=== PATIENT | female | born 1975 | race Caucasian/White ===

== ENCOUNTER 2018-09-21 14:35 | Inpatient (IN) ==
[2018-09-21] MEDS ORDERED: Pantoprazole Inj 40 MG Vial IV.PUSH ONE (14:44)
[2018-09-21] MEDS ORDERED: Morphine Inj 4 MG/ML Vial IV.PUSH ONE (14:44)
[2018-09-21] MEDS ORDERED: Sod Chloride 0.9% Inj 1,000 ML IV.SIG ONE ×2 (14:44→14:58)
--- NOTE | 2018-09-21 14:52 | ED ---
HPI General Chief Complaint: GI Bleed Stated Complaint: Medical Time Seen by Provider: 09/21/18 14:37 Source: patient and RN notes reviewed Mode of arrival: EMS Limitations: no limitations History of Present Illness HPI narrative: 43-year-old female presents to the emergency department via EMS for evaluation of abdominal pain, coffee-ground emesis, dark and tarry stools that is been ongoing for 3 days. Patient reports history of gastric bypass surgery in 2002, peptic ulcer disease. She denies drinking any alcohol or taking any anti-inflammatories. She denies history of GI bleed. Patient denies any syncope. She reports epigastric abdominal pain, 09/04. She reports vomiting and innumerable episodes of diarrhea. Patient has not vomited today. No fevers or chills. Moderate severity. MD complaint: Reports abdominal pain Onset (ago): day(s) (3) Pain Consistency: constant Location: Reports epigastric Severity: moderate Severity scale (1-10): 10 Quality: Reports aching and sharp Radiation: Reports none Migration to: Reports no migration Relieving factors: nothing Exacerbating factors: nothing Associated symptoms: Reports nausea, vomiting, diarrhea, melena and anorexia; Denies fever, chills, constipation, dysuria, hematemesis, hematochezia, hematuria and syncope Related Data Home Medications Medication Instructions Recorded Confirmed pantoprazole 40 mg PO DAILY 09/21/18 09/21/18 sucralfate 1 g PO Q6H 09/21/18 09/21/18 Allergies Allergy/AdvReac Type Severity Reaction Status Date / Time ondansetron [From Zofran] Allergy Itching, Verified 09/21/18 14:45 Generalized Review of Systems ROS: all other systems reviewed are negative PMFSH Family History Family History Other CAD (coronary artery disease) Social History Social History Substance History: No History of Abuse Second Hand Smoke Exposure: Yes Smoking Status: Current every day smoker Tobacco Type: Cigarettes How Often Do You Have a Drink Containing Alcohol: 4 or more times a week Recent Travel in [facility] within the Last 8 Weeks: No Recent Out of Country Travel within the Last 8 Weeks: No Exam Narrative Exam Narrative: GENERAL: Well-nourished, well-developed female patient, afebrile SKIN: Focused skin assessment warm/dry. HEAD: Normocephalic. Atraumatic EYES: No scleral icterus. No injection or drainage. NECK: Supple, trachea midline. No JVD or lymphadenopathy. CARDIOVASCULAR: Regular rate and rhythm without murmurs, gallops, or rubs. RESPIRATORY: Breath sounds equal bilaterally. No accessory muscle use. Lung sounds are clear to auscultation GASTROINTESTINAL: Abdomen soft and nondistended. Patient has tenderness over epigastric area. MUSCULOSKELETAL: No cyanosis, or edema. BACK: Nontender without obvious deformity. No CVA tenderness. RECTAL EXAM: No masses or tenderness, stool is black. Hemoccult is grossly positive. This was done with RN at bedside Procedures Hemaprompt Stool Procedural Steps Taken: specimen placed in appropriate test area, developer placed on specimen and control areas and controls appropriately positive and negative Hemaprompt Stool Result: positive Course Initial Documented Vital Signs Temperature 98.7 F 09/21/18 14:46 Pulse Rate 125 H 09/21/18 14:46 Respiratory Rate 15 09/21/18 14:46 Blood Pressure 96/56 L 09/21/18 14:46 Pulse Oximetry 100 09/21/18 14:46 Last Documented Vital Signs Temperature 98.7 F 09/21/18 14:46 Pulse Rate 96 H 09/21/18 15:21 Respiratory Rate 15 09/21/18 14:46 Blood Pressure 120/68 09/21/18 15:21 Pulse Oximetry 100 09/21/18 14:56 Medical Decision Making VIRIDIANA Attestation VIRIDIANA supervised visit: Yes Attestation: I, Dr. Leal, have reviewed the advance practice practitioner's documentation and am in agreement, met with the patient face to face, made the diagnosis, and the medical decision making was done by me. *My assessment and Findings: Bleeding peptic ulcer vs. perforated ulcer vs. esophageal varices vs. johnny terrell tear vs. colitis 43yo F with PMH of alcohol abuse (quit 8 months ago), bleeding peptic ulcer 1 year ago seen at [facility] here with c/o hematemesis and black tarry stool for 3 days. Pt told me that last time she vomited dark red blood was 7am and it was a cupful. Pt has left upper abdominal tenderness to palpation. Does not remember if she had scope last year when she had bleeding. Initially pt was hypotensive and tachycardic. Pt improved with NS IVF. Given her vital signs, history of alcohol abuse, and hematemesis history, pt placed on octreotide drip and protonix drip. Pt Labs reviewed, no leukocytosis. H/H is low at 10.2/ 30.5. Vital signs improved after IVF. Magnesium is low at 1.2, replaced. Elevated LFTs but pt is a chronic alcohol abuser. Lipase normal. UA showed WBC 6. Alcohol is elevated at 168. Pt is now hemodynamically stable and has not had any episode of hematemesis here. CXR showed no free air. CT a/p showed diffuse thickening involving the wall ascending and proximal transverse colon suggesting acute colitis. Covered with antibiotics. Will admit for GI bleed and colitis. Accepted to Dr. Soriano's service. [facility] Narrative Medical decision making narrative: 43-year-old female presents to the emergency department for evaluation of coffee-ground emesis, black and tarry stools, again epigastric abdominal pain for 3 days with history of peptic ulcer disease. IV access obtained. CBC, CMP, lipase, magnesium, PTT, PT/INR, alcohol level, type and screen, UA, urine test are ordered and pending. Patient is given normal saline 1 L IV bolus, Reglan 10 mg IV, Protonix 40 mg IV, morphine [address] of abdomen/pelvis with IV contrast is ordered and pending. My attending physician, Dr. Leal, also ordered cxr, protonix drip, octreotide drip. CBC with anemia hemoglobin 10.2, hematocrit 30.5. CMP shows hyponatremia 129, elevated liver enzymes with AST 129, ALT 72. Lipase is 92. Magnesium is 1.2. PTT is 32.7. PT/INR is 13.1/1.3. Alcohol level is 168. UA is pending. UPT is negative. Chest x-ray shows Negative examination. No evidence of free intraperitoneal air. CT abdomen/pelvis shows Diffuse thickening involving the wall the ascending and proximal transverse colon suggesting acute colitis. Clinical correlation is recommended; Markedly enlarged liver with diffuse fatty infiltration; Small right paraumbilical abdominal wall hernia containing only fat. Patient is given magnesium 1 g IV. Patient does admit to drinking alcohol recently. Patient will be admitted for GI bleed, colitis. She verbalizes agreement. Medical Screen Exam Complete: Yes Emergency Medical Condition: Yes Differential Diagnosis Differential Diagnosis: upper GI bleed vs. lower GI bleed vs. pancreatitis vs. anemia Medical Records Medical records reviewed: Yes I reviewed the patient's medical records. Lab Data Result diagrams: 09/21/18 15:10 09/21/18 15:10 POC Results POC Urine Results Negative Lab Results 09/21/18 09/21/18 09/21/18 Range/Units 15:10 15:10 15:10 WBC 9.6 (4.0-11.0) th/mm3 RBC 3.22 L (4.00-5.30) mil/mm3 Hgb 10.2 L (11.6-15.3) gm/dL Hct 30.5 L (35.0-46.0) % MCV 94.8 (80.0-100.0) fL MCH 31.7 (27.0-34.0) pg MCHC 33.4 (32.0-36.0) % RDW 19.7 H (11.6-17.2) % Plt Count 214 (150-450) th/mm3 MPV 9.3 (7.0-11.0) fL Neut % (Auto) 48.2 (16.0-70.0) % Lymph % (Auto) 40.4 (9.0-44.0) % Levy % (Auto) 9.2 H (0.0-8.0) % Eos % (Auto) 1.2 (0.0-4.0) % Baso % (Auto) 1.0 (0.0-2.0) % Neut # (Auto) 4.6 (1.8-7.7) th/mm3 Lymph # (Auto) 3.9 (1.0-4.8) th/mm3 Levy # (Auto) 0.9 (0.0-0.9) th/mm3 Eos # (Auto) 0.1 (0.0-0.4) th/mm3 Baso # (Auto) 0.1 (0.0-0.2) th/mm3 WBC Differential . Differential Comment Auto diff final PT (9.8-11.6) sec INR Ratio APTT (24.3-30.1) sec Sodium 129 L (136-145) meq/L Potassium 3.7 (3.5-5.1) meq/L Chloride 85 L (98-107) meq/L Carbon Dioxide 29.8 (21.0-32.0) meq/L Anion Gap 14 (5-15) meq/L BUN 5 L (7-18) mg/dL Creatinine 0.42 L (0.50-1.00) mg/dL Estimated GFR Greater than 89 (>89) mL/min Random Glucose 92 (74-106) mg/dL Calcium 8.4 L (8.5-10.1) mg/dL Magnesium 1.2 L (1.5-2.5) mg/dL Total Bilirubin 1.3 H (0.2-1.0) mg/dL AST 129 H (15-37) U/L ALT 72 H (10-53) U/L Alkaline Phosphatase 147 H (45-117) U/L Total Protein 7.7 (6.4-8.2) g/dL Albumin 3.4 (3.4-5.0) g/dL Lipase 92 (73-393) U/L Serum Alcohol 168 H (0-5) mg/dL Blood Type B Positive Antibody Screen Negative 09/21/18 Range/Units 16:30 WBC (4.0-11.0) th/mm3 RBC (4.00-5.30) mil/mm3 Hgb (11.6-15.3) gm/dL Hct (35.0-46.0) % MCV (80.0-100.0) fL MCH (27.0-34.0) pg MCHC (32.0-36.0) % RDW (11.6-17.2) % Plt Count (150-450) th/mm3 MPV (7.0-11.0) fL Neut % (Auto) (16.0-70.0) % Lymph % (Auto) (9.0-44.0) % Levy % (Auto) (0.0-8.0) % Eos % (Auto) (0.0-4.0) % Baso % (Auto) (0.0-2.0) % Neut # (Auto) (1.8-7.7) th/mm3 Lymph # (Auto) (1.0-4.8) th/mm3 Levy # (Auto) (0.0-0.9) th/mm3 Eos # (Auto) (0.0-0.4) th/mm3 Baso # (Auto) (0.0-0.2) th/mm3 WBC Differential Differential Comment PT 13.1 H (9.8-11.6) sec INR 1.3 Ratio APTT 32.6 H (24.3-30.1) sec Sodium (136-145) meq/L Potassium (3.5-5.1) meq/L Chloride (98-107) meq/L Carbon Dioxide (21.0-32.0) meq/L Anion Gap (5-15) meq/L BUN (7-18) mg/dL Creatinine (0.50-1.00) mg/dL Estimated GFR (>89) mL/min Random Glucose (74-106) mg/dL Calcium (8.5-10.1) mg/dL Magnesium (1.5-2.5) mg/dL Total Bilirubin (0.2-1.0) mg/dL AST (15-37) U/L ALT (10-53) U/L Alkaline Phosphatase (45-117) U/L Total Protein (6.4-8.2) g/dL Albumin (3.4-5.0) g/dL Lipase (73-393) U/L Serum Alcohol (0-5) mg/dL Blood Type Antibody Screen Imaging Data Radiologist's impression: Abdomen/Pelvis CT 09/21/18 14:44 CONCLUSION: 1. Diffuse thickening involving the wall the ascending and proximal transverse colon suggesting acute colitis. Clinical correlation is recommended. 2. Markedly enlarged liver with diffuse fatty infiltration. 3. Small right paraumbilical abdominal wall hernia containing only fat. Chest X-Ray 09/21/18 15:17 CONCLUSION: Negative examination. No evidence of free intraperitoneal air. Discharge Plan Discharge Disposition Patient Disposition: 30 Still Patient Discharge Details Diagnosis: GI bleed, Colitis Physicians Team ED Provider: Chanelle Leal ED Midlevel Provider: Queenie Luna Primary Care Provider: Primary Care Mago Prajapati Attending Provider: Anant Soriano Other Providers: Yifan Maza Status ED Status: Admitted Patient
[2018-09-21] MEDS ORDERED: Morphine Sulfate Inj 2 MG/ML Vial IV.PUSH ONE (14:58)
[2018-09-21 15:32] LABS: Baso # (Auto) 0.1 th/mm3 (0.0-0.2); Eos # (Auto) 0.1 th/mm3 (0.0-0.4); Eos % (Auto) 1.2 % (0.0-4.0); Hematocrit 30.5 % (35.0-46.0); Hemoglobin 10.2 gm/dL (11.6-15.3); Lymph # (Auto) 3.9 th/mm3 (1.0-4.8); Lymph % (Auto) 40.4 % (9.0-44.0); Mean Corpuscular HGB Conc 33.4 % (32.0-36.0); Mean Corpuscular Hemoglobin 31.7 pg (27.0-34.0); Mean Corpuscular Volume 94.8 fL (80.0-100.0); Mean Platelet Volume 9.3 fL (7.0-11.0); Mono # (Auto) 0.9 th/mm3 (0.0-0.9); Mono % (Auto) 9.2 % (0.0-8.0); Neut # (Auto) 4.6 th/mm3 (1.8-7.7); Neut % (Auto) 48.2 % (16.0-70.0); Platelet Count 214 th/mm3 (150-450); Red Blood Count 3.22 mil/mm3 (4.00-5.30); Red Cell Distribution Width 19.7 % (11.6-17.2); White Blood Count 9.6 th/mm3 (4.0-11.0)
--- NOTE | 2018-09-21 15:42 | XR ---
EXAM DATE: 09/21/2018 3:39 PM EDT AGE/SEX: 43 years / Female INDICATIONS: Free air. Patient states that for the last 3 days she has been vomiting blood and exper iencing black stools. CLINICAL DATA: This is the patient's initial encounter. Patient reports that signs and symptoms have been present for 3 days and indicates a pain score of 5/10. MEDICAL/SURGICAL HISTORY: . Ulcers. Gastric bypass. Gallbladder removal. COMPARISON: [facility] [place], CHEST SINGLE AP, 08/25/2016. . FINDINGS: A single AP view of the chest demonstrates the lungs to be symmetrically aerated without evidence of mass, infiltrate or effusion. The cardiomediastinal contours are unremarkable. No free air is noted . Osseous structures are intact. CONCLUSION: Negative examination. No evidence of free intraperitoneal air. Electronically signed by: Diaz Campbell MD 09/21/2018 3:40 PM EDT
[2018-09-21] MEDS: Octreotide Inj 500 MCG in Sodium Chlor 0.9% Inj 500 ML IV.CONT SCH (15:46)
[2018-09-21 15:49] LABS: Alanine Aminotransferase 72 U/L (10-53); Albumin 3.4 g/dL (3.4-5.0); Alkaline Phosphatase 147 U/L (45-117); Anion Gap 14 meq/L (5-15); Aspartate Aminotransferase 129 U/L (15-37); Blood Urea Nitrogen 5 mg/dL (7-18); Calcium 8.4 mg/dL (8.5-10.1); Carbon Dioxide 29.8 meq/L (21.0-32.0); Chloride 85 meq/L (98-107); Glomerular Filtration Rate Greater Than 89 mL/min (>89); Glucose,Random 92 mg/dL (74-106); Lipase 92 U/L (73-393); Magnesium 1.2 mg/dL (1.5-2.5); Potassium 3.7 meq/L (3.5-5.1); Sodium 129 meq/L (136-145); Total Protein 7.7 g/dL (6.4-8.2)
[2018-09-21 15:54] LABS: Alcohol 168 mg/dL (0-5)
[2018-09-21] MEDS ORDERED: Pantoprazole Inj 80 MG in Sodium Chlor 0.9% Inj 100 ML IV.CONT SCH (16:00)
[2018-09-21 16:58] LABS: Activated Partial Thrombo Time 32.6 sec (24.3-30.1); INR 1.3 Ratio; Prothrombin Time 13.1 sec (9.8-11.6)
--- NOTE | 2018-09-21 17:23 | CT ---
EXAM DATE: 09/21/2018 5:15 PM EDT AGE/SEX: 43 years / Female INDICATIONS: Bloody emesis and left upper abdomen pain for three days. CLINICAL DATA: This is the patient's initial encounter. Patient reports that signs and symptoms have been present for 3 days and indicates a pain score of 7/10. MEDICAL/SURGICAL HISTORY: Gastrointestinal bleed. Gastric bypass. Cholecystectomy. ORAL CONTRAST: No oral contrast ingested. RADIATION DOSE: 6.84 CTDI (mGy) COMPARISON: [facility] [place] ABDOMEN & PELVIS W CONTRAST, 08/01/2018. [facility] [place], [place] ABDOMEN & PELVIS W CONTRAST, 08/25/2016. . TECHNIQUE: Multiple contiguous axial images were obtained through the abdomen and pelvis following b olus infusion of 85 ml Omnipaque 350 (iohexol) nonionic water-soluble contrast as a single exam dos e. No oral contrast ingested. Using automated exposure control and adjustment of the mA and/or kV ac cording to patient size, radiation dose was kept as low as reasonably achievable to obtain optimal di agnostic quality images. DICOM format image data is available electronically for review and comparis on. FINDINGS: Lower Lungs: The visualized lower lungs are clear. Liver: The liver is markedly enlarged and demonstrates severe diffuse decreased attenuation consisten t with probable severe fatty infiltration. There is no dilation of the biliary tree. Status post chol ecystectomy. Spleen: Homogeneous density without enlargement. Pancreas: Unremarkable without mass or calcification. Kidneys: Normal in size and shape. No evidence of mass or hydronephrosis. Adrenal Glands: Unremarkable. Aorta: The aorta and proximal iliac vessels are grossly unremarkable without aneurysmal dilation. Bowel/Mesentery: There is diffuse thickening involving the wall the ascending and proximal transverse colon suggesting acute colitis. Clinical correlation is recommended. Gastric bypass surgery has been performed. Abdominal Wall: Small right paraumbilical abdominal wall hernia containing only fat is noted. Retroperitoneum: No evidence of adenopathy in the retrocrural, para-aortic, or deep pelvic regions. Bladder: Contours are smooth. Reproductive Organs: No abnormal masses or calcifications seen. Inguinal: The inguinal region is unremarkable without evidence of adenopathy. Bony Structures: Unremarkable. CONCLUSION: 1. Diffuse thickening involving the wall the ascending and proximal transverse colon suggesting acut e colitis. Clinical correlation is recommended. 2. Markedly enlarged liver with diffuse fatty infiltration. 3. Small right paraumbilical abdominal wall hernia containing only fat. Electronically signed by: Diaz Campbell MD 09/21/2018 5:22 PM EDT
[2018-09-21] MEDS ORDERED: Mag Sulf 1 gm/100 ml Premix 100 ML IV.SIG ONE ×2 (17:29→18:00)
[2018-09-21] MEDS ORDERED: Ciprofloxacin 400 MG/200 ML 400 MG/200 ML PIGGYBACK IV.SIG ONE (17:33)
[2018-09-21] MEDS ORDERED: Acetaminophen 325 MG Tablet PO PRN (17:34)
[2018-09-21] MEDS ORDERED: Amoxicillin/Clavulanate 875/125 MG Tablet PO ONE (17:38)
[2018-09-21] MEDS ORDERED: LORazepam 1 MG Tablet PO PRN (17:58)
[2018-09-21] MEDS ORDERED: Haloperidol Inj 5 MG/ML Ampul IV.PUSH PRN (17:58)
--- NOTE | 2018-09-21 18:15 | P.HPIM ---
History of Present Illness Primary Care Physician: No Primary Care Physician Chief Complaint: Abdominal pain History of Present Illness: The patient is a 43-year-old female with past medical history significant for peptic ulcer disease and alcoholism who is presenting to the hospital with abdominal pain. The patient states that she had gastric bypass in 2002 and then developed peptic ulcer disease. She says that for the past few days she has had increasing abdominal pain. The pain is located on the left side of her abdomen. She rates the pain as an 8 out of 10 in severity. She endorses accompanying nausea and vomiting. She says over the past few days she has vomited so much that she has vomited some blood. She says she has been having severe diarrhea for the past few days. She says her stool has had brownish blood in it. She has tried to drink some broth at home but has had a poor appetite for the past few days. She says she received some morphine in the emergency department but that did not help. She said she also received some nausea medication. She says she still drinks half a bottle of vodka daily. She denies any seizures from alcohol abuse. She states she has no intention of quitting smoking. Review of Systems All other systems reviewed negative except as stated in HPI PMFSH - History History Provided By: Patient - Medical History Medical History: Medical History (Last Reviewed 09/21/18 @ 18:09 by Anant Soriano DO) Depression GI bleed Stomach ulcer - Surgical History Surgical History: Surgical History (Last Reviewed 09/21/18 @ 18:09 by Anant Soriano DO) History of gastric bypass Hx of cholecystectomy - Family History Family History: Family History (Last Updated 09/21/18 @ 18:10 by Anant Soriano DO) Other CAD (coronary artery disease) - Social History I have reviewed the patient's Social History: Yes - Tobacco History Second Hand Smoke Exposure: Yes Tobacco Use In Past 30 Days: Yes Smoking Status: Current every day smoker Tobacco Type: Cigarettes - Alcohol History How Often Do You Have a Drink Containing Alcohol: 4 or more times a week - Substance Use History Substance History: No History of Abuse - Travel History Recent Travel in the [place] Within the Last 8 Weeks: No Recent Travel Out of the Country Within the Last 8 Weeks: No - Immunization History Tetanus Immunization: Unsure Medications and Allergies Active Medications: Active Medications Acetaminophen (Tylenol) 650 mg PO Q4H PRN PRN Reason: Temp > 100.4, pain 1-2 Flumazenil (Romazecon Inj) 0.2 mg IV.PUSH Q1M PRN PRN Reason: OVERSEDATION Haloperidol Lactate (Haldol Inj) 1 mg IV.PUSH Q15M PRN PRN Reason: for severe agitation Octreotide Acetate 500 mcg/ (Sodium Chloride) 500.5 mls @ 50.05 mls/hr IV.CONT .Q10H ALEXIS Last Admin: 09/21/18 15:46 Dose: 50 mcg/hr, 50.05 mls/hr Pantoprazole Sodium 80 mg/ (Sodium Chloride) 100 mls @ 10 mls/hr IV.CONT CONT ALEXIS Magnesium Sulfate/Dextrose (Magnesium Sulfate 1 Gm/D5w 100 Ml Premix) 100 mls @ 100 mls/hr IV.SIG ONCE ONE Stop: 09/21/18 18:28 Last Admin: 09/21/18 17:52 Dose: 100 mls/hr Sodium Chloride (Ns Inj) 1,000 mls @ 100 mls/hr IV.CONT .Q10H ALEXIS Lorazepam (Ativan) 1 mg PO Q4H PRN PRN Reason: for CIWA 8-10 Lorazepam (Ativan Inj) 2 mg IV.PUSH Q1H PRN PRN Reason: for CIWA 15-20 Lorazepam (Ativan Inj) 2 mg IV.PUSH Q15M PRN PRN Reason: for CIWA > 20 Lorazepam (Ativan) 2 mg PO Q2H PRN PRN Reason: for CIWA 11-14 Metoclopramide HCl (Reglan Inj) 5 mg IV.PUSH Q6HR PRN; Protocol PRN Reason: NAUSEA OR VOMITING Sodium Chloride (Ns Flush) 2 ml IV.FLUSH PRN PRN PRN Reason: FLUSH AFTER USING IV ACCESS Sucralfate (Carafate) 1 gm PO Q6H [facility] Allergies Allergy/AdvReac Type Severity Reaction Status Date / Time ondansetron [From Zofran] Allergy Itching, Verified 09/21/18 14:45 Generalized Home Medications Medication Instructions Recorded Confirmed Type pantoprazole 40 mg PO DAILY 09/21/18 09/21/18 History sucralfate 1 g PO Q6H 09/21/18 09/21/18 History Exam Vital signs: Vital Signs 09/21/18 14:46 09/21/18 14:56 09/21/18 15:21 Temperature 98.7 F Pulse Rate 125 H 96 H Respiratory Rate 15 Blood Pressure 96/56 L 120/68 Pulse Oximetry 100 100 Intake & Output 09/20/18 09/21/18 09/21/18 18:59 06:59 18:59 Intake Total 1999 Balance 1999 Weight 68.039 kg Intake: IV 1999 NS Inj 1,000 ML @ Wide Open IV. 1999 SIG BOLUS ONE Rx#:[id number] Narrative: GENERAL: Appears much older than stated age. SKIN: Focused skin assessment warm/dry. HEAD: Normocephalic. Atraumatic EYES: No scleral icterus. No injection or drainage. NECK: Supple, trachea midline. No JVD or lymphadenopathy. CARDIOVASCULAR: Regular rate and rhythm without murmurs, gallops, or rubs. RESPIRATORY: Breath sounds equal bilaterally. No accessory muscle use. Clear to auscultation. GASTROINTESTINAL: Abdomen soft and nondistended. Patient has tenderness around the left upper quadrant and epigastric area. MUSCULOSKELETAL: No cyanosis, or edema. NEURO: No gross deficits. Results - Labs CBC & Chem 7: 09/21/18 15:10 09/21/18 15:10 Labs: Short CBC 09/21/18 Range/Units 15:10 WBC 9.6 (4.0-11.0) th/mm3 Hgb 10.2 L (11.6-15.3) gm/dL Hct 30.5 L (35.0-46.0) % Plt Count 214 (150-450) th/mm3 BMP 09/21/18 15:10 Sodium 129 L Potassium 3.7 Chloride 85 L Carbon Dioxide 29.8 BUN 5 L Creatinine 0.42 L Calcium 8.4 L Liver Function 09/21/18 Range/Units 15:10 Total Bilirubin 1.3 H (0.2-1.0) mg/dL AST 129 H (15-37) U/L ALT 72 H (10-53) U/L Alkaline Phosphatase 147 H (45-117) U/L Albumin 3.4 (3.4-5.0) g/dL - Imaging Impressions Abdomen/Pelvis CT 09/21/18 14:44 CONCLUSION: 1. Diffuse thickening involving the wall the ascending and proximal transverse colon suggesting acute colitis. Clinical correlation is recommended. 2. Markedly enlarged liver with diffuse fatty infiltration. 3. Small right paraumbilical abdominal wall hernia containing only fat. Chest X-Ray 09/21/18 15:17 CONCLUSION: Negative examination. No evidence of free intraperitoneal air. Caprini VTE Risk Assessment Caprini VTE Risk Assessment: Moderate/High Risk (score >= 2) Caprini Risk Assessment Model: Point Value = 1 Point Value = 2 Point Value = 3 Point Value = 5 Age 41-60 Minor surgery BMI > 25 kg/m2 Swollen legs Varicose veins or History of unexplained or recurrent spontaneous Oral contraceptives or hormone replacement Sepsis (< 1 month) Serious lung disease, including pneumonia (< 1 month) Abnormal pulmonary function Acute myocardial infarction Congestive heart failure (< 1 month) History of inflammatory bowel disease Medical patient at bed rest Age 61-74 Arthroscopic surgery Major open surgery (> 45 min) Laparoscopic surgery (> 45 min) Malignancy Confined to bed (> 72 hours) Immobilizing plaster cast Central venous access Age >= 75 History of VTE Family history of VTE Factor V Leiden Prothrombin [id number] Lupus anticoagulant Anticardiolipin antibodies Elevated serum homocysteine Heparin-induced thrombocytopenia Other congenital or acquired thrombophilia Stroke (< 1 month) Elective arthroplasty Hip, pelvis, or leg fracture Acute spinal cord injury (< 1 month) Prophylaxis Regimen: Total Risk Factor Score Risk Level Prophylaxis Regimen 0-1 Low Early ambulation 2 Moderate Order ONE of the following: *Sequential Compression Device (SCD) *Heparin 5000 units SQ BID 3-4 Higher Order ONE of the following medications: *Heparin 5000 units SQ TID *Enoxaparin/Lovenox 40 mg SQ daily (WT < 150 kg, CrCl > 30 mL/min) *Enoxaparin/Lovenox 30 mg SQ daily (WT < 150 kg, CrCl > 10-29 mL/min) *Enoxaparin/Lovenox 30 mg SQ BID (WT < 150 kg, CrCl > 30 mL/min) AND/OR *Sequential Compression Device (SCD) 5 or more Highest Order ONE of the following medications: *Heparin 5000 units SQ TID (Preferred with Epidurals) *Enoxaparin/Lovenox 40 mg SQ daily (WT < 150 kg, CrCl > 30 mL/min) *Enoxaparin/Lovenox 30 mg SQ daily (WT < 150 kg, CrCl > 10-29 mL/min) *Enoxaparin/Lovenox 30 mg SQ BID (WT < 150 kg, CrCl > 30 mL/min) AND *Sequential Compression Device (SCD) Assessment and Plan - Plan GIB/ Colitis The pt endorses vomiting blood and having diarrhea with blood in it. Rectal exam in ED positive for blood. CT: Diffuse thickening involving the wall of the ascending and proximal transverse colon suggesting acute colitis; Markedly enlarged liver with diffuse fatty infiltration; Small right paraumbilical abdominal wall hernia containing only fat. -pain control. -GI consult pending. -NPO with IVFs. -continue Protonix and octreotide gtts. -IV Unasyn. -follow CBC and transfuse as needed. Alcohol abuse/ Elevated LFTs The pt drinks a half a bottle of vodka daily. -cessation instruction. -CIWA protocol. -seizure precautions. -EtOH counselor consult. -trend LFTs. Nicotine dependance The pt smokes a pack every two days and has no intentions on quitting. -smoking cessation instruction. Hypomagnesemia/ Hyponatremia Severe, s/t decreased PO intake. -replete magnesium IV and monitor. -check phos levels. PPx: SCDs
[2018-09-21] MEDS: Morphine Inj 4 MG/ML Vial IV.PUSH PRN ×2 (18:43→22:53)
[2018-09-21] MEDS ORDERED: Ampicillin/Sulbactam Inj 3 GM in Sodium Chloride 0.9% Inj 100 ML IV.SIG SCH (19:00)
[2018-09-21 19:17] LABS: Bilirubin,Urine Negative (Negative); Clarity,Urine Clear (Clear); Color,Urine Yellow (Yellw/Straw); Glucose,Urine (UA) Negative (Negative); Leukocyte Esterase,Urine Negative (Negative); Nitrite,Urine Negative (Negative); Specific Gravity,Urine 1.036 (1.002-1.035); Squamous Epithelial Cell,Urine 3 /hpf (0-5)
[2018-09-21] MEDS: Sucralfate 1 GM Tablet PO SCH (20:18)
[2018-09-21] MEDS: Pantoprazole Inj 80 MG in Sodium Chlor 0.9% Inj 100 ML IV.CONT SCH (22:54)
[2018-09-21] MEDS: Sod Chloride 0.9% Inj 1,000 ML IV.CONT SCH (22:55)
[2018-09-22] MEDS: Sucralfate 1 GM Tablet PO SCH ×2 (00:57→06:05)
[2018-09-22] MEDS: Octreotide Inj 500 MCG in Sodium Chlor 0.9% Inj 500 ML IV.CONT SCH (02:20)
[2018-09-22] MEDS: Sod Chloride 0.9% Inj 1,000 ML IV.CONT SCH ×3 (04:36→20:13)
[2018-09-22] MEDS: Ampicillin/Sulbactam Inj 3 GM in Sodium Chloride 0.9% Inj 100 ML IV.SIG SCH ×5 (06:05→18:56)
[2018-09-22] MEDS: Morphine Inj 4 MG/ML Vial IV.PUSH PRN ×4 (06:35→20:53)
[2018-09-22] MEDS: Pantoprazole Inj 80 MG in Sodium Chlor 0.9% Inj 100 ML IV.CONT SCH ×4 (06:41→21:37)
[2018-09-22 06:56] LABS: Baso % (Auto) 0.6 % (0.0-2.0); Eos # (Auto) 0.1 th/mm3 (0.0-0.4); Eos % (Auto) 1.3 % (0.0-4.0); Hematocrit 23.6 % (35.0-46.0); Hemoglobin 7.7 gm/dL (11.6-15.3); Lymph # (Auto) 2.1 th/mm3 (1.0-4.8); Lymph % (Auto) 37.6 % (9.0-44.0); Mean Corpuscular HGB Conc 32.8 % (32.0-36.0); Mean Corpuscular Hemoglobin 31.7 pg (27.0-34.0); Mean Corpuscular Volume 96.6 fL (80.0-100.0); Mean Platelet Volume 9.2 fL (7.0-11.0); Mono # (Auto) 0.4 th/mm3 (0.0-0.9); Mono % (Auto) 6.8 % (0.0-8.0); Neut # (Auto) 2.9 th/mm3 (1.8-7.7); Neut % (Auto) 53.7 % (16.0-70.0); Platelet Count 161 th/mm3 (150-450); Red Blood Count 2.44 mil/mm3 (4.00-5.30); Red Cell Distribution Width 19.7 % (11.6-17.2); White Blood Count 5.5 th/mm3 (4.0-11.0)
[2018-09-22 07:45] LABS: Alanine Aminotransferase 61 U/L (10-53); Albumin 2.9 g/dL (3.4-5.0); Alkaline Phosphatase 144 U/L (45-117); Anion Gap 13 meq/L (5-15); Aspartate Aminotransferase 131 U/L (15-37); Blood Urea Nitrogen 4 mg/dL (7-18); Calcium 6.6 mg/dL (8.5-10.1); Carbon Dioxide 30.4 meq/L (21.0-32.0); Chloride 93 meq/L (98-107); Glomerular Filtration Rate Greater Than 89 mL/min (>89); Glucose,Random 114 mg/dL (74-106); Magnesium 1.7 mg/dL (1.5-2.5); Phosphorus 3.7 mg/dL (2.5-4.9); Sodium 136 meq/L (136-145); Total Protein 6.5 g/dL (6.4-8.2)
[2018-09-22 07:57] LABS: Potassium 2.5 meq/L (3.5-5.1)
--- NOTE | 2018-09-22 09:48 | P.CONGI ---
History of Present Illness Consult date: 09/22/18 Consult reason: GI bleed, colitis Chief complaint: GI Bleed, Colitis History of Present Illness: This is a 43-year-old female who had been in her usual state of health up until the past 3 days before her admission on 09/21/2018. Onset of symptoms include watery diarrhea dark sticky melena stools greater than 5 and a 24-hour. And hematemesis several times over the past 3 days which include streaks of blood as well as a volume of bright red blood on at least 2 occasions. Patient notes normal BM regimen is about 2 times a day soft consistency. Patient does admit to daily alcohol consumption with vodka and increased stressors of the divorce in her life and appears tearful. Patient also has a history of peptic ulcer disease as well as gastric bypass in 2002. EGD was performed greater than 5 years ago and colonoscopy approximately 3 years ago with unremarkable findings according to patient. Patient also notes some left upper quadrant abdominal pain which is fairly constant cramping and sharp sensations. CT scan done on shows wall thickening of the ascending and proximal transverse colon consistent with colitis. Also hepatomegaly and fatty liver disease noted. Patient's currently being managed with IV antibiotics, Ativan for her alcoholic symptoms and octreotide, and Protonix drip. Gastroenterology was consulted to assist with her symptoms and plan of care. Labs were reviewed which showed initial hemoglobin on admission 10.2 now 7.7, PT/INR 1.3, bilirubin 2.1, AST 131 , ALT 61, lipase 92, and albumin 2.9. Patient denies any history of constipation. [facility] - History History Provided By: Patient - Medical History Medical History: Medical History (Last Reviewed 09/21/18 @ 18:09 by Anant Soriano DO) Depression GI bleed Stomach ulcer - Surgical History Surgical History: Surgical History (Last Reviewed 09/21/18 @ 18:09 by Anant Soriano DO) History of gastric bypass Hx of cholecystectomy - Family History Family History: Family History (Last Updated 09/21/18 @ 18:10 by Anant Soriano DO) Other CAD (coronary artery disease) - Tobacco History Second Hand Smoke Exposure: Yes Tobacco Use In Past 30 Days: Yes Smoking Status: Current every day smoker Tobacco Type: Cigarettes - Alcohol History How Often Do You Have a Drink Containing Alcohol: 4 or more times a week - Substance Use History Substance History: No History of Abuse - Travel History Recent Travel in the [place] Within the Last 8 Weeks: No Recent Travel Out of the Country Within the Last 8 Weeks: No - Immunization History Tetanus Immunization: >5 Years Hx Influenza Vaccine This Season: No Medications and Allergies Active Medications: Active Medications Acetaminophen (Tylenol) 650 mg PO Q4H PRN PRN Reason: Temp > 100.4, pain 1-2 Flumazenil (Romazecon Inj) 0.2 mg IV.PUSH Q1M PRN PRN Reason: OVERSEDATION Haloperidol Lactate (Haldol Inj) 1 mg IV.PUSH Q15M PRN PRN Reason: for severe agitation Octreotide Acetate 500 mcg/ (Sodium Chloride) 500.5 mls @ 50.05 mls/hr IV.CONT .Q10H [facility] Last Infusion: 09/22/18 06:05 Dose: 50 mcg/hr, 50.05 mls/hr Sodium Chloride (Ns Inj) 1,000 mls @ 100 mls/hr IV.CONT .Q10H [facility] Last Infusion: 09/22/18 06:05 Dose: 100 mls/hr Ampicillin Sodium/Sulbactam (Sodium 3 gm/ Sodium Chloride) 100 mls @ 200 mls/ hr IV.SIG Q6H [facility] Last Infusion: 09/22/18 06:38 Dose: Infused Pantoprazole Sodium 80 mg/ (Sodium Chloride) 100 mls @ 10 mls/hr IV.CONT Q10H [facility] Last Admin: 09/22/18 08:27 Dose: 10 mls/hr Potassium Chloride 20 meq/Magnesium Sulfate 2 gm/ Sodium Chloride 1,014 mls @ 500 mls/hr IV.SIG ONCE ONE Stop: 09/22/18 13:01 Lorazepam (Ativan) 1 mg PO Q4H PRN PRN Reason: for CIWA 8-10 Lorazepam (Ativan Inj) 2 mg IV.PUSH Q1H PRN PRN Reason: for CIWA 15-20 Last Admin: 09/21/18 20:17 Dose: 2 mg Lorazepam (Ativan Inj) 2 mg IV.PUSH Q15M PRN PRN Reason: for CIWA > 20 Lorazepam (Ativan) 2 mg PO Q2H PRN PRN Reason: for CIWA 11-14 Last Admin: 09/22/18 08:27 Dose: 2 mg Metoclopramide HCl (Reglan Inj) 5 mg IV.PUSH Q6HR PRN; Protocol PRN Reason: NAUSEA OR VOMITING Last Admin: 09/22/18 06:36 Dose: 5 mg Morphine Sulfate (Morphine Inj) 4 mg IV.PUSH Q4H PRN PRN Reason: BREAKTHROUGH PAIN Last Admin: 09/22/18 06:35 Dose: 4 mg Oxycodone HCl (Roxicodone) 5 mg PO Q4H PRN PRN Reason: pain 3-10 Last Admin: 09/22/18 06:14 Dose: 5 mg Sodium Chloride (Ns Flush) 2 ml IV.FLUSH PRN PRN PRN Reason: FLUSH AFTER USING IV ACCESS Last Admin: 09/21/18 20:18 Dose: 2 ml Allergies Allergy/AdvReac Type Severity Reaction Status Date / Time ondansetron [From Zofran] Allergy Itching, Verified 09/21/18 14:45 Generalized Home Medications Medication Instructions Recorded Confirmed Type pantoprazole 40 mg PO DAILY 09/21/18 09/21/18 History sucralfate 1 g PO Q6H 09/21/18 09/21/18 History Exam Vital signs: Vital Signs 09/21/18 14:46 09/21/18 14:56 09/21/18 15:21 Temperature 98.7 F Pulse Rate 125 H 96 H Respiratory Rate 15 Blood Pressure 96/56 L 120/68 Pulse Oximetry 100 100 09/21/18 18:42 09/21/18 20:00 09/21/18 21:00 Temperature 97.8 F Pulse Rate 113 H 108 H 105 H Respiratory Rate 14 18 Blood Pressure 108/66 97/63 L Pulse Oximetry 97 09/21/18 21:30 09/22/18 00:00 09/22/18 03:00 Temperature 97.9 F Pulse Rate 109 H Respiratory Rate 20 18 20 Blood Pressure 101/63 Pulse Oximetry 94 L 09/22/18 04:00 09/22/18 08:00 Temperature 97.6 F 97.8 F Pulse Rate 102 H 95 H Respiratory Rate 20 18 Blood Pressure 98/64 L 93/54 L Pulse Oximetry 97 98 Intake & Output 09/21/18 09/22/18 09/22/18 18:59 06:59 18:59 Intake Total 1999 1668.5 / 1668.5 Balance 1999 1668.5 / 1668.5 Weight 68.039 kg 68.1 kg Intake: IV 1999 1668.5 / 1668.5 SandoSTATIN Inj 500 MCG In NS 645.5 / 645.5 Inj 500 ML @ 50 MCG/HR 50.05 mls/hr IV.CONT .Q10H [facility] Rx#: [id number] Protonix Inj 80 MG In NS Inj 73 / 73 100 ML @ 10 mls/hr IV.CONT Q10H [facility] Rx#:[id number] NS Inj 1,000 ML @ 100 mls/hr IV 550 / 550 .CONT .Q10H [facility] Rx#:[id number] Unasyn Inj 3 GM In NS Inj 100 200 / 200 ML @ 200 mls/hr IV.SIG Q6H [facility] Rx#:[id number] Magnesium Sulfate 1 gm/D5W 100 200 / 200 ml Premix 100 ML @ 100 mls/hr IV.SIG ONCE ONE Rx#:[id number] NS Inj 1,000 ML @ Wide Open IV. 1999 SIG BOLUS ONE Rx#:[id number] Oral 0 / 0 Other: # Voids 2 Date of Last Bowel Movement 09/21/18 Results - Labs CBC & Chem 7: 09/22/18 05:18 09/22/18 05:18 Labs: Laboratory Results - last 24 hr 09/21/18 09/21/18 09/21/18 15:10 15:10 15:10 WBC 9.6 RBC 3.22 L Hgb 10.2 L Hct 30.5 L MCV 94.8 MCH 31.7 MCHC 33.4 RDW 19.7 H Plt Count 214 MPV 9.3 Neut % (Auto) 48.2 Lymph % (Auto) 40.4 Greer % (Auto) 9.2 H Eos % (Auto) 1.2 Baso % (Auto) 1.0 Neut # (Auto) 4.6 Lymph # (Auto) 3.9 Greer # (Auto) 0.9 Eos # (Auto) 0.1 Baso # (Auto) 0.1 WBC Differential . Differential Comment Auto diff final PT INR APTT Sodium 129 L Potassium 3.7 Chloride 85 L Carbon Dioxide 29.8 Anion Gap 14 BUN 5 L Creatinine 0.42 L Estimated GFR Greater than 89 Random Glucose 92 Calcium 8.4 L Prot Corrected Calcium Phosphorus Magnesium 1.2 L Total Bilirubin 1.3 H Direct Bilirubin Indirect Bilirubin AST 129 H ALT 72 H Alkaline Phosphatase 147 H Total Protein 7.7 Albumin 3.4 Lipase 92 Urine Color Urine Clarity Urine pH Ur Specific Celor[place] Urine Protein Urine Glucose (UA) Urine Ketones Urine Occult Blood Urine Nitrate Urine Bilirubin Urine Urobilinogen Ur Leukocyte Esterase Urine RBC Urine WBC Ur Squamous Epith Cells Micro UA Comment Ur Microscopic Review Urine Culture Comments Serum Alcohol 168 H Blood Type B Positive Antibody Screen Negative 09/21/18 09/21/18 09/22/18 16:30 18:21 05:18 WBC 5.5 RBC 2.44 L Hgb 7.7 L D Hct 23.6 L MCV 96.6 MCH 31.7 MCHC 32.8 RDW 19.7 H Plt Count 161 MPV 9.2 Neut % (Auto) 53.7 Lymph % (Auto) 37.6 Greer % (Auto) 6.8 Eos % (Auto) 1.3 Baso % (Auto) 0.6 Neut # (Auto) 2.9 Lymph # (Auto) 2.1 Greer # (Auto) 0.4 Eos # (Auto) 0.1 Baso # (Auto) 0.0 WBC Differential . Differential Comment Auto diff final PT 13.1 H INR 1.3 APTT 32.6 H Sodium Potassium Chloride Carbon Dioxide Anion Gap BUN Creatinine Estimated GFR Random Glucose Calcium Prot Corrected Calcium Phosphorus Magnesium Total Bilirubin Direct Bilirubin Indirect Bilirubin AST ALT Alkaline Phosphatase Total Protein Albumin Lipase Urine Color Yellow Urine Clarity Clear Urine pH 6.0 Ur Specific Celoron 1.036 H Urine Protein Negative Urine Glucose (UA) Negative Urine Ketones Negative Urine Occult Blood Moderate H Urine Nitrate Negative Urine Bilirubin Negative Urine Urobilinogen 2.0 H Ur Leukocyte Esterase Negative Urine RBC 1 Urine WBC 2 Ur Squamous Epith Cells 3 Micro UA Comment Culture not ind Ur Microscopic Review Not Reportable Urine Culture Comments Culture not ind Serum Alcohol Blood Type Antibody Screen 09/22/18 05:18 WBC RBC Hgb Hct MCV MCH MCHC RDW Plt Count MPV Neut % (Auto) Lymph % (Auto) Greer % (Auto) Eos % (Auto) Baso % (Auto) Neut # (Auto) Lymph # (Auto) Greer # (Auto) Eos # (Auto) Baso # (Auto) WBC Differential Differential Comment PT INR APTT Sodium 136 Potassium 2.5 L* D Chloride 93 L D Carbon Dioxide 30.4 Anion Gap 13 BUN 4 L Creatinine 0.34 L Estimated GFR Greater than 89 Random Glucose 114 H Calcium 6.6 L* D Prot Corrected Calcium 6.9 L* Phosphorus 3.7 Magnesium 1.7 Total Bilirubin 2.1 H Direct Bilirubin 0.6 H Indirect Bilirubin 1.5 H AST 131 H ALT 61 H Alkaline Phosphatase 144 H Total Protein 6.5 D Albumin 2.9 L Lipase Urine Color Urine Clarity Urine pH Ur Specific [place] Urine Protein Urine Glucose (UA) Urine Ketones Urine Occult Blood Urine Nitrate Urine Bilirubin Urine Urobilinogen Ur Leukocyte Esterase Urine RBC Urine WBC Ur Squamous Epith Cells Micro UA Comment Ur Microscopic Review Urine Culture Comments Serum Alcohol Blood Type Antibody Screen - Imaging Impressions Abdomen/Pelvis CT 09/21/18 14:44 CONCLUSION: 1. Diffuse thickening involving the wall the ascending and proximal transverse colon suggesting acute colitis. Clinical correlation is recommended. 2. Markedly enlarged liver with diffuse fatty infiltration. 3. Small right paraumbilical abdominal wall hernia containing only fat. Chest X-Ray 09/21/18 15:17 CONCLUSION: Negative examination. No evidence of free intraperitoneal air. Assessment and Plan - Plan 43-year-old female who had been in her usual state of health up until the past 3 days before her admission on 09/21/2018. Onset of symptoms include watery diarrhea dark sticky melena stools greater than 5 and a 24-hour. And hematemesis several times over the past 3 days which include streaks of blood as well as a volume of bright red blood on at least 2 occasions. Patient notes normal BM regimen is about 2 times a day soft consistency. Patient does admit to daily alcohol consumption with vodka and increased stressors of the divorce in her life and appears tearful. Patient also has a history of peptic ulcer disease as well as gastric bypass in 2002. EGD was performed greater than 5 years ago and colonoscopy approximately 3 years ago with unremarkable findings according to patient. Patient also notes some left upper quadrant abdominal pain which is fairly constant cramping and sharp sensations. CT scan done on shows wall thickening of the ascending and proximal transverse colon consistent with colitis. Also hepatomegaly and fatty liver disease noted. Patient's currently being managed with IV antibiotics, Ativan for her alcoholic symptoms and octreotide, and Protonix drip. Gastroenterology was consulted to assist with her symptoms and plan of care. Labs were reviewed which showed initial hemoglobin on admission 10.2 now 7.7, PT/INR 1.3, bilirubin 2.1, AST 131 , ALT 61, lipase 92, and albumin 2.9. Patient denies any history of constipation. Hematemesis, off and on for the past 3 days which includes variable volumes of bright red blood. Possible varices History and current alcoholism, increased stressors. Hyperbilirubinemia and transaminitis consistent with alcoholic hepatitis Ascending and proximal transverse colitis, seen on CT scan Symptoms of uncontrolled diarrhea stools, and melena stools History of gastric bypass in 2002 Plan Diet n.p.o. for now Consent for EGD with possible banding Continue octreotide and Protonix drip for now Antibiotics for her colitis per attending initiated Stool studies for C. difficile, WBC count, pathogens, ova and parasites Monitor labs which do show trending down of hemoglobin transfuse as necessary Bowel regimen as needed Further recommendations to follow Supportive care Patient was seen per myself and Dr. Diaz, note was written on his behalf
[2018-09-22] MEDS ORDERED: Ketamine Inj 50 MG/5 ML Syringe IV.PUSH ONE (10:19)
[2018-09-22] MEDS ORDERED: Albumin Human 25% Inj 100 ML IV.SIG ONE (10:20)
[2018-09-22] MEDS ORDERED: Phenylephrine/NS 1000 MCG/10ML Syringe IV.PUSH ONE (10:43)
[2018-09-22] MEDS ORDERED: Succinylcholine Inj 100 MG/5 ML Syringe IV.PUSH ONE (10:43)
[2018-09-22] MEDS ORDERED: Lidocaine PF 1% Inj 5 ML Syringe OTHER ONE (10:43)
[2018-09-22] MEDS ORDERED: Potassium Chloride Inj 20 MEQ, Magnesium Sulfate Inj 2 GM in Sod Chloride 0.9% Inj 1,00... IV.SIG ONE (11:00)
[2018-09-22 11:14] LABS: Albumin 2.5 g/dL (3.4-5.0)
[2018-09-22 11:16] LABS: Total Protein 5.4 g/dL (6.4-8.2)
[2018-09-22 11:26] LABS: Mean Corpuscular HGB Conc 33.3 % (32.0-36.0); Mean Corpuscular Hemoglobin 31.7 pg (27.0-34.0); Mean Platelet Volume 8.6 fL (7.0-11.0); Platelet Count 153 th/mm3 (150-450); Red Blood Count 2.02 mil/mm3 (4.00-5.30); Red Cell Distribution Width 19.3 % (11.6-17.2); White Blood Count 4.8 th/mm3 (4.0-11.0)
--- NOTE | 2018-09-22 11:27 | GIPROC ---
[facility] [address] [facility]. [facility], [address] EGD PROCEDURE REPORT EXAM DATE: 09/22/2018 PATIENT NAME: Erica Solomon MR #: [id number] BIRTHDATE: 1975 ATTENDING: Raúl Diaz MD ORDER #: [id number] [place]HALT RAKER: Lucio Claire and Maricel Otero STATUS: inpatient INDICATIONS: The patient is a 43 yr old female here for an EGD due to hematemesis and H/O gastric bypass PROCEDURE PERFORMED: EGD w/ control of bleeding MEDICATIONS: None and Per Anesthesia. TOPICAL ANESTHETIC: none CONSENT: The patient understands the risks and benefits of the procedure and understands that these risks include, but are not limited to: sedation, allergic reaction, infection, perforation and/or bleeding. Alternative means of evaluation and treatment include, among others: physical exam, x-rays, and/or surgical intervention. The patient elects to proceed with this endoscopic procedure. medical equipment was checked for proper function. Hand hygiene and appropriate measures for infection prevention was taken. After the risks, benefits and alternatives of the procedure were thoroughly explained, Informed consent was verified, confirmed and timeout was successfully executed by the treatment team. The patient was anesthetized with topical anesthesia and the Pentax EG-[id number] endoscope was introduced through the mouth and advanced to the mid jejunum. Retroflexion was not performed The gastroscope was then slowly withdrawn and removed. ESOPHAGUS: The mucosa of the esophagus appeared normal. STOMACH: A gastric bypass was found at the gastro-jejunal anastamosis. Ulceration was seen at the site. SRH/Vissible vessel. Hemostasis was attempted by placing three hemoclips on the bleeding site(s). Submucosal injection of epinephrine 1:10,000 was performed around the bleeding site with complete hemostasis achieved. JEJUNUM: The exam showed no abnormalities in the jejunum. ADVERSE EVENTS: There were no complications. IMPRESSIONS: 1. The esophagus appeared normal 2. Gastric bypass was found at the gastro-jejunal anastamosis; Hemostasis was attempted by placing three hemoclips on the bleeding site(s); Submucosal injection of epinephrine 1:10,000 was performed around the bleeding site 3. The exam showed no abnormalities in the jejunum 4. Retroflexion was not performed RECOMMENDATIONS: Continue PPI PATIENT CONDITION: stable DISPOSITION: Inpatient REPEAT EXAM: Return as needed for EGD Raúl Diaz MD eSigned: Raúl Diaz MD 09/22/2018 11:27 AM cc: PATIENT NAME: Erica Solomon MR#: [id number]
[2018-09-22 11:34] LABS: Hematocrit 19.2 % (35.0-46.0); Hemoglobin 6.4 gm/dL (11.6-15.3)
[2018-09-22 11:35] LABS: INR 1.1 Ratio; Prothrombin Time 10.7 sec (9.8-11.6)
[2018-09-22 11:44] LABS: Anion Gap 11 meq/L (5-15); Blood Urea Nitrogen 3 mg/dL (7-18); Calcium 6.3 mg/dL (8.5-10.1); Carbon Dioxide 29.3 meq/L (21.0-32.0); Chloride 96 meq/L (98-107); Glomerular Filtration Rate Greater Than 89 mL/min (>89); Glucose,Random 118 mg/dL (74-106); Potassium 3.6 meq/L (3.5-5.1); Sodium 136 meq/L (136-145)
[2018-09-22] MEDS ORDERED: Octreotide Inj 500 MCG in Sodium Chlor 0.9% Inj 500 ML IV.CONT SCH (12:00)
[2018-09-22 12:05] LABS: Total Protein 5.1 g/dL (6.4-8.2)
[2018-09-22] MEDS ORDERED: *morphine SULFATE 4 MG/ML PERIprocedure ONLY ONE (12:14)
--- NOTE | 2018-09-22 12:15 | P.PN ---
Subjective Interval history: Nursing denies any deterioration since last night. However after pt's EGD I was notified that the patient is being transferred to the ICU. She did require hemostasis clamping. Blood count dropped from 7.7-6.4. No clinical bleeding was noted by the nurses from the rectum. Physical Exam Vital signs: Vital Signs 09/21/18 14:46 09/21/18 14:56 09/21/18 15:21 Temperature 98.7 F Pulse Rate 125 H 96 H Respiratory Rate 15 Blood Pressure 96/56 L 120/68 Pulse Oximetry 100 100 09/21/18 18:42 09/21/18 20:00 09/21/18 21:00 Temperature 97.8 F Pulse Rate 113 H 108 H 105 H Respiratory Rate 14 18 Blood Pressure 108/66 97/63 L Pulse Oximetry 97 09/21/18 21:30 09/22/18 00:00 09/22/18 03:00 Temperature 97.9 F Pulse Rate 109 H Respiratory Rate 20 18 20 Blood Pressure 101/63 Pulse Oximetry 94 L 09/22/18 04:00 09/22/18 08:00 09/22/18 09:00 Temperature 97.6 F 97.8 F Pulse Rate 102 H 95 H 95 H Respiratory Rate 20 18 Blood Pressure 98/64 L 93/54 L Pulse Oximetry 97 98 09/22/18 11:54 Temperature 97.6 F Pulse Rate 100 H Respiratory Rate 35 H Blood Pressure 98/55 L Pulse Oximetry 100 Intake & Output 09/21/18 09/22/18 09/22/18 18:59 06:59 18:59 Intake Total 1999 1668.5 / 1668.5 1127 / 1127 Balance 1999 1668.5 / 1668.5 1127 / 1127 Weight 68.039 kg 68.1 kg Intake: IV 1999 1668.5 / 1668.5 127 / 127 SandoSTATIN Inj 500 MCG In NS 645.5 / 645.5 Inj 500 ML @ 50 MCG/HR 50.05 mls/hr IV.CONT .Q10H [facility] Rx#: [id number] Protonix Inj 80 MG In NS Inj 73 / 73 127 / 127 100 ML @ 10 mls/hr IV.CONT Q10H [facility] Rx#:[id number] NS Inj 1,000 ML @ 100 mls/hr IV 550 / 550 .CONT .Q10H ON LICENSE OF [facility] Rx#:[id number] Unasyn Inj 3 GM In NS Inj 100 200 / 200 ML @ 200 mls/hr IV.SIG Q6H ON LICENSE OF [facility] Rx#:[id number] Magnesium Sulfate 1 gm/D5W 100 200 / 200 ml Premix 100 ML @ 100 mls/hr IV.SIG ONCE ONE Rx#:[id number] NS Inj 1,000 ML @ Wide Open IV. 1999 SIG BOLUS ONE Rx#:[id number] Oral 0 / 0 Anesthesia Amount 1000 / 1000 Intake (Blood Product) Amt 0 / 0 Rbc As-3 Leukoreduced Unit 0 / 0 [id number] Other: # Voids 2 Date of Last Bowel Movement 09/21/18 09/21/18 Narrative: Patient was seen in PACU Seems to be sedated In no acute distress, unlabored breathing, clear lungs bilaterally Abdomen is soft, nondistended, mild to moderate tenderness to palpation Results - Labs CBC & Chem 7: 09/22/18 20:31 09/22/18 11:00 Laboratory Results - last 24 hr 09/21/18 09/21/18 09/21/18 15:10 15:10 15:10 WBC 9.6 RBC 3.22 L Hgb 10.2 L Hct 30.5 L MCV 94.8 MCH 31.7 MCHC 33.4 RDW 19.7 H Plt Count 214 MPV 9.3 Neut % (Auto) 48.2 Lymph % (Auto) 40.4 [place] % (Auto) 9.2 H Eos % (Auto) 1.2 Baso % (Auto) 1.0 Neut # (Auto) 4.6 Lymph # (Auto) 3.9 [place] # (Auto) 0.9 Eos # (Auto) 0.1 Baso # (Auto) 0.1 WBC Differential . Differential Comment Auto diff final PT INR APTT Sodium 129 L Potassium 3.7 Chloride 85 L Carbon Dioxide 29.8 Anion Gap 14 BUN 5 L Creatinine 0.42 L Estimated GFR Greater than 89 Random Glucose 92 Calcium 8.4 L Prot Corrected Calcium Phosphorus Magnesium 1.2 L Total Bilirubin 1.3 H Direct Bilirubin Indirect Bilirubin AST 129 H ALT 72 H Alkaline Phosphatase 147 H Ammonia Total Protein 7.7 Albumin 3.4 Lipase 92 Urine Color Urine Clarity Urine pH Ur Specific [place] Urine Protein Urine Glucose (UA) Urine Ketones Urine Occult Blood Urine Nitrate Urine Bilirubin Urine Urobilinogen Ur Leukocyte Esterase Urine RBC Urine WBC Ur Squamous Epith Cells Micro UA Comment Ur Microscopic Review Urine Culture Comments Serum Alcohol 168 H Blood Type B Positive Antibody Screen Negative MTS Gel Crossmatch 09/21/18 09/21/18 09/22/18 16:30 18:21 05:18 WBC 5.5 RBC 2.44 L Hgb 7.7 L D Hct 23.6 L MCV 96.6 MCH 31.7 MCHC 32.8 RDW 19.7 H Plt Count 161 MPV 9.2 Neut % (Auto) 53.7 Lymph % (Auto) 37.6 [place] % (Auto) 6.8 Eos % (Auto) 1.3 Baso % (Auto) 0.6 Neut # (Auto) 2.9 Lymph # (Auto) 2.1 [place] # (Auto) 0.4 Eos # (Auto) 0.1 Baso # (Auto) 0.0 WBC Differential . Differential Comment Auto diff final PT 13.1 H INR 1.3 APTT 32.6 H Sodium Potassium Chloride Carbon Dioxide Anion Gap BUN Creatinine Estimated GFR Random Glucose Calcium Prot Corrected Calcium Phosphorus Magnesium Total Bilirubin Direct Bilirubin Indirect Bilirubin AST ALT Alkaline Phosphatase Ammonia Total Protein Albumin Lipase Urine Color Yellow Urine Clarity Clear Urine pH 6.0 Ur Specific [place] 1.036 H Urine Protein Negative Urine Glucose (UA) Negative Urine Ketones Negative Urine Occult Blood Moderate H Urine Nitrate Negative Urine Bilirubin Negative Urine Urobilinogen 2.0 H Ur Leukocyte Esterase Negative Urine RBC 1 Urine WBC 2 Ur Squamous Epith Cells 3 Micro UA Comment Culture not ind Ur Microscopic Review Not Reportable Urine Culture Comments Culture not ind Serum Alcohol Blood Type Antibody Screen MTS Gel Crossmatch 09/22/18 09/22/18 09/22/18 05:18 10:09 10:29 WBC RBC Hgb Hct MCV MCH MCHC RDW Plt Count MPV Neut % (Auto) Lymph % (Auto) [place] % (Auto) Eos % (Auto) Baso % (Auto) Neut # (Auto) Lymph # (Auto) [place] # (Auto) Eos # (Auto) Baso # (Auto) WBC Differential Differential Comment PT INR APTT Sodium 136 Potassium 2.5 L* D Chloride 93 L D Carbon Dioxide 30.4 Anion Gap 13 BUN 4 L Creatinine 0.34 L Estimated GFR Greater than 89 Random Glucose 114 H Calcium 6.6 L* D Prot Corrected Calcium 6.9 L* Phosphorus 3.7 Magnesium 1.7 Total Bilirubin 2.1 H Direct Bilirubin 0.6 H Indirect Bilirubin 1.5 H AST 131 H ALT 61 H Alkaline Phosphatase 144 H Ammonia 39 H Total Protein 6.5 D Albumin 2.9 L Lipase Urine Color Urine Clarity Urine pH Ur Specific [place] Urine Protein Urine Glucose (UA) Urine Ketones Urine Occult Blood Urine Nitrate Urine Bilirubin Urine Urobilinogen Ur Leukocyte Esterase Urine RBC Urine WBC Ur Squamous Epith Cells Micro UA Comment Ur Microscopic Review Urine Culture Comments Serum Alcohol Blood Type Antibody Screen MTS Gel Crossmatch See Detail 09/22/18 09/22/18 09/22/18 11:00 11:00 WBC 4.8 RBC 2.02 L Hgb 6.4 L* Hct 19.2 L* MCV 95.0 MCH 31.7 MCHC 33.3 RDW 19.3 H Plt Count 153 MPV 8.6 Neut % (Auto) Lymph % (Auto) [place] % (Auto) Eos % (Auto) Baso % (Auto) Neut # (Auto) Lymph # (Auto) [place] # (Auto) Eos # (Auto) Baso # (Auto) WBC Differential Differential Comment PT INR APTT Sodium 136 Potassium 3.6 D Chloride 96 L Carbon Dioxide 29.3 Anion Gap 11 BUN 3 L Creatinine 0.20 L Estimated GFR Greater than 89 Random Glucose 118 H Calcium 6.3 L* Prot Corrected Calcium 7.3 L* Phosphorus Magnesium Total Bilirubin 1.6 H Direct Bilirubin 0.6 H Indirect Bilirubin 1.0 H AST 125 H ALT 52 Alkaline Phosphatase 119 H Ammonia Total Protein 5.4 L D 5.1 L Albumin 2.5 L Lipase Urine Color Urine Clarity Urine pH Ur Specific [place] Urine Protein Urine Glucose (UA) Urine Ketones Urine Occult Blood Urine Nitrate Urine Bilirubin Urine Urobilinogen Ur Leukocyte Esterase Urine RBC Urine WBC Ur Squamous Epith Cells Micro UA Comment Ur Microscopic Review Urine Culture Comments Serum Alcohol Blood Type Antibody Screen MTS Gel Crossmatch 09/22/18 11:00 WBC RBC Hgb Hct MCV MCH MCHC RDW Plt Count MPV Neut % (Auto) Lymph % (Auto) [place] % (Auto) Eos % (Auto) Baso % (Auto) Neut # (Auto) Lymph # (Auto) [place] # (Auto) Eos # (Auto) Baso # (Auto) WBC Differential Differential Comment PT 10.7 INR 1.1 APTT Sodium Potassium Chloride Carbon Dioxide Anion Gap BUN Creatinine Estimated GFR Random Glucose Calcium Prot Corrected Calcium Phosphorus Magnesium Total Bilirubin Direct Bilirubin Indirect Bilirubin AST ALT Alkaline Phosphatase Ammonia Total Protein Albumin Lipase Urine Color Urine Clarity Urine pH Ur Specific [place] Urine Protein Urine Glucose (UA) Urine Ketones Urine Occult Blood Urine Nitrate Urine Bilirubin Urine Urobilinogen Ur Leukocyte Esterase Urine RBC Urine WBC Ur Squamous Epith Cells Micro UA Comment Ur Microscopic Review Urine Culture Comments Serum Alcohol Blood Type Antibody Screen MTS Gel Crossmatch - Imaging Impressions Abdomen/Pelvis CT 09/21/18 14:44 CONCLUSION: 1. Diffuse thickening involving the wall the ascending and proximal transverse colon suggesting acute colitis. Clinical correlation is recommended. 2. Markedly enlarged liver with diffuse fatty infiltration. 3. Small right paraumbilical abdominal wall hernia containing only fat. Chest X-Ray 09/21/18 15:17 CONCLUSION: Negative examination. No evidence of free intraperitoneal air. Assessment and Plan - Plan 43 y/o WF here for GI bleed. GIB/ Colitis -Patient is currently status post EGD with source of upper GI bleed identified, status post clamping and epinephrine injection. Continue Protonix drip and octreotide, patient being transferred to ICU per GI -Continue Unasyn for colitis noted on CT -Transfusing 2 units of blood, recheck H&H Hypokalemia - 2/2 GI losses, IV and PO replacement ordered, rechecking Alcohol abuse/ Elevated LFTs The pt drinks a half a bottle of vodka daily. -cessation instruction. -CIWA protocol. -seizure precautions. -EtOH counselor consult. -trend LFTs. Nicotine dependance The pt smokes a pack every two days and has no intentions on quitting. -smoking cessation instruction. PPx: SCDs Discharge Planning: Being transferred to ICU for closer monitoring.
[2018-09-22] MEDS ORDERED: fentaNYL Citrate Inj 100 MCG/2 ML Ampul ONE (13:18)
[2018-09-22] MEDS: metroNIDAZOLE 500 MG Tablet PO SCH ×2 (13:56→20:12)
[2018-09-22 21:54] LABS: Hematocrit 30.9 % (35.0-46.0); Hemoglobin 10.4 gm/dL (11.6-15.3); Mean Corpuscular HGB Conc 33.6 % (32.0-36.0); Mean Corpuscular Hemoglobin 31.2 pg (27.0-34.0); Mean Platelet Volume 8.8 fL (7.0-11.0); Platelet Count 136 th/mm3 (150-450); Red Blood Count 3.33 mil/mm3 (4.00-5.30); Red Cell Distribution Width 18.3 % (11.6-17.2); White Blood Count 7.1 th/mm3 (4.0-11.0)
[2018-09-23] MEDS: Ampicillin/Sulbactam Inj 3 GM in Sodium Chloride 0.9% Inj 100 ML IV.SIG SCH ×3 (00:01→11:01)
[2018-09-23] MEDS: Sod Chloride 0.9% Inj 1,000 ML IV.CONT SCH ×4 (00:42→17:12)
[2018-09-23] MEDS: Morphine Inj 4 MG/ML Vial IV.PUSH PRN ×6 (01:36→21:14)
[2018-09-23] MEDS: Pantoprazole Inj 80 MG in Sodium Chlor 0.9% Inj 100 ML IV.CONT SCH ×2 (05:18→11:01)
[2018-09-23] MEDS: metroNIDAZOLE 500 MG Tablet PO SCH (09:01)
--- NOTE | 2018-09-23 10:49 | P.PNGI ---
Subjective Interval history: Patient sitting in bed, she is complaining that she wants to suck on some ice chips, when questioned about the nausea vomiting she said it only pills and since then she did not have any symptom, she feels that her mouth is very dry and that is very uncomfortable for her, she denied nausea or vomiting at this time <Yifan Maza - Last Filed: 09/23/18 11:35> Physical Exam Vital signs: Vital Signs 09/22/18 11:33 09/22/18 11:45 09/22/18 11:54 Temperature 97.6 F 97.6 F Pulse Rate 100 H 100 H 100 H Respiratory Rate 35 H 25 H 35 H Blood Pressure 98/55 L 105/63 98/55 L Pulse Oximetry 100 100 100 09/22/18 12:00 09/22/18 12:11 09/22/18 12:13 Temperature 97.5 F L 97.5 F L Pulse Rate 99 H 100 H 100 H Respiratory Rate 24 25 H 25 H Blood Pressure 111/74 111/74 111/74 Pulse Oximetry 100 95 94 L 09/22/18 12:15 09/22/18 12:18 09/22/18 16:00 Temperature 97.5 F L 98.9 F Pulse Rate 98 H 98 H 96 H Respiratory Rate 22 22 20 Blood Pressure 106/70 105/71 122/88 Pulse Oximetry 98 100 97 09/22/18 20:00 09/22/18 20:55 09/22/18 22:22 Temperature 97.9 F Pulse Rate 90 Respiratory Rate 20 20 Blood Pressure 114/78 Pulse Oximetry 98 98 09/23/18 00:00 09/23/18 01:38 09/23/18 04:00 Temperature 98.3 F 97.7 F Pulse Rate 88 84 Respiratory Rate 20 20 22 Blood Pressure 119/74 126/79 Pulse Oximetry 96 94 L 09/23/18 05:59 09/23/18 07:00 09/23/18 07:45 Temperature Pulse Rate Respiratory Rate 22 Blood Pressure Pulse Oximetry 96 98 09/23/18 08:00 09/23/18 09:00 Temperature 98.0 F Pulse Rate 87 92 H Respiratory Rate 28 H Blood Pressure 118/78 Pulse Oximetry 100 Intake & Output 09/22/18 09/23/18 09/23/18 18:59 06:59 18:59 Intake Total 4091 / 4091 1264.0 / 1264.0 100 / 100 Balance 4091 / 4091 1264.0 / 1264.0 100 / 100 Weight 77.1 kg Intake: IV 1691 / 1691 1264.0 / 1264.0 100 / 100 SandoSTATIN Inj 500 MCG In NS 514.0 / 514.0 Inj 500 ML @ 25 MCG/HR 25.02 mls/hr IV.CONT .Q20H1M [facility] Rx#: [id number] Protonix Inj 80 MG In NS Inj 127 / 127 100 / 100 100 ML @ 10 mls/hr IV.CONT Q10H [facility] Rx#:[id number] NS Inj 1,000 ML @ 100 mls/hr IV 450 / 450 450 / 450 .CONT .Q10H [facility] Rx#:[id number] Unasyn Inj 3 GM In NS Inj 100 100 / 100 300 / 300 ML @ 200 mls/hr IV.SIG Q6H [facility] Rx#:[id number] KCl Inj 20 MEQ Magnesium 1014 / 1014 Sulfate Inj 2 GM In NS Inj 1, 000 ML @ 500 mls/hr IV.SIG ONCE ONE Rx#:[id number] Oral 0 / 0 Anesthesia Amount 1999 / 1999 Intake (Blood Product) Amt 400 / 400 Rbc As-3 Leukoreduced Unit 0 / 0 [id number] Rbc As-3 Leukoreduced Unit 400 / 400 [id number] Other: # Voids 2 5 Date of Last Bowel Movement 09/21/18 09/23/18 09/23/18 # Bowel Movements 3 <Andria Hopkins M - Last Filed: 09/23/18 10:44> Vital signs: Vital Signs 09/22/18 11:45 09/22/18 11:54 09/22/18 12:00 Temperature 97.6 F Pulse Rate 100 H 100 H 99 H Respiratory Rate 25 H 35 H 24 Blood Pressure 105/63 98/55 L 111/74 Pulse Oximetry 100 100 100 09/22/18 12:11 09/22/18 12:13 09/22/18 12:15 Temperature 97.5 F L 97.5 F L 97.5 F L Pulse Rate 100 H 100 H 98 H Respiratory Rate 25 H 25 H 22 Blood Pressure 111/74 111/74 106/70 Pulse Oximetry 95 94 L 98 09/22/18 12:18 09/22/18 16:00 09/22/18 20:00 Temperature 98.9 F 97.9 F Pulse Rate 98 H 96 H 90 Respiratory Rate 22 20 20 Blood Pressure 105/71 122/88 114/78 Pulse Oximetry 100 97 98 09/22/18 20:55 09/22/18 22:22 09/23/18 00:00 Temperature 98.3 F Pulse Rate 88 Respiratory Rate 20 20 Blood Pressure 119/74 Pulse Oximetry 98 96 09/23/18 01:38 09/23/18 04:00 09/23/18 05:59 Temperature 97.7 F Pulse Rate 84 Respiratory Rate 20 22 22 Blood Pressure 126/79 Pulse Oximetry 94 L 09/23/18 07:00 09/23/18 07:45 09/23/18 08:00 Temperature 98.0 F Pulse Rate 87 Respiratory Rate 28 H Blood Pressure 118/78 Pulse Oximetry 96 98 100 09/23/18 09:00 Temperature Pulse Rate 92 H Respiratory Rate Blood Pressure Pulse Oximetry Intake & Output 09/22/18 09/23/18 09/23/18 18:59 06:59 18:59 Intake Total 4091 / 4091 1264.0 / 1264.0 100 / 100 Balance 4091 / 4091 1264.0 / 1264.0 100 / 100 Weight 77.1 kg Intake: IV 1691 / 1691 1264.0 / 1264.0 100 / 100 SandoSTATIN Inj 500 MCG In NS 514.0 / 514.0 Inj 500 ML @ 25 MCG/HR 25.02 mls/hr IV.CONT .Q20H1M [facility] Rx#: [id number] Protonix Inj 80 MG In NS Inj 127 / 127 100 / 100 100 ML @ 10 mls/hr IV.CONT Q10H [facility] Rx#:[id number] NS Inj 1,000 ML @ 100 mls/hr IV 450 / 450 450 / 450 .CONT .Q10H [facility] Rx#:[id number] Unasyn Inj 3 GM In NS Inj 100 100 / 100 300 / 300 ML @ 200 mls/hr IV.SIG Q6H [facility] Rx#:[id number] KCl Inj 20 MEQ Magnesium 1014 / 1014 Sulfate Inj 2 GM In NS Inj 1, 000 ML @ 500 mls/hr IV.SIG ONCE ONE Rx#:[id number] Oral 0 / 0 Anesthesia Amount 1999 Intake (Blood Product) Amt 400 / 400 Rbc As-3 Leukoreduced Unit 0 / 0 [id number] Rbc As-3 Leukoreduced Unit 400 / 400 [id number] Other: # Voids 2 5 Date of Last Bowel Movement 09/21/18 09/23/18 09/23/18 # Bowel Movements 3 <Yifan Maza - Last Filed: 09/23/18 11:35> Results - Labs CBC & Chem 7: 09/22/18 20:31 09/22/18 11:00 Laboratory Results - last 24 hr 09/22/18 09/22/18 09/22/18 10:09 10:29 10:29 WBC RBC Hgb Hct MCV MCH MCHC RDW Plt Count MPV PT INR Sodium Potassium Chloride Carbon Dioxide Anion Gap BUN Creatinine Estimated GFR Random Glucose Calcium Prot Corrected Calcium Total Bilirubin 1.6 H Direct Bilirubin 0.6 H Indirect Bilirubin 1.0 H AST 125 H ALT 52 Alkaline Phosphatase 119 H Ammonia 39 H Total Protein 5.4 L D Albumin 2.5 L Nasal Screen MRSA (PCR) Stl C.difficile DNA Amp St C. diff Tox Epid 027 MTS Gel Crossmatch See Detail 09/22/18 09/22/18 09/22/18 11:00 11:00 11:00 WBC 4.8 RBC 2.02 L Hgb 6.4 L* Hct 19.2 L* MCV 95.0 MCH 31.7 MCHC 33.3 RDW 19.3 H Plt Count 153 MPV 8.6 PT 10.7 INR 1.1 Sodium 136 Potassium 3.6 D Chloride 96 L Carbon Dioxide 29.3 Anion Gap 11 BUN 3 L Creatinine 0.20 L Estimated GFR Greater than 89 Random Glucose 118 H Calcium 6.3 L* Prot Corrected Calcium 7.3 L* Total Bilirubin Direct Bilirubin Indirect Bilirubin AST ALT Alkaline Phosphatase Ammonia Total Protein 5.1 L Albumin Nasal Screen MRSA (PCR) Stl C.difficile DNA Amp St C. diff Tox Epid 027 MTS Gel Crossmatch 09/22/18 09/22/18 09/23/18 13:25 20:31 01:40 WBC 7.1 RBC 3.33 L Hgb 10.4 L D Hct 30.9 L MCV 93.0 MCH 31.2 MCHC 33.6 RDW 18.3 H Plt Count 136 L MPV 8.8 PT INR Sodium Potassium Chloride Carbon Dioxide Anion Gap BUN Creatinine Estimated GFR Random Glucose Calcium Prot Corrected Calcium Total Bilirubin Direct Bilirubin Indirect Bilirubin AST ALT Alkaline Phosphatase Ammonia Total Protein Albumin Nasal Screen MRSA (PCR) Not detected Stl C.difficile DNA Amp Positive H St C. diff Tox Epid 027 Negative MTS Gel Crossmatch <Andria Hopkins - Last Filed: 09/23/18 10:44> - Labs CBC & Chem 7: 09/22/18 20:31 09/22/18 11:00 Laboratory Results - last 24 hr 09/22/18 09/22/18 09/22/18 10:09 11:00 11:00 WBC 4.8 RBC 2.02 L Hgb 6.4 L* Hct 19.2 L* MCV 95.0 MCH 31.7 MCHC 33.3 RDW 19.3 H Plt Count 153 MPV 8.6 PT INR Sodium 136 Potassium 3.6 D Chloride 96 L Carbon Dioxide 29.3 Anion Gap 11 BUN 3 L Creatinine 0.20 L Estimated GFR Greater than 89 Random Glucose 118 H Calcium 6.3 L* Prot Corrected Calcium 7.3 L* Total Protein 5.1 L Nasal Screen MRSA (PCR) Stool C.difficile Ag Stool C.difficile Toxin Stl C.difficile DNA Amp St C. diff Tox Epid 027 MTS Gel Crossmatch See Detail 09/22/18 09/22/18 09/22/18 11:00 13:25 20:31 WBC 7.1 RBC 3.33 L Hgb 10.4 L D Hct 30.9 L MCV 93.0 MCH 31.2 MCHC 33.6 RDW 18.3 H Plt Count 136 L MPV 8.8 PT 10.7 INR 1.1 Sodium Potassium Chloride Carbon Dioxide Anion Gap BUN Creatinine Estimated GFR Random Glucose Calcium Prot Corrected Calcium Total Protein Nasal Screen MRSA (PCR) Not detected Stool C.difficile Ag Stool C.difficile Toxin Stl C.difficile DNA Amp St C. diff Tox Epid 027 MTS Gel Crossmatch 09/23/18 01:40 WBC RBC Hgb Hct MCV MCH MCHC RDW Plt Count MPV PT INR Sodium Potassium Chloride Carbon Dioxide Anion Gap BUN Creatinine Estimated GFR Random Glucose Calcium Prot Corrected Calcium Total Protein Nasal Screen MRSA (PCR) Stool C.difficile Ag Positive H Stool C.difficile Toxin Negative Stl C.difficile DNA Amp Positive H St C. diff Tox Epid 027 Negative MTS Gel Crossmatch Microbiology 09/23/18 01:40 Stool Stool for WBCs - Final Rare WBC's <Yifan Maza - Last Filed: 09/23/18 11:35> Assessment and Plan - Plan 43-year-old female who had been in her usual state of health up until the past 3 days before her admission on 09/21/2018. Onset of symptoms include watery diarrhea dark sticky melena stools greater than 5 and a 24-hour. And hematemesis several times over the past 3 days which include streaks of blood as well as a volume of bright red blood on at least 2 occasions. Patient notes normal BM regimen is about 2 times a day soft consistency. Patient does admit to daily alcohol consumption with vodka and increased stressors of the divorce in her life and appears tearful. Patient also has a history of peptic ulcer disease as well as gastric bypass in 2002. EGD was performed greater than 5 years ago and colonoscopy approximately 3 years ago with unremarkable findings according to patient. Patient also notes some left upper quadrant abdominal pain which is fairly constant cramping and sharp sensations. CT scan done on shows wall thickening of the ascending and proximal transverse colon consistent with colitis. Also hepatomegaly and fatty liver disease noted. Patient's currently being managed with IV antibiotics, Ativan for her alcoholic symptoms and octreotide, and Protonix drip. Gastroenterology was consulted to assist with her symptoms and plan of care. Labs were reviewed which showed initial hemoglobin on admission 10.2 now 7.7, PT/INR 1.3, bilirubin 2.1, AST 131 , ALT 61, lipase 92, and albumin 2.9. Patient denies any history of constipation. Hematemesis, off and on for the past 3 days which includes variable volumes of bright red blood. Possible varices History and current alcoholism, increased stressors. Hyperbilirubinemia and transaminitis consistent with alcoholic hepatitis Ascending and proximal transverse colitis, seen on CT scan Symptoms of uncontrolled diarrhea stools, and melena stools History of gastric bypass in 200209/23/2018 patient is status post EGD on 09/22/2018 with findings including Esophagus normal gastric bypass was found at the gastro-jejunal anastomosis. Ulceration was seen at the site. SRH/Visible vessel. Hemostasis was attempted by placing three hemoclips on the bleeding site(s). Submucosal injection of epinephrine 1:10,000 was performed around the bleeding site with complete hemostasis achieved. No complications Labs reviewed C. difficile DNA positive, other C. difficile test are pending Stool studies pending The patient continues with nausea and some vomiting clear fluids. No bright red bleeding seen. Increased anxiety this a.m. over not being able to eat or drink Need to continue to monitor for any bright red bleeding any acute changes in hemoglobin, melena stools continue last BM Plan Diet n.p.o. , no withdrawals no sucking on hard candy, no ice chips for now until patient is not having nausea or vomiting Biopsies are pending Continue octreotide and Protonix drip for now Stool studies pending Monitor labs, special attention to hemoglobin and transfuse as needed, call GI if any acute hematemesis noted Further recommendations to follow Supportive care Patient was seen per myself and Dr. Maza, note was written on his behalf <Andria Hopkins - Last Filed: 09/23/18 10:44> - Attending Attestation I had a long discussion with the patient we will let her use some ice chips but I told her that if she started having any nausea or vomiting this will be stopped until the symptom completely resolved, we will monitor hemoglobin and make sure that there is no active bleeding, she will need upper endoscopy in 2- month for evaluation and ensuring the healing of the ulcer <Yifan Maza - Last Filed: 09/23/18 11:35>
--- NOTE | 2018-09-23 11:59 | P.PN ---
Subjective Interval history: Nursing reports that the patient is dry heaving and almost vomiting even with sips of water with her medicine. Has been calm until we walk in the room where the patient is almost hysterically complaining of hunger. Physical Exam Vital signs: Vital Signs 09/22/18 12:00 09/22/18 12:11 09/22/18 12:13 Temperature 97.5 F L 97.5 F L Pulse Rate 99 H 100 H 100 H Respiratory Rate 24 25 H 25 H Blood Pressure 111/74 111/74 111/74 Pulse Oximetry 100 95 94 L 09/22/18 12:15 09/22/18 12:18 09/22/18 16:00 Temperature 97.5 F L 98.9 F Pulse Rate 98 H 98 H 96 H Respiratory Rate 22 22 20 Blood Pressure 106/70 105/71 122/88 Pulse Oximetry 98 100 97 09/22/18 20:00 09/22/18 20:55 09/22/18 22:22 Temperature 97.9 F Pulse Rate 90 Respiratory Rate 20 20 Blood Pressure 114/78 Pulse Oximetry 98 98 09/23/18 00:00 09/23/18 01:38 09/23/18 04:00 Temperature 98.3 F 97.7 F Pulse Rate 88 84 Respiratory Rate 20 20 22 Blood Pressure 119/74 126/79 Pulse Oximetry 96 94 L 09/23/18 05:59 09/23/18 07:00 09/23/18 07:45 Temperature Pulse Rate Respiratory Rate 22 Blood Pressure Pulse Oximetry 96 98 09/23/18 08:00 09/23/18 09:00 Temperature 98.0 F Pulse Rate 87 92 H Respiratory Rate 28 H Blood Pressure 118/78 Pulse Oximetry 100 Intake & Output 09/22/18 09/23/18 09/23/18 18:59 06:59 18:59 Intake Total 4091 / 4091 1264.0 / 1264.0 100 / 100 Balance 4091 / 4091 1264.0 / 1264.0 100 / 100 Weight 77.1 kg Intake: IV 1691 / 1691 1264.0 / 1264.0 100 / 100 SandoSTATIN Inj 500 MCG In NS 514.0 / 514.0 Inj 500 ML @ 25 MCG/HR 25.02 mls/hr IV.CONT .Q20H1M [facility] Rx#: [id number] Protonix Inj 80 MG In NS Inj 127 / 127 100 / 100 100 ML @ 10 mls/hr IV.CONT Q10H [facility] Rx#:[id number] NS Inj 1,000 ML @ 100 mls/hr IV 450 / 450 450 / 450 .CONT .Q10H [facility] Rx#:[id number] Unasyn Inj 3 GM In NS Inj 100 100 / 100 300 / 300 ML @ 200 mls/hr IV.SIG Q6H [facility] Rx#:[id number] KCl Inj 20 MEQ Magnesium 1014 / 1014 Sulfate Inj 2 GM In NS Inj 1, 000 ML @ 500 mls/hr IV.SIG ONCE ONE Rx#:[id number] Oral 0 / 0 Anesthesia Amount 1999 Intake (Blood Product) Amt 400 / 400 Rbc As-3 Leukoreduced Unit 0 / 0 [id number] Rbc As-3 Leukoreduced Unit 400 / 400 [id number] Other: # Voids 2 5 Date of Last Bowel Movement 09/21/18 09/23/18 09/23/18 # Bowel Movements 3 Narrative: Minimal tenderness to palpation of the abdomen, otherwise is soft and nondistended No jaundice, no lower extremity edema Appears quite anxious Otherwise is in no respiratory distress clear lungs bilaterally Results - Labs CBC & Chem 7: 09/22/18 20:31 09/22/18 11:00 Laboratory Results - last 24 hr 09/22/18 09/22/18 09/22/18 10:09 11:00 13:25 WBC RBC Hgb Hct MCV MCH MCHC RDW Plt Count MPV Prot Corrected Calcium 7.3 L* Total Protein 5.1 L Nasal Screen MRSA (PCR) Not detected Stool C.difficile Ag Stool C.difficile Toxin Stl C.difficile DNA Amp St C. diff Tox Epid 027 MTS Gel Crossmatch See Detail 09/22/18 09/23/18 20:31 01:40 WBC 7.1 RBC 3.33 L Hgb 10.4 L D Hct 30.9 L MCV 93.0 MCH 31.2 MCHC 33.6 RDW 18.3 H Plt Count 136 L MPV 8.8 Prot Corrected Calcium Total Protein Nasal Screen MRSA (PCR) Stool C.difficile Ag Positive H Stool C.difficile Toxin Negative Stl C.difficile DNA Amp Positive H St C. diff Tox Epid 027 Negative MTS Gel Crossmatch Microbiology 10/29/18 01:40 Stool Stool for WBCs - Final Rare WBC's Assessment and Plan - Plan 43 y/o WF here for GI bleed. GIB -Patient is currently status post EGD with source of upper GI bleed identified with a pulsating vessel, status post clamping and epinephrine injection. Continue Protonix drip and octreotide, maintain in ICU for today given still intermittent persistent nausea -H&H is stable status post transfusion yesterday C diff colitis - on flagyl; will stop unasyn and switch Flagyl from twice daily to IV 3 times daily Hypokalemia -Secondary to GI losses improving with supplementation Alcohol abuse/ Elevated LFTs The pt drinks a half a bottle of vodka daily. -cessation instruction. -CIWA protocol. -seizure precautions. -EtOH counselor consult. -trend LFTs. Nicotine dependance The pt smokes a pack every two days and has no intentions on quitting. -smoking cessation instruction. PPx: SCDs, avoid as a correlation given bleeding risk Discharge Planning: keep in ICU today; still not cleared due to delicate GI bleeding status
[2018-09-23 20:11] LABS: Anion Gap 11 meq/L (5-15); Calcium 6.1 mg/dL (8.5-10.1); Carbon Dioxide 27.7 meq/L (21.0-32.0); Chloride 100 meq/L (98-107); Glomerular Filtration Rate Greater Than 89 mL/min (>89); Glucose,Random 69 mg/dL (74-106); Sodium 139 meq/L (136-145)
[2018-09-23 20:13] LABS: Potassium 2.7 meq/L (3.5-5.1)
[2018-09-23 20:28] LABS: Total Protein 5.8 g/dL (6.4-8.2)
[2018-09-23] MEDS ORDERED: Mag Sulf 1 gm/100 ml Premix 100 ML IV.SIG ONE (20:35)
[2018-09-23] MEDS: Potassium Chlor 20 mEq Premix 20 MEQ/100 ML PIGGYBACK IV.SIG SCH (22:00)
[2018-09-24] MEDS: Potassium Chlor 20 mEq Premix 20 MEQ/100 ML PIGGYBACK IV.SIG SCH ×3 (00:21→05:23)
[2018-09-24] MEDS: Pantoprazole Inj 80 MG in Sodium Chlor 0.9% Inj 100 ML IV.CONT SCH ×3 (00:28→18:08)
[2018-09-24] MEDS: Morphine Inj 4 MG/ML Vial IV.PUSH PRN ×5 (01:56→21:15)
[2018-09-24 06:45] LABS: Anion Gap 13 meq/L (5-15); Calcium 6.1 mg/dL (8.5-10.1); Carbon Dioxide 22.2 meq/L (21.0-32.0); Chloride 100 meq/L (98-107); Glomerular Filtration Rate Greater Than 89 mL/min (>89); Glucose,Random 65 mg/dL (74-106); Magnesium 1.4 mg/dL (1.5-2.5); Potassium 3.5 meq/L (3.5-5.1); Sodium 135 meq/L (136-145)
[2018-09-24 07:19] LABS: Total Protein 5.4 g/dL (6.4-8.2)
[2018-09-24] MEDS: Sod Chloride 0.9% Inj 1,000 ML IV.CONT SCH ×3 (07:45→18:08)
[2018-09-24] MEDS ORDERED: Calcium Chloride Inj 1 GM in Sodium Chlor 0.9% Inj 100 ML IV.SIG ONE ×2 (09:29→11:00)
--- NOTE | 2018-09-24 09:40 | P.PN ---
Subjective Interval history: Patient doing well. Patient has been tolerating ice chips well with no further episodes of emesis times 2 days. Patient reports having a bowel movement yesterday that was formed with normal color, denies bleeding and dark stools. Physical Exam Vital signs: Vital Signs 09/23/18 12:00 09/23/18 16:00 09/23/18 20:00 Temperature 98.3 F 97.6 F 98.1 F Pulse Rate 88 87 84 Respiratory Rate 25 H 22 21 Blood Pressure 123/77 120/80 134/82 Pulse Oximetry 98 100 98 09/24/18 00:00 09/24/18 04:00 09/24/18 07:29 Temperature 97.9 F 98.3 F Pulse Rate 94 H 88 Respiratory Rate 19 22 Blood Pressure 130/78 126/87 Pulse Oximetry 100 99 93 L Intake & Output 09/23/18 09/24/18 09/24/18 18:59 06:59 18:59 Intake Total 1350 / 1350 1420 / 1420 1000 / 1000 Balance 1350 / 1350 1420 / 1420 1000 / 1000 Weight 77.2 kg Intake: IV 750 / 750 700 / 700 1000 / 1000 Protonix Inj 80 MG In NS Inj 100 / 100 100 / 100 100 ML @ 10 mls/hr IV.CONT Q10H [facility] Rx#:[id number] NS Inj 1,000 ML @ 100 mls/hr IV 450 / 450 1000 / 1000 .CONT .Q10H [facility] Rx#:[id number] Unasyn Inj 3 GM In NS Inj 100 100 / 100 ML @ 200 mls/hr IV.SIG Q6H [facility] Rx#:[id number] Magnesium Sulfate 1 gm/D5W 100 100 / 100 ml Premix 100 ML @ 100 mls/hr IV.SIG ONCE ONE Rx#:[id number] KCl 20 mEq Premix Inj 20 meq In 300 / 300 100 ml @ 50 mls/hr IV.SIG Q2H [facility] Rx#:[id number] Flagyl 500 MG Inj 100 ML @ 100 100 / 100 200 / 200 mls/hr IV.SIG Q8H [facility] Rx#: [id number] Oral 600 / 600 720 / 720 Other: # Voids 2 5 Date of Last Bowel Movement 09/23/18 09/24/18 # Bowel Movements 3 2 Narrative: GENERAL: Well-nourished female, in NAD, lying comfortably in bed SKIN: Warm and dry. HEENT: Normocephalic. No scleral icterus. No injection or drainage. PERRLA. MOM. NECK: Supple, trachea midline. No JVD or lymphadenopathy. CARDIOVASCULAR: Regular rate and rhythm without murmurs, gallops, or rubs. RESPIRATORY: Breath sounds equal bilaterally. No accessory muscle use. GASTROINTESTINAL: Abdomen soft, non-tender, nondistended. MUSCULOSKELETAL: No cyanosis, or edema. BACK: Nontender without obvious deformity. No CVA tenderness. NEURO: AAO x3, no focal deficits, motor system 5/5 x 4, speech clear. Results - Labs CBC & Chem 7: 09/22/18 20:31 09/24/18 05:56 Laboratory Results - last 24 hr 09/23/18 09/23/18 09/24/18 01:40 18:59 05:56 Sodium 139 135 L Potassium 2.7 L* D 3.5 D Chloride 100 100 Carbon Dioxide 27.7 22.2 Anion Gap 11 13 BUN Less than 1 L Less than 1 L Creatinine 0.24 L 0.20 L Estimated GFR Greater than 89 Greater than 89 Random Glucose 69 L 65 L Calcium 6.1 L* 6.1 L* Prot Corrected Calcium 6.7 L* 6.9 L* Magnesium 1.4 L Total Protein 5.8 L D 5.4 L Stool C.difficile Ag Positive H Stool C.difficile Toxin Negative Microbiology 09/23/18 01:40 Stool Enteric Pathogens (PCR) - Final No enteric pathogens detected by PCR (No Salmonella sp., Shigella sp., Campylobacter sp., Yersinia enterocolitica, Vibrio sp., Norovirus, or EHEC (Shiga Toxin 1 or Shiga Toxin 2) detected. 09/23/18 01:40 Stool Cryptosporidium Antigen - Final Negative - No Cryptosporicium antigen detected In selected cases of patients with a history of immunosuppression or foreign travel, a full ova and parasites examination may be desired. Contact the microbiology lab if full workup is indicated and subit another specimen for testing. 09/23/18 01:40 Stool Giardia Antigen (SUZANNE) - Final Negative - No Giardia Antigen detected In selected cases of patients with a history of immunosuppression or foreign travel, a full ova and parasites examination may be desired. Contact the microbiology lab if full workup is indicated and subit another specimen for testing. 09/23/18 01:40 Stool Stool for WBCs - Final Rare WBC's Assessment and Plan - Assessment (1) GI bleed Code(s): K92.2 - Gastrointestinal hemorrhage, unspecified Status: Acute - Plan 43 y/o CF with PMHx of Alcohol Abuse admitted for inpatient mgmt of GI bleed/ Colitis s/p EGD with bleeding source identified, s/p 2u pRBC's on 09/22 for Hgb 6.5, now stable for transfer to floor, HD#4 1. GI Bleed/C. Dif Colitis s/p EGD with source of upper GI bleed identified, s/p clamping and epinephrine injection Continue Protonix drip and Octreotide s/p Unasyn now on Clarithromycin/Flagyl PO started on 09/22 CT ABD +colitis +C. Dif on 09/23, GI assisting with mgmt Continue Morphine/Oxy PRN NPO on 's, tolerating ice chips Per GI Reccs on 09/23: Diet n.p.o. , no withdrawals no sucking on hard candy, no ice chips for now until patient is not having nausea or vomiting Biopsies are pending Continue octreotide and Protonix drip for now Stool studies pending Monitor labs, special attention to hemoglobin and transfuse as needed, call GI if any acute hematemesis noted Further recommendations to follow Supportive care 2. Acute Blood Loss Anemia Secondary to GI bleed Hgb 10.4 on 09/22 s/p 2U pRBC's for Hgb 6.5 on 09/22 Pending AM CBC 3. Hypocalcemia/Hyponatremia Na 125, on NS, F/U BMP in AM Ca 6.4, likely secondary to transfusion Will replace today x1 Follow-up in AM 4. Hx of Alcohol abuse/Elevated LFT's Due to alcohol abuse Continue CIWA protocol, EtOH counselor consult LFT's elevated on 09/22, follow-up in AM We will obtain Hepatitis panel 5. Tobacco Abuse Encourage cessation, risks discussed 6. DVT prophylaxis: SCD's 7. Disposition: Medically stable for transfer to floor pending bed. Follow-up GI recommendations and STAT CBC. Code Status: full Discussed Condition With: patient, Rn (1) GI bleed Qualifiers: GI bleed type/associated pathology: unspecified gastrointestinal hemorrhage type Qualified Code(s): K92.2 - Gastrointestinal hemorrhage, unspecified
[2018-09-24 11:18] LABS: Baso # (Auto) 0.1 th/mm3 (0.0-0.2); Baso % (Auto) 0.9 % (0.0-2.0); Eos # (Auto) 0.2 th/mm3 (0.0-0.4); Eos % (Auto) 2.1 % (0.0-4.0); Hematocrit 29.7 % (35.0-46.0); Hemoglobin 10.3 gm/dL (11.6-15.3); Lymph # (Auto) 2.3 th/mm3 (1.0-4.8); Lymph % (Auto) 30.9 % (9.0-44.0); Mean Corpuscular HGB Conc 34.6 % (32.0-36.0); Mean Corpuscular Hemoglobin 32.2 pg (27.0-34.0); Mean Corpuscular Volume 93.3 fL (80.0-100.0); Mean Platelet Volume 8.2 fL (7.0-11.0); Mono # (Auto) 0.5 th/mm3 (0.0-0.9); Mono % (Auto) 6.9 % (0.0-8.0); Neut # (Auto) 4.4 th/mm3 (1.8-7.7); Neut % (Auto) 59.2 % (16.0-70.0); Platelet Count 175 th/mm3 (150-450); Red Blood Count 3.18 mil/mm3 (4.00-5.30); Red Cell Distribution Width 18.7 % (11.6-17.2); White Blood Count 7.4 th/mm3 (4.0-11.0)
[2018-09-24 12:01] LABS: Hepatitits B Surface Antigen Nonreactive (Nonreactive)
[2018-09-24 12:28] LABS: Hepatitis A IgM Antibody Nonreactive (Nonreactive)
--- NOTE | 2018-09-24 14:50 | P.PNGI ---
Subjective Interval history: Patient sitting up in bed watching TV Anxious to begin clear liquid diet Denies any nausea or vomiting Denies any noted bleeding <Kriss Marrero - Last Filed: 09/24/18 14:44> Physical Exam Vital signs: Vital Signs 09/23/18 15:00 09/23/18 16:00 09/23/18 17:00 Temperature 97.6 F Pulse Rate 88 90 92 H Respiratory Rate 23 23 20 Blood Pressure 114/72 120/80 126/83 Pulse Oximetry 97 100 100 09/23/18 18:00 09/23/18 19:00 09/23/18 20:00 Temperature 98.1 F Pulse Rate 100 H 89 84 Respiratory Rate 20 29 H 21 Blood Pressure 129/80 137/76 134/82 Pulse Oximetry 97 100 98 09/23/18 21:00 09/23/18 22:00 09/23/18 23:00 Temperature Pulse Rate 90 83 90 Respiratory Rate 18 25 H 22 Blood Pressure 123/68 122/82 Pulse Oximetry 97 98 96 09/23/18 23:26 09/24/18 00:00 09/24/18 01:00 Temperature 97.9 F Pulse Rate 97 H 94 H 82 Respiratory Rate 28 H 19 23 Blood Pressure 130/78 130/78 Pulse Oximetry 100 100 96 09/24/18 01:51 09/24/18 02:00 09/24/18 03:00 Temperature Pulse Rate 98 H 77 Respiratory Rate 21 24 Blood Pressure 123/86 125/87 Pulse Oximetry 87 L 84 L 99 09/24/18 03:16 09/24/18 04:00 09/24/18 04:55 Temperature 98.3 F Pulse Rate 95 H 88 113 H Respiratory Rate 33 H 22 30 H Blood Pressure 147/90 H 126/87 Pulse Oximetry 98 99 82 L 09/24/18 05:00 09/24/18 05:02 09/24/18 06:00 Temperature Pulse Rate 97 H 87 Respiratory Rate 29 H 25 H Blood Pressure 137/92 H 122/76 Pulse Oximetry 82 L 09/24/18 07:00 09/24/18 07:29 09/24/18 07:55 Temperature Pulse Rate 85 Respiratory Rate 22 Blood Pressure 123/81 Pulse Oximetry 82 L 93 L 85 L 09/24/18 08:00 09/24/18 08:01 09/24/18 09:00 Temperature 97.9 F Pulse Rate 104 H 87 Respiratory Rate 30 H 23 Blood Pressure 147/91 H 131/87 Pulse Oximetry 82 L 92 L 09/24/18 10:00 09/24/18 10:39 09/24/18 11:00 Temperature Pulse Rate 110 H 78 Respiratory Rate 39 H 22 22 Blood Pressure 137/94 H 121/87 Pulse Oximetry 99 98 09/24/18 11:21 09/24/18 12:00 Temperature 97.9 F Pulse Rate 103 H Respiratory Rate 22 43 H Blood Pressure 127/82 Pulse Oximetry 99 Intake & Output 09/23/18 09/24/18 09/24/18 18:59 06:59 18:59 Intake Total 1350 / 1350 1420 / 1420 1100 / 1100 Balance 1350 / 1350 1420 / 1420 1100 / 1100 Weight 77.2 kg Intake: IV 750 / 750 700 / 700 1100 / 1100 Protonix Inj 80 MG In NS Inj 100 / 100 100 / 100 100 / 100 100 ML @ 10 mls/hr IV.CONT Q10H [facility] Rx#:[id number] NS Inj 1,000 ML @ 100 mls/hr IV 450 / 450 1000 / 1000 .CONT .Q10H [facility] Rx#:[id number] Unasyn Inj 3 GM In NS Inj 100 100 / 100 ML @ 200 mls/hr IV.SIG Q6H [facility] Rx#:[id number] Magnesium Sulfate 1 gm/D5W 100 100 / 100 ml Premix 100 ML @ 100 mls/hr IV.SIG ONCE ONE Rx#:[id number] KCl 20 mEq Premix Inj 20 meq In 300 / 300 100 ml @ 50 mls/hr IV.SIG Q2H [facility] Rx#:[id number] Flagyl 500 MG Inj 100 ML @ 100 100 / 100 200 / 200 mls/hr IV.SIG Q8H [facility] Rx#: [id number] Oral 600 / 600 720 / 720 Other: # Voids 2 5 Date of Last Bowel Movement 09/23/18 09/24/18 09/24/18 # Bowel Movements 3 2 - Constitutional no acute distress - Routine HEENT Exam Head: Present: normocephalic - Routine Respiratory Exam Present: CTA bilaterally. Absent: accessory muscle use - Routine Abdominal Exam Present: soft, normoactive bowel sounds, tenderness. Absent: distended, guarding, firm - Routine Extremities Exam Present: full ROM - Routine Skin Exam Present: dry, warm - Routine Neurological Exam Present: alert - Routine Psychiatric Exam Present: normal affect, cooperative <Kriss Marrero - Last Filed: 09/24/18 14:44> Vital signs: Vital Signs 09/23/18 18:00 09/23/18 19:00 09/23/18 20:00 Temperature 98.1 F Pulse Rate 100 H 89 84 Respiratory Rate 20 29 H 21 Blood Pressure 129/80 137/76 134/82 Pulse Oximetry 97 100 98 09/23/18 21:00 09/23/18 22:00 09/23/18 23:00 Temperature Pulse Rate 90 83 90 Respiratory Rate 18 25 H 22 Blood Pressure 123/68 122/82 Pulse Oximetry 97 98 96 09/23/18 23:26 09/24/18 00:00 09/24/18 01:00 Temperature 97.9 F Pulse Rate 97 H 94 H 82 Respiratory Rate 28 H 19 23 Blood Pressure 130/78 130/78 Pulse Oximetry 100 100 96 09/24/18 01:51 09/24/18 02:00 09/24/18 03:00 Temperature Pulse Rate 98 H 77 Respiratory Rate 21 24 Blood Pressure 123/86 125/87 Pulse Oximetry 87 L 84 L 99 09/24/18 03:16 09/24/18 04:00 09/24/18 04:55 Temperature 98.3 F Pulse Rate 95 H 88 113 H Respiratory Rate 33 H 22 30 H Blood Pressure 147/90 H 126/87 Pulse Oximetry 98 99 82 L 09/24/18 05:00 09/24/18 05:02 09/24/18 06:00 Temperature Pulse Rate 97 H 87 Respiratory Rate 29 H 25 H Blood Pressure 137/92 H 122/76 Pulse Oximetry 82 L 09/24/18 07:00 09/24/18 07:29 09/24/18 07:55 Temperature Pulse Rate 85 Respiratory Rate 22 Blood Pressure 123/81 Pulse Oximetry 82 L 93 L 85 L 09/24/18 08:00 09/24/18 08:01 09/24/18 09:00 Temperature 97.9 F Pulse Rate 104 H 87 Respiratory Rate 30 H 23 Blood Pressure 147/91 H 131/87 Pulse Oximetry 82 L 92 L 09/24/18 10:00 09/24/18 10:39 09/24/18 11:00 Temperature Pulse Rate 110 H 78 Respiratory Rate 39 H 22 22 Blood Pressure 137/94 H 121/87 Pulse Oximetry 99 98 09/24/18 11:21 09/24/18 12:00 09/24/18 15:09 Temperature 97.9 F Pulse Rate 103 H Respiratory Rate 22 43 H 18 Blood Pressure 127/82 Pulse Oximetry 99 Intake & Output 09/23/18 09/24/18 09/24/18 18:59 06:59 18:59 Intake Total 1350 / 1350 1420 / 1420 1100 / 1100 Balance 1350 / 1350 1420 / 1420 1100 / 1100 Weight 77.2 kg Intake: IV 750 / 750 700 / 700 1100 / 1100 Protonix Inj 80 MG In NS Inj 100 / 100 100 / 100 100 / 100 100 ML @ 10 mls/hr IV.CONT Q10H [facility] Rx#:[id number] NS Inj 1,000 ML @ 100 mls/hr IV 450 / 450 1000 / 1000 .CONT .Q10H [facility] Rx#:[id number] Unasyn Inj 3 GM In NS Inj 100 100 / 100 ML @ 200 mls/hr IV.SIG Q6H [facility] Rx#:[id number] Magnesium Sulfate 1 gm/D5W 100 100 / 100 ml Premix 100 ML @ 100 mls/hr IV.SIG ONCE ONE Rx#:[id number] KCl 20 mEq Premix Inj 20 meq In 300 / 300 100 ml @ 50 mls/hr IV.SIG Q2H [facility] Rx#:[id number] Flagyl 500 MG Inj 100 ML @ 100 100 / 100 200 / 200 mls/hr IV.SIG Q8H [facility] Rx#: [id number] Oral 600 / 600 720 / 720 Other: # Voids 2 5 Date of Last Bowel Movement 09/23/18 09/24/18 09/24/18 # Bowel Movements 3 2 <Hemaidan,Ammar - Last Filed: 09/24/18 17:08> Results - Labs CBC & Chem 7: 09/24/18 10:55 09/24/18 05:56 Laboratory Results - last 24 hr 09/23/18 09/24/18 09/24/18 18:59 05:56 10:55 WBC 7.4 RBC 3.18 L Hgb 10.3 L Hct 29.7 L MCV 93.3 MCH 32.2 MCHC 34.6 RDW 18.7 H Plt Count 175 MPV 8.2 Neut % (Auto) 59.2 Lymph % (Auto) 30.9 [place] % (Auto) 6.9 Eos % (Auto) 2.1 Baso % (Auto) 0.9 Neut # (Auto) 4.4 Lymph # (Auto) 2.3 [place] # (Auto) 0.5 Eos # (Auto) 0.2 Baso # (Auto) 0.1 WBC Differential . Differential Comment Auto diff final Sodium 139 135 L Potassium 2.7 L* D 3.5 D Chloride 100 100 Carbon Dioxide 27.7 22.2 Anion Gap 11 13 BUN Less than 1 L Less than 1 L Creatinine 0.24 L 0.20 L Estimated GFR Greater than 89 Greater than 89 Random Glucose 69 L 65 L Calcium 6.1 L* 6.1 L* Prot Corrected Calcium 6.7 L* 6.9 L* Magnesium 1.4 L Total Protein 5.8 L D 5.4 L Hepatitis A IgM Ab Hep Bs Antigen Hep B Core IgM Ab Hep C IgG Ab 09/24/18 10:55 WBC RBC Hgb Hct MCV MCH MCHC RDW Plt Count MPV Neut % (Auto) Lymph % (Auto) [place] % (Auto) Eos % (Auto) Baso % (Auto) Neut # (Auto) Lymph # (Auto) [place] # (Auto) Eos # (Auto) Baso # (Auto) WBC Differential Differential Comment Sodium Potassium Chloride Carbon Dioxide Anion Gap BUN Creatinine Estimated GFR Random Glucose Calcium Prot Corrected Calcium Magnesium Total Protein Hepatitis A IgM Ab Nonreactive Hep Bs Antigen Nonreactive Hep B Core IgM Ab Nonreactive Hep C IgG Ab Nonreactive Microbiology 09/23/18 01:40 Stool Enteric Pathogens (PCR) - Final No enteric pathogens detected by PCR (No Salmonella sp., Shigella sp., Campylobacter sp., Yersinia enterocolitica, Vibrio sp., Norovirus, or EHEC (Shiga Toxin 1 or Shiga Toxin 2) detected. 09/23/18 01:40 Stool Cryptosporidium Antigen - Final Negative - No Cryptosporicium antigen detected In selected cases of patients with a history of immunosuppression or foreign travel, a full ova and parasites examination may be desired. Contact the microbiology lab if full workup is indicated and subit another specimen for testing. 09/23/18 01:40 Stool Giardia Antigen (SUZANNE) - Final Negative - No Giardia Antigen detected In selected cases of patients with a history of immunosuppression or foreign travel, a full ova and parasites examination may be desired. Contact the microbiology lab if full workup is indicated and subit another specimen for testing. 09/23/18 01:40 Stool Stool for WBCs - Final Rare WBC's <Kriss Marrero - Last Filed: 09/24/18 14:44> - Labs CBC & Chem 7: 09/24/18 10:55 09/24/18 05:56 Laboratory Results - last 24 hr 09/23/18 09/24/18 09/24/18 18:59 05:56 10:55 WBC 7.4 RBC 3.18 L Hgb 10.3 L Hct 29.7 L MCV 93.3 MCH 32.2 MCHC 34.6 RDW 18.7 H Plt Count 175 MPV 8.2 Neut % (Auto) 59.2 Lymph % (Auto) 30.9 Nelson % (Auto) 6.9 Eos % (Auto) 2.1 Baso % (Auto) 0.9 Neut # (Auto) 4.4 Lymph # (Auto) 2.3 Nelson # (Auto) 0.5 Eos # (Auto) 0.2 Baso # (Auto) 0.1 WBC Differential . Differential Comment Auto diff final Sodium 139 135 L Potassium 2.7 L* D 3.5 D Chloride 100 100 Carbon Dioxide 27.7 22.2 Anion Gap 11 13 BUN Less than 1 L Less than 1 L Creatinine 0.24 L 0.20 L Estimated GFR Greater than 89 Greater than 89 Random Glucose 69 L 65 L Calcium 6.1 L* 6.1 L* Prot Corrected Calcium 6.7 L* 6.9 L* Magnesium 1.4 L Total Protein 5.8 L D 5.4 L Hepatitis A IgM Ab Hep Bs Antigen Hep B Core IgM Ab Hep C IgG Ab 09/24/18 10:55 WBC RBC Hgb Hct MCV MCH MCHC RDW Plt Count MPV Neut % (Auto) Lymph % (Auto) [place] % (Auto) Eos % (Auto) Baso % (Auto) Neut # (Auto) Lymph # (Auto) Nelson # (Auto) Eos # (Auto) Baso # (Auto) WBC Differential Differential Comment Sodium Potassium Chloride Carbon Dioxide Anion Gap BUN Creatinine Estimated GFR Random Glucose Calcium Prot Corrected Calcium Magnesium Total Protein Hepatitis A IgM Ab Nonreactive Hep Bs Antigen Nonreactive Hep B Core IgM Ab Nonreactive Hep C IgG Ab Nonreactive Microbiology 09/23/18 01:40 Stool Enteric Pathogens (PCR) - Final No enteric pathogens detected by PCR (No Salmonella sp., Shigella sp., Campylobacter sp., Yersinia enterocolitica, Vibrio sp., Norovirus, or EHEC (Shiga Toxin 1 or Shiga Toxin 2) detected. 09/23/18 01:40 Stool Cryptosporidium Antigen - Final Negative - No Cryptosporicium antigen detected In selected cases of patients with a history of immunosuppression or foreign travel, a full ova and parasites examination may be desired. Contact the microbiology lab if full workup is indicated and subit another specimen for testing. 09/23/18 01:40 Stool Giardia Antigen (SUZANNE) - Final Negative - No Giardia Antigen detected In selected cases of patients with a history of immunosuppression or foreign travel, a full ova and parasites examination may be desired. Contact the microbiology lab if full workup is indicated and subit another specimen for testing. <Yifan Maza - Last Filed: 09/24/18 17:08> Assessment and Plan - Plan 43-year-old female who had been in her usual state of health up until the past 3 days before her admission on 09/21/2018. Onset of symptoms include watery diarrhea dark sticky melena stools greater than 5 and a 24-hour. And hematemesis several times over the past 3 days which include streaks of blood as well as a volume of bright red blood on at least 2 occasions. Patient notes normal BM regimen is about 2 times a day soft consistency. Patient does admit to daily alcohol consumption with vodka and increased stressors of the divorce in her life and appears tearful. Patient also has a history of peptic ulcer disease as well as gastric bypass in 2002. EGD was performed greater than 5 years ago and colonoscopy approximately 3 years ago with unremarkable findings according to patient. Patient also notes some left upper quadrant abdominal pain which is fairly constant cramping and sharp sensations. CT scan done on shows wall thickening of the ascending and proximal transverse colon consistent with colitis. Also hepatomegaly and fatty liver disease noted. Patient's currently being managed with IV antibiotics, Ativan for her alcoholic symptoms and octreotide, and Protonix drip. Gastroenterology was consulted to assist with her symptoms and plan of care. Labs were reviewed which showed initial hemoglobin on admission 10.2 now 7.7, PT/INR 1.3, bilirubin 2.1, AST 131 , ALT 61, lipase 92, and albumin 2.9. Patient denies any history of constipation. Hematemesis, off and on for the past 3 days which includes variable volumes of bright red blood. Possible varices History and current alcoholism, increased stressors. Hyperbilirubinemia and transaminitis consistent with alcoholic hepatitis Ascending and proximal transverse colitis, seen on CT scan Symptoms of uncontrolled diarrhea stools, and melena stools History of gastric bypass in 200209/23/2018 patient is status post EGD on 09/22/2018 with findings including Esophagus normal gastric bypass was found at the gastro-jejunal anastomosis. Ulceration was seen at the site. SRH/Visible vessel. Hemostasis was attempted by placing three hemoclips on the bleeding site(s). Submucosal injection of epinephrine 1:10,000 was performed around the bleeding site with complete hemostasis achieved. No complications Labs reviewed C. difficile DNA positive, other C. difficile test are pending Stool studies pending The patient continues with nausea and some vomiting clear fluids. No bright red bleeding seen. Increased anxiety this a.m. over not being able to eat or drink Need to continue to monitor for any bright red bleeding any acute changes in hemoglobin, melena stools continue last BM 09/24/2018-patient sitting up in bed watching TV. Anxious to begin clear liquid diet, denies any noted bleeding, nausea or vomiting. Hemoglobin 10.3 hematocrit 29.7. Plan -Clear liquid diet -Continue PPI -Monitor for bleeding -Monitor labs-hemoglobin and hematocrit -Supportive care -Further recommendations to follow based on patient's status and findings This patient has been seen by myself and Dr. Maza and this note is written on his behalf - Attending Attestation Dr. Maza <Kriss Marrero - Last Filed: 09/24/18 14:44> - Plan Patient was seen and examined, she is doing better, no nausea or vomiting quit on her, if she is doing well and tolerate diet then we can advance it <Yifan Maza - Last Filed: 09/24/18 17:08>
[2018-09-24] MEDS: metroNIDAZOLE 500 MG Tablet PO SCH ×2 (15:07→21:15)
[2018-09-25] MEDS: Morphine Inj 4 MG/ML Vial IV.PUSH PRN ×3 (01:48→13:53)
[2018-09-25] MEDS: Pantoprazole Inj 80 MG in Sodium Chlor 0.9% Inj 100 ML IV.CONT SCH (03:23)
[2018-09-25] MEDS: metroNIDAZOLE 500 MG Tablet PO SCH (05:27)
[2018-09-25 06:35] LABS: Baso # (Auto) 0.1 th/mm3 (0.0-0.2); Baso % (Auto) 0.8 % (0.0-2.0); Eos # (Auto) 0.1 th/mm3 (0.0-0.4); Hematocrit 29.9 % (35.0-46.0); Hemoglobin 9.9 gm/dL (11.6-15.3); Lymph # (Auto) 2.1 th/mm3 (1.0-4.8); Lymph % (Auto) 28.1 % (9.0-44.0); Mean Corpuscular HGB Conc 33.1 % (32.0-36.0); Mean Corpuscular Hemoglobin 31.1 pg (27.0-34.0); Mean Corpuscular Volume 94.1 fL (80.0-100.0); Mean Platelet Volume 7.8 fL (7.0-11.0); Mono # (Auto) 0.8 th/mm3 (0.0-0.9); Mono % (Auto) 10.2 % (0.0-8.0); Neut # (Auto) 4.3 th/mm3 (1.8-7.7); Neut % (Auto) 58.9 % (16.0-70.0); Platelet Count 184 th/mm3 (150-450); Red Blood Count 3.18 mil/mm3 (4.00-5.30); Red Cell Distribution Width 18.7 % (11.6-17.2); White Blood Count 7.4 th/mm3 (4.0-11.0)
[2018-09-25 07:01] LABS: Alanine Aminotransferase 49 U/L (10-53); Albumin 2.8 g/dL (3.4-5.0); Alkaline Phosphatase 153 U/L (45-117); Anion Gap 13 meq/L (5-15); Aspartate Aminotransferase 89 U/L (15-37); Calcium 7.1 mg/dL (8.5-10.1); Carbon Dioxide 25.5 meq/L (21.0-32.0); Chloride 100 meq/L (98-107); Glomerular Filtration Rate Greater Than 89 mL/min (>89); Glucose,Random 89 mg/dL (74-106); Sodium 138 meq/L (136-145); Total Protein 5.8 g/dL (6.4-8.2)
[2018-09-25] MEDS: Sod Chloride 0.9% Inj 1,000 ML IV.CONT SCH ×2 (08:34)
[2018-09-25] MEDS ORDERED: Calcium Chloride Inj 1 GM in Sodium Chlor 0.9% Inj 100 ML IV.SIG ONE ×2 (09:00→11:00)
--- NOTE | 2018-09-25 10:37 | P.PN ---
Subjective Interval history: Patient doing well. Patient is tolerating clear liquids, and reports no further emesis. Patient reports BMs are now more formed with no blood or tarry dark appearance. Patient reports some mild abdominal pain still and some nausea. Physical Exam Vital signs: Vital Signs 09/24/18 10:39 09/24/18 11:00 09/24/18 11:21 Temperature Pulse Rate 78 Respiratory Rate 22 22 22 Blood Pressure 121/87 Pulse Oximetry 98 09/24/18 12:00 09/24/18 13:00 09/24/18 14:00 Temperature 97.9 F Pulse Rate 103 H 89 82 Respiratory Rate 43 H 15 16 Blood Pressure 127/82 141/91 H 131/91 H Pulse Oximetry 99 100 100 09/24/18 15:00 09/24/18 15:09 09/24/18 16:00 Temperature 98.4 F Pulse Rate 85 88 Respiratory Rate 21 18 24 Blood Pressure 125/83 123/82 Pulse Oximetry 100 09/24/18 17:00 09/24/18 20:00 09/24/18 20:08 Temperature 98.3 F Pulse Rate 93 H 92 H Respiratory Rate 22 23 Blood Pressure 123/78 131/86 Pulse Oximetry 100 94 L 09/25/18 00:00 09/25/18 04:00 09/25/18 07:50 Temperature 98.3 F 97.9 F Pulse Rate 82 98 H Respiratory Rate 20 22 Blood Pressure 130/73 122/88 Pulse Oximetry 96 96 96 09/25/18 08:00 09/25/18 09:00 09/25/18 09:15 Temperature 98 F Pulse Rate 97 H 97 H Respiratory Rate 18 23 Blood Pressure 133/83 Pulse Oximetry 97 Intake & Output 09/24/18 09/25/18 09/25/18 18:59 06:59 18:59 Intake Total 3270 / 3270 820 / 820 1000 / 1000 Balance 3270 / 3270 820 / 820 1000 / 1000 Weight 79.1 kg Intake: IV 2310 / 2310 100 / 100 1000 / 1000 Protonix Inj 80 MG In NS Inj 100 / 100 100 / 100 100 ML @ 10 mls/hr IV.CONT Q10H [facility] Rx#:[id number] NS Inj 1,000 ML @ 100 mls/hr IV 1999 / 1999 1000 / 1000 .CONT .Q10H [facility] Rx#:[id number] Calcium Chloride Inj 1 GM In NS 110 / 110 Inj 100 ML @ 110 mls/hr IV.SIG ONCE ONE Rx#:[id number] Oral 960 / 960 720 / 720 Other: # Voids 8 5 Date of Last Bowel Movement 09/23/18 09/25/18 09/25/18 # Bowel Movements 1 Narrative: GENERAL: Well-nourished female, in NAD, lying comfortably in bed SKIN: Warm and dry. HEENT: Normocephalic. No scleral icterus. No injection or drainage. PERRLA. MOM. NECK: Supple, trachea midline. No JVD or lymphadenopathy. CARDIOVASCULAR: Regular rate and rhythm without murmurs, gallops, or rubs. RESPIRATORY: Breath sounds equal bilaterally. No accessory muscle use. GASTROINTESTINAL: Abdomen soft, non-tender, nondistended. Negative rebound. MUSCULOSKELETAL: No cyanosis, or edema. BACK: Nontender without obvious deformity. No CVA tenderness. NEURO: AAO x3, no focal deficits, motor system 5/5 x 4, speech clear. Results - Labs CBC & Chem 7: 09/25/18 06:13 09/25/18 06:13 Laboratory Results - last 24 hr 09/24/18 09/24/18 09/25/18 10:55 10:55 06:13 WBC 7.4 7.4 RBC 3.18 L 3.18 L Hgb 10.3 L 9.9 L Hct 29.7 L 29.9 L MCV 93.3 94.1 MCH 32.2 31.1 MCHC 34.6 33.1 RDW 18.7 H 18.7 H Plt Count 175 184 MPV 8.2 7.8 Neut % (Auto) 59.2 58.9 Lymph % (Auto) 30.9 28.1 [place] % (Auto) 6.9 10.2 H Eos % (Auto) 2.1 2.0 Baso % (Auto) 0.9 0.8 Neut # (Auto) 4.4 4.3 Lymph # (Auto) 2.3 2.1 [place] # (Auto) 0.5 0.8 Eos # (Auto) 0.2 0.1 Baso # (Auto) 0.1 0.1 WBC Differential . . Differential Comment Auto diff final Auto diff final Sodium Potassium Chloride Carbon Dioxide Anion Gap BUN Creatinine Estimated GFR Random Glucose Calcium Prot Corrected Calcium Total Bilirubin AST ALT Alkaline Phosphatase Total Protein Albumin Hepatitis A IgM Ab Nonreactive Hep Bs Antigen Nonreactive Hep B Core IgM Ab Nonreactive Hep C IgG Ab Nonreactive 09/25/18 06:13 WBC RBC Hgb Hct MCV MCH MCHC RDW Plt Count MPV Neut % (Auto) Lymph % (Auto) [place] % (Auto) Eos % (Auto) Baso % (Auto) Neut # (Auto) Lymph # (Auto) [place] # (Auto) Eos # (Auto) Baso # (Auto) WBC Differential Differential Comment Sodium 138 Potassium 3.0 L Chloride 100 Carbon Dioxide 25.5 Anion Gap 13 BUN Less than 1 L Creatinine 0.23 L Estimated GFR Greater than 89 Random Glucose 89 Calcium 7.1 L* D Prot Corrected Calcium 7.8 L Total Bilirubin 0.9 AST 89 H ALT 49 Alkaline Phosphatase 153 H Total Protein 5.8 L Albumin 2.8 L Hepatitis A IgM Ab Hep Bs Antigen Hep B Core IgM Ab Hep C IgG Ab Assessment and Plan - Assessment (1) GI bleed Code(s): K92.2 - Gastrointestinal hemorrhage, unspecified Status: Acute (2) Colitis Code(s): K52.9 - Noninfective gastroenteritis and colitis, unspecified Status : Acute - Plan 43 y/o CF with PMHx of Alcohol Abuse admitted for inpatient mgmt of GI bleed/ Colitis s/p EGD with bleeding source identified, s/p 2u pRBC's on 09/22 for Hgb 6.5, now stable for transfer to floor, HD#6 1. GI Bleed/C. Dif Colitis, resolved s/p EGD with source of upper GI bleed identified, s/p clamping and epinephrine injection Continue Protonix drip and Octreotide s/p Unasyn now on Clarithromycin/Flagyl PO started on 09/22 CT ABD +colitis, +C. Dif on 09/23 ID consulted today for assistance with antibiotic regimen Appreciate GI assisting with mgmt Continue Morphine/Oxy PRN On a CLD, IVF's D/C'd today Per GI Reccs on 09/24: Clear liquid diet Continue PPI Monitor for bleeding Monitor labs-hemoglobin and hematocrit Supportive care Further recommendations to follow based on patient's status and findings 2. Acute Blood Loss Anemia Secondary to GI bleed, now resolved Hgb 9.9 from 10.4 s/p 2U pRBC's for Hgb 6.5 on 09/22 F/U CBC in AM 3. Hypocalcemia/Hypokalemia K3, will give KCL 40meq x2 doses Checking Mag in AM Ca improved to 7.8 today from 6.4 Will replace again today x1 Follow-up in AM 4. Hx of Alcohol abuse/Elevated LFT's, improving Due to alcohol abuse LFT's trending down today Continue CIWA protocol EtOH counselor consult placed Neg Hepatitis panel 5. Tobacco Abuse Encourage cessation, risks discussed 6. DVT prophylaxis: SCD's 7. Disposition: Medically stable for transfer to floor pending bed. Follow-up GI and ID recommendations. Code Status: full Discussed Condition With: patient, RN (1) GI bleed Qualifiers: GI bleed type/associated pathology: unspecified gastrointestinal hemorrhage type Qualified Code(s): K92.2 - Gastrointestinal hemorrhage, unspecified
--- NOTE | 2018-09-25 13:06 | P.CONID ---
History of Present Illness Service: Infectious disease Consult date: 09/25/18 Requesting Physician: Kelly Pablo Reason for Consult: Evaluate patient with C. difficile colitis Primary Care Provider: No Primary Care Physician Chief Complaint: Abdominal pain History of Present Illness: Patient seen and examined. Records reviewed. Patient is a 43-year-old female, presented to the hospital complaining of several day history of abdominal pain. Patient stated that she had gastric bypass in 2002 and had developed peptic ulcer disease. She has had abdominal pain, and she had some episodes of diarrhea. She also has had nausea and vomiting and has had very poor p.o. intake. She denies any mucus or any blood in the stool. She had seen some blood when she vomited. Her appetite also has been poor. Patient has known alcoholic abuse and she still drinks half a bottle of vodka despite all her GI symptoms currently. Patient underwent endoscopy and was found to have an ulcer in her anastomotic site. She had a CT of the abdomen and pelvis which showed evidence of bowel wall thickening in the ascending colon and in the transverse colon. She has had some diarrhea. She still complains of abdominal pain. She has not had any nausea and vomiting today, and has been tolerating her clear liquids. Patient stool studies came back negative for other enteric pathogens. C. difficile antigen, and C. difficile DNA PCR came back positive, but the C. difficile toxin is negative. Patient is currently on Biaxin as well as on Flagyl. Patient overall feels better, and wants to advance her diet. She has not been febrile. Her WBC is normal. Infectious disease consultation has been requested to evaluate the patient with positive C. difficile colitis. Review of Systems Constitutional: Reports weakness, Denies chills, Denies fever(s), Denies night sweats Eyes: Denies discharge, Denies dry eyes Ears, Nose, Mouth, and Throat: Denies difficulty swallowing, Denies ear pain, Denies mouth lesions, Denies mouth pain, Denies nasal congestion, Denies nasal discharge, Denies sore throat Cardiovascular: Denies chest pain, Denies shortness of breath Respiratory: Denies chest congestion, Denies cough, Denies shortness of breath Gastrointestinal: Reports abdominal pain, Reports loose stools, Reports nausea, Reports vomiting, Denies difficulty swallowing, Denies pain with swallowing Genitourinary: Denies difficulty urinating, Denies painful urination Musculoskeletal: Denies joint pain, Denies joint swelling Skin/Breast: Denies rash, Denies wounds Neurologic: Denies headache(s) [facility] - History History Provided By: Patient - Medical History Medical History: Medical History (Last Reviewed 09/25/18 @ 13:02 by Radha Iglesias MD) Depression GI bleed Stomach ulcer - Surgical History Surgical History: Surgical History (Last Reviewed 09/25/18 @ 13:02 by Radha Iglesias MD) History of gastric bypass Hx of cholecystectomy - Family History Family History: Family History (Last Reviewed 09/25/18 @ 13:03 by Radha Iglesias MD) Other CAD (coronary artery disease) - Tobacco History Second Hand Smoke Exposure: Yes Tobacco Use In Past 30 Days: Yes Smoking Status: Current every day smoker Tobacco Type: Cigarettes - Alcohol History How Often Do You Have a Drink Containing Alcohol: 4 or more times a week - Substance Use History Substance History: No History of Abuse - Travel History Recent Travel in the [place] Within the Last 8 Weeks: No Recent Travel Out of the Country Within the Last 8 Weeks: No - Immunization History Tetanus Immunization: >5 Years Hx Influenza Vaccine This Season: No Medications and Allergies Active Medications: Active Medications Acetaminophen (Tylenol) 650 mg PO Q4H PRN PRN Reason: Temp > 100.4, pain 1-2 Clarithromycin (Biaxin) 500 mg PO BID [facility] Last Admin: 09/25/18 08:34 Dose: 500 mg Flumazenil (Romazecon Inj) 0.2 mg IV.PUSH Q1M PRN PRN Reason: OVERSEDATION Haloperidol Lactate (Haldol Inj) 1 mg IV.PUSH Q15M PRN PRN Reason: for severe agitation Pantoprazole Sodium 80 mg/ (Sodium Chloride) 100 mls @ 10 mls/hr IV.CONT Q10H [facility] Last Admin: 09/25/18 03:23 Dose: 10 mls/hr Lorazepam (Ativan) 1 mg PO Q4H PRN PRN Reason: for CIWA 8-10 Lorazepam (Ativan Inj) 2 mg IV.PUSH Q1H PRN PRN Reason: for CIWA 15-20 Last Admin: 09/25/18 01:48 Dose: 2 mg Lorazepam (Ativan Inj) 2 mg IV.PUSH Q15M PRN PRN Reason: for CIWA > 20 Lorazepam (Ativan) 2 mg PO Q2H PRN PRN Reason: for CIWA 11-14 Last Admin: 09/24/18 11:46 Dose: 2 mg Metronidazole (Flagyl) 500 mg PO Q8HR [facility] Last Admin: 09/25/18 05:27 Dose: 500 mg Morphine Sulfate (Morphine Inj) 4 mg IV.PUSH Q4H PRN PRN Reason: BREAKTHROUGH PAIN Last Admin: 09/25/18 08:34 Dose: 4 mg Oxycodone HCl (Roxicodone) 5 mg PO Q4H PRN PRN Reason: pain 3-10 Last Admin: 09/24/18 16:44 Dose: 5 mg Potassium Chloride (Klor-Con 10) 40 meq PO BID [facility] Stop: 09/26/18 09:01 Promethazine HCl (Phenergan Inj) 12.5 mg IM Q6H PRN PRN Reason: NAUSEA Promethazine HCl (Phenergan) 12.5 mg PO Q6H PRN PRN Reason: NAUSEA Sodium Chloride (Ns Flush) 2 ml IV.FLUSH PRN PRN PRN Reason: FLUSH AFTER USING IV ACCESS Last Admin: 09/21/18 20:18 Dose: 2 ml Allergies Allergy/AdvReac Type Severity Reaction Status Date / Time ondansetron [From Zofran] Allergy Itching, Verified 09/21/18 14:45 Generalized Home Medications Medication Instructions Recorded Confirmed Type pantoprazole 40 mg PO DAILY 09/21/18 09/21/18 History sucralfate 1 g PO Q6H 09/21/18 09/21/18 History Exam Vital signs: Vital Signs 09/24/18 13:00 09/24/18 14:00 09/24/18 15:00 Temperature Pulse Rate 89 82 85 Respiratory Rate 15 16 21 Blood Pressure 141/91 H 131/91 H 125/83 Pulse Oximetry 100 100 100 09/24/18 15:09 09/24/18 16:00 09/24/18 17:00 Temperature 98.4 F Pulse Rate 88 93 H Respiratory Rate 18 24 22 Blood Pressure 123/82 123/78 Pulse Oximetry 09/24/18 20:00 09/24/18 20:08 09/25/18 00:00 Temperature 98.3 F 98.3 F Pulse Rate 92 H 82 Respiratory Rate 23 20 Blood Pressure 131/86 130/73 Pulse Oximetry 100 94 L 96 09/25/18 04:00 09/25/18 07:50 09/25/18 08:00 Temperature 97.9 F 98 F Pulse Rate 98 H 97 H Respiratory Rate 22 18 Blood Pressure 122/88 133/83 Pulse Oximetry 96 96 97 09/25/18 09:00 09/25/18 09:15 09/25/18 12:00 Temperature 98 F Pulse Rate 97 H 91 H Respiratory Rate 23 17 Blood Pressure 122/78 Pulse Oximetry 96 Intake & Output 09/24/18 09/25/18 09/25/18 18:59 06:59 18:59 Intake Total 3270 / 3270 820 / 820 2109 / 0 Balance 3270 / 3270 820 / 820 2109 Weight 79.1 kg Intake: IV 2310 / 2310 100 / 100 2109 Protonix Inj 80 MG In NS Inj 100 / 100 100 / 100 100 ML @ 10 mls/hr IV.CONT Q10H [facility] Rx#:[id number] NS Inj 1,000 ML @ 100 mls/hr IV 1999 .CONT .Q10H [facility] Rx#:[id number] Calcium Chloride Inj 1 GM In NS 110 / 110 110 / 110 Inj 100 ML @ 110 mls/hr IV.SIG ONCE ONE Rx#:[id number] Oral 960 / 960 720 / 720 Other: # Voids 8 5 Date of Last Bowel Movement 09/23/18 09/25/18 09/25/18 # Bowel Movements 1 Narrative: Physical Examination GENERAL: Patient is a well-nourished, well-developed female, awake and alert , not in respiratory distress. SKIN: Cool and dry. No generalized rash, no ecchymoses and no evidence of embolic lesions. HEAD: Atraumatic. Normocephalic. No temporal wasting, or tenderness. EYES: [place] conjunctiva. No petechia or hemorrhage. Pupils equal, round and reactive to light. Extraocular movements full and intact. No scleral icterus. No injection or drainage. EARS, NOSE AND THROAT: Nose without bleeding or purulent nasal discharge. No sinus tenderness. Mucous membranes pink and moist. No oral lesions noted. No exudate. No oral thrush. NECK: Trachea midline. Supple and not tender, no meningeal signs CARDIOVASCULAR: Regular rate and rhythm. No murmurs, rubs or gallops heard RESPIRATORY: Clear to auscultation. Breath sounds equal bilaterally. No rales , wheezing or rhonchi ABDOMEN: Soft, diffuse mild tenderness, nondistended. Bowel sounds present and normoactive. No guarding. No rebound. No organomegaly. EXTREMITIES: No clubbing, cyanosis, or edema.No joint effusion, has good ROM. No calf tenderness. Well perfused and warm. NEUROLOGICAL: Awake and alert. Cranial nerves grossly intact. Motor grossly within normal limits. PSYCHIATRIC: Normal affect, calm and cooperative. LINE: No evidence of infection Results - Labs CBC & Chem 7: 09/25/18 06:13 09/25/18 06:13 Labs: Laboratory Results - last 24 hr 09/25/18 09/25/18 06:13 06:13 WBC 7.4 RBC 3.18 L Hgb 9.9 L Hct 29.9 L MCV 94.1 MCH 31.1 MCHC 33.1 RDW 18.7 H Plt Count 184 MPV 7.8 Neut % (Auto) 58.9 Lymph % (Auto) 28.1 [place] % (Auto) 10.2 H Eos % (Auto) 2.0 Baso % (Auto) 0.8 Neut # (Auto) 4.3 Lymph # (Auto) 2.1 [place] # (Auto) 0.8 Eos # (Auto) 0.1 Baso # (Auto) 0.1 WBC Differential . Differential Comment Auto diff final Sodium 138 Potassium 3.0 L Chloride 100 Carbon Dioxide 25.5 Anion Gap 13 BUN Less than 1 L Creatinine 0.23 L Estimated GFR Greater than 89 Random Glucose 89 Calcium 7.1 L* D Prot Corrected Calcium 7.8 L Total Bilirubin 0.9 AST 89 H ALT 49 Alkaline Phosphatase 153 H Total Protein 5.8 L Albumin 2.8 L - Imaging Abdomen/Pelvis CT 09/21/18 14:44 CONCLUSION: 1. Diffuse thickening involving the wall the ascending and proximal transverse colon suggesting acute colitis. Clinical correlation is recommended. 2. Markedly enlarged liver with diffuse fatty infiltration. 3. Small right paraumbilical abdominal wall hernia containing only fat. Chest X-Ray 09/21/18 15:17 CONCLUSION: Negative examination. No evidence of free intraperitoneal air. Assessment and Plan - Plan Impression Diarrhea mild - C diff studies C/W carrier, toxin negative but her CT A/P showing evidence of R sided colitis Abdominal pain due likely to ulcer Known ETOH abuse Recommendation Stop Biaxin and Flagyl PO vanco x 14 days Monitor response to Rx Explained plan to the patient Thank you for this consultation
--- NOTE | 2018-09-25 13:53 | P.PNGI ---
Subjective Interval history: Patient is sitting up in the bed seems to be feeling much better mild abdominal pain but shows improvement current hemoglobin 9.9 no obvious bleeding <Andria Hopkins - Last Filed: 09/25/18 15:31> Physical Exam Vital signs: Vital Signs 09/24/18 14:00 09/24/18 15:00 09/24/18 15:09 Temperature Pulse Rate 82 85 Respiratory Rate 16 21 18 Blood Pressure 131/91 H 125/83 Pulse Oximetry 100 100 09/24/18 16:00 09/24/18 17:00 09/24/18 20:00 Temperature 98.4 F 98.3 F Pulse Rate 88 93 H 92 H Respiratory Rate 24 22 23 Blood Pressure 123/82 123/78 131/86 Pulse Oximetry 100 09/24/18 20:08 09/25/18 00:00 09/25/18 04:00 Temperature 98.3 F 97.9 F Pulse Rate 82 98 H Respiratory Rate 20 22 Blood Pressure 130/73 122/88 Pulse Oximetry 94 L 96 96 09/25/18 07:50 09/25/18 08:00 09/25/18 09:00 Temperature 98 F Pulse Rate 97 H 97 H Respiratory Rate 18 Blood Pressure 133/83 Pulse Oximetry 96 97 09/25/18 09:15 09/25/18 12:00 Temperature 98 F Pulse Rate 91 H Respiratory Rate 23 17 Blood Pressure 122/78 Pulse Oximetry 96 Intake & Output 09/24/18 09/25/18 09/25/18 18:59 06:59 18:59 Intake Total 3270 / 3270 820 / 820 2109 / 0 Balance 3270 / 3270 820 / 820 2109 / 2110 Weight 79.1 kg Intake: IV 2310 / 2310 100 / 100 211 / 2110 Protonix Inj 80 MG In NS Inj 100 / 100 100 / 100 100 ML @ 10 mls/hr IV.CONT Q10H [facility] Rx#:[id number] NS Inj 1,000 ML @ 100 mls/hr IV 1999 / 1999 .CONT .Q10H [facility] Rx#:[id number] Calcium Chloride Inj 1 GM In NS 110 / 110 110 / 110 Inj 100 ML @ 110 mls/hr IV.SIG ONCE ONE Rx#:[id number] Oral 960 / 960 720 / 720 Other: # Voids 8 5 Date of Last Bowel Movement 09/23/18 09/25/18 09/25/18 # Bowel Movements 1 - Constitutional no acute distress - Routine HEENT Exam Head: Present: normocephalic ENT: Present: mucous membranes moist - Routine Respiratory Exam Present: accessory muscle use (No obvious shortness of breath) - Routine Abdominal Exam Present: soft, normoactive bowel sounds (Round, soft bowel sounds) <Andria Hopkins - Last Filed: 09/25/18 15:31> Vital signs: Vital Signs 09/24/18 16:00 09/24/18 17:00 09/24/18 20:00 Temperature 98.4 F 98.3 F Pulse Rate 88 93 H 92 H Respiratory Rate 24 22 23 Blood Pressure 123/82 123/78 131/86 Pulse Oximetry 100 09/24/18 20:08 09/25/18 00:00 09/25/18 04:00 Temperature 98.3 F 97.9 F Pulse Rate 82 98 H Respiratory Rate 20 22 Blood Pressure 130/73 122/88 Pulse Oximetry 94 L 96 96 09/25/18 07:50 09/25/18 08:00 09/25/18 09:00 Temperature 98 F Pulse Rate 97 H 97 H Respiratory Rate 18 Blood Pressure 133/83 Pulse Oximetry 96 97 09/25/18 09:15 09/25/18 12:00 09/25/18 14:03 Temperature 98 F Pulse Rate 91 H Respiratory Rate 23 17 21 Blood Pressure 122/78 Pulse Oximetry 96 Intake & Output 09/24/18 09/25/18 09/25/18 18:59 06:59 18:59 Intake Total 3270 / 3270 820 / 820 2210 / 2210 Balance 3270 / 3270 820 / 820 2210 / 2210 Weight 79.1 kg Intake: IV 2310 / 2310 100 / 100 2210 / 2210 Protonix Inj 80 MG In NS Inj 100 / 100 100 / 100 100 / 100 100 ML @ 10 mls/hr IV.CONT Q10H [facility] Rx#:[id number] NS Inj 1,000 ML @ 100 mls/hr IV 1999 / 1999 .CONT .Q10H [facility] Rx#:[id number] Calcium Chloride Inj 1 GM In NS 110 / 110 110 / 110 Inj 100 ML @ 110 mls/hr IV.SIG ONCE ONE Rx#:[id number] Oral 960 / 960 720 / 720 Other: # Voids 8 5 Date of Last Bowel Movement 09/23/18 09/25/18 09/25/18 # Bowel Movements 1 <Yifan Maza - Last Filed: 09/25/18 15:45> Results - Labs CBC & Chem 7: 09/25/18 06:13 09/25/18 06:13 Laboratory Results - last 24 hr 09/25/18 09/25/18 06:13 06:13 WBC 7.4 RBC 3.18 L Hgb 9.9 L Hct 29.9 L MCV 94.1 MCH 31.1 MCHC 33.1 RDW 18.7 H Plt Count 184 MPV 7.8 Neut % (Auto) 58.9 Lymph % (Auto) 28.1 [place] % (Auto) 10.2 H Eos % (Auto) 2.0 Baso % (Auto) 0.8 Neut # (Auto) 4.3 Lymph # (Auto) 2.1 [place] # (Auto) 0.8 Eos # (Auto) 0.1 Baso # (Auto) 0.1 WBC Differential . Differential Comment Auto diff final Sodium 138 Potassium 3.0 L Chloride 100 Carbon Dioxide 25.5 Anion Gap 13 BUN Less than 1 L Creatinine 0.23 L Estimated GFR Greater than 89 Random Glucose 89 Calcium 7.1 L* D Prot Corrected Calcium 7.8 L Total Bilirubin 0.9 AST 89 H ALT 49 Alkaline Phosphatase 153 H Total Protein 5.8 L Albumin 2.8 L <Andria Hopkins - Last Filed: 09/25/18 15:31> - Labs CBC & Chem 7: 09/25/18 06:13 09/25/18 06:13 Laboratory Results - last 24 hr 09/25/18 09/25/18 06:13 06:13 WBC 7.4 RBC 3.18 L Hgb 9.9 L Hct 29.9 L MCV 94.1 MCH 31.1 MCHC 33.1 RDW 18.7 H Plt Count 184 MPV 7.8 Neut % (Auto) 58.9 Lymph % (Auto) 28.1 [place] % (Auto) 10.2 H Eos % (Auto) 2.0 Baso % (Auto) 0.8 Neut # (Auto) 4.3 Lymph # (Auto) 2.1 [place] # (Auto) 0.8 Eos # (Auto) 0.1 Baso # (Auto) 0.1 WBC Differential . Differential Comment Auto diff final Sodium 138 Potassium 3.0 L Chloride 100 Carbon Dioxide 25.5 Anion Gap 13 BUN Less than 1 L Creatinine 0.23 L Estimated GFR Greater than 89 Random Glucose 89 Calcium 7.1 L* D Prot Corrected Calcium 7.8 L Total Bilirubin 0.9 AST 89 H ALT 49 Alkaline Phosphatase 153 H Total Protein 5.8 L Albumin 2.8 L <JoesphnasrinRainaclementine - Last Filed: 09/25/18 15:45> Assessment and Plan - Plan Hematemesis, off and on for the past 3 days which includes variable volumes of bright red blood. Possible varices History and current alcoholism, increased stressors. Hyperbilirubinemia and transaminitis consistent with alcoholic hepatitis Ascending and proximal transverse colitis, seen on CT scan Symptoms of uncontrolled diarrhea stools, and melena stools History of gastric bypass in 200209/23/2018 patient is status post EGD on 09/22/2018 with findings including Esophagus normal gastric bypass was found at the gastro-jejunal anastomosis. Ulceration was seen at the site. SRH/Visible vessel. Hemostasis was attempted by placing three hemoclips on the bleeding site(s). Submucosal injection of epinephrine 1:10,000 was performed around the bleeding site with complete hemostasis achieved. No complications Labs reviewed C. difficile DNA positive, other C. difficile test are pending Stool studies pending The patient continues with nausea and some vomiting clear fluids. No bright red bleeding seen. Increased anxiety this a.m. over not being able to eat or drink Need to continue to monitor for any bright red bleeding any acute changes in hemoglobin, melena stools continue last 09/24/2018-patient sitting up in bed watching TV. Anxious to begin clear liquid diet, denies any noted bleeding, nausea or vomiting. Hemoglobin 10.3 hematocrit 29.7. 09/25/2018, patient is resting in the bed appears to be feeling much better abdominal pain mild to minimal. Current hemoglobin 9.9 bilirubin 6.4, AST 10 ALT 28. Advance diet to full liquids this a.m. and will monitor for her toleration. Patient continues in the intensive care unit but appears to be more stable. Current hemoglobin 9.9. Could transition to regular room from a GI standpoint . Plan Diet full liquids will increase as tolerated PPI, transition to p.o. 40 mg twice daily Monitor labs and any obvious bleeding notify GI Supportive care Encourage mobility sitting on side of the bed and up to bathroom Patient was seen per myself and Dr. Maza, note was written on his behalf <Andria Hopkins - Last Filed: 09/25/18 15:31> - Plan Patient was seen and examined, agree with above note, no active bleeding, patient hungry she would like to eat regular food so we will advance her diet, okay to transfer to regular floor from GI perspective <Yifan Maza - Last Filed: 09/25/18 15:45>
[2018-09-26] MEDS: Morphine Inj 4 MG/ML Vial IV.PUSH PRN ×5 (02:53→22:42)
[2018-09-26 09:12] LABS: Baso % (Auto) 0.6 % (0.0-2.0); Eos # (Auto) 0.1 th/mm3 (0.0-0.4); Eos % (Auto) 2.1 % (0.0-4.0); Hematocrit 29.1 % (35.0-46.0); Hemoglobin 9.7 gm/dL (11.6-15.3); Lymph % (Auto) 35.8 % (9.0-44.0); Mean Corpuscular HGB Conc 33.5 % (32.0-36.0); Mean Corpuscular Hemoglobin 31.1 pg (27.0-34.0); Mean Corpuscular Volume 92.9 fL (80.0-100.0); Mean Platelet Volume 8.1 fL (7.0-11.0); Mono # (Auto) 0.9 th/mm3 (0.0-0.9); Neut # (Auto) 2.5 th/mm3 (1.8-7.7); Neut % (Auto) 45.5 % (16.0-70.0); Platelet Count 187 th/mm3 (150-450); Red Blood Count 3.13 mil/mm3 (4.00-5.30); Red Cell Distribution Width 18.3 % (11.6-17.2); White Blood Count 5.5 th/mm3 (4.0-11.0)
[2018-09-26 09:51] LABS: Alanine Aminotransferase 35 U/L (10-53); Albumin 2.4 g/dL (3.4-5.0); Alkaline Phosphatase 155 U/L (45-117); Anion Gap 10 meq/L (5-15); Aspartate Aminotransferase 51 U/L (15-37); Calcium 7.3 mg/dL (8.5-10.1); Carbon Dioxide 28.6 meq/L (21.0-32.0); Chloride 101 meq/L (98-107); Glomerular Filtration Rate Greater Than 89 mL/min (>89); Glucose,Random 94 mg/dL (74-106); Magnesium 1.2 mg/dL (1.5-2.5); Sodium 140 meq/L (136-145); Total Protein 5.1 g/dL (6.4-8.2)
[2018-09-26 09:56] LABS: Potassium 2.7 meq/L (3.5-5.1)
--- NOTE | 2018-09-26 13:02 | P.PNIM ---
Subjective Interval history: Patient states that she is still having 3-4 loose stools overnight and slowly tolerating diet. Still feels weak and not ready to go home. She has a hard time sleeping at night and is requesting a sleeping pill. Physical Exam Vital signs: Vital Signs 09/25/18 13:00 09/25/18 14:00 09/25/18 14:03 Temperature Pulse Rate 96 H 104 H Respiratory Rate 20 22 21 Blood Pressure Pulse Oximetry 99 99 09/25/18 15:00 09/25/18 16:22 09/25/18 17:00 Temperature Pulse Rate 83 98 H 89 Respiratory Rate 22 16 22 Blood Pressure Pulse Oximetry 09/25/18 18:00 09/25/18 19:00 09/25/18 20:00 Temperature 97.7 F Pulse Rate 89 85 91 H Respiratory Rate 28 H 18 21 Blood Pressure Pulse Oximetry 09/25/18 21:00 09/25/18 21:14 09/25/18 22:00 Temperature Pulse Rate 122 H 109 H 104 H Respiratory Rate 22 36 H 16 Blood Pressure 107/57 L Pulse Oximetry 09/26/18 00:00 09/26/18 04:00 09/26/18 08:00 Temperature 97.5 F L 97.7 F 98.5 F Pulse Rate 92 H 91 H 86 Respiratory Rate 18 18 18 Blood Pressure 125/82 139/86 145/88 H Pulse Oximetry 95 98 99 09/26/18 11:11 Temperature Pulse Rate Respiratory Rate Blood Pressure Pulse Oximetry 98 Intake & Output 09/25/18 09/26/18 09/26/18 18:59 06:59 18:59 Intake Total 3190 / 3190 2160 / 2160 Balance 3190 / 3190 2160 / 2160 Weight 79.1 kg Intake: IV 2210 / 2210 Protonix Inj 80 MG In NS Inj 100 / 100 100 ML @ 10 mls/hr IV.CONT Q10H [facility] Rx#:[id number] NS Inj 1,000 ML @ 100 mls/hr IV 1999 / 1999 .CONT .Q10H [facility] Rx#:[id number] Calcium Chloride Inj 1 GM In NS 110 / 110 Inj 100 ML @ 110 mls/hr IV.SIG ONCE ONE Rx#:[id number] Oral 980 / 980 1160 / 1160 Anesthesia Amount 1000 / 1000 Other: # Voids 7 3 Date of Last Bowel Movement 09/25/18 09/25/18 # Bowel Movements 4 4 Narrative: GENERAL: This is a well-nourished, well-developed patient, in no apparent distress. CARDIOVASCULAR: Regular rate and rhythm RESPIRATORY: Clear to auscultation. Breath sounds equal bilaterally. No wheezes , rales, or rhonchi. GASTROINTESTINAL: Abdomen soft, non-tender, nondistended. Normal active bowel sounds MUSCULOSKELETAL: Extremities without clubbing, cyanosis, or edema. NEURO: Alert & Oriented x4 to person, place, time, situation. Moves all ext x4 Results - Labs CBC & Chem 7: 09/26/18 07:31 09/26/18 07:31 Laboratory Results - last 24 hr 09/26/18 09/26/18 07:31 07:31 WBC 5.5 RBC 3.13 L Hgb 9.7 L Hct 29.1 L MCV 92.9 MCH 31.1 MCHC 33.5 RDW 18.3 H Plt Count 187 MPV 8.1 Neut % (Auto) 45.5 Lymph % (Auto) 35.8 [place] % (Auto) 16.0 H Eos % (Auto) 2.1 Baso % (Auto) 0.6 Neut # (Auto) 2.5 Lymph # (Auto) 2.0 [place] # (Auto) 0.9 Eos # (Auto) 0.1 Baso # (Auto) 0.0 WBC Differential . Differential Comment Auto diff final Sodium 140 Potassium 2.7 L* Chloride 101 Carbon Dioxide 28.6 Anion Gap 10 BUN Less than 1 L Creatinine 0.29 L Estimated GFR Greater than 89 Random Glucose 94 Calcium 7.3 L* Prot Corrected Calcium 8.4 L Magnesium 1.2 L Total Bilirubin 0.7 AST 51 H ALT 35 Alkaline Phosphatase 155 H Total Protein 5.1 L D Albumin 2.4 L Assessment and Plan - Assessment (1) GI bleed Code(s): K92.2 - Gastrointestinal hemorrhage, unspecified Status: Acute (2) Colitis Code(s): K52.9 - Noninfective gastroenteritis and colitis, unspecified Status : Acute - Plan 43 y/o white female with PMHx of Alcohol Abuse admitted for inpatient mgmt of GI bleed/Colitis s/p EGD with bleeding source identified, s/p 2u pRBC's on for Hgb 6.5 1. GI Bleed/C. Dif Colitis, resolved s/p EGD with source of upper GI bleed identified, s/p clamping and epinephrine injection Was previously on Protonix octreotide drip and transitioned now to p.o. Protonix. s/p Unasyn and transition to Clarithromycin/Flagyl PO started on 09/22 and now discontinued by infectious disease. CT ABD +colitis, +C. Dif on 09/23 Due to C. difficile carrier however negative toxin with positive colitis on CT abdomen pelvis ID is recommending vancomycin for 14 more day. Appreciate GI assisting with mgmt Continue Morphine/Oxy PRN Advance to soft diet as tolerated. 2. Acute Blood Loss Anemia Secondary to GI bleed, now resolved Stable at 9.7 today s/p 2U pRBC's for Hgb 6.5 on 09/22 Monitor hemoglobin. 3. Hypocalcemia/Hypokalemia/hypomagnesium Replete Scheduled magnesium supplements. 4. Hx of Alcohol abuse/Elevated LFT's, improving Due to alcohol abuse LFT's trending down today Continue CIWA protocol EtOH counselor consult placed Neg Hepatitis panel 5. Tobacco Abuse Encourage cessation, risks discussed 6. DVT prophylaxis: SCD's Discharge Planning: Home when medically stable. (1) GI bleed Qualifiers: GI bleed type/associated pathology: unspecified gastrointestinal hemorrhage type Qualified Code(s): K92.2 - Gastrointestinal hemorrhage, unspecified
--- NOTE | 2018-09-26 13:08 | P.PNID ---
Subjective Remarks: Patient is a 43-year-old female, presented to the hospital complaining of several day history of abdominal pain. Patient stated that she had gastric bypass in 2002 and had developed peptic ulcer disease. She has had abdominal pain, and she had some episodes of diarrhea. She also has had nausea and vomiting and has had very poor p.o. intake. She denies any mucus or any blood in the stool. She had seen some blood when she vomited. Her appetite also has been poor. Patient has known alcoholic abuse and she still drinks half a bottle of vodka despite all her GI symptoms currently. Patient underwent endoscopy and was found to have an ulcer in her anastomotic site. She had a CT of the abdomen and pelvis which showed evidence of bowel wall thickening in the ascending colon and in the transverse colon. She has had some diarrhea. She still complains of abdominal pain. She has not had any nausea and vomiting today, and has been tolerating her clear liquids. Patient stool studies came back negative for other enteric pathogens. C. difficile antigen, and C. difficile DNA PCR came back positive, but the C. difficile toxin is negative. Patient is currently on Biaxin as well as on Flagyl. Patient overall feels better, and wants to advance her diet. She has not been febrile. Her WBC is normal. Infectious disease consultation has been requested to evaluate the patient with positive C. difficile colitis. Notes reviewed Abdominal pain is better Still having diarrhea Diet advanced Antibiotics: PO vanco Lines: PIV Past Medical History: Depression GI bleed Stomach ulcer History of gastric bypass Hx of cholecystectomy Allergies/Adverse Reactions: Allergies ondansetron [From Zofran] Allergy (Verified 09/21/18 14:45) Itching, Generalized Objective Vital Signs 09/25/18 14:00 09/25/18 14:03 09/25/18 15:00 Temperature Pulse Rate 104 H 83 Respiratory Rate 22 21 22 Blood Pressure Pulse Oximetry 99 09/25/18 16:22 09/25/18 17:00 09/25/18 18:00 Temperature Pulse Rate 98 H 89 89 Respiratory Rate 16 22 28 H Blood Pressure Pulse Oximetry 09/25/18 19:00 09/25/18 20:00 09/25/18 21:00 Temperature 97.7 F Pulse Rate 85 91 H 122 H Respiratory Rate 18 21 22 Blood Pressure Pulse Oximetry 09/25/18 21:14 09/25/18 22:00 09/26/18 00:00 Temperature 97.5 F L Pulse Rate 109 H 104 H 92 H Respiratory Rate 36 H 16 18 Blood Pressure 107/57 L 125/82 Pulse Oximetry 95 09/26/18 04:00 09/26/18 08:00 09/26/18 11:11 Temperature 97.7 F 98.5 F Pulse Rate 91 H 86 Respiratory Rate 18 18 Blood Pressure 139/86 145/88 H Pulse Oximetry 98 99 98 09/26/18 12:00 Temperature 98.1 F Pulse Rate 92 H Respiratory Rate 18 Blood Pressure 127/93 H Pulse Oximetry 98 Intake & Output 09/25/18 09/26/18 09/26/18 18:59 06:59 18:59 Intake Total 3190 / 3190 2160 / 2160 Balance 3190 / 3190 2160 / 2160 Weight 79.1 kg Intake: IV 2210 / 2210 Protonix Inj 80 MG In NS Inj 100 / 100 100 ML @ 10 mls/hr IV.CONT Q10H [facility] Rx#:[id number] NS Inj 1,000 ML @ 100 mls/hr IV 1999 / 1999 .CONT .Q10H [facility] Rx#:[id number] Calcium Chloride Inj 1 GM In NS 110 / 110 Inj 100 ML @ 110 mls/hr IV.SIG ONCE ONE Rx#:[id number] Oral 980 / 980 1160 / 1160 Anesthesia Amount 1000 / 1000 Other: # Voids 7 3 Date of Last Bowel Movement 09/25/18 09/25/18 # Bowel Movements 4 4 09/23/18 01:40 Stool Enteric Pathogens (PCR) - Final No enteric pathogens detected by PCR (No Salmonella sp., Shigella sp., Campylobacter sp., Yersinia enterocolitica, Vibrio sp., Norovirus, or EHEC (Shiga Toxin 1 or Shiga Toxin 2) detected. 09/23/18 01:40 Stool Cryptosporidium Antigen - Final Negative - No Cryptosporicium antigen detected In selected cases of patients with a history of immunosuppression or foreign travel, a full ova and parasites examination may be desired. Contact the microbiology lab if full workup is indicated and subit another specimen for testing. 09/23/18 01:40 Stool Giardia Antigen (SUZANNE) - Final Negative - No Giardia Antigen detected In selected cases of patients with a history of immunosuppression or foreign travel, a full ova and parasites examination may be desired. Contact the microbiology lab if full workup is indicated and subit another specimen for testing. 09/23/18 01:40 Stool Stool for WBCs - Final Rare WBC's Lab - Hematology Results 09/25/18 09/26/18 06:13 07:31 WBC 7.4 5.5 RBC 3.18 L 3.13 L Hgb 9.9 L 9.7 L Hct 29.9 L 29.1 L MCV 94.1 92.9 MCH 31.1 31.1 MCHC 33.1 33.5 RDW 18.7 H 18.3 H Plt Count 184 187 MPV 7.8 8.1 Neut % (Auto) 58.9 45.5 Lymph % (Auto) 28.1 35.8 [place] % (Auto) 10.2 H 16.0 H Eos % (Auto) 2.0 2.1 Baso % (Auto) 0.8 0.6 Neut # (Auto) 4.3 2.5 Lymph # (Auto) 2.1 2.0 [place] # (Auto) 0.8 0.9 Eos # (Auto) 0.1 0.1 Baso # (Auto) 0.1 0.0 WBC Differential . . Differential Comment Auto diff final Auto diff final Lab - Chemistry Results 09/25/18 09/26/18 06:13 07:31 Sodium 138 140 Potassium 3.0 L 2.7 L* Chloride 100 101 Carbon Dioxide 25.5 28.6 Anion Gap 13 10 BUN Less than 1 L Less than 1 L Creatinine 0.23 L 0.29 L Estimated GFR Greater than 89 Greater than 89 Random Glucose 89 94 Calcium 7.1 L* D 7.3 L* Prot Corrected Calcium 7.8 L 8.4 L Magnesium 1.2 L Total Bilirubin 0.9 0.7 AST 89 H 51 H ALT 49 35 Alkaline Phosphatase 153 H 155 H Total Protein 5.8 L 5.1 L D Albumin 2.8 L 2.4 L Imaging: ITS Impressions Abdomen/Pelvis CT 09/21/18 14:44 CONCLUSION: 1. Diffuse thickening involving the wall the ascending and proximal transverse colon suggesting acute colitis. Clinical correlation is recommended. 2. Markedly enlarged liver with diffuse fatty infiltration. 3. Small right paraumbilical abdominal wall hernia containing only fat. Chest X-Ray 09/21/18 15:17 CONCLUSION: Negative examination. No evidence of free intraperitoneal air. Physical Exam: GENERAL: awake and alert, not in respiratory distress. SKIN: Cool and dry. No generalized rash. HEAD: Atraumatic. Normocephalic. No temporal wasting, or tenderness. EYES: [place] conjunctiva. No petechia or hemorrhage. No scleral icterus. No injection or drainage. EARS, NOSE AND THROAT: Mucous membranes pink and moist. No oral lesions noted. No exudate. No oral thrush. NECK: Trachea midline. Supple and not tender, no meningeal signs CARDIOVASCULAR: Regular rate and rhythm. No murmurs, rubs or gallops heard RESPIRATORY: Clear to auscultation. Breath sounds equal bilaterally. No rales , wheezing or rhonchi ABDOMEN: Soft, diffuse mild tenderness, nondistended. Bowel sounds present and normoactive. No guarding. No rebound. No organomegaly. EXTREMITIES: No clubbing, cyanosis, or edema. No calf tenderness. NEUROLOGICAL: Non-focal. PSYCHIATRIC: Normal affect, calm and cooperative. LINE: No evidence of infection Assessment and Plan - Plan Impression Diarrhea mild - C diff studies C/W carrier, toxin negative but her CT A/P showing evidence of R sided colitis Abdominal pain due likely to ulcer Known ETOH abuse Recommendation PO vanco x 14 days Monitor response to Rx I will be available prn Please call and reconsult if with any new ID issue or question
[2018-09-26] MEDS ORDERED: Mag Sulf 1 gm/100 ml Premix 100 ML IV.SIG ONE (13:15)
[2018-09-26] MEDS: Petrolatum 49%/Zinc Oxide 15% Barrier Oint 120 GM Tube TOPICAL SCH (14:32)
--- NOTE | 2018-09-26 15:05 | P.PNGI ---
Subjective Interval history: Patient sitting up in bed conversing on telephone. Reports tolerating regular diet well. Denies any noted bleeding. Reports one episode of nausea and vomiting after taking potassium supplement this morning. Physical Exam Vital signs: Vital Signs 09/25/18 15:00 09/25/18 16:22 09/25/18 17:00 Temperature Pulse Rate 83 98 H 89 Respiratory Rate 22 16 22 Blood Pressure Pulse Oximetry 09/25/18 18:00 09/25/18 19:00 09/25/18 20:00 Temperature 97.7 F Pulse Rate 89 85 91 H Respiratory Rate 28 H 18 21 Blood Pressure Pulse Oximetry 09/25/18 21:00 09/25/18 21:14 09/25/18 22:00 Temperature Pulse Rate 122 H 109 H 104 H Respiratory Rate 22 36 H 16 Blood Pressure 107/57 L Pulse Oximetry 09/26/18 00:00 09/26/18 04:00 09/26/18 08:00 Temperature 97.5 F L 97.7 F 98.5 F Pulse Rate 92 H 91 H 86 Respiratory Rate 18 18 18 Blood Pressure 125/82 139/86 145/88 H Pulse Oximetry 95 98 99 09/26/18 11:11 09/26/18 12:00 Temperature 98.1 F Pulse Rate 92 H Respiratory Rate 18 Blood Pressure 127/93 H Pulse Oximetry 98 98 Intake & Output 09/25/18 09/26/18 09/26/18 18:59 06:59 18:59 Intake Total 3190 / 3190 2160 / 2160 100 / 100 Balance 3190 / 3190 2160 / 2160 100 / 100 Weight 79.1 kg Intake: IV 2210 / 2210 100 / 100 Protonix Inj 80 MG In NS Inj 100 / 100 100 ML @ 10 mls/hr IV.CONT Q10H [facility] Rx#:[id number] NS Inj 1,000 ML @ 100 mls/hr IV 1999 / 1999 .CONT .Q10H [facility] Rx#:[id number] Calcium Chloride Inj 1 GM In NS 110 / 110 Inj 100 ML @ 110 mls/hr IV.SIG ONCE ONE Rx#:[id number] Magnesium Sulfate 1 gm/D5W 100 100 / 100 ml Premix 100 ML @ 100 mls/hr IV.SIG ONCE ONE Rx#:[id number] Oral 980 / 980 1160 / 1160 Anesthesia Amount 1000 / 1000 Other: # Voids 7 3 Date of Last Bowel Movement 09/25/18 09/25/18 # Bowel Movements 4 4 - Constitutional no acute distress - Routine HEENT Exam Head: Present: normocephalic - Routine Respiratory Exam Present: CTA bilaterally. Absent: accessory muscle use - Routine Cardiovascular Exam Present: RRR - Routine Abdominal Exam Present: soft, normoactive bowel sounds - Routine Extremities Exam Present: full ROM. Absent: edema - Routine Skin Exam Present: dry, warm - Routine Neurological Exam Present: alert, oriented X3 - Routine Psychiatric Exam Present: normal affect, cooperative Results - Labs CBC & Chem 7: 09/26/18 07:31 09/26/18 07:31 Laboratory Results - last 24 hr 09/26/18 09/26/18 07:31 07:31 WBC 5.5 RBC 3.13 L Hgb 9.7 L Hct 29.1 L MCV 92.9 MCH 31.1 MCHC 33.5 RDW 18.3 H Plt Count 187 MPV 8.1 Neut % (Auto) 45.5 Lymph % (Auto) 35.8 [place] % (Auto) 16.0 H Eos % (Auto) 2.1 Baso % (Auto) 0.6 Neut # (Auto) 2.5 Lymph # (Auto) 2.0 [place] # (Auto) 0.9 Eos # (Auto) 0.1 Baso # (Auto) 0.0 WBC Differential . Differential Comment Auto diff final Sodium 140 Potassium 2.7 L* Chloride 101 Carbon Dioxide 28.6 Anion Gap 10 BUN Less than 1 L Creatinine 0.29 L Estimated GFR Greater than 89 Random Glucose 94 Calcium 7.3 L* Prot Corrected Calcium 8.4 L Magnesium 1.2 L Total Bilirubin 0.7 AST 51 H ALT 35 Alkaline Phosphatase 155 H Total Protein 5.1 L D Albumin 2.4 L Assessment and Plan (1) GI bleed Status: Acute Code(s): K92.2 - Gastrointestinal hemorrhage, unspecified (2) Colitis Status: Acute Code(s): K52.9 - Noninfective gastroenteritis and colitis, unspecified - Plan 09/26/2018 GI bleed/colitis Patient sitting up in bed conversing on telephone. States very little abdominal pain. Denies any nausea at this time. States one episode of nausea after taking potassium supplement this morning. States tolerating regular diet well. Denies any noted bleeding, hemoglobin 9.7 hematocrit 29.1 platelet count 187 total bilirubin 0.7 AST 51 ALT 35 alk phos 155 Patient reports 3-4 loose bowel movements in the last 24 hours. Plan -Regular diet as tolerated -Continue PPI -Continue vancomycin p.o. -Antiemetics and analgesics as per attending -Monitor for bleeding -Monitor hemoglobin and hematocrit -Supportive care -Further recommendations to follow This patient has been seen by myself and Dr. Maza and this note is written on his behalf - Attending Attestation Dr. Maza (1) GI bleed Qualifiers: GI bleed type/associated pathology: unspecified gastrointestinal hemorrhage type Qualified Code(s): K92.2 - Gastrointestinal hemorrhage, unspecified
[2018-09-26] MEDS: Magnesium Oxide 400 MG Tablet PO SCH (22:43)
[2018-09-27] MEDS: Magnesium Oxide 400 MG Tablet PO SCH ×2 (09:02→20:16)
[2018-09-27] MEDS: Morphine Inj 4 MG/ML Vial IV.PUSH PRN ×3 (09:02→20:17)
[2018-09-27] MEDS: Petrolatum 49%/Zinc Oxide 15% Barrier Oint 120 GM Tube TOPICAL SCH (09:02)
[2018-09-27 09:24] LABS: Anion Gap 9 meq/L (5-15); Blood Urea Nitrogen 1 mg/dL (7-18); Calcium 7.6 mg/dL (8.5-10.1); Carbon Dioxide 29.6 meq/L (21.0-32.0); Chloride 103 meq/L (98-107); Glomerular Filtration Rate Greater Than 89 mL/min (>89); Glucose,Random 93 mg/dL (74-106); Potassium 3.1 meq/L (3.5-5.1); Sodium 142 meq/L (136-145)
[2018-09-27] MEDS ORDERED: Mag Sulf 1 gm/100 ml Premix 100 ML IV.SIG ONE (14:00)
--- NOTE | 2018-09-27 14:01 | P.PNIM ---
Subjective Interval history: Still with multiple loose stools and would like to stay another day. Tolerating diet. Reports buttocks pain for multiple diarrhea is still persists however the barrier cream has helped. Would like to get help with taxicab home upon discharge. No abdominal pain. Physical Exam Vital signs: Last Vital Signs Temp 97.9 F 09/27/18 12:00 Pulse 87 09/27/18 12:00 Resp 18 09/27/18 12:00 BP 132/74 09/27/18 12:00 Pulse Ox 99 09/27/18 12:35 Intake & Output 09/25/18 09/26/18 09/27/18 09/28/18 06:59 06:59 06:59 06:59 Intake Total 4090 / 4090 5350 / 5350 4840 / 4840 Output Total 4150 / 4150 Balance 4090 / 4090 5350 / 5350 690 / 690 Weight 79.1 kg 79.1 kg 78.2 kg Narrative: GENERAL: This is a well-nourished, well-developed patient, in no apparent distress. CARDIOVASCULAR: Regular rate and rhythm RESPIRATORY: Clear to auscultation. Breath sounds equal bilaterally. No wheezes , rales, or rhonchi. GASTROINTESTINAL: Abdomen soft, non-tender, nondistended. Normal active bowel sounds MUSCULOSKELETAL: Extremities without clubbing, cyanosis, or edema. NEURO: Alert & Oriented x4 to person, place, time, situation. Moves all ext x4 Results Labs CBC & Chem 7: 09/26/18 07:31 09/27/18 08:16 Assessment and Plan (1) GI bleed: Code(s): K92.2 - Gastrointestinal hemorrhage, unspecified Status: Acute (2) Colitis: Code(s): K52.9 - Noninfective gastroenteritis and colitis, unspecified Status: Acute Plan 43 y/o white female with PMHx of Alcohol Abuse admitted for inpatient mgmt of GI bleed/Colitis s/p EGD with bleeding source identified, s/p 2u pRBC's on for Hgb 6.5 1. GI Bleed/C. Dif Colitis, resolved s/p EGD with source of upper GI bleed identified, s/p clamping and epinephrine injection Was previously on Protonix octreotide drip and transitioned now to p.o. Protonix. s/p Unasyn and transition to Clarithromycin/Flagyl PO started on 09/22 and now discontinued by infectious disease. CT ABD +colitis, +C. Dif on 09/23 Due to C. difficile carrier even with negative toxin with positive colitis on CT abdomen pelvis, ID is recommending vancomycin for 14 more days. Appreciate GI assisting with mgmt Continue Morphine/Oxy PRN, wean off pain medications for discharge planning Advance to soft diet as tolerated. 2. Acute Blood Loss Anemia Secondary to GI bleed, now resolved Stable at 9.7 on 09/26 s/p 2U pRBC's for Hgb 6.5 on 09/22 Monitor hemoglobin. 3. Hypocalcemia/Hypokalemia/hypomagnesium Replete Scheduled magnesium supplements. potassium supplements given 4. Hx of Alcohol abuse/Elevated LFT's, improving Due to alcohol abuse LFT's trending down today Continue CIWA protocol EtOH counselor consult placed Neg Hepatitis panel 5. Tobacco Abuse Encourage cessation, risks discussed 6. DVT prophylaxis: SCD's Discharge Planning: .Likely discharge to home in the morning when electrolytes improved. Progress Note: Quality VTE Deep Vein Thrombosis/Pulmonary Embolism Present on Admission: No _ (1) GI bleed Qualifiers: GI bleed type/associated pathology: unspecified gastrointestinal hemorrhage type Gastritis type: Qualified Code(s): K92.2 - Gastrointestinal hemorrhage, unspecified
--- NOTE | 2018-09-27 16:07 | P.PNGI ---
Subjective Interval history: Patient sitting up in bed, states tolerating meals well. Denies any nausea or vomiting, denies any noted bleeding <Kriss Marrero - Last Filed: 09/27/18 16:04> Physical Exam Vital signs: Vital Signs 09/26/18 20:00 09/26/18 20:49 09/27/18 00:00 Temperature 97.9 F 98 F Pulse Rate 85 91 H Respiratory Rate 15 14 Blood Pressure 138/67 136/70 Pulse Oximetry 96 97 99 09/27/18 04:00 09/27/18 08:00 09/27/18 12:00 Temperature 97.9 F 98.8 F 97.9 F Pulse Rate 107 H 88 87 Respiratory Rate 16 18 18 Blood Pressure 143/72 H 136/85 132/74 Pulse Oximetry 98 99 99 09/27/18 12:35 Temperature Pulse Rate Respiratory Rate Blood Pressure Pulse Oximetry 99 Intake & Output 09/26/18 09/27/18 09/27/18 18:59 06:59 18:59 Intake Total 4160 / 4160 680 / 680 Output Total 4150 / 4150 Balance 680 / 680 Weight 78.2 kg Intake: IV 100 / 100 Magnesium Sulfate 1 gm/D5W 100 100 / 100 ml Premix 100 ML @ 100 mls/hr IV.SIG ONCE ONE Rx#:[id number] Oral 4060 / 4060 680 / 680 Output: Urine 4150 / 4150 Other: # Voids 4 # Bowel Movements 3 2 - Constitutional no acute distress - Routine HEENT Exam Head: Present: normocephalic - Routine Respiratory Exam Present: CTA bilaterally. Absent: accessory muscle use - Routine Cardiovascular Exam Present: RRR - Routine Abdominal Exam Present: soft, normoactive bowel sounds. Absent: tenderness, distended, guarding, firm - Routine Skin Exam Present: dry, warm - Routine Neurological Exam Present: alert - Routine Psychiatric Exam Present: normal affect, cooperative <Kriss Marrero - Last Filed: 09/27/18 16:04> Vital signs: Vital Signs 09/26/18 20:00 09/26/18 20:49 09/27/18 00:00 Temperature 97.9 F 98 F Pulse Rate 85 91 H Respiratory Rate 15 14 Blood Pressure 138/67 136/70 Pulse Oximetry 96 97 99 09/27/18 04:00 09/27/18 08:00 09/27/18 12:00 Temperature 97.9 F 98.8 F 97.9 F Pulse Rate 107 H 88 87 Respiratory Rate 16 18 18 Blood Pressure 143/72 H 136/85 132/74 Pulse Oximetry 98 99 99 09/27/18 12:35 09/27/18 16:00 Temperature 98.1 F Pulse Rate 92 H Respiratory Rate 18 Blood Pressure 125/71 Pulse Oximetry 99 98 Intake & Output 09/26/18 09/27/18 09/27/18 18:59 06:59 18:59 Intake Total 4160 / 4160 680 / 680 2980 / 2980 Output Total 4150 / 4150 3000 / 3000 Balance 680 / 680 -20 / -20 Weight 78.2 kg Intake: IV 100 / 100 100 / 100 Magnesium Sulfate 1 gm/D5W 100 100 / 100 100 / 100 ml Premix 100 ML @ 100 mls/hr IV.SIG ONCE ONE Rx#:[id number] Oral 4060 / 4060 680 / 680 2880 / 2880 Output: Urine 4150 / 4150 3000 / 3000 Other: # Voids 4 # Bowel Movements 3 2 4 <Sami Ryan - Last Filed: 09/27/18 18:53> Results - Labs CBC & Chem 7: 09/26/18 07:31 09/27/18 08:16 Laboratory Results - last 24 hr 09/27/18 08:16 Sodium 142 Potassium 3.1 L Chloride 103 Carbon Dioxide 29.6 Anion Gap 9 BUN 1 L Creatinine 0.38 L Estimated GFR Greater than 89 Random Glucose 93 Calcium 7.6 L <Kriss Marrero - Last Filed: 09/27/18 16:04> - Labs CBC & Chem 7: 09/26/18 07:31 09/27/18 08:16 Laboratory Results - last 24 hr 09/27/18 08:16 Sodium 142 Potassium 3.1 L Chloride 103 Carbon Dioxide 29.6 Anion Gap 9 BUN 1 L Creatinine 0.38 L Estimated GFR Greater than 89 Random Glucose 93 Calcium 7.6 L <Sami Ryan - Last Filed: 09/27/18 18:53> Assessment and Plan (1) GI bleed Status: Acute Code(s): K92.2 - Gastrointestinal hemorrhage, unspecified (2) Colitis Status: Acute Code(s): K52.9 - Noninfective gastroenteritis and colitis, unspecified - Plan 09/26/2018 GI bleed/colitis Patient sitting up in bed conversing on telephone. States very little abdominal pain. Denies any nausea at this time. States one episode of nausea after taking potassium supplement this morning. States tolerating regular diet well. Denies any noted bleeding, hemoglobin 9.7 hematocrit 29.1 platelet count 187 total bilirubin 0.7 AST 51 ALT 35 alk phos 155 Patient reports 3-4 loose bowel movements in the last 24 hours. 09/27/2018 GI bleed/colitis Patient sitting up in bed, denies abdominal pain. Denies nausea and states tolerating meals well. Denies any noted bleeding. Hemoglobin 9.7 hematocrit 29.1 platelet count 187 Plan -Regular diet -PPI -Vancomycin p.o. -Antiemetics and analgesics as per attending -Monitor for bleeding -Monitor hemoglobin and hematocrit -Supportive care -Further recommendations to follow This patient has been seen by myself and Dr. Ryan and this note is written on his behalf - Attending Attestation Dr. Ryan <Kriss Marrero - Last Filed: 09/27/18 16:04> (1) GI bleed Status: Acute Code(s): K92.2 - Gastrointestinal hemorrhage, unspecified (2) Colitis Status: Acute Code(s): K52.9 - Noninfective gastroenteritis and colitis, unspecified - Plan Patient seen and examined Agree with above Continue with current supportive care Monitor labs Patient follow-up with GI post discharge Not much to add at this point from a GI perspective we will sign off <Sami Ryan - Last Filed: 09/27/18 18:53> <Kriss Marrero - Last Filed: 09/27/18 16:04> (1) GI bleed Qualifiers: GI bleed type/associated pathology: unspecified gastrointestinal hemorrhage type Qualified Code(s): K92.2 - Gastrointestinal hemorrhage, unspecified <Sami Ryan E - Last Filed: 09/27/18 18:53> (1) GI bleed Qualifiers: GI bleed type/associated pathology: unspecified gastrointestinal hemorrhage type Qualified Code(s): K92.2 - Gastrointestinal hemorrhage, unspecified
[2018-09-28] MEDS: Morphine Inj 4 MG/ML Vial IV.PUSH PRN ×3 (04:44→20:42)
[2018-09-28] MEDS: Magnesium Oxide 400 MG Tablet PO SCH ×2 (08:58→20:42)
[2018-09-28] MEDS: Petrolatum 49%/Zinc Oxide 15% Barrier Oint 120 GM Tube TOPICAL SCH (08:58)
[2018-09-28 13:11] LABS: Anion Gap 8 meq/L (5-15); Blood Urea Nitrogen 1 mg/dL (7-18); Calcium 8.2 mg/dL (8.5-10.1); Chloride 105 meq/L (98-107); Glomerular Filtration Rate Greater Than 89 mL/min (>89); Glucose,Random 81 mg/dL (74-106); Potassium 3.4 meq/L (3.5-5.1); Sodium 141 meq/L (136-145)
[2018-09-28] MEDS: Loperamide 2 MG Capsule PO PRN (15:28)
--- NOTE | 2018-09-28 17:32 | P.PNIM ---
Subjective Interval history: Patient's chief complaint today remains diarrhea. She still has watery consistency to her stools which causes a feeling of dehydration and causes irritation of her hemorrhoids. She predicts that if she goes home in her current state she will be back to the hospital within 1-2 days. Physical Exam Vital signs: Vital Signs 09/27/18 20:00 09/28/18 00:00 09/28/18 04:00 Temperature 98.4 F 98.9 F 97.8 F Pulse Rate 91 H 84 97 H Respiratory Rate 14 16 16 Blood Pressure 121/85 99/67 L 142/98 H Pulse Oximetry 100 97 100 09/28/18 12:22 Temperature Pulse Rate Respiratory Rate Blood Pressure Pulse Oximetry 100 Intake & Output 09/27/18 09/28/18 09/28/18 18:59 06:59 18:59 Intake Total 2980 / 2980 480 / 480 Output Total 3000 / 3000 4 / 4 Balance -20 / -20 476 / 476 Weight 76.5 kg Intake: IV 100 / 100 Magnesium Sulfate 1 gm/D5W 100 100 / 100 ml Premix 100 ML @ 100 mls/hr IV.SIG ONCE ONE Rx#:[id number] Oral 2880 / 2880 480 / 480 Output: Urine 3000 / 3000 4 Other: # Bowel Movements 4 2 Narrative: GENERAL: AAOx3, no acute distress SKIN: Warm and dry. No rashes HEAD: Atruamtic, normocephalic. EYES: No scleral icterus. No injection or drainage. ENT: Moist mucous membranes, patent nares, no erythema of oropharynx. NECK: Supple, trachea midline. No JVD or lymphadenopathy. Normal thyroid. CARDIOVASCULAR: Regular rate and rhythm. No murmurs, gallops, or rubs. RESPIRATORY: Breath sounds clear equal bilaterally. No crackles or wheezes. No accessory muscle use. GASTROINTESTINAL: Abdomen soft, non-tender, nondistended, normal active bowel sounds MUSCULOSKELETAL: No cyanosis, or edema. NEURO: CN II-XII grossly intact, no focal deficits, no slurring of speech Results - Labs CBC & Chem 7: 09/26/18 07:31 09/28/18 12:17 Laboratory Results - last 24 hr 09/28/18 09/28/18 12:17 12:17 Sodium 141 Potassium 3.4 L Chloride 105 Carbon Dioxide 28.0 Anion Gap 8 BUN 1 L Creatinine 0.38 L Estimated GFR Greater than 89 Random Glucose 81 Calcium 8.2 L Magnesium 2.0 Assessment and Plan - Assessment (1) GI bleed Code(s): K92.2 - Gastrointestinal hemorrhage, unspecified Status: Acute (2) Colitis Code(s): K52.9 - Noninfective gastroenteritis and colitis, unspecified Status : Acute - Plan 43 y/o white female with PMHx of Alcohol Abuse admitted for inpatient mgmt of GI bleed/Colitis s/p EGD with bleeding source identified, s/p 2u pRBC's on for Hgb 6.5 GI Bleed/C. Dif Colitis, resolved s/p EGD with source of upper GI bleed identified, s/p clamping and epinephrine injection CT ABD +colitis, +C. Dif on 09/23 Continue p.o. 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 even with negative toxin with positive colitis on CT abdomen pelvis, ID is recommending vancomycin for 14 more days Imodium right ear added to slow down diarrhea and help formed stools Lidocaine gel added to relieve burning hemorrhoids Acute Blood Loss Anemia Secondary to GI bleed, now resolved s/p 2U pRBC's for Hgb 6.5 on 09/22 Hemoglobin remains stable, will continue to monitor Hypocalcemia/Hypokalemia/hypomagnesium Repleted, stable Hx of Alcohol abuse/Elevated LFT's, improving Due to alcohol abuse, hepatitis panel was negative LFT's trending downward Continue CIWA protocol Tobacco Abuse Encouraged cessation, risks discussed Patient declining offer for nicotine patch DVT prophylaxis SCD's, ambulatory (1) GI bleed Qualifiers: GI bleed type/associated pathology: unspecified gastrointestinal hemorrhage type Qualified Code(s): K92.2 - Gastrointestinal hemorrhage, unspecified
[2018-09-28] MEDS: Zolpidem Tartrate 5 MG Tablet PO PRN (21:18)
[2018-09-29 08:36] LABS: Hematocrit 32.6 % (35.0-46.0); Hemoglobin 10.6 gm/dL (11.6-15.3); Mean Corpuscular HGB Conc 32.4 % (32.0-36.0); Mean Corpuscular Hemoglobin 31.7 pg (27.0-34.0); Mean Corpuscular Volume 97.8 fL (80.0-100.0); Mean Platelet Volume 8.5 fL (7.0-11.0); Platelet Count 269 th/mm3 (150-450); Red Blood Count 3.34 mil/mm3 (4.00-5.30); Red Cell Distribution Width 21.1 % (11.6-17.2); White Blood Count 5.5 th/mm3 (4.0-11.0)
[2018-09-29] MEDS: Morphine Inj 4 MG/ML Vial IV.PUSH PRN ×3 (08:56→22:19)
[2018-09-29] MEDS: Loperamide 2 MG Capsule PO PRN ×2 (08:56→12:41)
[2018-09-29] MEDS: Magnesium Oxide 400 MG Tablet PO SCH ×2 (08:56→20:00)
[2018-09-29] MEDS: Petrolatum 49%/Zinc Oxide 15% Barrier Oint 120 GM Tube TOPICAL SCH (08:57)
[2018-09-29 09:05] LABS: Anion Gap 8 meq/L (5-15); Blood Urea Nitrogen 3 mg/dL (7-18); Calcium 8.2 mg/dL (8.5-10.1); Carbon Dioxide 29.5 meq/L (21.0-32.0); Chloride 105 meq/L (98-107); Glomerular Filtration Rate Greater Than 89 mL/min (>89); Glucose,Random 90 mg/dL (74-106); Potassium 3.8 meq/L (3.5-5.1); Sodium 142 meq/L (136-145)
--- NOTE | 2018-09-29 15:33 | P.PNIM ---
Subjective Interval history: Patient still has diarrhea, she states that she did not receive her Imodium until this morning. She has not yet received her lidocaine gel to use for rectal irritation. Physical Exam Vital signs: Vital Signs 09/28/18 19:54 09/28/18 20:32 09/29/18 00:00 Temperature 97.9 F 98.0 F Pulse Rate 86 93 H Respiratory Rate 18 18 Blood Pressure 118/73 107/85 Pulse Oximetry 97 97 99 09/29/18 04:00 09/29/18 08:00 09/29/18 10:57 Temperature 98.3 F 98.2 F Pulse Rate 88 85 Respiratory Rate 18 20 Blood Pressure 110/78 121/91 H Pulse Oximetry 97 100 100 Intake & Output 09/28/18 09/29/18 09/29/18 19:59 06:59 18:59 Intake Total Output Total Balance Weight Intake: Oral Anesthesia Amount Output: Urine Other: # Voids Date of Last Bowel Movement # Bowel Movements Narrative: GENERAL: AAOx3, no acute distress SKIN: Warm and dry. No rashes HEAD: Atruamtic, normocephalic. EYES: No scleral icterus. No injection or drainage. ENT: Moist mucous membranes, patent nares, no erythema of oropharynx. NECK: Supple, trachea midline. No JVD or lymphadenopathy. Normal thyroid. CARDIOVASCULAR: Regular rate and rhythm. No murmurs, gallops, or rubs. RESPIRATORY: Breath sounds clear equal bilaterally. No crackles or wheezes. No accessory muscle use. GASTROINTESTINAL: Abdomen soft, non-tender, nondistended, normal active bowel sounds MUSCULOSKELETAL: No cyanosis, or edema. NEURO: CN II-XII grossly intact, no focal deficits, no slurring of speech Results - Labs CBC & Chem 7: 09/29/18 07:32 09/29/18 07:32 Laboratory Results - last 24 hr 09/29/18 09/29/18 07:32 07:32 WBC 5.5 RBC 3.34 L Hgb 10.6 L Hct 32.6 L MCV 97.8 MCH 31.7 MCHC 32.4 RDW 21.1 H Plt Count 269 D MPV 8.5 Sodium 142 Potassium 3.8 Chloride 105 Carbon Dioxide 29.5 Anion Gap 8 BUN 3 L Creatinine 0.57 Estimated GFR Greater than 89 Random Glucose 90 Calcium 8.2 L Assessment and Plan - Assessment (1) GI bleed Code(s): K92.2 - Gastrointestinal hemorrhage, unspecified Status: Acute (2) Colitis Code(s): K52.9 - Noninfective gastroenteritis and colitis, unspecified Status : Acute - Plan 43 y/o white female with PMHx of Alcohol Abuse admitted for inpatient mgmt of GI bleed/Colitis s/p EGD with bleeding source identified, s/p 2u pRBC's on for Hgb 6.5 09/29/18 = patient still has diarrhea, took first dose of Imodium today, no other changes GI Bleed/C. Dif Colitis, resolved s/p EGD with source of upper GI bleed identified, s/p clamping and epinephrine injection CT ABD +colitis, +C. Dif on 09/23 Continue p.o. 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 even with negative toxin with positive colitis on CT abdomen pelvis, ID is recommending vancomycin for 14 more days Imodium right ear added to slow down diarrhea and help formed stools Lidocaine gel added to relieve burning hemorrhoids Acute Blood Loss Anemia Secondary to GI bleed, now resolved s/p 2U pRBC's for Hgb 6.5 on 09/22 Hemoglobin remains stable, will continue to monitor Hypocalcemia/Hypokalemia/hypomagnesium Repleted, stable Hx of Alcohol abuse/Elevated LFT's, improving Due to alcohol abuse, hepatitis panel was negative LFT's trending downward Continue CIWA protocol Tobacco Abuse Encouraged cessation, risks discussed Patient declining offer for nicotine patch DVT prophylaxis SCD's, ambulatory (1) GI bleed Qualifiers: GI bleed type/associated pathology: unspecified gastrointestinal hemorrhage type Qualified Code(s): K92.2 - Gastrointestinal hemorrhage, unspecified
[2018-09-29] MEDS: Zolpidem Tartrate 5 MG Tablet PO PRN (20:00)
[2018-09-30] MEDS: Morphine Inj 4 MG/ML Vial IV.PUSH PRN ×4 (03:33→21:05)
[2018-09-30] MEDS: Magnesium Oxide 400 MG Tablet PO SCH ×2 (08:03→21:02)
[2018-09-30] MEDS: Petrolatum 49%/Zinc Oxide 15% Barrier Oint 120 GM Tube TOPICAL SCH (09:56)
--- NOTE | 2018-09-30 18:04 | P.PNIM ---
Subjective Interval history: Patient reports that her diarrhea is still not improved after starting Imodium. She states she is still having 3-4 watery stools each day and excessive flatulence. She denies any more GI bleeding. Physical Exam Vital signs: Vital Signs 09/29/18 20:00 09/30/18 00:00 09/30/18 04:00 Temperature 98.2 F 97.8 F 98.5 F Pulse Rate 82 85 82 Respiratory Rate 20 20 20 Blood Pressure 124/70 101/62 104/82 Pulse Oximetry 100 96 100 09/30/18 08:00 09/30/18 11:36 09/30/18 12:00 Temperature 97.5 F L 98.6 F Pulse Rate 79 88 Respiratory Rate 18 18 Blood Pressure 120/92 H 116/80 Pulse Oximetry 100 100 100 09/30/18 16:00 Temperature 98.1 F Pulse Rate 118 H Respiratory Rate 18 Blood Pressure 100/81 Pulse Oximetry 100 Intake & Output 09/29/18 09/30/18 09/30/18 18:59 06:59 18:59 Intake Total 2200 / 2200 380 / 380 Output Total 4 / 4 Balance 2196 / 2196 380 / 380 Weight 75.7 kg Intake: Oral 1200 / 1200 380 / 380 Anesthesia Amount 1000 / 1000 Output: Urine 4 / 4 Other: # Voids 4 2 Date of Last Bowel Movement 09/25/18 09/29/18 # Bowel Movements 3 Narrative: GENERAL: AAOx3, no acute distress SKIN: Warm and dry. No rashes HEAD: Atruamtic, normocephalic. EYES: No scleral icterus. No injection or drainage. ENT: Moist mucous membranes, patent nares, no erythema of oropharynx. NECK: Supple, trachea midline. No JVD or lymphadenopathy. Normal thyroid. CARDIOVASCULAR: Regular rate and rhythm. No murmurs, gallops, or rubs. RESPIRATORY: Breath sounds clear equal bilaterally. No crackles or wheezes. No accessory muscle use. GASTROINTESTINAL: Abdomen soft, non-tender, nondistended, normal active bowel sounds MUSCULOSKELETAL: No cyanosis, or edema. NEURO: CN II-XII grossly intact, no focal deficits, no slurring of speech Results - Labs CBC & Chem 7: 09/29/18 07:32 09/29/18 07:32 Assessment and Plan - Assessment (1) GI bleed Code(s): K92.2 - Gastrointestinal hemorrhage, unspecified Status: Acute (2) Colitis Code(s): K52.9 - Noninfective gastroenteritis and colitis, unspecified Status : Acute - Plan 43 y/o white female with PMHx of Alcohol Abuse admitted for inpatient mgmt of GI bleed/Colitis s/p EGD with bleeding source identified, s/p 2u pRBC's on for Hgb 6.5 09/29/18 = patient still has diarrhea, took first dose of Imodium today, no other changes 09/30/18 = still no improvement despite Imodium, will couple Imodium with bismuth sulfate (Pepto) GI Bleed/C. Dif Colitis, resolved s/p EGD with source of upper GI bleed identified, s/p clamping and epinephrine injection CT ABD +colitis, +C. Dif on 09/23 Continue p.o. 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 even with negative toxin with positive colitis on CT abdomen pelvis, ID is recommending vancomycin for 14 more days Imodium right ear added to slow down diarrhea and help formed stools Lidocaine gel added to relieve burning hemorrhoids Acute Blood Loss Anemia Secondary to GI bleed, now resolved s/p 2U pRBC's for Hgb 6.5 on 09/22 Hemoglobin remains stable, will continue to monitor Hypocalcemia/Hypokalemia/hypomagnesium Repleted, stable Hx of Alcohol abuse/Elevated LFT's, improving Due to alcohol abuse, hepatitis panel was negative LFT's trending downward Continue CIWA protocol Tobacco Abuse Encouraged cessation, risks discussed Patient declining offer for nicotine patch DVT prophylaxis SCD's, ambulatory (1) GI bleed Qualifiers: GI bleed type/associated pathology: unspecified gastrointestinal hemorrhage type Qualified Code(s): K92.2 - Gastrointestinal hemorrhage, unspecified
[2018-09-30] MEDS: Bismuth Subsalicylate Susp 240 ML Bottle PO SCH (18:50)
[2018-10-01] MEDS: Morphine Inj 4 MG/ML Vial IV.PUSH PRN ×4 (05:21→23:25)
[2018-10-01] MEDS: Bismuth Subsalicylate Susp 240 ML Bottle PO SCH ×3 (08:13→17:36)
[2018-10-01] MEDS: Magnesium Oxide 400 MG Tablet PO SCH ×2 (08:14→20:43)
[2018-10-01] MEDS: Petrolatum 49%/Zinc Oxide 15% Barrier Oint 120 GM Tube TOPICAL SCH (08:17)
[2018-10-01] MEDS: Loperamide 2 MG Capsule PO PRN (15:19)
--- NOTE | 2018-10-01 18:49 | P.PNIM ---
Subjective Interval history: Patient is upset this morning that her pain meds are not coming soon enough, she seems a bit hooked on it but I am giving this to her for cessation of diarrhea. Physical Exam Vital signs: Vital Signs 09/30/18 20:00 10/01/18 00:00 10/01/18 04:00 Temperature 98.6 F 98.4 F 98.5 F Pulse Rate 85 79 90 Respiratory Rate 14 14 16 Blood Pressure 120/75 107/80 99/70 L Pulse Oximetry 100 99 100 10/01/18 08:00 10/01/18 10:54 10/01/18 12:00 Temperature 98 F 98 F Pulse Rate 75 79 Respiratory Rate 20 Blood Pressure 118/86 135/94 H Pulse Oximetry 98 100 99 10/01/18 16:00 Temperature 98.2 F Pulse Rate 97 H Respiratory Rate 24 Blood Pressure 111/79 Pulse Oximetry 97 Intake & Output 09/30/18 10/01/18 10/01/18 18:59 06:59 18:59 Intake Total 472 / 472 660 / 660 Output Total 700 / 700 Balance -228 / -228 660 / 660 Weight 77 kg Intake: Oral 472 / 472 660 / 660 Output: Urine 700 / 700 Other: # Voids 3 Date of Last Bowel Movement 09/29/18 10/01/18 # Bowel Movements 1 3 Narrative: GENERAL: AAOx3, no acute distress SKIN: Warm and dry. No rashes HEAD: Atruamtic, normocephalic. EYES: No scleral icterus. No injection or drainage. ENT: Moist mucous membranes, patent nares, no erythema of oropharynx. NECK: Supple, trachea midline. No JVD or lymphadenopathy. Normal thyroid. CARDIOVASCULAR: Regular rate and rhythm. No murmurs, gallops, or rubs. RESPIRATORY: Breath sounds clear equal bilaterally. No crackles or wheezes. No accessory muscle use. GASTROINTESTINAL: Abdomen soft, non-tender, nondistended, normal active bowel sounds MUSCULOSKELETAL: No cyanosis, or edema. NEURO: CN II-XII grossly intact, no focal deficits, no slurring of speech Results - Labs CBC & Chem 7: 09/29/18 07:32 09/29/18 07:32 Assessment and Plan - Assessment (1) GI bleed Code(s): K92.2 - Gastrointestinal hemorrhage, unspecified Status: Acute (2) Colitis Code(s): K52.9 - Noninfective gastroenteritis and colitis, unspecified Status : Acute - Plan 43 y/o white female with PMHx of Alcohol Abuse admitted for inpatient mgmt of GI bleed/Colitis s/p EGD with bleeding source identified, s/p 2u pRBC's on for Hgb 6.5 09/29/18 = patient still has diarrhea, took first dose of Imodium today, no other changes 09/30/18 = still no improvement despite Imodium, will couple Imodium with bismuth sulfate (Pepto) 10/01/18 = scheduling Imodium and oxycodone to encourage formation of stools, patient is still loose GI Bleed/C. Dif Colitis, resolved s/p EGD with source of upper GI bleed identified, s/p clamping and epinephrine injection CT ABD +colitis, +C. Dif on 09/23 Continue p.o. 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 even with negative toxin with positive colitis on CT abdomen pelvis, ID is recommending vancomycin for 14 more days I she had a semi-formed stool this morning, back to loose stools by the afternoon According to MAR she has not received Imodium Scheduling Imodium and oxycodone for slowing of bowel function Continue lidocaine gel added to relieve burning hemorrhoids Acute Blood Loss Anemia Secondary to GI bleed, now resolved s/p 2U pRBC's for Hgb 6.5 on 09/22 Hemoglobin remains stable, will continue to monitor Hypocalcemia/Hypokalemia/hypomagnesium Repleted, stable Hx of Alcohol abuse/Elevated LFT's, improving Due to alcohol abuse, hepatitis panel was negative LFT's trending downward Continue CIWA protocol Tobacco Abuse Encouraged cessation, risks discussed Patient declining offer for nicotine patch DVT prophylaxis SCD's, ambulatory (1) GI bleed Qualifiers: GI bleed type/associated pathology: unspecified gastrointestinal hemorrhage type Qualified Code(s): K92.2 - Gastrointestinal hemorrhage, unspecified
[2018-10-01] MEDS: Loperamide 2 MG Capsule PO SCH ×2 (18:56→22:07)
[2018-10-02] MEDS: Loperamide 2 MG Capsule PO SCH ×5 (03:21→14:02)
[2018-10-02] MEDS: Morphine Inj 4 MG/ML Vial IV.PUSH PRN ×3 (08:14→16:29)
[2018-10-02] MEDS: Magnesium Oxide 400 MG Tablet PO SCH (09:22)
[2018-10-02] MEDS: Petrolatum 49%/Zinc Oxide 15% Barrier Oint 120 GM Tube TOPICAL SCH (10:08)
[2018-10-02] MEDS: Bismuth Subsalicylate Susp 240 ML Bottle PO SCH ×2 (10:08→12:03)
[2018-10-02 14:28] VITALS: O2SAT 99
--- NOTE | 2018-10-02 16:22 | P.DS ---
Date of admission: 09/21/18 17:52 Primary care physician: No Primary Care Physician Brief History from admission: The patient is a 43-year-old female with past medical history significant for peptic ulcer disease and alcoholism who is presenting to the hospital with abdominal pain. The patient states that she had gastric bypass in 2002 and then developed peptic ulcer disease. She says that for the past few days she has had increasing abdominal pain. The pain is located on the left side of her abdomen. She rates the pain as an 8 out of 10 in severity. She endorses accompanying nausea and vomiting. She says over the past few days she has vomited so much that she has vomited some blood. She says she has been having severe diarrhea for the past few days. She says her stool has had brownish blood in it. She has tried to drink some broth at home but has had a poor appetite for the past few days. She says she received some morphine in the emergency department but that did not help. She said she also received some nausea medication. She says she still drinks half a bottle of vodka daily. She denies any seizures from alcohol abuse. She states she has no intention of quitting smoking. DS: Diagnosis - Discharge Diagnosis (1) GI bleed Status: Acute (2) Colitis Status: Acute DS: Medications - Discharge Medications Prescriptions: lidocaine HCl 1 applicatio TOPICAL Q4H PRN #40 ml PRN Reason: Rectal Burning loperamide 2 mg PO Q4H #20 cap oxycodone 5 mg PO Q4H 3 Days #18 tab pantoprazole 40 mg PO DAILY #30 tab promethazine 12.5 mg PO Q6H PRN #15 tab PRN Reason: Nausea sucralfate 1 g PO Q6H #120 tab vancomycin 125 mg PO QID 5 Days #5 ea DS: Summary Hospital Course: 43-year-old female who was admitted for upper GI bleed that was treated with pantoprazole and sucralfate. She had persistent diarrhea during this stay which tested negative for C. difficile but due to her history of C. difficile was placed on p.o. vancomycin which caused her diarrhea to persist episodically 5-6 times per day. Over the past few days I have made an effort to slow her bowels using a combination of oxycodone morphine and Imodium. She has finally reached a point today where she has formed stools and feels confident that she can go home without dehydration or rehospitalization. She has family at her apartment and will be going home this evening. - Time Spent with Patient Total time spent providing and/or coordinating discharge services: Less than 30 minutes - Quality: VTE Deep Vein Thrombosis/Pulmonary Embolism Present on Admission: No Exam Vital signs: Vital Signs 10/01/18 20:00 10/02/18 00:00 10/02/18 04:00 Temperature 98.6 F 98.6 F 97.8 F Pulse Rate 92 H 88 89 Respiratory Rate 14 16 19 Blood Pressure 129/78 102/62 97/61 L Pulse Oximetry 99 100 93 L 10/02/18 12:00 Temperature 98.6 F Pulse Rate 115 H Respiratory Rate 20 Blood Pressure 111/20 L Pulse Oximetry 99 Intake & Output 10/01/18 10/02/18 10/02/18 18:59 06:59 18:59 Intake Total 880 / 880 Balance 880 / 880 Weight 75.8 kg Intake: Oral 880 / 880 Other: # Voids 4 Date of Last Bowel Movement 10/01/18 10/01/18 10/01/18 # Bowel Movements 3 2 Results Procedures completed during hospitalization: EGD 09/25/2018 - Impressions ITS Impressions Abdomen/Pelvis CT 09/21/18 14:44 CONCLUSION: 1. Diffuse thickening involving the wall the ascending and proximal transverse colon suggesting acute colitis. Clinical correlation is recommended. 2. Markedly enlarged liver with diffuse fatty infiltration. 3. Small right paraumbilical abdominal wall hernia containing only fat. Chest X-Ray 09/21/18 15:17 CONCLUSION: Negative examination. No evidence of free intraperitoneal air. Discharge Plan - Discharge Disposition Patient Disposition: 01 Discharge Home - Discharge Condition Condition: Good - Discharge Order Discharge Orders: Discharge Order (Routine); Ordered 10/02/18 Ordered By: Kurtis Solis - Physicians Team Primary Care Provider: Primary Care Alo,Mago Attending Provider: Kurtis Solis Other Providers: Yifan Maza MD ; Radha Iglesias MD
[2018-10-02 16:58] VITALS: BP 105/77; PULSE 93; RESP 19; TEMP 98
== END 2018-10-02 17:39 | disposition home or self-care (01) ==
LOC: NEPC 14:35 → NEDA 17:52 → N04 19:00 → NEDA 19:00 → N03 09-22 12:01 → N04 09-25 22:33
PROVIDERS: ADMIT Family Medicine; ATTEND Family Medicine
PROC: PANENDO (2018-09-22 10:43)
DX: K43.9 Ventral hernia without obstruction or gangrene; F10.20 Alcohol dependence, uncomplicated; Z98.84 Bariatric surgery status; K70.10 Alcoholic hepatitis without ascites; E87.1 Hypo-osmolality and hyponatremia; Z82.49 Family history of ischemic heart disease and other diseases of the circulatory system; E83.42 Hypomagnesemia; K64.9 Unspecified hemorrhoids; E87.6 Hypokalemia; F41.9 Anxiety disorder, unspecified; E83.51 Hypocalcemia; K76.0 Fatty (change of) liver, not elsewhere classified; K25.4 Chronic or unspecified gastric ulcer with hemorrhage; Z90.49 Acquired absence of other specified parts of digestive tract; A04.72 Enterocolitis due to Clostridium difficile, not specified as recurrent; Z87.11 Personal history of peptic ulcer disease; D62 Acute posthemorrhagic anemia; Z79.899 Other long term (current) drug therapy; F17.210 Nicotine dependence, cigarettes, uncomplicated

== ENCOUNTER 2018-11-08 02:48 | Inpatient (IN) ==
[2018-11-08] MEDS ORDERED: Pantoprazole Inj 40 MG Vial IV.PUSH ONE (03:43)
[2018-11-08] MEDS ORDERED: Morphine Inj 4 MG/ML Vial IV.PUSH ONE ×2 (03:44→05:26)
[2018-11-08] MEDS ORDERED: Sod Chloride 0.9% Inj 1,000 ML IV.SIG SCH ×2 (03:45→05:30)
--- NOTE | 2018-11-08 04:07 | XR ---
EXAM DATE: 11/08/2018 4:02 AM EST AGE/SEX: 43 years / Female INDICATIONS: Free air. Abdominal pain and vomiting. CLINICAL DATA: This is the patient's initial encounter. Patient reports that signs and symptoms have been present for 1 day and indicates a pain score of 10/10. MEDICAL/SURGICAL HISTORY: Ulcers. Colitis. Gastric bypass. Cholecystectomy. COMPARISON: [facility] [place] 1V SINGLE AP, 09/21/2018. . FINDINGS: A single AP view of the chest demonstrates the lungs to be symmetrically aerated without evidence of mass, infiltrate or effusion. The cardiomediastinal contours are unremarkable. Osseous structures a re intact. CONCLUSION: No acute cardiopulmonary process. Electronically signed by: Dagoberto Rene MD Board Certified Radiologist 11/08/2018 4:06 AM EST
[2018-11-08 04:46] LABS: Baso % (Auto) 0.3 % (0.0-2.0); Eos % (Auto) 0.1 % (0.0-4.0); Hematocrit 32.2 % (35.0-46.0); Hemoglobin 10.2 gm/dL (11.6-15.3); Lymph # (Auto) 1.1 th/mm3 (1.0-4.8); Lymph % (Auto) 10.6 % (9.0-44.0); Mean Corpuscular HGB Conc 31.8 % (32.0-36.0); Mean Corpuscular Hemoglobin 30.6 pg (27.0-34.0); Mean Corpuscular Volume 96.2 fL (80.0-100.0); Mean Platelet Volume 8.7 fL (7.0-11.0); Mono # (Auto) 0.7 th/mm3 (0.0-0.9); Neut # (Auto) 8.3 th/mm3 (1.8-7.7); Platelet Count 276 th/mm3 (150-450); Red Blood Count 3.34 mil/mm3 (4.00-5.30); Red Cell Distribution Width 18.3 % (11.6-17.2); White Blood Count 10.1 th/mm3 (4.0-11.0)
[2018-11-08 05:00] LABS: Alanine Aminotransferase 47 U/L (10-53); Anion Gap 28 meq/L (5-15); Aspartate Aminotransferase 101 U/L (15-37); Blood Urea Nitrogen 4 mg/dL (7-18); Carbon Dioxide 8.1 meq/L (21.0-32.0); Chloride 91 meq/L (98-107); Glucose,Random 81 mg/dL (74-106); Magnesium 1.9 mg/dL (1.5-2.5); Potassium 3.6 meq/L (3.5-5.1); Sodium 127 meq/L (136-145)
[2018-11-08 05:03] LABS: Alkaline Phosphatase 136 U/L (45-117); Lipase 3842 U/L (73-393); Total Protein 8.2 g/dL (6.4-8.2)
[2018-11-08] MEDS: Sod Chloride 0.9% Inj 1,000 ML IV.CONT SCH ×3 (05:55→15:23)
[2018-11-08 05:56] LABS: Bacteria,Urine Rare /hpf; Bilirubin,Urine Negative (Negative); Clarity,Urine Hazy (Clear); Color,Urine Yellow (Yellw/Straw); Glucose,Urine (UA) 50 mg/dL (Negative); Leukocyte Esterase,Urine Negative (Negative); Mucus,Urine Few /lpf (Occasional); Nitrite,Urine Negative (Negative); Specific Gravity,Urine 1.014 (1.002-1.035); Squamous Epithelial Cell,Urine 3 /hpf (0-5)
--- NOTE | 2018-11-08 06:08 | CT ---
EXAM DATE: 11/08/2018 5:52 AM EST AGE/SEX: 43 years / Female INDICATIONS: Diffuse abdominal pain with vomiting and diarrhea. CLINICAL DATA: This is the patient's initial encounter. Patient reports that signs and symptoms have been present for 2 days and indicates a pain score of 10/10. MEDICAL/SURGICAL HISTORY: Ulcers. Colitis. Cholecystectomy. Gastric bypass. ORAL CONTRAST: No oral contrast ingested. RADIATION DOSE: 6.64 CTDI (mGy) COMPARISON: [place], CT ABDOMEN & PELVIS W CONTRAST, 09/21/2018. . TECHNIQUE: Multiple contiguous axial images were obtained through the abdomen and pelvis following b olus infusion of 95 ml Omnipaque 350 (iohexol) nonionic water-soluble contrast as a single exam dos e. No oral contrast ingested. Using automated exposure control and adjustment of the mA and/or kV ac cording to patient size, radiation dose was kept as low as reasonably achievable to obtain optimal di agnostic quality images. DICOM format image data is available electronically for review and comparis on. FINDINGS: Lower Lungs: The visualized lower lungs are clear. Liver: There is diffuse decreased attenuation to the liver. No focal hepatic lesions are seen. The pa tient is status post cholecystectomy. Spleen: Homogeneous density without enlargement. Pancreas: The pancreas appears somewhat prominent suggesting it may be edematous. There does appear to be some induration surrounding the pancreas raising the possibility of pancreatitis. Kidneys: Normal in size and shape. No evidence of mass or hydronephrosis. Adrenal Glands: Unremarkable. Aorta: The aorta and proximal iliac vessels are grossly unremarkable without aneurysmal dilation. Bowel/Mesentery: Bowel adis are seen around the stomach presumably from prior gastric bypass proc edure. Bowel adis are seen in the small bowel in the left mid abdomen. There is some mild thickeni ng of the ascending colon and proximal transverse colon. Some degree of colitis could have this appea jasson. The proximal colon appeared similar on the prior exam. The distal aspect of the colon is unrem arkable. Abdominal Wall: There is a hernia seen just to the right of midline below the umbilicus containing m esenteric fat. The defect the anterior abdominal wall measures 1.4 cm. Retroperitoneum: No evidence of adenopathy in the retrocrural, para-aortic, or deep pelvic regions. Bladder: Contours are smooth. Reproductive Organs: There is a 2.7 cm cystic structure seen at the left adnexa. Inguinal: The inguinal region is unremarkable without evidence of adenopathy. Bony Structures: Unremarkable. CONCLUSION: 1. Possible pancreatitis. 2. Mild thickening of the ascending and proximal transverse colon raising the possibility of colitis . The colon appears similar on the prior exam. 3. Hepatic steatosis. 4. Small fat containing hernia seen just below the umbilicus into the right of midline. 5. 2.7 cm cyst at the left ovary. Electronically signed by: Dagoberto Rene MD Board Certified Radiologist 11/08/2018 6:06 AM EST
[2018-11-08 06:12] LABS: ABG Base Excess -23.1 mmol/L (-2-2); ABG PCO2 18 mmHg (38-42); ABG PO2 120 mmHg (61-120)
[2018-11-08] MEDS ORDERED: Haloperidol Inj 5 MG/ML Ampul IV.PUSH PRN ×2 (06:16→06:42)
[2018-11-08] MEDS ORDERED: LORazepam 1 MG Tablet PO PRN ×2 (06:16→06:42)
[2018-11-08 06:18] LABS: Beta Hydroxybutyric Acid 10.47 mmol/L (0.00-0.39)
--- NOTE | 2018-11-08 06:33 | ED ---
HPI General Chief Complaint: Abdominal Pain Stated Complaint: abd pain/vomiting Time Seen by Provider: 11/08/18 03:38 Source: patient Mode of arrival: ambulatory Limitations: no limitations History of Present Illness HPI narrative: 43-year-old female presents to the emergency department for complaint of severe abdominal pain. Patient states she was recently seen in the hospital and was hospitalized colitis. Patient states that since that time she has not improved. Patient states abdominal pain is severe. Patient had associated nausea vomiting and diarrhea. Patient denies hematemesis coffee- ground emesis melena hematochezia. Patient had no fever or chills. Patient is currently taking no antibiotic therapy. Patient states she has had previous gastric bypass. Patient has had reported GI bleed in the past. Patient states she has had no anorexia. Patient states she is attempting to drink fluids but continues to have vomiting. No prior history of inflammatory bowel disease or pancreatitis but has been diagnosed with peptic ulcer disease status post cholecystectomy and as aforementioned gastric bypass 2002. Patient admits to occasional alcohol use. Patient denies any escalation of alcohol use. Patient rates pain as 8/10 in intensity and severe. MD complaint: Reports abdominal pain Onset (ago): day(s) Pain Consistency: constant Location: Reports periumbilical and epigastric Severity: severe Severity scale (1-10): 8 Quality: Reports cramping, aching and dull Radiation: Reports none Migration to: Reports no migration Relieving factors: nothing Exacerbating factors: eating Context: Reports recent antibiotic use (po vancomycin for diagnosis of colitis) and history of similar episodes; Denies foreign travel, possible food poisoning and sick contacts Associated symptoms: Reports nausea, vomiting and diarrhea; Denies fever, chills , constipation, dysuria, hematemesis, hematochezia, melena, hematuria, anorexia and syncope Treatments prior to arrival: Denies NSAIDs Related Data Patient : No Previous Rx's Medication Instructions Recorded loperamide 2 mg PO Q4H #20 cap 10/02/18 pantoprazole 40 mg PO DAILY #30 tab 10/02/18 promethazine 12.5 mg PO Q6H PRN #15 tab 10/02/18 sucralfate 1 g PO Q6H #120 tab 10/02/18 Allergies Allergy/AdvReac Type Severity Reaction Status Date / Time ondansetron [From Zofran] Allergy Itching, Verified 11/08/18 03:01 Generalized Review of Systems ROS: all other systems reviewed are negative PMFSH Medical History Medical History Depression (Acute) GI bleed (Acute) Stomach ulcer (Acute) Surgical History Surgical History History of gastric bypass (Acute) Hx of cholecystectomy (Acute) Family History Family History Other CAD (coronary artery disease) Social History Social History Substance History: No History of Abuse Second Hand Smoke Exposure: No Smoking Status: Current every day smoker Tobacco Type: Cigarettes How Often Do You Have a Drink Containing Alcohol: Monthly or less Recent Travel in [facility] within the Last 8 Weeks: No Recent Out of Country Travel within the Last 8 Weeks: No Immunization History Tetanus Immunization: <5 Years Tetanus Immunization Year if Known: 2014 Exam Narrative Exam Narrative: GENERAL: Well-nourished, well-developed patient. SKIN: Focused skin assessment warm/dry. HEAD: Normocephalic. EYES: No scleral icterus. No injection or drainage. NECK: Supple, trachea midline. No JVD or lymphadenopathy. CARDIOVASCULAR: Regular rate and rhythm without murmurs, gallops, or rubs. RESPIRATORY: Breath sounds equal bilaterally. No accessory muscle use. GASTROINTESTINAL: Abdomen soft, diffusely tender abdomen to direct palpation primarily epigastric periumbilical bilateral upper quadrants but also complains of tenderness to the bilateral lower quadrants without guarding or rebound, nondistended. Rectal exam deferred. MUSCULOSKELETAL: No cyanosis, or edema. BACK: Nontender without obvious deformity. No CVA tenderness. Course Initial Documented Vital Signs Temperature 99.0 F 11/08/18 02:53 Pulse Rate 128 H 11/08/18 02:53 Respiratory Rate 20 11/08/18 02:53 Blood Pressure 136/84 11/08/18 02:53 Pulse Oximetry 100 11/08/18 02:53 Last Documented Vital Signs Temperature 99.0 F 11/08/18 02:53 Pulse Rate 120 H 11/08/18 05:59 Respiratory Rate 18 11/08/18 05:59 Blood Pressure 144/73 H 11/08/18 05:59 Pulse Oximetry 100 11/08/18 06:23 Critical Care Time Critical Care Time: Yes Total Critical Care Time: 35 Attestation: Aggregate critical care time was [-] minutes. Time to perform other separately billable procedures was not included in the critical care time. My time did not include minutes spent treating any other patients simultaneously or on activities that did not directly contribute to the patient' s treatment. The services I provided to this patient were to treat and/or prevent clinically significant deterioration that could result in: Arrhythmia, sepsis, I provided critical care services requiring my management, as noted below: Chart data review, documentation time, medication orders and management, vital sign assessments/reviewing monitor data, ordering and reviewing lab tests, ordering and interpreting/reviewing x-rays and diagnostic studies, care of the patient and discussion of the patient with the admitting physicians. Medical Decision Making MDM Narrative Medical decision making narrative: 43-year-old female with known history of peptic ulcer disease colitis gastric bypass cholecystectomy presents with abdominal pain and marked tenderness diffusely but primarily epigastric and periumbilical without guarding or rebound identified on triage vital signs to have normal blood pressure respiratory rate and temperature but is tachycardic with heart rate of 128. IV access obtained specimens collected and sent for resulting imaging studies ordered along with lab work. Patient given morphine sulfate x1 dose along with Reglan as has sensitivity to Zofran. White count is normal hemoglobin stable with mild chronic anemia and 82% neutrophils by automated differential however chemistry is markedly abnormal with hyponatremia 127 marked metabolic disturbance with bicarb of 8 anion gap of 28 and serum glucose of 81. Calcium is mildly decreased at 8.0 with normal protein and albumin levels. Additional labs ordered including a beta hydroxybutyric acid lactic acid level blood cultures and additional IV fluids administered ABG ordered ABG remarkable for pH of 7.087 with bicarb of 5 base excess of -23 PCO2 is 17.6 with a PO2 of 120; patient administered 50 mEq of sodium bicarb will probably need a bicarb infusion as well as replacement of potassium and calcium magnesium is exam is in normal range. Serum alcohol level is [address] [facility] protocol added [address] abdomen pelvis consistent with possible possible/probable pancreatitis also evidence of unchanged colitis changes patient's case discussed with us administrative law judge to accept patient for admission to his service. Lactic acid and beta hydroxybutyric levels are pending. Suspect patient has acute alcoholic ketoacidosis probable lactic acidosis with dehydration and acute pancreatitis related to alcohol abuse. Medical Screen Exam Complete: Yes Emergency Medical Condition: Yes Lab Data Result diagrams: 11/08/18 04:30 11/08/18 04:30 Lab Results 11/08/18 11/08/18 11/08/18 Range/Units 04:30 04:30 04:30 WBC 10.1 (4.0-11.0) th/mm3 RBC 3.34 L (4.00-5.30) mil/mm3 Hgb 10.2 L (11.6-15.3) gm/dL Hct 32.2 L (35.0-46.0) % MCV 96.2 (80.0-100.0) fL MCH 30.6 (27.0-34.0) pg MCHC 31.8 L (32.0-36.0) % RDW 18.3 H (11.6-17.2) % Plt Count 276 (150-450) th/mm3 MPV 8.7 (7.0-11.0) fL Neut % (Auto) 82.0 H (16.0-70.0) % Lymph % (Auto) 10.6 (9.0-44.0) % [place] % (Auto) 7.0 (0.0-8.0) % Eos % (Auto) 0.1 (0.0-4.0) % Baso % (Auto) 0.3 (0.0-2.0) % Neut # (Auto) 8.3 H (1.8-7.7) th/mm3 Lymph # (Auto) 1.1 (1.0-4.8) th/mm3 [place] # (Auto) 0.7 (0.0-0.9) th/mm3 Eos # (Auto) 0.0 (0.0-0.4) th/mm3 Baso # (Auto) 0.0 (0.0-0.2) th/mm3 WBC Differential . Differential Comment Auto diff final Puncture Site Patient Temperature O2 Saturation (90-100) % ABG pH (7.380-7.420) ABG pCO2 (38-42) mmHg ABG pO2 (61-120) mmHg ABG HCO3 (22-26) mmol/L ABG O2 Content (12.0-20.0) Vol % ABG Base Excess (-2-2) mmol/L ABG Methemoglobin (0-2) % Dilshad Test Hemoglobin (12.0-16.0) G/DL Carboxyhemoglobin (0-4) % O2 Delivery Device Inspired O2 % Critical Value Sodium 127 L (136-145) meq/L Potassium 3.6 (3.5-5.1) meq/L Chloride 91 L (98-107) meq/L Carbon Dioxide 8.1 L (21.0-32.0) meq/L Anion Gap 28 H (5-15) meq/L BUN 4 L (7-18) mg/dL Creatinine 0.57 (0.50-1.00) mg/dL Random Glucose 81 (74-106) mg/dL Lactic Acid (0.4-2.0) mmol/L Calcium 8.0 L (8.5-10.1) mg/dL Magnesium 1.9 (1.5-2.5) mg/dL Total Bilirubin 1.8 H (0.2-1.0) mg/dL AST 101 H (15-37) U/L ALT 47 (10-53) U/L Alkaline Phosphatase 136 H (45-117) U/L Troponin I (0.02-0.05) ng/mL Total Protein 8.2 (6.4-8.2) g/dL Albumin 4.0 (3.4-5.0) g/dL Lipase 3842 H (73-393) U/L Beta-Hydroxybutyric Acd (0.00-0.39) mmol/L Urine Color (Yellw/Straw) Urine Clarity (Clear) Urine pH (5.0-8.5) Ur Specific [place] (1.002-1.035) Urine Protein (Neg-Trace) mg/dL Urine Glucose (UA) (Negative) mg/dL Urine Ketones (Negative) mg/dL Urine Occult Blood (Negative) Urine Nitrate (Negative) Urine Bilirubin (Negative) Urine Urobilinogen (Less than 2) mg/dL Ur Leukocyte Esterase (Negative) Urine RBC (0-3) /hpf Urine WBC (0-5) /hpf Ur Squamous Epith Cells (0-5) /hpf Urine Bacteria (None) /hpf Granular Casts (None) /lpf Urine Mucus (Occasional) /lpf Micro UA Comment Ur Microscopic Review Urine Culture Comments Serum Alcohol 69 H (0-5) mg/dL 11/08/18 11/08/18 11/08/18 Range/Units 04:30 05:30 05:45 WBC (4.0-11.0) th/mm3 RBC (4.00-5.30) mil/mm3 Hgb (11.6-15.3) gm/dL Hct (35.0-46.0) % MCV (80.0-100.0) fL MCH (27.0-34.0) pg MCHC (32.0-36.0) % RDW (11.6-17.2) % Plt Count (150-450) th/mm3 MPV (7.0-11.0) fL Neut % (Auto) (16.0-70.0) % Lymph % (Auto) (9.0-44.0) % [place] % (Auto) (0.0-8.0) % Eos % (Auto) (0.0-4.0) % Baso % (Auto) (0.0-2.0) % Neut # (Auto) (1.8-7.7) th/mm3 Lymph # (Auto) (1.0-4.8) th/mm3 [place] # (Auto) (0.0-0.9) th/mm3 Eos # (Auto) (0.0-0.4) th/mm3 Baso # (Auto) (0.0-0.2) th/mm3 WBC Differential Differential Comment Puncture Site Patient Temperature O2 Saturation (90-100) % ABG pH (7.380-7.420) ABG pCO2 (38-42) mmHg ABG pO2 (61-120) mmHg ABG HCO3 (22-26) mmol/L ABG O2 Content (12.0-20.0) Vol % ABG Base Excess (-2-2) mmol/L ABG Methemoglobin (0-2) % Dilshad Test Hemoglobin (12.0-16.0) G/DL Carboxyhemoglobin (0-4) % O2 Delivery Device Inspired O2 % Critical Value Sodium (136-145) meq/L Potassium (3.5-5.1) meq/L Chloride (98-107) meq/L Carbon Dioxide (21.0-32.0) meq/L Anion Gap (5-15) meq/L BUN (7-18) mg/dL Creatinine (0.50-1.00) mg/dL Random Glucose (74-106) mg/dL Lactic Acid 6.2 H* (0.4-2.0) mmol/L Calcium (8.5-10.1) mg/dL Magnesium (1.5-2.5) mg/dL Total Bilirubin (0.2-1.0) mg/dL AST (15-37) U/L ALT (10-53) U/L Alkaline Phosphatase (45-117) U/L Troponin I Less than 0.02 L (0.02-0.05) ng/mL Total Protein (6.4-8.2) g/dL Albumin (3.4-5.0) g/dL Lipase (73-393) U/L Beta-Hydroxybutyric Acd 10.47 H (0.00-0.39) mmol/L Urine Color Yellow (Yellw/Straw) Urine Clarity Hazy H (Clear) Urine pH 5.0 (5.0-8.5) Ur Specific [place] 1.014 (1.002-1.035) Urine Protein 100 H (Neg-Trace) mg/dL Urine Glucose (UA) 50 (Negative) mg/dL Urine Ketones 80 or greater H (Negative) mg/dL Urine Occult Blood Moderate H (Negative) Urine Nitrate Negative (Negative) Urine Bilirubin Negative (Negative) Urine Urobilinogen Less than 2 (Less than 2) mg/dL Ur Leukocyte Esterase Negative (Negative) Urine RBC 10 H (0-3) /hpf Urine WBC 1 (0-5) /hpf Ur Squamous Epith Cells 3 (0-5) /hpf Urine Bacteria Rare H (None) /hpf Granular Casts 27 (None) /lpf Urine Mucus Few H (Occasional) /lpf Micro UA Comment Cath-culture ind Ur Microscopic Review Not Reportable Urine Culture Comments Cath-cult indicated Serum Alcohol (0-5) mg/dL 11/08/18 Range/Units 05:55 WBC (4.0-11.0) th/mm3 RBC (4.00-5.30) mil/mm3 Hgb (11.6-15.3) gm/dL Hct (35.0-46.0) % MCV (80.0-100.0) fL MCH (27.0-34.0) pg MCHC (32.0-36.0) % RDW (11.6-17.2) % Plt Count (150-450) th/mm3 MPV (7.0-11.0) fL Neut % (Auto) (16.0-70.0) % Lymph % (Auto) (9.0-44.0) % [place] % (Auto) (0.0-8.0) % Eos % (Auto) (0.0-4.0) % Baso % (Auto) (0.0-2.0) % Neut # (Auto) (1.8-7.7) th/mm3 Lymph # (Auto) (1.0-4.8) th/mm3 [place] # (Auto) (0.0-0.9) th/mm3 Eos # (Auto) (0.0-0.4) th/mm3 Baso # (Auto) (0.0-0.2) th/mm3 WBC Differential Differential Comment Puncture Site Right radial Patient Temperature 98.5 O2 Saturation 94 (90-100) % ABG pH 7.09 L* (7.380-7.420) ABG pCO2 18 L* (38-42) mmHg ABG pO2 120 (61-120) mmHg ABG HCO3 5 L* (22-26) mmol/L ABG O2 Content 10.3 L (12.0-20.0) Vol % ABG Base Excess -23.1 L (-2-2) mmol/L ABG Methemoglobin 1.1 (0-2) % Dilshad Test Present Hemoglobin 7.6 L* (12.0-16.0) G/DL Carboxyhemoglobin 1.5 (0-4) % O2 Delivery Device Room air Inspired O2 21 % Critical Value Yes Sodium (136-145) meq/L Potassium (3.5-5.1) meq/L Chloride (98-107) meq/L Carbon Dioxide (21.0-32.0) meq/L Anion Gap (5-15) meq/L BUN (7-18) mg/dL Creatinine (0.50-1.00) mg/dL Random Glucose (74-106) mg/dL Lactic Acid (0.4-2.0) mmol/L Calcium (8.5-10.1) mg/dL Magnesium (1.5-2.5) mg/dL Total Bilirubin (0.2-1.0) mg/dL AST (15-37) U/L ALT (10-53) U/L Alkaline Phosphatase (45-117) U/L Troponin I (0.02-0.05) ng/mL Total Protein (6.4-8.2) g/dL Albumin (3.4-5.0) g/dL Lipase (73-393) U/L Beta-Hydroxybutyric Acd (0.00-0.39) mmol/L Urine Color (Yellw/Straw) Urine Clarity (Clear) Urine pH (5.0-8.5) Ur Specific [place] (1.002-1.035) Urine Protein (Neg-Trace) mg/dL Urine Glucose (UA) (Negative) mg/dL Urine Ketones (Negative) mg/dL Urine Occult Blood (Negative) Urine Nitrate (Negative) Urine Bilirubin (Negative) Urine Urobilinogen (Less than 2) mg/dL Ur Leukocyte Esterase (Negative) Urine RBC (0-3) /hpf Urine WBC (0-5) /hpf Ur Squamous Epith Cells (0-5) /hpf Urine Bacteria (None) /hpf Granular Casts (None) /lpf Urine Mucus (Occasional) /lpf Micro UA Comment Ur Microscopic Review Urine Culture Comments Serum Alcohol (0-5) mg/dL Imaging Data Radiologist's impression: Abdomen/Pelvis CT 11/08/18 03:38 CONCLUSION: 1. Possible pancreatitis. 2. Mild thickening of the ascending and proximal transverse colon raising the possibility of colitis. The colon appears similar on the prior exam. 3. Hepatic steatosis. 4. Small fat containing hernia seen just below the umbilicus into the right of midline. 5. 2.7 cm cyst at the left ovary. Chest X-Ray 11/08/18 03:38 CONCLUSION: No acute cardiopulmonary process. Discharge Plan Discharge Disposition Patient Disposition: ED Admit(ED Internal Use Only) Discharge Condition Condition: Fair Discharge Order Discharge Orders: ED Use Only Admit Order (Routine); Ordered 11/08/18 Ordered By: Teetee Amaro Discharge Details Diagnosis: Pancreatitis, Alcoholic ketoacidosis, Metabolic acidosis, Electrolyte disturbance Physicians Team ED Provider: Teetee Amaro Primary Care Provider: Primary Care Mago Prajapati Attending Provider: Rafa Moulton Discharge Interventions Interventions: Vital Signs Last Done: 11/08/18 05:59 Status ED Status: Admitted Patient
[2018-11-08] MEDS ORDERED: Acetaminophen 325 MG Tablet PO PRN (06:36)
[2018-11-08] MEDS ORDERED: Magnesium Sulfate Inj 2 GM in Sodium Chlor 0.9% Inj 96 ML IV.SIG PRN (06:49)
[2018-11-08] MEDS ORDERED: Potassium Phosphate 500 MG Soluble Tablet PO PRN ×2 (06:49)
[2018-11-08] MEDS ORDERED: Potassium Chlor 20 mEq Premix 20 MEQ/100 ML PIGGYBACK IV.SIG PRN (06:49)
[2018-11-08] MEDS ORDERED: Potassium Chloride 25 MEQ Effervescent Tablet PO PRN (06:49)
[2018-11-08] MEDS ORDERED: Potassium Chlor 40 mEq Premix 40 MEQ/100 ML PIGGYBACK IV.SIG PRN ×2 (06:49)
[2018-11-08] MEDS ORDERED: Dextrose 50% in Water 50 ML Vial IV.PUSH PRN (06:49)
[2018-11-08] MEDS ORDERED: Potassium Phosphate Inj 30 MMOL in Sodium Chlor 0.9% Inj 250 ML IV.SIG PRN (06:49)
[2018-11-08] MEDS ORDERED: Sodium Phosphate Inj 30 MMOL in Sodium Chlor 0.9% Inj 250 ML IV.SIG PRN (06:49)
[2018-11-08] MEDS ORDERED: Magnesium Oxide 400 MG Tablet PO PRN (06:49)
[2018-11-08] MEDS ORDERED: Magnesium Sulfate Inj 4 GM in Sodium Chlor 0.9% Inj 92 ML IV.SIG PRN (06:49)
--- NOTE | 2018-11-08 07:08 | P.HPCC ---
History of Present Illness Service: Critical care medicine Primary Care Physician: No Primary Care Physician Chief Complaint: Abdominal pain History of Present Illness: This is a 43-year-old female. Date of admission 11/08/2018. Past medical history includes depression, history of gastric jejunal bypas in [place] s with a recent history of a ulcer at the gastrojejunal antrum during 10/13 admission. Status post clipping x3 and epinephrine injection. Patient was on sucralfate and pantoprazole. Also history of C. difficile colitis and cervical lesions. Patient has a history of tobaccoism. Patient has history of active alcohol use. Patient presents to [facility] with a 26 history of abdominal pain, nausea and vomiting. Vomitus consisted of intermittent blood, bile type contents. She is able to keep hydrated. Pain was 8 out of 10 very straight to the back sharp. Patient presented to [facility] for evaluation. Patient did have an elevated anion gap of 20. Lactate was 6.2. Beta hydroxyurea was 10. Sodium is 127. Bicarbonate was 8. ABG reveals a pH of 7.08. Bicarbonate of 5. Consistent with anion gap metabolic acidosis, metabolic alkalosis. Patient received 3 L normal saline in the ED, 1 ampicillin bicarbonate. Patient received 5 mg of morphine sulfate for pain management. CT abdomen/pelvis revealed pancreatic injury induration possibly pancreatitis. Right midline hernia with periumbilical fat. Left adnexa 2.7 cm cyst. Ascending/transverse colitis. C. difficile is been sent. We have consulted gastroenterology. She is currently n.p.o. status. We are asked to admit the patient. - Diagnosis (1) Acute hyponatremia (2) Normocytic anemia (3) Elevated bilirubin (4) Elevated AST (SGOT) (5) Elevated lipase (6) Alcohol abuse (7) Tobacco abuse (8) Gastric ulcer (9) C. difficile colitis (10) Abdominal hernia (11) Colitis (12) Pancreatitis (13) Alcoholic ketoacidosis (14) Metabolic acidosis Inpatient Certification: I certify that the inpatient services were ordered in accordance with Medicare regulations governing the order. This includes certification that hospital inpatient services are reasonable and necessary and in the case of services not specified as inpatient-only under 42 CFR 419.22(n), that they are appropriately provided as inpatient services in accordance to with the 2-midnight benchmark under 43 CFR 412.3(e) Estimated Total Length of Stay (Days): 5 Plans for Post Hospital Care: Not yet determined Review of Systems Constitutional: Reports anorexia, Reports body ache(s), Denies chills Eyes: Denies blind spots, Denies blurry vision, Denies bulging eyes Ears, Nose, Mouth, and Throat: Reports bad breath, Reports sore throat, Denies abnormal hearing, Denies bleeding gums Cardiovascular: Denies chest pain, Denies chest pain at rest, Denies chest pain with activity, Denies shortness of breath, Denies shortness of breath with activity Respiratory: Denies cough, Denies pain on inspiration, Denies shortness of breath, Denies shortness of breath with activity Gastrointestinal: Reports abdominal pain, Reports change in bowel habits, Reports change in stools, Reports heartburn, Reports nausea, Reports vomiting, Denies bloating, Denies coffee ground vomit, Denies difficulty swallowing Genitourinary: Denies urinary incontinence, Denies urinary urgency Musculoskeletal: Reports body aches, Denies back pain Skin/Breast: Denies bleeding lesions, Denies rash Neurologic: Denies abnormal hearing, Denies abnormal movements, Denies other visual disturbances, Denies convulsions, Denies seizure-like activity Psychiatric: Reports anxiety, Reports depression, Denies abnormal sleep pattern , Denies confusion Endocrine: Denies cold intolerance, Denies excessive sweating Hematologic/Lymphatic: Denies easy bleeding, Denies easy bruising Allergic/Immunologic: Denies GI upset with certain foods PMFSH - History History Provided By: Patient - Medical History Medical History: Medical History (Last Updated 11/08/18 @ 06:59 by Rafa Moulton MD) C. difficile colitis Cervical lesion ETOH abuse Nausea Tobacco abuse Depression GI bleed Stomach ulcer - Surgical History Surgical History: Surgical History (Last Reviewed 11/08/18 @ 06:28 by Teetee Amaro MD) History of gastric bypass Hx of cholecystectomy - Family History Family History: Family History (Last Updated 11/08/18 @ 07:00 by Rafa Moulton MD) Mother Family history of cervical cancer Father Family history of hypertension Other CAD (coronary artery disease) - Tobacco History Second Hand Smoke Exposure: No Tobacco Use In Past 30 Days: Yes Smoking Status: Current every day smoker Tobacco Type: Cigarettes - Alcohol History How Often Do You Have a Drink Containing Alcohol: Monthly or less - Substance Use History Substance History: No History of Abuse - Travel History Recent Travel in the [place] Within the Last 8 Weeks: No Recent Travel Out of the Country Within the Last 8 Weeks: No - Immunization History Tetanus Immunization: <5 Years Tetanus Immunization Year if Known: 2014 Medications and Allergies Active Medications: Active Medications Acetaminophen (Tylenol) 650 mg PO Q6H PRN PRN Reason: Fever >101f Albuterol (Albuterol Neb (Alexis)) 2.5 mg NEB Q2HR NEB PRN PRN Reason: SHORTNESS OF BREATH/WHEEZING Albuterol (Duoneb Neb (Prn)) 1 ampul NEB Q4HR NEB ALEXIS Chlorhexidine Gluconate (Chlorhexidine 2% Cloth) 3 pack TOPICAL DAILY@0400 ALEXIS Stop: 11/14/18 03:59 Chlorhexidine Gluconate (Chlorhexidine 2% Cloth) 3 pack TOPICAL DAILY@0400 PRN PRN Reason: Extra cloth needed Stop: 11/14/18 03:59 Flumazenil (Romazecon Inj) 0.2 mg IV.PUSH Q1M PRN PRN Reason: OVERSEDATION Flumazenil (Romazecon Inj) 0.2 mg IV.PUSH Q1M PRN PRN Reason: OVERSEDATION Haloperidol Lactate (Haldol Inj) 1 mg IV.PUSH Q15M PRN PRN Reason: for severe agitation Haloperidol Lactate (Haldol Inj) 1 mg IV.PUSH Q15M PRN PRN Reason: for severe agitation Heparin Sodium (Porcine) (Heparin Inj) 5,000 units SQ Q12H ALEXIS Hydromorphone HCl (Dilaudid Pf Inj) 0.5 mg IV.PUSH Q3H PRN PRN Reason: Pain 1 through 5 Hydromorphone HCl (Dilaudid Pf Inj) 1 mg IV.PUSH Q3H PRN PRN Reason: Pain 6 through 10 Sodium Chloride (Ns Inj) 1,000 mls @ 250 mls/hr IV.CONT .Q4H ALEXIS Last Admin: 11/08/18 05:55 Dose: 250 mls/hr Metronidazole/Sodium Chloride (Flagyl 500 Mg Inj) 100 mls @ 100 mls/hr IV.SIG ONCE ONE Stop: 11/08/18 07:15 Last Admin: 11/08/18 06:34 Dose: 100 mls/hr Multivitamins 10 ml/ Thiamine HCl 100 mg/ Folic Acid 1 mg/Sodium Chloride 511.2 mls @ 125 mls/hr IV.SIG Q24H ALEXIS Stop: 11/10/18 11:06 Lorazepam (Ativan) 1 mg PO Q4H PRN PRN Reason: for CIWA 8-10 Lorazepam (Ativan Inj) 2 mg IV.PUSH Q2H PRN PRN Reason: for CIWA 11-14 Lorazepam (Ativan Inj) 2 mg IV.PUSH Q1H PRN PRN Reason: for CIWA 15-20 Lorazepam (Ativan Inj) 2 mg IV.PUSH Q15M PRN PRN Reason: for CIWA > 20 Lorazepam (Ativan Inj) 1 mg IV.PUSH Q4H PRN PRN Reason: for CIWA 8-10 Lorazepam (Ativan) 2 mg PO Q2H PRN PRN Reason: for CIWA 11-14 Lorazepam (Ativan) 1 mg PO Q4H PRN PRN Reason: for CIWA 8-10 Lorazepam (Ativan) 2 mg PO Q2H PRN PRN Reason: for CIWA 11-14 Lorazepam (Ativan Inj) 2 mg IV.PUSH Q1H PRN PRN Reason: for CIWA 15-20 Lorazepam (Ativan Inj) 2 mg IV.PUSH Q15M PRN PRN Reason: for CIWA > 20 Lorazepam (Ativan Inj) 1 mg IV.PUSH Q4H PRN PRN Reason: for CIWA 8-10 Lorazepam (Ativan Inj) 2 mg IV.PUSH Q2H PRN PRN Reason: for CIWA 11-14 Pantoprazole Sodium (Protonix Inj) 40 mg IV.PUSH DAILY ALEXIS Prochlorperazine Edisylate (Compazine Inj) 5 mg IV.PUSH Q4H PRN PRN Reason: NAUSEA Sodium Chloride (Ns Flush) 2 ml IV.FLUSH PRN PRN PRN Reason: FLUSH AFTER USING IV ACCESS Sodium Chloride (Ns Flush) 2 ml IV.FLUSH BID ALEXIS Sodium Chloride (Ns Flush) 2 ml IV.FLUSH PRN PRN PRN Reason: FLUSH AFTER USING IV ACCESS Allergies Allergy/AdvReac Type Severity Reaction Status Date / Time ondansetron [From Zofran] Allergy Itching, Verified 11/08/18 03:01 Generalized Results - Labs CBC & Chem 7: 11/08/18 04:30 11/08/18 04:30 Labs: Short CBC 11/08/18 Range/Units 04:30 WBC 10.1 (4.0-11.0) th/mm3 Hgb 10.2 L (11.6-15.3) gm/dL Hct 32.2 L (35.0-46.0) % Plt Count 276 (150-450) th/mm3 BMP 11/08/18 04:30 Sodium 127 L Potassium 3.6 Chloride 91 L Carbon Dioxide 8.1 L BUN 4 L Creatinine 0.57 Calcium 8.0 L Cardiac Enzymes 11/08/18 Range/Units 04:30 Troponin I Less than 0.02 L (0.02-0.05) ng/mL Liver Function 11/08/18 Range/Units 04:30 Total Bilirubin 1.8 H (0.2-1.0) mg/dL AST 101 H (15-37) U/L ALT 47 (10-53) U/L Alkaline Phosphatase 136 H (45-117) U/L Albumin 4.0 (3.4-5.0) g/dL Urine 11/08/18 Range/Units 05:30 Urine Color Yellow (Yellw/Straw) Urine Clarity Hazy H (Clear) Urine pH 5.0 (5.0-8.5) Ur Specific Edison 1.014 (1.002-1.035) Urine Protein 100 H (Neg-Trace) mg/dL Urine Glucose (UA) 50 (Negative) mg/dL - Imaging Impressions Abdomen/Pelvis CT 11/08/18 03:38 CONCLUSION: 1. Possible pancreatitis. 2. Mild thickening of the ascending and proximal transverse colon raising the possibility of colitis. The colon appears similar on the prior exam. 3. Hepatic steatosis. 4. Small fat containing hernia seen just below the umbilicus into the right of midline. 5. 2.7 cm cyst at the left ovary. Chest X-Ray 11/08/18 03:38 CONCLUSION: No acute cardiopulmonary process. Exam Vital signs: Vital Signs 11/08/18 02:53 11/08/18 05:59 11/08/18 06:23 Temperature 99.0 F Pulse Rate 128 H 120 H Respiratory Rate 20 18 Blood Pressure 136/84 144/73 H Pulse Oximetry 100 100 100 11/08/18 06:39 Temperature Pulse Rate 127 H Respiratory Rate 20 Blood Pressure 120/69 Pulse Oximetry 100 Intake & Output 11/07/18 11/07/18 11/08/18 06:59 18:59 06:59 Intake Total 1999 Balance 1999 Weight 66.224 kg Intake: IV 1999 NS Inj 1,000 ML @ 1000 mls/hr 1999 IV.SIG BOLUS ALEXIS Rx#:[id number] Narrative: GENERAL: 43-year-old female currently resting in bed in mild distress secondary to pain SKIN: Warm and dry. HEAD: Atraumatic. Normocephalic. EYES: Pupils equal and round. No scleral icterus. No injection or drainage. ENT: No nasal bleeding or discharge. Mucous membranes pink and dry. NECK: Trachea midline. No JVD. CARDIOVASCULAR: Tachycardic, RR. S1, S2 no S4. No murmur RESPIRATORY: Clear to auscultation. Breath sounds equal bilaterally. No wheezing, rales or rhonchi GASTROINTESTINAL: Abdomen soft, tender to epigastric palpation. Voluntary guarding. No rigidity. Reducible right midline hernia MUSCULOSKELETAL: Extremities without clubbing, cyanosis, or edema. No obvious deformities. NEUROLOGICAL: Awake and alert. No obvious cranial nerve deficits. Motor grossly within normal limits. Five out of 5 muscle strength in the arms and legs. Normal speech. Septic Shock Reassessment Septic shock perfusion: reassessment completed Caprini VTE Risk Assessment Caprini VTE Risk Assessment: No/Low Risk (score <= 1) Caprini Risk Assessment Model: Point Value = 1 Point Value = 2 Point Value = 3 Point Value = 5 Age 41-60 Minor surgery BMI > 25 kg/m2 Swollen legs Varicose veins or History of unexplained or recurrent spontaneous Oral contraceptives or hormone replacement Sepsis (< 1 month) Serious lung disease, including pneumonia (< 1 month) Abnormal pulmonary function Acute myocardial infarction Congestive heart failure (< 1 month) History of inflammatory bowel disease Medical patient at bed rest Age 61-74 Arthroscopic surgery Major open surgery (> 45 min) Laparoscopic surgery (> 45 min) Malignancy Confined to bed (> 72 hours) Immobilizing plaster cast Central venous access Age >= 75 History of VTE Family history of VTE Factor V Leiden Prothrombin [id number] Lupus anticoagulant Anticardiolipin antibodies Elevated serum homocysteine Heparin-induced thrombocytopenia Other congenital or acquired thrombophilia Stroke (< 1 month) Elective arthroplasty Hip, pelvis, or leg fracture Acute spinal cord injury (< 1 month) Prophylaxis Regimen: Total Risk Factor Score Risk Level Prophylaxis Regimen 0-1 Low Early ambulation 2 Moderate Order ONE of the following: *Sequential Compression Device (SCD) *Heparin 5000 units SQ BID 3-4 Higher Order ONE of the following medications: *Heparin 5000 units SQ TID *Enoxaparin/Lovenox 40 mg SQ daily (WT < 150 kg, CrCl > 30 mL/min) *Enoxaparin/Lovenox 30 mg SQ daily (WT < 150 kg, CrCl > 10-29 mL/min) *Enoxaparin/Lovenox 30 mg SQ BID (WT < 150 kg, CrCl > 30 mL/min) AND/OR *Sequential Compression Device (SCD) 5 or more Highest Order ONE of the following medications: *Heparin 5000 units SQ TID (Preferred with Epidurals) *Enoxaparin/Lovenox 40 mg SQ daily (WT < 150 kg, CrCl > 30 mL/min) *Enoxaparin/Lovenox 30 mg SQ daily (WT < 150 kg, CrCl > 10-29 mL/min) *Enoxaparin/Lovenox 30 mg SQ BID (WT < 150 kg, CrCl > 30 mL/min) AND *Sequential Compression Device (SCD) Assessment and Plan - Problem List (1) Acute hyponatremia Code(s): E87.1 - Hypo-osmolality and hyponatremia Status: Acute (2) Normocytic anemia Code(s): D64.9 - Anemia, unspecified Status: Acute (3) Elevated bilirubin Code(s): R17 - Unspecified jaundice Status: Acute (4) Elevated AST (SGOT) Code(s): R74.0 - Nonspecific elevation of levels of transaminase and lactic acid dehydrogenase [LDH] Status: Acute (5) Elevated lipase Code(s): R74.8 - Abnormal levels of other serum enzymes Status: Acute (6) Alcohol abuse Code(s): F10.10 - Alcohol abuse, uncomplicated Status: Acute (7) Tobacco abuse Code(s): Z72.0 - Tobacco use Status: Acute (8) Gastric ulcer Code(s): K25.9 - Gastric ulcer, unspecified as acute or chronic, without hemorrhage or perforation Status: Chronic (9) C. difficile colitis Code(s): A04.72 - Enterocolitis due to Clostridium difficile, not specified as recurrent Status: Acute (10) Abdominal hernia Code(s): K46.9 - Unspecified abdominal hernia without obstruction or gangrene Status: Chronic (11) Colitis Code(s): K52.9 - Noninfective gastroenteritis and colitis, unspecified Status : Chronic (12) Pancreatitis Code(s): K85.90 - Acute pancreatitis without necrosis or infection, unspecified Status: Acute (13) Alcoholic ketoacidosis Code(s): E87.2 - Acidosis Status: Acute (14) Metabolic acidosis Code(s): E87.2 - Acidosis Status: Acute - Assessment and Plan Plan: Neuro/Psych: EtOH abuse Acetaminophen 650 mg by mouth every 6 hours as needed fever Hydromorphone 0.5-1 mg every 3 hours as needed pain 1 through 10 CIWA protocol initially. Admission alcohol was 69. Monitor for DTs Vitamin bag daily times 3 days CV: Sinus tachycardia Lactic acidosis Status post 2 L normal saline in the ED. Currently on one half normal saline with 1 ampoule sodium bicarbonate of 20 mEq of KCl at 150 cc an hour Serial lactates every 6 hours until cleared Check troponin/EKG Aggressive crystalloid resuscitation as above Resp: Ongoing tobaccoism Nasal cannula to maintain saturations greater than equal to 92% Incentive spirometry while awake Albuterol/ipratropium aerosols every 4 hours with albuterol aerosols every 2 hours as needed dyspnea Chest x-ray admission revealed no acute cardiopulmonary findings Nicotine patch 7 mg every 24 hours Self-evaluation cessation booklet provided GI: Acute pancreatitis elevated lipase History of gastric/jejunal antrum ulcer status post epinephrine clipping 10/13 C. difficile colitis with ascending/transverse colitis on CAT scan Abdominal wall hernia Elevated AST elevated total bilirubin Hepatic steatosis CT abdomen/pelvis revealed induration of the pancreas. Hernia right midline periumbilical fat. Left adnexa cyst 2.7 cm. Ascending/transverse colitis C. difficile is being checked. N.p.o. status Pantoprazole 40 mg IV twice daily Alcohol cessation encouraged Gastroenterology consultation Check triglycerides : Straight catheterization as needed Endo: Sliding scale insulin Accu-Cheks to maintain euglycemia/every 6 hours low regimen aspart insulin Check TSH Renal: Creatinine currently within normal limits Monitor urine output Accurate I's and O's Recheck BMP at 1800 hrs. Heme: Normocytic anemia Monitor CBC daily. Follow trends. No indication for transfusion of blood products at this time. Check coags ID: Monitor for signs and symptomatology infection FEN: Hyponatremia Replace electrolytes as clinically indicated per ICU electrolyte protocol Currently one half normal saline with sodium bicarbonate and potassium chloride MSK: PT evaluate and treat Access -Utilize peripheral IV. Central line if indicated Prophylaxis -GI -pantoprazole -DVT -SCD/heparin subcu 35 minutes critical care time (8) Gastric ulcer Qualifiers: Gastric ulcer chronicity: chronic Gastric ulcer complication status: unspecified whether hemorrhage or perforation present Qualified Code(s): K25.7 - Chronic gastric ulcer without hemorrhage or perforation (10) Abdominal hernia Qualifiers: Hernia type: unspecified Obstruction and gangrene presence: without obstruction or gangrene Recurrence: not specified as recurrent Qualified Code( s): K46.9 - Unspecified abdominal hernia without obstruction or gangrene (12) Pancreatitis Qualifiers: Chronicity: acute Pancreatitis type: unspecified pancreatitis type Acute pancreatitis complication: no infection or necrosis Qualified Code(s): K85.90 - Acute pancreatitis without necrosis or infection, unspecified
[2018-11-08] MEDS: HYDROmorphone PF Inj 1 MG/ML Ampul IV.PUSH PRN ×5 (07:30→23:45)
[2018-11-08 07:58] LABS: Triglycerides 174 mg/dL (42-150)
[2018-11-08 08:07] LABS: Beta Hydroxybutyric Acid 9.04 mmol/L (0.00-0.39)
[2018-11-08 08:18] LABS: Creatine Kinase 38 U/L (26-192)
[2018-11-08] MEDS: Heparin - SQ 10,000 UNITS/ML Vial SQ SCH ×2 (08:32→21:15)
[2018-11-08] MEDS: Pantoprazole Inj 40 MG Vial IV.PUSH SCH ×2 (08:32→21:16)
[2018-11-08] MEDS: POTASSIUM CHLORIDE IV.CONT SCH ×2 (08:33→15:35)
[2018-11-08] MEDS: [UNRECOGNIZED DRUG - OTHER] IV.CONT SCH ×2 (08:33→15:35)
[2018-11-08] MEDS: SODIUM BICARBONATE IV.CONT SCH ×2 (08:33→15:35)
[2018-11-08] MEDS ORDERED: Pantoprazole Inj 40 MG Vial IV.PUSH SCH (09:00)
[2018-11-08] MEDS: Multivitamin Inj 10 ML, Thiamine Inj 100 MG, Folic Acid Inj 1 MG in Sodium Chlor 0.9% I... IV.SIG SCH (09:49)
--- NOTE | 2018-11-08 10:45 | P.CONGI ---
History of Present Illness Consult date: 11/08/18 Consult reason: Thank Chief complaint: Acute Pancreatitis; Alcoholic Ketoacidosis History of Present Illness: This patient is a 43-year-old female who was admitted to [facility] on 11/08/2018. Past medical history significant for depression, history of gastrojejunal bypass, gastrojejunal antrum ulcers, C. difficile colitis, alcohol abuse and GI bleeding. Surgical history significant for gastric bypass and cholecystectomy. Patient presented to [facility] with complaints of 4-day onset of left lower quadrant burning abdominal pain that she describes as constant and nonradiating. Patient reports only known alleviating factor is use of heating pad on the area with limited movement. Patient reports accompanying nausea and vomiting with loose watery brown stools without any noted bleeding. Of note, patient endorses drinking 4-5 drinks of vodka daily. She also endorses smoking 1 pack of cigarettes every 4 days. Our service has been consulted to evaluate patient for pancreatitis. Review of Systems All other systems reviewed negative except as stated in HPI PMFSH - History History Provided By: Patient - Medical History Medical History: Medical History (Last Updated 11/08/18 @ 06:59 by Rafa Moulton MD) C. difficile colitis Cervical lesion ETOH abuse Nausea Tobacco abuse Depression GI bleed Stomach ulcer - Surgical History Surgical History: Surgical History (Last Reviewed 11/08/18 @ 06:28 by Teetee Amaro MD) History of gastric bypass Hx of cholecystectomy - Family History Family History: Family History (Last Updated 11/08/18 @ 07:00 by Rafa Moulton MD) Mother Family history of cervical cancer Father Family history of hypertension Other CAD (coronary artery disease) - Tobacco History Second Hand Smoke Exposure: No Tobacco Use In Past 30 Days: Yes Smoking Status: Current every day smoker Tobacco Type: Cigarettes - Alcohol History How Often Do You Have a Drink Containing Alcohol: Monthly or less - Substance Use History Substance History: No History of Abuse - Travel History Recent Travel in the [place] Within the Last 8 Weeks: No Recent Travel Out of the Country Within the Last 8 Weeks: No - Immunization History Tetanus Immunization: <5 Years Tetanus Immunization Year if Known: 2014 Medications and Allergies Active Medications: Active Medications Acetaminophen (Tylenol) 650 mg PO Q6H PRN PRN Reason: Fever >101f Albuterol (Albuterol Neb (Prn)) 2.5 mg NEB Q2HR NEB PRN PRN Reason: SHORTNESS OF BREATH/WHEEZING Albuterol (Duoneb Neb (Chaya)) 1 ampul NEB Q4HR NEB [facility] Last Admin: 11/08/18 08:02 Dose: 1 ampul Chlorhexidine Gluconate (Chlorhexidine 2% Cloth) 3 pack TOPICAL DAILY@0400 [facility] Stop: 11/14/18 03:59 Chlorhexidine Gluconate (Chlorhexidine 2% Cloth) 3 pack TOPICAL DAILY@0400 PRN PRN Reason: Extra cloth needed Stop: 11/14/18 03:59 Dextrose (D50w Vial) 50 ml IV.PUSH UNSCH PRN PRN Reason: PER HYPOGLYCEMIA PROTOCOL Flumazenil (Romazecon Inj) 0.2 mg IV.PUSH Q1M PRN PRN Reason: OVERSEDATION Glucagon (Glucagon Inj) 1 mg OTHER PRN PRN PRN Reason: for Hypoglycemia Protocol Haloperidol Lactate (Haldol Inj) 1 mg IV.PUSH Q15M PRN PRN Reason: for severe agitation Heparin Sodium (Porcine) (Heparin Inj) 5,000 units SQ Q12H [facility] Last Admin: 11/08/18 08:32 Dose: 5,000 units Hydromorphone HCl (Dilaudid Pf Inj) 0.5 mg IV.PUSH Q3H PRN PRN Reason: Pain 1 through 5 Hydromorphone HCl (Dilaudid Pf Inj) 1 mg IV.PUSH Q3H PRN PRN Reason: Pain 6 through 10 Last Admin: 11/08/18 07:30 Dose: 1 mg Sodium Chloride (Ns Inj) 1,000 mls @ 250 mls/hr IV.CONT .Q4H [facility] Last Admin: 11/08/18 09:49 Dose: Not Given Multivitamins 10 ml/ Thiamine HCl 100 mg/ Folic Acid 1 mg/Sodium Chloride 511.2 mls @ 125 mls/hr IV.SIG Q24H [facility] Stop: 11/10/18 14:06 Last Admin: 11/08/18 09:49 Dose: 125 mls/hr Magnesium Sulfate 4 gm/ Sodium (Chloride) 100 mls @ 50 mls/hr IV.SIG UNSCH PRN PRN Reason: For Magnesium 0.9 - 1.1 mg/dL Magnesium Sulfate 2 gm/ Sodium (Chloride) 100 mls @ 50 mls/hr IV.SIG UNSCH PRN PRN Reason: For Magnesium 1.2 - 1.6 mg/dL Potassium Chloride (Kcl 40 Meq Premix Inj) 40 meq in 100 mls @ 25 mls/hr IV.SIG Q2H PRN PRN Reason: For Potassium 2.8 - 3.2 mEq/L Potassium Chloride (Kcl 20 Meq Premix Inj) 20 meq in 100 mls @ 50 mls/hr IV.SIG Q2H PRN PRN Reason: For Potassium 3.3 - 3.5 mEq/L Potassium Chloride (Kcl 40 Meq Premix Inj) 40 meq in 100 mls @ 25 mls/hr IV.SIG UNSCH PRN PRN Reason: For Potassium 3.3 - 3.5 mEq/L Potassium Chloride (Kcl 20 Meq Premix Inj) 20 meq in 100 mls @ 50 mls/hr IV.SIG Q2H PRN PRN Reason: For Potassium 2.8 - 3.2 mEq/L Potassium Phosphate 30 mmol/ (Sodium Chloride) 260 mls @ 42 mls/hr IV.SIG UNSCH PRN PRN Reason: SEE LABEL COMMENTS Sodium Phosphate 30 mmol/ (Sodium Chloride) 260 mls @ 42 mls/hr IV.SIG UNSCH PRN PRN Reason: For Phosphorus < 2.5 mg/dL Metronidazole/Sodium Chloride (Flagyl 500 Mg Inj) 100 mls @ 100 mls/hr IV.SIG Q8H [facility] Sodium Bicarbonate 50 meq/Potassium Chloride 20 meq/Sodium Chloride 1,000 mls @ 150 mls/hr IV.CONT .Q6H40M [facility] Last Admin: 11/08/18 08:33 Dose: 150 mls/hr Insulin Aspart (Novolog Insulin Correctional Sugar Inj) 0 unit SQ Q6HR [facility]; Protocol Lorazepam (Ativan) 1 mg PO Q4H PRN PRN Reason: for CIWA 8-10 Lorazepam (Ativan) 2 mg PO Q2H PRN PRN Reason: for CIWA 11-14 Lorazepam (Ativan Inj) 2 mg IV.PUSH Q1H PRN PRN Reason: for CIWA 15-20 Lorazepam (Ativan Inj) 2 mg IV.PUSH Q15M PRN PRN Reason: for CIWA > 20 Lorazepam (Ativan Inj) 1 mg IV.PUSH Q4H PRN PRN Reason: for CIWA 8-10 Lorazepam (Ativan Inj) 2 mg IV.PUSH Q2H PRN PRN Reason: for CIWA 11-14 Magnesium Oxide (Mag-Ox) 800 mg PO UNSCH PRN PRN Reason: For Magnesium 1.2 - 1.6 mg/dL Pantoprazole Sodium (Protonix Inj) 40 mg IV.PUSH Q12H [facility] Last Admin: 11/08/18 08:32 Dose: 40 mg Potassium Bicarb/Potassium Chloride (K-Lyte Cl Eff) 50 meq PO UNSCH PRN PRN Reason: For Potassium 3.3 - 3.5 mEq/L Potassium Phosphate (K-Phos Original) 2,000 mg PO Q4H PRN PRN Reason: Phosphorus Less Than 2.5 mg/dL Potassium Phosphate (K-Phos Original) 2,000 mg PO UNSCH PRN PRN Reason: SEE LABEL COMMENTS Prochlorperazine Edisylate (Compazine Inj) 5 mg IV.PUSH Q4H PRN PRN Reason: NAUSEA Last Admin: 11/08/18 07:29 Dose: 5 mg Sodium Chloride (Ns Flush) 2 ml IV.FLUSH BID [facility] Last Admin: 11/08/18 08:33 Dose: 2 ml Sodium Chloride (Ns Flush) 2 ml IV.FLUSH PRN PRN PRN Reason: FLUSH AFTER USING IV ACCESS Allergies Allergy/AdvReac Type Severity Reaction Status Date / Time ondansetron [From Zofran] Allergy Itching, Verified 11/08/18 03:01 Generalized Exam Vital signs: Vital Signs 11/08/18 02:53 11/08/18 05:59 11/08/18 06:23 Temperature 99.0 F Pulse Rate 128 H 120 H Respiratory Rate 20 18 Blood Pressure 136/84 144/73 H Pulse Oximetry 100 100 100 11/08/18 06:39 11/08/18 07:04 11/08/18 08:00 Temperature 98.4 F 98.4 F Pulse Rate 127 H 125 H 119 H Respiratory Rate 20 27 H 24 Blood Pressure 120/69 117/64 Pulse Oximetry 100 100 98 11/08/18 08:02 11/08/18 09:00 Temperature Pulse Rate 110 H 120 H Respiratory Rate 16 24 Blood Pressure 111/61 Pulse Oximetry 98 97 Intake & Output 11/07/18 11/08/18 11/08/18 18:59 06:59 18:59 Intake Total 1999 718 / 718 Output Total 300 / 300 Balance 1999 418 / 418 Weight 66.224 kg 71.5 kg Intake: IV 1999 718 / 718 NS Inj 1,000 ML @ 250 mls/hr IV 618 / 618 .CONT .Q4H [facility] Rx#:[id number] NS Inj 1,000 ML @ 1000 mls/hr 1999 IV.SIG BOLUS [facility] Rx#:[id number] Flagyl 500 MG Inj 100 ML @ 100 100 / 100 mls/hr IV.SIG ONCE ONE Rx#: [id number] Output: Urine 300 / 300 Other: Weight On Admission 71.5 kg - Constitutional no acute distress, chronically ill appearing - Routine HEENT Exam Head: Present: normocephalic - Routine Respiratory Exam Present: CTA bilaterally - Routine Cardiovascular Exam Present: RRR - Routine Abdominal Exam Present: soft, normoactive bowel sounds, tenderness. Absent: distended, guarding, firm Comments: Patient reports generalized tenderness on palpation during exam - Routine Extremities Exam Absent: cyanosis, edema - Routine Skin Exam Present: dry, warm - Routine Neurological Exam Present: alert Results - Labs CBC & Chem 7: 11/08/18 04:30 11/08/18 04:30 Labs: Laboratory Results - last 24 hr 11/08/18 11/08/18 11/08/18 04:30 04:30 04:30 WBC 10.1 RBC 3.34 L Hgb 10.2 L Hct 32.2 L MCV 96.2 MCH 30.6 MCHC 31.8 L RDW 18.3 H Plt Count 276 MPV 8.7 Neut % (Auto) 82.0 H Lymph % (Auto) 10.6 Hendricks % (Auto) 7.0 Eos % (Auto) 0.1 Baso % (Auto) 0.3 Neut # (Auto) 8.3 H Lymph # (Auto) 1.1 Hendricks # (Auto) 0.7 Eos # (Auto) 0.0 Baso # (Auto) 0.0 WBC Differential . Differential Comment Auto diff final Puncture Site Patient Temperature O2 Saturation ABG pH ABG pCO2 ABG pO2 ABG HCO3 ABG O2 Content ABG Base Excess ABG Methemoglobin Dilshad Test Hemoglobin Carboxyhemoglobin O2 Delivery Device Inspired O2 Critical Value Sodium 127 L Potassium 3.6 Chloride 91 L Carbon Dioxide 8.1 L Anion Gap 28 H BUN 4 L Creatinine 0.57 Random Glucose 81 Lactic Acid Calcium 8.0 L Magnesium 1.9 Total Bilirubin 1.8 H AST 101 H ALT 47 Alkaline Phosphatase 136 H Ammonia Total Creatine Kinase Troponin I Total Protein 8.2 Albumin 4.0 Triglycerides Lipase 3842 H Beta-Hydroxybutyric Acd Urine Color Urine Clarity Urine pH Ur Specific [place] Urine Protein Urine Glucose (UA) Urine Ketones Urine Occult Blood Urine Nitrate Urine Bilirubin Urine Urobilinogen Ur Leukocyte Esterase Urine RBC Urine WBC Ur Squamous Epith Cells Urine Bacteria Granular Casts Urine Mucus Micro UA Comment Ur Microscopic Review Urine Culture Comments Serum Alcohol 69 H 11/08/18 11/08/18 11/08/18 04:30 05:30 05:45 WBC RBC Hgb Hct MCV MCH MCHC RDW Plt Count MPV Neut % (Auto) Lymph % (Auto) Hendricks % (Auto) Eos % (Auto) Baso % (Auto) Neut # (Auto) Lymph # (Auto) Hendricks # (Auto) Eos # (Auto) Baso # (Auto) WBC Differential Differential Comment Puncture Site Patient Temperature O2 Saturation ABG pH ABG pCO2 ABG pO2 ABG HCO3 ABG O2 Content ABG Base Excess ABG Methemoglobin Dilshad Test Hemoglobin Carboxyhemoglobin O2 Delivery Device Inspired O2 Critical Value Sodium Potassium Chloride Carbon Dioxide Anion Gap BUN Creatinine Random Glucose Lactic Acid 6.2 H* Calcium Magnesium Total Bilirubin AST ALT Alkaline Phosphatase Ammonia Total Creatine Kinase Troponin I Less than 0.02 L Total Protein Albumin Triglycerides Lipase Beta-Hydroxybutyric Acd 10.47 H Urine Color Yellow Urine Clarity Hazy H Urine pH 5.0 Ur Specific [place] 1.014 Urine Protein 100 H Urine Glucose (UA) 50 Urine Ketones 80 or greater H Urine Occult Blood Moderate H Urine Nitrate Negative Urine Bilirubin Negative Urine Urobilinogen Less than 2 Ur Leukocyte Esterase Negative Urine RBC 10 H Urine WBC 1 Ur Squamous Epith Cells 3 Urine Bacteria Rare H Granular Casts 27 Urine Mucus Few H Micro UA Comment Cath-culture ind Ur Microscopic Review Not Reportable Urine Culture Comments Cath-cult indicated Serum Alcohol 11/08/18 11/08/18 11/08/18 05:55 06:51 06:51 WBC RBC Hgb Hct MCV MCH MCHC RDW Plt Count MPV Neut % (Auto) Lymph % (Auto) Hendricks % (Auto) Eos % (Auto) Baso % (Auto) Neut # (Auto) Lymph # (Auto) Hendricks # (Auto) Eos # (Auto) Baso # (Auto) WBC Differential Differential Comment Puncture Site Right radial Patient Temperature 98.5 O2 Saturation 94 ABG pH 7.09 L* ABG pCO2 18 L* ABG pO2 120 ABG HCO3 5 L* ABG O2 Content 10.3 L ABG Base Excess -23.1 L ABG Methemoglobin 1.1 Dilshad Test Present Hemoglobin 7.6 L* Carboxyhemoglobin 1.5 O2 Delivery Device Room air Inspired O2 21 Critical Value Yes Sodium Potassium Chloride Carbon Dioxide Anion Gap BUN Creatinine Random Glucose Lactic Acid Calcium Magnesium Total Bilirubin AST ALT Alkaline Phosphatase Ammonia 11 Total Creatine Kinase 38 Troponin I Less than 0.02 L Total Protein Albumin Triglycerides 174 H Lipase Beta-Hydroxybutyric Acd 9.04 H D Urine Color Urine Clarity Urine pH Ur Specific [place] Urine Protein Urine Glucose (UA) Urine Ketones Urine Occult Blood Urine Nitrate Urine Bilirubin Urine Urobilinogen Ur Leukocyte Esterase Urine RBC Urine WBC Ur Squamous Epith Cells Urine Bacteria Granular Casts Urine Mucus Micro UA Comment Ur Microscopic Review Urine Culture Comments Serum Alcohol - Imaging Impressions Abdomen/Pelvis CT 11/08/18 03:38 CONCLUSION: 1. Possible pancreatitis. 2. Mild thickening of the ascending and proximal transverse colon raising the possibility of colitis. The colon appears similar on the prior exam. 3. Hepatic steatosis. 4. Small fat containing hernia seen just below the umbilicus into the right of midline. 5. 2.7 cm cyst at the left ovary. Chest X-Ray 11/08/18 03:38 CONCLUSION: No acute cardiopulmonary process. Assessment and Plan (1) Colitis Status: Chronic Code(s): K52.9 - Noninfective gastroenteritis and colitis, unspecified (2) Pancreatitis Status: Acute Code(s): K85.90 - Acute pancreatitis without necrosis or infection, unspecified - Plan This patient is a 43-year-old female who was admitted to [facility] on 11/08/2018. Past medical history significant for depression, history of gastrojejunal bypass, gastrojejunal antrum ulcers, C. difficile colitis, alcohol abuse and GI bleeding. Surgical history significant for gastric bypass and cholecystectomy. Patient presented to [facility] with complaints of 4-day onset of left lower quadrant burning abdominal pain that she describes as constant and nonradiating. Patient reports only known alleviating factor is use of heating pad on the area with limited movement. Patient reports accompanying nausea and vomiting with loose watery brown stools without any noted bleeding. Of note, patient endorses drinking 4-5 drinks of vodka daily. She also endorses smoking 1 pack of cigarettes every 4 days. Our service has been consulted to evaluate patient for pancreatitis. Pancreatitis Colitis -History of C. difficile colitis, alcohol abuse and GI bleeding. -09/22/2018 EGD revealed the following-- 1.The esophagus appeared normal 2.Gastric bypass was found at the gastro-jejunal anastomosis; Hemostasis was attempted by placing three hemoclips on the bleeding site(s); Submucosal injection of epinephrine 1:10,000 was performed around the bleeding site 3.The exam showed no abnormalities in the jejunum 4.Retroflexion was not performed -WBC 10.1 hemoglobin 10.2 hematocrit 32.2 platelet count 276 -Lactic acid 6.2 lipase 3842 total bilirubin 1.8 AST 101 ALT 47 alk phos 136 ammonia level 11 Plan -Clear liquid diet -Analgesics and antiemetics as per attending -PPI -IV hydration -recommend Flagyl p.o. -Questran every 8 hours -C. difficile PCR pending -Supportive care -Further recommendations to follow This patient has been seen by myself and Dr. Diaz and this note is written on his behalf - Attending Attestation Dr. Diaz (2) Pancreatitis Qualifiers: Chronicity: acute Pancreatitis type: unspecified pancreatitis type Acute pancreatitis complication: no infection or necrosis Qualified Code(s): K85.90 - Acute pancreatitis without necrosis or infection, unspecified
[2018-11-08] MEDS: Insulin NovoLOG Aspart Correctional Sugar Inj SQ SCH ×2 (12:34→21:14)
[2018-11-08 19:20] LABS: Anion Gap 17 meq/L (5-15); Blood Urea Nitrogen 3 mg/dL (7-18); Calcium 7.2 mg/dL (8.5-10.1); Carbon Dioxide 16.1 meq/L (21.0-32.0); Chloride 97 meq/L (98-107); Glomerular Filtration Rate Greater Than 89 mL/min (>89); Glucose,Random 112 mg/dL (74-106); Magnesium 1.4 mg/dL (1.5-2.5); Phosphorus 0.6 mg/dL (2.5-4.9); Potassium 3.1 meq/L (3.5-5.1); Sodium 130 meq/L (136-145)
[2018-11-08 19:31] LABS: Albumin 3.4 g/dL (3.4-5.0); Calcium-Albumin Corrected 7.7 mg/dL (8.5-10.1)
[2018-11-09] MEDS: POTASSIUM CHLORIDE IV.CONT SCH ×2 (00:02→06:31)
[2018-11-09] MEDS: SODIUM BICARBONATE IV.CONT SCH ×2 (00:02→06:31)
[2018-11-09] MEDS: [UNRECOGNIZED DRUG - OTHER] IV.CONT SCH ×2 (00:02→06:31)
[2018-11-09] MEDS ORDERED: Chlorhexidine Gluconate 2% 1 Pack (2 Cloths) TOPICAL PRN (04:00)
[2018-11-09] MEDS: HYDROmorphone PF Inj 1 MG/ML Ampul IV.PUSH PRN ×5 (04:10→18:17)
[2018-11-09 04:12] LABS: Baso % (Auto) 0.2 % (0.0-2.0); Eos % (Auto) 0.9 % (0.0-4.0); Lymph # (Auto) 0.9 th/mm3 (1.0-4.8); Lymph % (Auto) 18.2 % (9.0-44.0); Mean Corpuscular HGB Conc 33.8 % (32.0-36.0); Mean Corpuscular Hemoglobin 30.8 pg (27.0-34.0); Mean Corpuscular Volume 91.1 fL (80.0-100.0); Mean Platelet Volume 8.2 fL (7.0-11.0); Mono # (Auto) 0.4 th/mm3 (0.0-0.9); Mono % (Auto) 8.3 % (0.0-8.0); Neut # (Auto) 3.8 th/mm3 (1.8-7.7); Neut % (Auto) 72.4 % (16.0-70.0); Platelet Count 181 th/mm3 (150-450); Red Blood Count 2.09 mil/mm3 (4.00-5.30); Red Cell Distribution Width 17.8 % (11.6-17.2); White Blood Count 5.2 th/mm3 (4.0-11.0)
[2018-11-09 04:22] LABS: Hematocrit 19.1 % (35.0-46.0); Hemoglobin 6.4 gm/dL (11.6-15.3)
[2018-11-09 04:27] LABS: Activated Partial Thrombo Time 31.7 sec (23.4-31.7); INR 1.1 Ratio; Prothrombin Time 10.8 sec (9.8-11.6)
[2018-11-09 04:46] LABS: Ovalocytes 1+; Platelet Estimate Normal (Normal); Platelet Morphology Normal (Normal); Stomatocytes 1+
[2018-11-09] MEDS ORDERED: Sodium Chlor 0.9% Inj 250 ML IV.SIG SCH (05:00)
[2018-11-09 05:07] LABS: Alanine Aminotransferase 28 U/L (10-53); Albumin 3.1 g/dL (3.4-5.0); Alkaline Phosphatase 82 U/L (45-117); Anion Gap 12 meq/L (5-15); Aspartate Aminotransferase 39 U/L (15-37); Blood Urea Nitrogen 3 mg/dL (7-18); Calcium 7.2 mg/dL (8.5-10.1); Carbon Dioxide 22.2 meq/L (21.0-32.0); Chloride 100 meq/L (98-107); Glomerular Filtration Rate Greater Than 89 mL/min (>89); Glucose,Random 93 mg/dL (74-106); Lipase 2538 U/L (73-393); Magnesium 1.4 mg/dL (1.5-2.5); Phosphorus 0.6 mg/dL (2.5-4.9); Potassium 3.3 meq/L (3.5-5.1); Sodium 134 meq/L (136-145); Total Protein 5.8 g/dL (6.4-8.2)
[2018-11-09] MEDS: Insulin NovoLOG Aspart Correctional Sugar Inj SQ SCH ×4 (05:47→17:48)
[2018-11-09] MEDS: Chlorhexidine Gluconate 2% 1 Pack (2 Cloths) TOPICAL SCH (05:47)
[2018-11-09] MEDS: Heparin - SQ 10,000 UNITS/ML Vial SQ SCH ×2 (08:16→20:33)
[2018-11-09] MEDS: Pantoprazole Inj 40 MG Vial IV.PUSH SCH ×2 (08:17→20:32)
[2018-11-09] MEDS ORDERED: Potassium Phosphate Inj 30 MMOL in Sodium Chlor 0.9% Inj 250 ML IV.SIG ONE (09:00)
[2018-11-09] MEDS ORDERED: Potassium Phos/Sodium Phos 250 MG Tablet PO ONE (09:00)
[2018-11-09] MEDS ORDERED: Magnesium Sulfate Inj 4 GM in Sodium Chlor 0.9% Inj 92 ML IV.SIG ONE (09:00)
--- NOTE | 2018-11-09 09:45 | P.PNCC ---
Subjective Subjective Remarks/Hospital Course: This is a 43-year-old female. Date of admission 11/08/2018. Past medical history includes depression, history of gastric jejunal bypas in [place] s with a recent history of a ulcer at the gastrojejunal antrum during 10/13 admission. Status post clipping x3 and epinephrine injection. Patient was on sucralfate and pantoprazole. Also history of C. difficile colitis and cervical lesions. Patient has a history of tobaccoism. Patient has history of active alcohol use. Patient presents to [facility] with a 24 history of abdominal pain, nausea and vomiting. Vomitus consisted of intermittent blood, bile type contents. She is able to keep hydrated. Pain was 8 out of 10 very straight to the back sharp. Patient presented to [facility] for evaluation. Patient did have an elevated anion gap of 20. Lactate was 6.2. Beta hydroxyurea was 10. Sodium is 127. Bicarbonate was 8. ABG reveals a pH of 7.08. Bicarbonate of 5. Consistent with anion gap metabolic acidosis, metabolic alkalosis. Patient received 3 L normal saline in the ED, 1 sodium bicarbonate. Patient received 5 mg of morphine sulfate for pain management. CT abdomen/pelvis revealed pancreatic injury induration possibly pancreatitis. Right midline hernia with periumbilical fat. Left adnexa 2.7 cm cyst. Ascending/transverse colitis. C. difficile is been sent. We have consulted gastroenterology. She is currently n.p.o. status. We are asked to admit the patient. Subjective 11/10: Lactate is cleared. Patient hemoglobin 6.4 the same. Currently transfusing 2 units PVCs. Magnesium phosphorus being replaced as well. Appears stable. Requesting advance diet. Pain remains 8 out of 10. Lipase slowly trending downward. Objective Vital Signs / I&O: Vital Signs 11/08/18 10:00 11/08/18 11:00 11/08/18 11:01 Temperature Pulse Rate 117 H 110 H 108 H Respiratory Rate 33 H 19 22 Blood Pressure 124/74 Pulse Oximetry 99 100 11/08/18 12:00 11/08/18 12:07 11/08/18 13:00 Temperature 98.6 F Pulse Rate 140 H 130 H 102 H Respiratory Rate 25 H 25 H 25 H Blood Pressure 132/78 Pulse Oximetry 100 99 100 11/08/18 13:51 11/08/18 14:00 12/14/18 14:01 Temperature Pulse Rate 128 H 148 H 140 H Respiratory Rate 29 H 40 H 49 H Blood Pressure 143/81 H 99/78 L Pulse Oximetry 100 95 88 L 11/08/18 15:00 11/08/18 15:28 11/08/18 16:00 Temperature 99.1 F Pulse Rate 102 H 107 H 107 H Respiratory Rate 25 H 16 23 Blood Pressure 119/70 117/64 Pulse Oximetry 100 100 11/08/18 17:00 11/08/18 18:00 11/08/18 19:00 Temperature Pulse Rate 114 H 123 H 102 H Respiratory Rate 37 H 37 H 24 Blood Pressure 124/65 105/72 115/59 L Pulse Oximetry 100 98 94 L 11/08/18 20:00 11/08/18 20:03 11/08/18 21:00 Temperature 98.9 F Pulse Rate 106 H 104 H 104 H Respiratory Rate 26 H 18 28 H Blood Pressure 101/57 L 110/59 L Pulse Oximetry 95 98 94 L 11/08/18 22:00 11/08/18 23:00 11/09/18 00:00 Temperature 98.2 F Pulse Rate 110 H 111 H 88 Respiratory Rate 21 22 20 Blood Pressure 98/55 L 105/56 L 99/55 L Pulse Oximetry 91 L 93 L 95 11/09/18 01:00 11/09/18 02:00 11/09/18 03:00 Temperature Pulse Rate 99 H 88 93 H Respiratory Rate 16 17 18 Blood Pressure 94/54 L 100/60 101/61 Pulse Oximetry 92 L 91 L 96 11/09/18 04:00 11/09/18 05:00 11/09/18 06:00 Temperature Pulse Rate 88 94 H 93 H Respiratory Rate 28 H 16 14 Blood Pressure Pulse Oximetry 94 L 93 L 94 L 11/09/18 06:46 11/09/18 07:00 11/09/18 07:37 Temperature 97.6 F 97.7 F Pulse Rate 102 H 91 H 93 H Respiratory Rate 23 17 23 Blood Pressure 101/61 98/57 L 98/57 L Pulse Oximetry 93 L 94 L 96 11/09/18 07:59 11/09/18 08:00 Temperature Pulse Rate 88 87 Respiratory Rate 20 16 Blood Pressure 97/65 L Pulse Oximetry 94 L 98 Intake & Output 11/08/18 11/09/18 11/09/18 18:59 06:59 18:59 Intake Total 2833 / 2833 2820 / 2820 500 / 500 Output Total 1800 / 1800 650 / 650 Balance 1033 / 1033 2170 / 2170 500 / 500 Weight 71.5 kg 71.5 kg Intake: IV 2333 / 2333 2100 / 2100 100 / 100 NS Inj 1,000 ML @ 250 mls/hr IV 618 / 618 .CONT .Q4H [facility] Rx#:[id number] Sodium Bicarbonate 8.4% Inj 50 1000 / 1000 2000 / 2000 MEQ KCl Inj 20 MEQ In 1/2 Normal Saline Inj 940 ML @ 150 mls/hr IV.CONT .Q6H40M [facility] Rx#: [id number] MVI-12 Inj 10 ML Thiamine Inj 515 / 515 100 MG Folvite Inj 1 MG In NS Inj 500 ML @ 125 mls/hr IV.SIG Q24H [facility] Rx#:[id number] Flagyl 500 MG Inj 100 ML @ 100 200 / 200 100 / 100 100 / 100 mls/hr IV.SIG Q8H [facility] Rx#: [id number] Oral 500 / 500 720 / 720 Intake (Blood Product) Amt 0 / 0 400 / 400 Rbc As-3 Leukoreduced Unit 0 / 0 400 / 400 [id number] Output: Urine 1800 / 1800 650 / 650 Other: Date of Last Bowel Movement 11/08/18 11/09/18 # Bowel Movements 5 3 Weight On Admission 71.5 kg Result Diagrams: 11/09/18 03:57 11/09/18 03:57 Imaging: Abdomen/Pelvis CT 11/08/18 03:38 CONCLUSION: 1. Possible pancreatitis. 2. Mild thickening of the ascending and proximal transverse colon raising the possibility of colitis. The colon appears similar on the prior exam. 3. Hepatic steatosis. 4. Small fat containing hernia seen just below the umbilicus into the right of midline. 5. 2.7 cm cyst at the left ovary. Chest X-Ray 11/08/18 03:38 CONCLUSION: No acute cardiopulmonary process. Objective Remarks: GENERAL: 43-year-old female currently resting in bed no acute distress SKIN: Warm and dry. Tattoos around left eyes HEAD: Atraumatic. Normocephalic. EYES: Pupils equal and round. No scleral icterus. No injection or drainage. ENT: No nasal bleeding or discharge. Mucous membranes pink and moist. NECK: Trachea midline. No JVD. CARDIOVASCULAR: Regular rate and rhythm. S1, S2. No S4 RESPIRATORY:Clear to auscultation. Breath sounds equal bilaterally. GASTROINTESTINAL: Abdomen soft, tender to palpation epigastric. Positive rebound. No rigidity. This is not a surgical abdomen. Hypoactive bowel sounds are appreciated. MUSCULOSKELETAL: Extremities without clubbing, cyanosis, or edema. No obvious deformities. NEUROLOGICAL: Awake and alert. No obvious cranial nerve deficits. Motor grossly within normal limits. Five out of 5 muscle strength in the arms and legs. Normal speech. PSYCHIATRIC: Appropriate mood and affect; insight and judgment normal. Assessment and Plan - Problem List (1) Acute hyponatremia Code(s): E87.1 - Hypo-osmolality and hyponatremia Status: Acute (2) Normocytic anemia Code(s): D64.9 - Anemia, unspecified Status: Acute (3) Elevated bilirubin Code(s): R17 - Unspecified jaundice Status: Acute (4) Elevated AST (SGOT) Code(s): R74.0 - Nonspecific elevation of levels of transaminase and lactic acid dehydrogenase [LDH] Status: Acute (5) Elevated lipase Code(s): R74.8 - Abnormal levels of other serum enzymes Status: Acute (6) Alcohol abuse Code(s): F10.10 - Alcohol abuse, uncomplicated Status: Acute (7) Tobacco abuse Code(s): Z72.0 - Tobacco use Status: Acute (8) Gastric ulcer Code(s): K25.9 - Gastric ulcer, unspecified as acute or chronic, without hemorrhage or perforation Status: Chronic (9) C. difficile colitis Code(s): A04.72 - Enterocolitis due to Clostridium difficile, not specified as recurrent Status: Acute (10) Abdominal hernia Code(s): K46.9 - Unspecified abdominal hernia without obstruction or gangrene Status: Chronic (11) Colitis Code(s): K52.9 - Noninfective gastroenteritis and colitis, unspecified Status : Chronic (12) Pancreatitis Code(s): K85.90 - Acute pancreatitis without necrosis or infection, unspecified Status: Acute (13) Alcoholic ketoacidosis Code(s): E87.2 - Acidosis Status: Acute (14) Metabolic acidosis Code(s): E87.2 - Acidosis Status: Acute - Assessment and Plan Plan: Neuro/Psych: EtOH abuse Acetaminophen 650 mg by mouth every 6 hours as needed fever Hydromorphone 0.5-1 mg every 3 hours as needed pain 1 through 10 CIWA protocol initially. Admission alcohol was 69. Monitor for DTs Vitamin bag daily times 3 days CV: Sinus tachycardia Lactic acidosis resolved Status post 2 L normal saline in the ED. Currently on normal saline with 20 mEq potassium chloride at 125 cc an hour times 3 L Aggressive crystalloid resuscitation as above Resp: Ongoing tobaccoism Nasal cannula to maintain saturations greater than equal to 92% Incentive spirometry while awake Albuterol/ipratropium aerosols every 4 hours with albuterol aerosols every 2 hours as needed dyspnea Chest x-ray admission revealed no acute cardiopulmonary findings Nicotine patch 7 mg every 24 hours Self-evaluation cessation booklet provided GI: Acute pancreatitis elevated lipase History of gastric/jejunal antrum ulcer status post epinephrine clipping 10/13 C. difficile colitis with ascending/transverse colitis on CAT scan Abdominal wall hernia Elevated AST elevated total bilirubin Hepatic steatosis CT abdomen/pelvis revealed induration of the pancreas. Hernia right midline periumbilical fat. Left adnexa cyst 2.7 cm. Ascending/transverse colitis C. difficile positive Clear liquid diet Pantoprazole 40 mg IV twice daily Alcohol cessation encouraged Gastroenterology consultation appreciated. Added cholestyramine 4 g 3 times daily : Straight catheterization as needed Endo: Sliding scale insulin Accu-Cheks to maintain euglycemia/every 6 hours low regimen aspart insulin TSH - 2.29 Renal: Creatinine currently within normal limits Monitor urine output Accurate I's and O's Recheck BMP with magnesium and phosphorus at 1800 hrs. Heme: Normocytic anemia Monitor CBC daily. Follow trends. 2 units PRBCs now. Recheck at 1800 hrs. Check coags ID: C. difficile Monitor for signs and symptomatology infection Vancomycin 125 mg 4 times daily and metronidazole 5 mg IV 3 times daily FEN: Acute hypomagnesia Acute hypophosphatemia Hyponatremia Replace electrolytes as clinically indicated per ICU electrolyte protocol Currently on normal saline with 20 mg potassium chloride at 125 cc an hour Replacing a magnesium and phosphorus currently. Recheck at 1800 hrs. MSK: PT evaluate and treat Access -Utilize peripheral IV. Central line if indicated Prophylaxis -GI -pantoprazole -DVT -SCD/heparin subcu 35 minutes critical care time (8) Gastric ulcer Qualifiers: Gastric ulcer chronicity: chronic Gastric ulcer complication status: unspecified whether hemorrhage or perforation present Qualified Code(s): K25.7 - Chronic gastric ulcer without hemorrhage or perforation (10) Abdominal hernia Qualifiers: Hernia type: unspecified Obstruction and gangrene presence: without obstruction or gangrene Recurrence: not specified as recurrent Qualified Code( s): K46.9 - Unspecified abdominal hernia without obstruction or gangrene (12) Pancreatitis Qualifiers: Chronicity: acute Pancreatitis type: unspecified pancreatitis type Acute pancreatitis complication: no infection or necrosis Qualified Code(s): K85.90 - Acute pancreatitis without necrosis or infection, unspecified
[2018-11-09] MEDS: Multivitamin Inj 10 ML, Thiamine Inj 100 MG, Folic Acid Inj 1 MG in Sodium Chlor 0.9% I... IV.SIG SCH (13:29)
[2018-11-09 18:36] LABS: Hematocrit 28.2 % (35.0-46.0); Hemoglobin 9.5 gm/dL (11.6-15.3); Mean Corpuscular HGB Conc 33.8 % (32.0-36.0); Mean Corpuscular Hemoglobin 30.2 pg (27.0-34.0); Mean Corpuscular Volume 89.2 fL (80.0-100.0); Mean Platelet Volume 8.2 fL (7.0-11.0); Platelet Count 168 th/mm3 (150-450); Red Blood Count 3.16 mil/mm3 (4.00-5.30); Red Cell Distribution Width 17.7 % (11.6-17.2)
[2018-11-09 19:18] LABS: Anion Gap 10 meq/L (5-15); Blood Urea Nitrogen 2 mg/dL (7-18); Carbon Dioxide 21.6 meq/L (21.0-32.0); Chloride 104 meq/L (98-107); Glomerular Filtration Rate Greater Than 89 mL/min (>89); Glucose,Random 89 mg/dL (74-106); Magnesium 2.3 mg/dL (1.5-2.5); Phosphorus 1.7 mg/dL (2.5-4.9); Potassium 3.2 meq/L (3.5-5.1); Sodium 136 meq/L (136-145)
[2018-11-09 19:43] LABS: Calcium-Albumin Corrected 7.8 mg/dL (8.5-10.1)
--- NOTE | 2018-11-09 20:08 | P.PNGI ---
Subjective Interval history: Patient sitting up in bed Denies any noted bleeding Reports continued loose stool States tolerating clear liquid diet without any nausea or vomiting <Kriss Marrero - Last Filed: 11/09/18 20:02> Physical Exam Vital signs: Vital Signs 11/08/18 20:03 11/08/18 21:00 11/08/18 22:00 Temperature Pulse Rate 104 H 104 H 110 H Respiratory Rate 18 28 H 21 Blood Pressure 110/59 L 98/55 L Pulse Oximetry 98 94 L 91 L 11/08/18 23:00 11/09/18 00:00 11/09/18 01:00 Temperature 98.2 F Pulse Rate 111 H 88 99 H Respiratory Rate 22 20 16 Blood Pressure 105/56 L 99/55 L 94/54 L Pulse Oximetry 93 L 95 92 L 11/09/18 02:00 11/09/18 03:00 11/09/18 04:00 Temperature Pulse Rate 88 93 H 88 Respiratory Rate 17 18 28 H Blood Pressure 100/60 101/61 Pulse Oximetry 91 L 96 94 L 11/09/18 05:00 11/09/18 06:00 11/09/18 06:46 Temperature 97.6 F Pulse Rate 94 H 93 H 102 H Respiratory Rate 16 14 23 Blood Pressure 101/61 Pulse Oximetry 93 L 94 L 93 L 11/09/18 07:00 11/09/18 07:37 11/09/18 07:59 Temperature 97.7 F Pulse Rate 91 H 93 H 88 Respiratory Rate 17 23 20 Blood Pressure 98/57 L 98/57 L Pulse Oximetry 94 L 96 94 L 11/09/18 08:00 11/09/18 09:00 11/09/18 09:51 Temperature 97.7 F Pulse Rate 87 98 H 95 H Respiratory Rate 16 16 17 Blood Pressure 97/65 L 97/56 L 100/59 L Pulse Oximetry 98 92 L 93 L 11/09/18 10:00 11/09/18 10:15 11/09/18 10:30 Temperature 97.7 F Pulse Rate 88 105 H 94 H Respiratory Rate 19 25 H 20 Blood Pressure 93/51 L 106/57 L 97/55 L Pulse Oximetry 94 L 95 94 L 11/09/18 11:00 11/09/18 11:30 11/09/18 11:48 Temperature Pulse Rate 98 H 91 H 79 Respiratory Rate 19 21 22 Blood Pressure 95/56 L 105/66 Pulse Oximetry 93 L 95 11/09/18 12:00 11/09/18 12:30 11/09/18 13:00 Temperature 98 F Pulse Rate 93 H 90 89 Respiratory Rate 22 16 21 Blood Pressure 96/59 L 104/62 98/65 L Pulse Oximetry 95 94 L 96 11/09/18 13:26 11/09/18 13:30 11/09/18 14:00 Temperature 97.8 F Pulse Rate 86 108 H 86 Respiratory Rate 17 25 H 30 H Blood Pressure 98/65 L 102/69 101/65 Pulse Oximetry 96 94 L 11/09/18 14:30 11/09/18 15:00 11/09/18 15:05 Temperature Pulse Rate 83 116 H 105 H Respiratory Rate 17 32 H 32 H Blood Pressure 98/68 L 112/85 Pulse Oximetry 95 96 96 11/09/18 15:30 11/09/18 15:52 11/09/18 16:00 Temperature 98 F Pulse Rate 84 97 H 86 Respiratory Rate 19 20 19 Blood Pressure 96/68 L 99/60 L Pulse Oximetry 94 L 99 11/09/18 16:30 11/09/18 17:00 11/09/18 17:30 Temperature Pulse Rate 90 91 H 100 H Respiratory Rate 19 18 23 Blood Pressure 94/53 L 100/62 105/64 Pulse Oximetry 94 L 93 L 96 11/09/18 18:00 11/09/18 18:30 11/09/18 19:00 Temperature Pulse Rate 103 H 114 H 91 H Respiratory Rate 27 H 33 H 17 Blood Pressure 107/69 110/77 103/64 Pulse Oximetry 96 95 92 L Intake & Output 11/09/18 11/09/18 11/10/18 06:59 18:59 06:59 Intake Total 2820 / 2820 2511.2 / 2511.2 260 / 260 Output Total 650 / 650 800 / 800 Balance 2170 / 2170 1711.2 / 1711.2 260 / 260 Weight 71.5 kg Intake: IV 2099 / 2099 1711.2 / 1711.2 260 / 260 NS + KCl 20 mEq Inj 1,000 ML @ 1000 / 1000 125 mls/hr IV.CONT .Q8H [facility] Rx# :[id number] Sodium Bicarbonate 8.4% Inj 50 2000 / 2000 MEQ KCl Inj 20 MEQ In 1/2 Normal Saline Inj 940 ML @ 150 mls/hr IV.CONT .Q6H40M [facility] Rx#: [id number] MVI-12 Inj 10 ML Thiamine Inj 511.2 / 511.2 100 MG Folvite Inj 1 MG In NS Inj 500 ML @ 125 mls/hr IV.SIG Q24H [facility] Rx#:[id number] Potassium Phosphate Inj 30 MMOL 260 / 260 In NS Inj 250 ML @ 43.333 mls/ hr IV.SIG ONCE ONE Rx#:[id number] Flagyl 500 MG Inj 100 ML @ 100 100 / 100 200 / 200 mls/hr IV.SIG Q8H [facility] Rx#: [id number] Oral 720 / 720 Intake (Blood Product) Amt 0 / 0 800 / 800 Rbc As-3 Leukoreduced Unit 400 / 400 [id number] Rbc As-3 Leukoreduced Unit 0 / 0 400 / 400 [id number] Output: Urine 650 / 650 800 / 800 Other: # Incontinent Voids 2 Date of Last Bowel Movement 11/09/18 11/09/18 # Bowel Movements 3 3 - Constitutional no acute distress, chronically ill appearing - Routine HEENT Exam Head: Present: normocephalic - Routine Respiratory Exam Present: CTA bilaterally. Absent: accessory muscle use - Routine Cardiovascular Exam Present: RRR - Routine Abdominal Exam Present: soft, normoactive bowel sounds, tenderness. Absent: distended, guarding, firm Comments: Patient endorses lower abdominal tenderness on palpation - Routine Extremities Exam Absent: edema - Routine Skin Exam Present: dry, warm. Absent: pallor - Routine Neurological Exam Present: alert, oriented X3 - Routine Psychiatric Exam Present: normal affect, cooperative <Marrero,Kriss - Last Filed: 11/09/18 20:02> Vital signs: Vital Signs 11/09/18 09:00 11/09/18 09:51 11/09/18 10:00 Temperature 97.7 F Pulse Rate 98 H 95 H 88 Respiratory Rate 16 17 19 Blood Pressure 97/56 L 100/59 L 93/51 L Pulse Oximetry 92 L 93 L 94 L 11/09/18 10:15 11/09/18 10:30 11/09/18 11:00 Temperature 97.7 F Pulse Rate 105 H 94 H 98 H Respiratory Rate 25 H 20 19 Blood Pressure 106/57 L 97/55 L 95/56 L Pulse Oximetry 95 94 L 93 L 11/09/18 11:30 11/09/18 11:48 11/09/18 12:00 Temperature 98 F Pulse Rate 91 H 79 93 H Respiratory Rate 21 22 22 Blood Pressure 105/66 96/59 L Pulse Oximetry 95 95 11/09/18 12:30 11/09/18 13:00 11/09/18 13:26 Temperature 97.8 F Pulse Rate 90 89 86 Respiratory Rate 16 21 17 Blood Pressure 104/62 98/65 L 98/65 L Pulse Oximetry 94 L 96 11/09/18 13:30 11/09/18 14:00 11/09/18 14:30 Temperature Pulse Rate 108 H 86 83 Respiratory Rate 25 H 30 H 17 Blood Pressure 102/69 101/65 98/68 L Pulse Oximetry 96 94 L 95 11/09/18 15:00 11/09/18 15:05 11/09/18 15:30 Temperature Pulse Rate 116 H 105 H 84 Respiratory Rate 32 H 32 H 19 Blood Pressure 112/85 96/68 L Pulse Oximetry 96 96 94 L 11/09/18 15:52 11/09/18 16:00 11/09/18 16:30 Temperature 98 F Pulse Rate 97 H 86 90 Respiratory Rate 20 19 19 Blood Pressure 99/60 L 94/53 L Pulse Oximetry 99 94 L 11/09/18 17:00 11/09/18 17:30 11/09/18 18:00 Temperature Pulse Rate 91 H 100 H 103 H Respiratory Rate 18 23 27 H Blood Pressure 100/62 105/64 107/69 Pulse Oximetry 93 L 96 96 11/09/18 18:30 11/09/18 19:00 11/09/18 19:30 Temperature Pulse Rate 114 H 91 H 96 H Respiratory Rate 33 H 17 23 Blood Pressure 110/77 103/64 110/71 Pulse Oximetry 95 92 L 92 L 11/09/18 20:00 11/09/18 20:07 11/09/18 20:13 Temperature 98.8 F Pulse Rate 103 H 108 H 100 H Respiratory Rate 18 8 L Blood Pressure 115/73 115/73 Pulse Oximetry 95 95 95 11/09/18 20:24 11/09/18 20:30 11/09/18 21:00 Temperature Pulse Rate 95 H 106 H 101 H Respiratory Rate 20 28 H 26 H Blood Pressure 122/88 107/63 Pulse Oximetry 96 96 96 11/09/18 21:30 11/09/18 22:00 11/09/18 22:28 Temperature Pulse Rate 97 H 106 H 112 H Respiratory Rate 23 28 H Blood Pressure 104/66 139/75 Pulse Oximetry 96 87 L 93 L 11/09/18 22:30 11/09/18 23:00 11/09/18 23:30 Temperature Pulse Rate 110 H 106 H 97 H Respiratory Rate 27 H 28 H 25 H Blood Pressure 122/74 124/79 101/63 Pulse Oximetry 94 L 96 94 L 11/10/18 00:00 11/10/18 00:02 11/10/18 00:30 Temperature 98.6 F Pulse Rate 103 H 91 H 97 H Respiratory Rate 27 H 20 22 Blood Pressure 111/71 93/60 L Pulse Oximetry 95 94 L 11/10/18 01:00 11/10/18 01:09 11/10/18 01:30 Temperature Pulse Rate 123 H 102 H 97 H Respiratory Rate 26 H 30 H 25 H Blood Pressure 102/62 107/63 Pulse Oximetry 97 96 11/10/18 02:00 11/10/18 02:39 11/10/18 03:00 Temperature Pulse Rate 96 H 107 H 101 H Respiratory Rate 20 28 H 11 L Blood Pressure 104/60 119/63 99/60 L Pulse Oximetry 94 L 97 96 11/10/18 04:00 11/10/18 05:00 11/10/18 06:00 Temperature 98.2 F Pulse Rate 100 H 100 H 90 Respiratory Rate 28 H 21 17 Blood Pressure 95/59 L 102/63 91/61 L Pulse Oximetry 95 92 L 97 11/10/18 07:53 Temperature Pulse Rate 97 H Respiratory Rate 16 Blood Pressure Pulse Oximetry 98 Intake & Output 11/09/18 11/10/18 11/10/18 18:59 06:59 18:59 Intake Total 2511.2 / 2511.2 3620 / 3620 Output Total 800 / 800 Balance 1711.2 / 1711.2 3620 / 3620 Weight 84 kg Intake: IV 1711.2 / 1711.2 1460 / 1460 NS + KCl 20 mEq Inj 1,000 ML @ 1000 / 1000 1000 / 1000 125 mls/hr IV.CONT .Q8H [facility] Rx# :[id number] MVI-12 Inj 10 ML Thiamine Inj 511.2 / 511.2 100 MG Folvite Inj 1 MG In NS Inj 500 ML @ 125 mls/hr IV.SIG Q24H [facility] Rx#:[id number] KCl 20 mEq Premix Inj 20 meq In 100 / 100 100 ml @ 50 mls/hr IV.SIG Q2H [facility] Rx#:[id number] Potassium Phosphate Inj 30 MMOL 260 / 260 In NS Inj 250 ML @ 43.333 mls/ hr IV.SIG ONCE ONE Rx#:[id number] Flagyl 500 MG Inj 100 ML @ 100 200 / 200 100 / 100 mls/hr IV.SIG Q8H [facility] Rx#: [id number] Oral 2160 / 2160 Intake (Blood Product) Amt 800 / 800 Rbc As-3 Leukoreduced Unit 400 / 400 [id number] Rbc As-3 Leukoreduced Unit 400 / 400 [id number] Output: Urine 800 / 800 Other: # Voids 6 # Incontinent Voids 2 Date of Last Bowel Movement 11/09/18 11/10/18 # Bowel Movements 3 10 <Ramírez Olmedo - Last Filed: 11/10/18 08:31> Results - Labs CBC & Chem 7: 11/09/18 18:25 11/09/18 18:25 Laboratory Results - last 24 hr 11/08/18 11/08/18 11/09/18 13:45 23:57 00:09 WBC RBC Hgb Hct MCV MCH MCHC RDW Plt Count MPV Prelim Diff (Auto) Neut % (Auto) Lymph % (Auto) Hartley % (Auto) Eos % (Auto) Baso % (Auto) Neut # (Auto) Lymph # (Auto) Hartley # (Auto) Eos # (Auto) Baso # (Auto) WBC Differential Diff Scan Differential Comment Platelet Estimate Platelet Morphology Ovalocytes Stomatocytes PT INR APTT Fibrinogen Sodium Potassium Chloride Carbon Dioxide Anion Gap BUN Creatinine Estimated GFR POC Glucose 144 H Random Glucose Lactic Acid Calcium Calcium Adj for Albumin Phosphorus Magnesium Total Bilirubin AST ALT Alkaline Phosphatase Total Protein Albumin Amylase 96 Lipase TSH Stool C.difficile Ag Positive H Stool C.difficile Toxin Negative Blood Type Blood Type Recheck Antibody Screen MTS Gel Crossmatch 11/09/18 11/09/18 11/09/18 00:09 03:51 03:57 WBC 5.2 RBC 2.09 L Hgb 6.4 L* D Hct 19.1 L* MCV 91.1 D MCH 30.8 MCHC 33.8 RDW 17.8 H Plt Count 181 D MPV 8.2 Prelim Diff (Auto) Slide review pending Neut % (Auto) 72.4 H Lymph % (Auto) 18.2 Hartley % (Auto) 8.3 H Eos % (Auto) 0.9 Baso % (Auto) 0.2 Neut # (Auto) 3.8 Lymph # (Auto) 0.9 L Hartley # (Auto) 0.4 Eos # (Auto) 0.0 Baso # (Auto) 0.0 WBC Differential . Diff Scan Auto diff confirmed Differential Comment . Platelet Estimate Normal Platelet Morphology Normal Ovalocytes 1+ H Stomatocytes 1+ H PT INR APTT Fibrinogen Sodium Potassium Chloride Carbon Dioxide Anion Gap BUN Creatinine Estimated GFR POC Glucose Random Glucose Lactic Acid 1.1 0.9 Calcium Calcium Adj for Albumin Phosphorus Magnesium Total Bilirubin AST ALT Alkaline Phosphatase Total Protein Albumin Amylase Lipase TSH Stool C.difficile Ag Stool C.difficile Toxin Blood Type Blood Type Recheck Antibody Screen MTS Gel Crossmatch 11/09/18 11/09/18 11/09/18 03:57 03:57 04:30 WBC RBC Hgb Hct MCV MCH MCHC RDW Plt Count MPV Prelim Diff (Auto) Neut % (Auto) Lymph % (Auto) Hartley % (Auto) Eos % (Auto) Baso % (Auto) Neut # (Auto) Lymph # (Auto) Hartley # (Auto) Eos # (Auto) Baso # (Auto) WBC Differential Diff Scan Differential Comment Platelet Estimate Platelet Morphology Ovalocytes Stomatocytes PT 10.8 INR 1.1 APTT 31.7 Fibrinogen 158 L Sodium 134 L Potassium 3.3 L Chloride 100 Carbon Dioxide 22.2 Anion Gap 12 BUN 3 L Creatinine 0.28 L Estimated GFR Greater than 89 POC Glucose Random Glucose 93 Lactic Acid Calcium 7.2 L* Calcium Adj for Albumin 7.9 L Phosphorus 0.6 L Magnesium 1.4 L Total Bilirubin 1.1 H AST 39 H ALT 28 Alkaline Phosphatase 82 Total Protein 5.8 L D Albumin 3.1 L Amylase Lipase 2538 H TSH 2.290 Stool C.difficile Ag Stool C.difficile Toxin Blood Type Blood Type Recheck Antibody Screen MTS Gel Crossmatch See Detail 11/09/18 11/09/18 11/09/18 04:51 06:34 12:21 WBC RBC Hgb Hct MCV MCH MCHC RDW Plt Count MPV Prelim Diff (Auto) Neut % (Auto) Lymph % (Auto) Hartley % (Auto) Eos % (Auto) Baso % (Auto) Neut # (Auto) Lymph # (Auto) Hartley # (Auto) Eos # (Auto) Baso # (Auto) WBC Differential Diff Scan Differential Comment Platelet Estimate Platelet Morphology Ovalocytes Stomatocytes PT INR APTT Fibrinogen Sodium Potassium Chloride Carbon Dioxide Anion Gap BUN Creatinine Estimated GFR POC Glucose 109 113 H Random Glucose Lactic Acid Calcium Calcium Adj for Albumin Phosphorus Magnesium Total Bilirubin AST ALT Alkaline Phosphatase Total Protein Albumin Amylase Lipase TSH Stool C.difficile Ag Stool C.difficile Toxin Blood Type B Positive Blood Type Recheck Not needed Antibody Screen Negative MTS Gel Crossmatch 11/09/18 11/09/18 11/09/18 17:40 18:25 18:25 WBC 7.0 RBC 3.16 L Hgb 9.5 L D Hct 28.2 L MCV 89.2 MCH 30.2 MCHC 33.8 RDW 17.7 H Plt Count 168 MPV 8.2 Prelim Diff (Auto) Neut % (Auto) Lymph % (Auto) Hartley % (Auto) Eos % (Auto) Baso % (Auto) Neut # (Auto) Lymph # (Auto) Hartley # (Auto) Eos # (Auto) Baso # (Auto) WBC Differential Diff Scan Differential Comment Platelet Estimate Platelet Morphology Ovalocytes Stomatocytes PT INR APTT Fibrinogen Sodium 136 Potassium 3.2 L Chloride 104 Carbon Dioxide 21.6 Anion Gap 10 BUN 2 L Creatinine 0.28 L Estimated GFR Greater than 89 POC Glucose 122 H Random Glucose 89 Lactic Acid Calcium 7.0 L* Calcium Adj for Albumin 7.8 L Phosphorus 1.7 L D Magnesium 2.3 D Total Bilirubin AST ALT Alkaline Phosphatase Total Protein Albumin 3.0 L Amylase Lipase TSH Stool C.difficile Ag Stool C.difficile Toxin Blood Type Blood Type Recheck Antibody Screen MTS Gel Crossmatch Microbiology 11/08/18 05:30 Catheterized Urine Urine Culture - Final 50-100,000 cfu/mL mixed alejandro (probable contaminants ) 11/08/18 05:45 Blood - Peripheral Aerobic Blood Culture - Preliminary No growth in 1 day 11/08/18 05:45 Blood - Peripheral Anaerobic Blood Culture - Preliminary No growth in 1 day 11/08/18 05:50 Blood - Peripheral Aerobic Blood Culture - Preliminary No growth in 1 day 11/08/18 05:50 Blood - Peripheral Anaerobic Blood Culture - Preliminary No growth in 1 day <Kriss Marrero - Last Filed: 11/09/18 20:02> - Labs CBC & Chem 7: 11/10/18 03:21 11/09/18 18:25 Laboratory Results - last 24 hr 11/08/18 11/09/18 11/09/18 13:45 04:30 12:21 WBC RBC Hgb Hct MCV MCH MCHC RDW Plt Count MPV Neut % (Auto) Lymph % (Auto) Hartley % (Auto) Eos % (Auto) Baso % (Auto) Neut # (Auto) Lymph # (Auto) Hartley # (Auto) Eos # (Auto) Baso # (Auto) WBC Differential Differential Comment Sodium Potassium Chloride Carbon Dioxide Anion Gap BUN Creatinine Estimated GFR POC Glucose 113 H Random Glucose Calcium Calcium Adj for Albumin Phosphorus Magnesium Albumin Stool C.difficile Ag Positive H Stool C.difficile Toxin Negative MTS Gel Crossmatch See Detail 11/09/18 11/09/18 11/09/18 17:40 18:25 18:25 WBC 7.0 RBC 3.16 L Hgb 9.5 L D Hct 28.2 L MCV 89.2 MCH 30.2 MCHC 33.8 RDW 17.7 H Plt Count 168 MPV 8.2 Neut % (Auto) Lymph % (Auto) Hartley % (Auto) Eos % (Auto) Baso % (Auto) Neut # (Auto) Lymph # (Auto) Hartley # (Auto) Eos # (Auto) Baso # (Auto) WBC Differential Differential Comment Sodium 136 Potassium 3.2 L Chloride 104 Carbon Dioxide 21.6 Anion Gap 10 BUN 2 L Creatinine 0.28 L Estimated GFR Greater than 89 POC Glucose 122 H Random Glucose 89 Calcium 7.0 L* Calcium Adj for Albumin 7.8 L Phosphorus 1.7 L D Magnesium 2.3 D Albumin 3.0 L Stool C.difficile Ag Stool C.difficile Toxin MTS Gel Crossmatch 11/10/18 11/10/18 11/10/18 00:50 03:21 06:32 WBC 7.2 RBC 3.05 L Hgb 9.2 L Hct 27.3 L MCV 89.3 MCH 30.2 MCHC 33.8 RDW 17.5 H Plt Count 163 MPV 8.8 Neut % (Auto) 63.9 Lymph % (Auto) 26.5 Hartley % (Auto) 7.5 Eos % (Auto) 1.2 Baso % (Auto) 0.9 Neut # (Auto) 4.6 Lymph # (Auto) 1.9 Hartley # (Auto) 0.5 Eos # (Auto) 0.1 Baso # (Auto) 0.1 WBC Differential . Differential Comment Auto diff final Sodium Potassium Chloride Carbon Dioxide Anion Gap BUN Creatinine Estimated GFR POC Glucose 102 88 Random Glucose Calcium Calcium Adj for Albumin Phosphorus Magnesium Albumin Stool C.difficile Ag Stool C.difficile Toxin MTS Gel Crossmatch Microbiology 11/10/18 01:08 Stool Stool Occult Blood (SUZANNE) - Final Hemoccult positive 11/08/18 05:30 Catheterized Urine Urine Culture - Final 50-100,000 cfu/mL mixed alejandro (probable contaminants ) 11/08/18 05:45 Blood - Peripheral Aerobic Blood Culture - Preliminary No growth in 1 day 11/08/18 05:45 Blood - Peripheral Anaerobic Blood Culture - Preliminary No growth in 1 day 11/08/18 05:50 Blood - Peripheral Aerobic Blood Culture - Preliminary No growth in 1 day 11/08/18 05:50 Blood - Peripheral Anaerobic Blood Culture - Preliminary No growth in 1 day <Ramírez Olmedo - Last Filed: 11/10/18 08:31> Assessment and Plan (1) Colitis Status: Chronic Code(s): K52.9 - Noninfective gastroenteritis and colitis, unspecified (2) Pancreatitis Status: Acute Code(s): K85.90 - Acute pancreatitis without necrosis or infection, unspecified - Plan This patient is a 43-year-old female who was admitted to [facility] on 11/08/2018. Past medical history significant for depression, history of gastrojejunal bypass, gastrojejunal antrum ulcers, C. difficile colitis, alcohol abuse and GI bleeding. Surgical history significant for gastric bypass and cholecystectomy. Patient presented to [facility] with complaints of 4-day onset of left lower quadrant burning abdominal pain that she describes as constant and nonradiating. Patient reports only known alleviating factor is use of heating pad on the area with limited movement. Patient reports accompanying nausea and vomiting with loose watery brown stools without any noted bleeding. Of note, patient endorses drinking 4-5 drinks of vodka daily. She also endorses smoking 1 pack of cigarettes every 4 days. Our service has been consulted to evaluate patient for pancreatitis. Pancreatitis Colitis -History of C. difficile colitis, alcohol abuse and GI bleeding. -09/22/2018 EGD revealed the following-- 1.The esophagus appeared normal 2.Gastric bypass was found at the gastro-jejunal anastomosis; Hemostasis was attempted by placing three hemoclips on the bleeding site(s); Submucosal injection of epinephrine 1:10,000 was performed around the bleeding site 3.The exam showed no abnormalities in the jejunum 4.Retroflexion was not performed -WBC 10.1 hemoglobin 10.2 hematocrit 32.2 platelet count 276 -Lactic acid 6.2 lipase 3842 total bilirubin 1.8 AST 101 ALT 47 alk phos 136 ammonia level 11 11/09/2018 Patient endorses continued loose stools. Denies any noted bleeding, no reported bleeding. Discussed EtOH cessation, patient in agreement. 11/09/2018 hemoglobin 6.4 hematocrit 19.1-likely dilution, INR 1.1 lipase 2538 C. difficile positive. Plan -Clear liquid diet -Analgesics and antiemetics as per attending -Continue PPI -Continue IV hydration -Flagyl -Questran -Vancomycin p.o. -CMP in a.m. -Lipase and amylase in a.m. -Continue to correct electrolyte imbalances -Supportive care -Further recommendations to follow This patient has been seen by myself and Dr. Olmedo and this note is written on his behalf - Attending Attestation Dr. Olmedo <Kriss Marrero - Last Filed: 11/09/18 20:02> (1) Colitis Status: Chronic Code(s): K52.9 - Noninfective gastroenteritis and colitis, unspecified (2) Pancreatitis Status: Acute Code(s): K85.90 - Acute pancreatitis without necrosis or infection, unspecified - Attending Attestation The patient was seen and examined. Agree with above note. <Ramírez Olmedo - Last Filed: 11/10/18 08:31> <Marrero,Kriss - Last Filed: 11/09/18 20:02> (2) Pancreatitis Qualifiers: Chronicity: acute Pancreatitis type: unspecified pancreatitis type Acute pancreatitis complication: no infection or necrosis Qualified Code(s): K85.90 - Acute pancreatitis without necrosis or infection, unspecified <Ramírez Olmedo - Last Filed: 11/10/18 08:31> (2) Pancreatitis Qualifiers: Chronicity: acute Pancreatitis type: unspecified pancreatitis type Acute pancreatitis complication: no infection or necrosis Qualified Code(s): K85.90 - Acute pancreatitis without necrosis or infection, unspecified
[2018-11-09] MEDS: Potassium Chlor 20 mEq Premix 20 MEQ/100 ML PIGGYBACK IV.SIG PRN ×2 (20:34→22:50)
[2018-11-09] MEDS: HYDROmorphone PF Inj 0.5 MG/0.5 ML Syringe IV.PUSH PRN (22:51)
[2018-11-10] MEDS: Insulin NovoLOG Aspart Correctional Sugar Inj SQ SCH ×4 (00:54→18:09)
[2018-11-10] MEDS: Chlorhexidine Gluconate 2% 1 Pack (2 Cloths) TOPICAL SCH (03:00)
[2018-11-10] MEDS: HYDROmorphone PF Inj 1 MG/ML Ampul IV.PUSH PRN ×3 (04:30→21:56)
[2018-11-10 04:41] LABS: Baso # (Auto) 0.1 th/mm3 (0.0-0.2); Baso % (Auto) 0.9 % (0.0-2.0); Eos # (Auto) 0.1 th/mm3 (0.0-0.4); Eos % (Auto) 1.2 % (0.0-4.0); Hematocrit 27.3 % (35.0-46.0); Hemoglobin 9.2 gm/dL (11.6-15.3); Lymph # (Auto) 1.9 th/mm3 (1.0-4.8); Lymph % (Auto) 26.5 % (9.0-44.0); Mean Corpuscular HGB Conc 33.8 % (32.0-36.0); Mean Corpuscular Hemoglobin 30.2 pg (27.0-34.0); Mean Corpuscular Volume 89.3 fL (80.0-100.0); Mean Platelet Volume 8.8 fL (7.0-11.0); Mono # (Auto) 0.5 th/mm3 (0.0-0.9); Mono % (Auto) 7.5 % (0.0-8.0); Neut # (Auto) 4.6 th/mm3 (1.8-7.7); Neut % (Auto) 63.9 % (16.0-70.0); Platelet Count 163 th/mm3 (150-450); Red Blood Count 3.05 mil/mm3 (4.00-5.30); Red Cell Distribution Width 17.5 % (11.6-17.2); White Blood Count 7.2 th/mm3 (4.0-11.0)
--- NOTE | 2018-11-10 07:28 | P.PNCC ---
Subjective Subjective Remarks/Hospital Course: This is a 43-year-old female. Date of admission 11/08/2018. Past medical history includes depression, history of gastric jejunal bypas in [place] with a recent history of a ulcer at the gastrojejunal antrum during 10/13 admission. Status post clipping x3 and epinephrine injection. Patient was on sucralfate and pantoprazole. Also history of C. difficile colitis and cervical lesions. Patient has a history of tobaccoism. Patient has history of active alcohol use. Patient presents to [facility] with a 24 history of abdominal pain, nausea and vomiting. Vomitus consisted of intermittent blood, bile type contents. She is able to keep hydrated. Pain was 8 out of 10 very straight to the back sharp. Patient presented to [facility] for evaluation. Patient did have an elevated anion gap of 20. Lactate was 6.2. Beta hydroxyurea was 10. Sodium is 127. Bicarbonate was 8. ABG reveals a pH of 7.08. Bicarbonate of 5. Consistent with anion gap metabolic acidosis, metabolic alkalosis. Patient received 3 L normal saline in the ED, 1 sodium bicarbonate. Patient received 5 mg of morphine sulfate for pain management. CT abdomen/pelvis revealed pancreatic injury induration possibly pancreatitis. Right midline hernia with periumbilical fat. Left adnexa 2.7 cm cyst. Ascending/transverse colitis. C. difficile is been sent. We have consulted gastroenterology. She is currently n.p.o. status. We are asked to admit the patient. 11/09: Lactate is cleared. Patient hemoglobin 6.4 the same. Currently transfusing 2 units PVCs. Magnesium phosphorus being replaced as well. Appears stable. Requesting advance diet. Pain remains 8 out of 10. Lipase slowly trending downward. Subjective 11/10: Hemoglobin stable at 9.2. Consuming multiple cups of chicken broth. Complaining of insomnia. Complaining of pain requesting more hydromorphone. Actively replacing electrolytes. Objective Vital Signs / I&O: Vital Signs 11/09/18 07:37 11/09/18 07:59 11/09/18 08:00 Temperature Pulse Rate 93 H 88 87 Respiratory Rate 23 20 16 Blood Pressure 98/57 L 97/65 L Pulse Oximetry 96 94 L 98 11/09/18 09:00 11/09/18 09:51 11/09/18 10:00 Temperature 97.7 F Pulse Rate 98 H 95 H 88 Respiratory Rate 16 17 19 Blood Pressure 97/56 L 100/59 L 93/51 L Pulse Oximetry 92 L 93 L 94 L 11/09/18 10:15 11/09/18 10:30 11/09/18 11:00 Temperature 97.7 F Pulse Rate 105 H 94 H 98 H Respiratory Rate 25 H 20 19 Blood Pressure 106/57 L 97/55 L 95/56 L Pulse Oximetry 95 94 L 93 L 11/09/18 11:30 11/09/18 11:48 11/09/18 12:00 Temperature 98 F Pulse Rate 91 H 79 93 H Respiratory Rate 21 22 22 Blood Pressure 105/66 96/59 L Pulse Oximetry 95 95 11/09/18 12:30 11/09/18 13:00 11/09/18 13:26 Temperature 97.8 F Pulse Rate 90 89 86 Respiratory Rate 16 21 17 Blood Pressure 104/62 98/65 L 98/65 L Pulse Oximetry 94 L 96 11/09/18 13:30 11/09/18 14:00 11/09/18 14:30 Temperature Pulse Rate 108 H 86 83 Respiratory Rate 25 H 30 H 17 Blood Pressure 102/69 101/65 98/68 L Pulse Oximetry 96 94 L 95 11/09/18 15:00 11/09/18 15:05 11/09/18 15:30 Temperature Pulse Rate 116 H 105 H 84 Respiratory Rate 32 H 32 H 19 Blood Pressure 112/85 96/68 L Pulse Oximetry 96 96 94 L 11/09/18 15:52 11/09/18 16:00 11/09/18 16:30 Temperature 98 F Pulse Rate 97 H 86 90 Respiratory Rate 20 19 19 Blood Pressure 99/60 L 94/53 L Pulse Oximetry 99 94 L 11/09/18 17:00 11/09/18 17:30 11/09/18 18:00 Temperature Pulse Rate 91 H 100 H 103 H Respiratory Rate 18 23 27 H Blood Pressure 100/62 105/64 107/69 Pulse Oximetry 93 L 96 96 11/09/18 18:30 11/09/18 19:00 11/09/18 19:30 Temperature Pulse Rate 114 H 91 H 96 H Respiratory Rate 33 H 17 23 Blood Pressure 110/77 103/64 110/71 Pulse Oximetry 95 92 L 92 L 11/09/18 20:00 11/09/18 20:07 11/09/18 20:13 Temperature 98.8 F Pulse Rate 103 H 108 H 100 H Respiratory Rate 18 8 L Blood Pressure 115/73 115/73 Pulse Oximetry 95 95 95 11/09/18 20:24 11/09/18 20:30 11/09/18 21:00 Temperature Pulse Rate 95 H 106 H 101 H Respiratory Rate 20 28 H 26 H Blood Pressure 122/88 107/63 Pulse Oximetry 96 96 96 11/09/18 21:30 11/09/18 22:00 11/09/18 22:28 Temperature Pulse Rate 97 H 106 H 112 H Respiratory Rate 23 28 H Blood Pressure 104/66 139/75 Pulse Oximetry 96 87 L 93 L 11/09/18 22:30 11/09/18 23:00 11/09/18 23:30 Temperature Pulse Rate 110 H 106 H 97 H Respiratory Rate 27 H 28 H 25 H Blood Pressure 122/74 124/79 101/63 Pulse Oximetry 94 L 96 94 L 11/10/18 00:00 11/10/18 00:02 11/10/18 00:30 Temperature 98.6 F Pulse Rate 103 H 91 H 97 H Respiratory Rate 27 H 20 22 Blood Pressure 111/71 93/60 L Pulse Oximetry 95 94 L 11/10/18 01:00 11/10/18 01:09 11/10/18 01:30 Temperature Pulse Rate 123 H 102 H 97 H Respiratory Rate 26 H 30 H 25 H Blood Pressure 102/62 107/63 Pulse Oximetry 97 96 11/10/18 02:00 11/10/18 02:39 11/10/18 03:00 Temperature Pulse Rate 96 H 107 H 101 H Respiratory Rate 20 28 H 11 L Blood Pressure 104/60 119/63 99/60 L Pulse Oximetry 94 L 97 96 11/10/18 04:00 11/10/18 05:00 11/10/18 06:00 Temperature 98.2 F Pulse Rate 100 H 100 H 90 Respiratory Rate 28 H 21 17 Blood Pressure 95/59 L 102/63 91/61 L Pulse Oximetry 95 92 L 97 Intake & Output 11/09/18 11/10/18 11/10/18 18:59 06:59 18:59 Intake Total 2511.2 / 2511.2 3620 / 3620 Output Total 800 / 800 Balance 1711.2 / 1711.2 3620 / 3620 Weight 84 kg Intake: IV 1711.2 / 1711.2 1460 / 1460 NS + KCl 20 mEq Inj 1,000 ML @ 1000 / 1000 1000 / 1000 125 mls/hr IV.CONT .Q8H [facility] Rx# :[id number] MVI-12 Inj 10 ML Thiamine Inj 511.2 / 511.2 100 MG Folvite Inj 1 MG In NS Inj 500 ML @ 125 mls/hr IV.SIG Q24H [facility] Rx#:[id number] KCl 20 mEq Premix Inj 20 meq In 100 / 100 100 ml @ 50 mls/hr IV.SIG Q2H PRN Rx#:[id number] Potassium Phosphate Inj 30 MMOL 260 / 260 In NS Inj 250 ML @ 43.333 mls/ hr IV.SIG ONCE ONE Rx#:[id number] Flagyl 500 MG Inj 100 ML @ 100 200 / 200 100 / 100 mls/hr IV.SIG Q8H [facility] Rx#: [id number] Oral 2160 / 2160 Intake (Blood Product) Amt 800 / 800 Rbc As-3 Leukoreduced Unit 400 / 400 [id number] Rbc As-3 Leukoreduced Unit 400 / 400 [id number] Output: Urine 800 / 800 Other: # Voids 6 # Incontinent Voids 2 Date of Last Bowel Movement 11/09/18 11/10/18 # Bowel Movements 3 10 Result Diagrams: 11/10/18 03:21 11/09/18 18:25 Other Results: Microbiology 11/10/18 01:08 Stool Stool Occult Blood (SUZANNE) - Final Hemoccult positive 11/08/18 05:30 Catheterized Urine Urine Culture - Final 50-100,000 cfu/mL mixed alejandro (probable contaminants ) 11/08/18 05:45 Blood - Peripheral Aerobic Blood Culture - Preliminary No growth in 1 day 11/08/18 05:45 Blood - Peripheral Anaerobic Blood Culture - Preliminary No growth in 1 day 11/08/18 05:50 Blood - Peripheral Aerobic Blood Culture - Preliminary No growth in 1 day 11/08/18 05:50 Blood - Peripheral Anaerobic Blood Culture - Preliminary No growth in 1 day Imaging: Abdomen/Pelvis CT 11/08/18 03:38 CONCLUSION: 1. Possible pancreatitis. 2. Mild thickening of the ascending and proximal transverse colon raising the possibility of colitis. The colon appears similar on the prior exam. 3. Hepatic steatosis. 4. Small fat containing hernia seen just below the umbilicus into the right of midline. 5. 2.7 cm cyst at the left ovary. Chest X-Ray 11/08/18 03:38 CONCLUSION: No acute cardiopulmonary process. Objective Remarks: GENERAL: 43-year-old female currently resting in bed no acute distress SKIN: Warm and dry. Tattoos around left eyes HEAD: Atraumatic. Normocephalic. EYES: Pupils equal and round. No scleral icterus. No injection or drainage. ENT: No nasal bleeding or discharge. Mucous membranes pink and moist. NECK: Trachea midline. No JVD. CARDIOVASCULAR: Regular rate and rhythm. S1, S2. No S4 no murmur RESPIRATORY:Clear to auscultation. Breath sounds equal bilaterally. GASTROINTESTINAL: Abdomen soft, tender to palpation epigastric. Positive rebound. No rigidity. This is not a surgical abdomen. Hypoactive bowel sounds are appreciated. MUSCULOSKELETAL: Extremities without clubbing, cyanosis, or edema. No obvious deformities. NEUROLOGICAL: Awake and alert. No obvious cranial nerve deficits. Motor grossly within normal limits. Five out of 5 muscle strength in the arms and legs. Normal speech. PSYCHIATRIC: Appropriate mood and affect; insight and judgment normal. Assessment and Plan - Problem List (1) Acute hyponatremia Code(s): E87.1 - Hypo-osmolality and hyponatremia Status: Acute (2) Normocytic anemia Code(s): D64.9 - Anemia, unspecified Status: Acute (3) Elevated bilirubin Code(s): R17 - Unspecified jaundice Status: Acute (4) Elevated AST (SGOT) Code(s): R74.0 - Nonspecific elevation of levels of transaminase and lactic acid dehydrogenase [LDH] Status: Acute (5) Elevated lipase Code(s): R74.8 - Abnormal levels of other serum enzymes Status: Acute (6) Alcohol abuse Code(s): F10.10 - Alcohol abuse, uncomplicated Status: Acute (7) Tobacco abuse Code(s): Z72.0 - Tobacco use Status: Acute (8) Gastric ulcer Code(s): K25.9 - Gastric ulcer, unspecified as acute or chronic, without hemorrhage or perforation Status: Chronic (9) C. difficile colitis Code(s): A04.72 - Enterocolitis due to Clostridium difficile, not specified as recurrent Status: Acute (10) Abdominal hernia Code(s): K46.9 - Unspecified abdominal hernia without obstruction or gangrene Status: Chronic (11) Colitis Code(s): K52.9 - Noninfective gastroenteritis and colitis, unspecified Status : Chronic (12) Pancreatitis Code(s): K85.90 - Acute pancreatitis without necrosis or infection, unspecified Status: Acute (13) Alcoholic ketoacidosis Code(s): E87.2 - Acidosis Status: Acute (14) Metabolic acidosis Code(s): E87.2 - Acidosis Status: Acute - Assessment and Plan Plan: Neuro/Psych: EtOH abuse Acetaminophen 650 mg by mouth every 6 hours as needed fever Hydromorphone 0.5-1 mg every 3 hours as needed pain 1 through 10 CIWA protocol initiated Admission alcohol was 69. Monitor for DTs Vitamin bag daily times 3 days CV: Sinus tachycardia currently normal sinus rhythm Lactic acidosis resolved Status post 2 L normal saline in the ED. Currently on normal saline with 20 mEq potassium chloride at 125 cc an hour times 6 L Aggressive crystalloid resuscitation as above Resp: Ongoing tobaccoism Nasal cannula to maintain saturations greater than equal to 92% Incentive spirometry while awake Albuterol/ipratropium aerosols every 4 hours with albuterol aerosols every 2 hours as needed dyspnea Chest x-ray admission revealed no acute cardiopulmonary findings Nicotine patch 7 mg every 24 hours Self-evaluation cessation booklet provided GI: Acute pancreatitis elevated lipase History of gastric/jejunal antrum ulcer status post epinephrine clipping 10/13 C. difficile colitis with ascending/transverse colitis on CAT scan Abdominal wall hernia Elevated AST elevated total bilirubin Hepatic steatosis CT abdomen/pelvis revealed induration of the pancreas. Hernia right midline periumbilical fat. Left adnexa cyst 2.7 cm. Ascending/transverse colitis C. difficile positive Clear liquid diet Pantoprazole 40 mg IV twice daily Alcohol cessation encouraged Gastroenterology consultation appreciated. Added cholestyramine 4 g 3 times daily With active diarrhea : Straight catheterization as needed Endo: Sliding scale insulin Accu-Cheks to maintain euglycemia/every 6 hours low regimen aspart insulin TSH - 2.29 Renal: Creatinine currently within normal limits Monitor urine output Accurate I's and O's Recheck BMP with magnesium and phosphorus at 0900hrs. Heme: Normocytic anemia Monitor CBC daily. Follow trends. No indication for transfusion of blood products today ID: C. difficile Monitor for signs and symptomatology infection Vancomycin 125 mg 4 times daily and metronidazole 5 mg IV 3 times daily FEN: Acute hypokalemia Acute hypophosphatemia Hypocalcemia Replace electrolytes as clinically indicated per ICU electrolyte protocol Currently on normal saline with 20 mg potassium chloride at 125 cc an hour Replacing a magnesium and phosphorus currently. Recheck at 1800 hrs. MSK: PT evaluate and treat Access -Utilize peripheral IV. Central line if indicated Prophylaxis -GI -pantoprazole -DVT -SCD/heparin subcu Level 2 follow-up (8) Gastric ulcer Qualifiers: Gastric ulcer chronicity: chronic Gastric ulcer complication status: unspecified whether hemorrhage or perforation present Qualified Code(s): K25.7 - Chronic gastric ulcer without hemorrhage or perforation (10) Abdominal hernia Qualifiers: Hernia type: unspecified Obstruction and gangrene presence: without obstruction or gangrene Recurrence: not specified as recurrent Qualified Code( s): K46.9 - Unspecified abdominal hernia without obstruction or gangrene (12) Pancreatitis Qualifiers: Chronicity: acute Pancreatitis type: unspecified pancreatitis type Acute pancreatitis complication: no infection or necrosis Qualified Code(s): K85.90 - Acute pancreatitis without necrosis or infection, unspecified
[2018-11-10] MEDS: Heparin - SQ 10,000 UNITS/ML Vial SQ SCH ×2 (09:04→21:08)
[2018-11-10] MEDS: Pantoprazole Inj 40 MG Vial IV.PUSH SCH ×2 (09:04→21:08)
[2018-11-10] MEDS: Multivitamin Inj 10 ML, Thiamine Inj 100 MG, Folic Acid Inj 1 MG in Sodium Chlor 0.9% I... IV.SIG SCH (13:31)
[2018-11-10] MEDS: HYDROmorphone PF Inj 0.5 MG/0.5 ML Syringe IV.PUSH PRN ×2 (15:38→18:44)
--- NOTE | 2018-11-10 16:59 | P.PNGI ---
Subjective Interval history: Patient reports loose stools Reports less frequency, brown stools without any noted bleeding Positive C. difficile <Kriss Marrero - Last Filed: 11/10/18 16:59> Physical Exam Vital signs: Vital Signs 11/09/18 17:00 11/09/18 17:30 11/09/18 18:00 Temperature Pulse Rate 91 H 100 H 103 H Respiratory Rate 18 23 27 H Blood Pressure 100/62 105/64 107/69 Pulse Oximetry 93 L 96 96 11/09/18 18:30 11/09/18 19:00 11/09/18 19:30 Temperature Pulse Rate 114 H 91 H 96 H Respiratory Rate 33 H 17 23 Blood Pressure 110/77 103/64 110/71 Pulse Oximetry 95 92 L 92 L 11/09/18 20:00 11/09/18 20:07 11/09/18 20:13 Temperature 98.8 F Pulse Rate 103 H 108 H 100 H Respiratory Rate 18 8 L Blood Pressure 115/73 115/73 Pulse Oximetry 95 95 95 11/09/18 20:24 11/09/18 20:30 11/09/18 21:00 Temperature Pulse Rate 95 H 106 H 101 H Respiratory Rate 20 28 H 26 H Blood Pressure 122/88 107/63 Pulse Oximetry 96 96 96 11/09/18 21:30 11/09/18 22:00 11/09/18 22:28 Temperature Pulse Rate 97 H 106 H 112 H Respiratory Rate 23 28 H Blood Pressure 104/66 139/75 Pulse Oximetry 96 87 L 93 L 11/09/18 22:30 11/09/18 23:00 11/09/18 23:30 Temperature Pulse Rate 110 H 106 H 97 H Respiratory Rate 27 H 28 H 25 H Blood Pressure 122/74 124/79 101/63 Pulse Oximetry 94 L 96 94 L 11/10/18 00:00 11/10/18 00:02 11/10/18 00:30 Temperature 98.6 F Pulse Rate 103 H 91 H 97 H Respiratory Rate 27 H 20 22 Blood Pressure 111/71 93/60 L Pulse Oximetry 95 94 L 11/10/18 01:00 11/10/18 01:09 11/10/18 01:30 Temperature Pulse Rate 123 H 102 H 97 H Respiratory Rate 26 H 30 H 25 H Blood Pressure 102/62 107/63 Pulse Oximetry 97 96 11/10/18 02:00 11/10/18 02:39 11/10/18 03:00 Temperature Pulse Rate 96 H 107 H 101 H Respiratory Rate 20 28 H 11 L Blood Pressure 104/60 119/63 99/60 L Pulse Oximetry 94 L 97 96 11/10/18 04:00 11/10/18 05:00 11/10/18 06:00 Temperature 98.2 F Pulse Rate 100 H 100 H 90 Respiratory Rate 28 H 21 17 Blood Pressure 95/59 L 102/63 91/61 L Pulse Oximetry 95 92 L 97 11/10/18 07:00 11/10/18 07:53 11/10/18 08:00 Temperature 98.7 F Pulse Rate 100 H 97 H 98 H Respiratory Rate 24 16 26 H Blood Pressure 104/60 106/68 Pulse Oximetry 93 L 98 98 11/10/18 09:00 11/10/18 10:00 11/10/18 11:00 Temperature Pulse Rate 107 H 108 H 99 H Respiratory Rate 25 H 27 H 25 H Blood Pressure 110/72 106/73 89/59 L Pulse Oximetry 11/10/18 12:00 11/10/18 12:03 11/10/18 13:00 Temperature Pulse Rate 97 H 115 H 101 H Respiratory Rate 26 H 22 23 Blood Pressure 131/81 Pulse Oximetry 11/10/18 13:31 11/10/18 14:00 11/10/18 15:51 Temperature Pulse Rate 111 H 89 Respiratory Rate 14 23 16 Blood Pressure Pulse Oximetry Intake & Output 11/09/18 11/10/18 11/10/18 18:59 06:59 18:59 Intake Total 2511.2 / 2511.2 3970 / 3970 1460 / 1460 Output Total 800 / 800 Balance 1711.2 / 1711.2 3970 / 3970 1460 / 1460 Weight 84 kg Intake: IV 1711.2 / 1711.2 1810 / 1810 1460 / 1460 NS + KCl 20 mEq Inj 1,000 ML @ 1000 / 1000 1000 / 1000 1000 / 1000 125 mls/hr IV.CONT .Q8H [facility] Rx# :[id number] Magnesium Sulfate Inj 2 GM In 100 / 100 NS Inj 96 ML @ 50 mls/hr IV.SIG UNSCH PRN Rx#:[id number] MVI-12 Inj 10 ML Thiamine Inj 511.2 / 511.2 100 MG Folvite Inj 1 MG In NS Inj 500 ML @ 125 mls/hr IV.SIG Q24H [facility] Rx#:[id number] KCl 20 mEq Premix Inj 20 meq In 200 / 200 100 ml @ 50 mls/hr IV.SIG Q2H PRN Rx#:[id number] Potassium Phosphate Inj 30 MMOL 260 / 260 260 / 260 In NS Inj 250 ML @ 42 mls/hr IV.SIG UNSCH PRN Rx#:[id number] Flagyl 500 MG Inj 100 ML @ 100 200 / 200 100 / 100 100 / 100 mls/hr IV.SIG Q8H [facility] Rx#: [id number] Oral 2160 / 2160 Intake (Blood Product) Amt 800 / 800 Rbc As-3 Leukoreduced Unit 400 / 400 [id number] Rbc As-3 Leukoreduced Unit 400 / 400 [id number] Output: Urine 800 / 800 Other: # Voids 6 # Incontinent Voids 2 Date of Last Bowel Movement 11/09/18 11/10/18 11/09/18 # Bowel Movements 3 10 - Routine HEENT Exam Head: Present: normocephalic ENT: Present: mucous membranes moist - Routine Respiratory Exam Present: CTA bilaterally - Routine Cardiovascular Exam Present: RRR, S1, S2 - Routine Abdominal Exam Present: soft, normoactive bowel sounds, tenderness. Absent: distended, guarding, firm Comments: Patient reports mild abdominal tenderness lower quadrant with palpation on exam - Routine Extremities Exam Absent: edema - Routine Skin Exam Present: dry, warm. Absent: pallor - Routine Neurological Exam Present: alert <Marrero,Kriss - Last Filed: 11/10/18 16:59> Vital signs: Vital Signs 11/10/18 10:00 11/10/18 11:00 11/10/18 12:00 Temperature Pulse Rate 108 H 99 H 97 H Respiratory Rate 27 H 25 H 26 H Blood Pressure 106/73 89/59 L Pulse Oximetry 11/10/18 12:03 11/10/18 13:00 11/10/18 13:31 Temperature Pulse Rate 115 H 101 H Respiratory Rate 22 23 14 Blood Pressure 131/81 Pulse Oximetry 11/10/18 14:00 11/10/18 15:20 11/10/18 15:51 Temperature 97.2 F L Pulse Rate 111 H 119 H 89 Respiratory Rate 23 20 16 Blood Pressure 132/85 Pulse Oximetry 97 11/10/18 19:49 11/10/18 20:00 11/10/18 23:32 Temperature 97.6 F Pulse Rate 99 H 104 H 109 H Respiratory Rate 20 18 18 Blood Pressure 111/76 Pulse Oximetry 98 99 11/11/18 00:00 11/11/18 04:00 11/11/18 07:42 Temperature 97.7 F 98 F Pulse Rate 115 H 101 H 89 Respiratory Rate 18 20 20 Blood Pressure 121/83 125/88 Pulse Oximetry 95 100 11/11/18 07:46 Temperature Pulse Rate Respiratory Rate Blood Pressure Pulse Oximetry 100 Intake & Output 11/10/18 11/11/18 11/11/18 18:59 06:59 18:59 Intake Total 1560 / 1560 2099 / 2099 100 / 100 Balance 1560 / 1560 2100 / 2100 100 / 100 Weight 82.6 kg Intake: IV 1560 / 1560 2100 / 2100 100 / 100 NS + KCl 20 mEq Inj 1,000 ML @ 1000 / 1000 2000 / 2000 125 mls/hr IV.CONT .Q8H [facility] Rx# :[id number] Magnesium Sulfate Inj 2 GM In 100 / 100 NS Inj 96 ML @ 50 mls/hr IV.SIG UNSCH PRN Rx#:[id number] Potassium Phosphate Inj 30 MMOL 260 / 260 In NS Inj 250 ML @ 42 mls/hr IV.SIG UNSCH PRN Rx#:[id number] Flagyl 500 MG Inj 100 ML @ 100 200 / 200 100 / 100 100 / 100 mls/hr IV.SIG Q8H [facility] Rx#: [id number] Other: # Voids 5 Date of Last Bowel Movement 11/10/18 # Bowel Movements 1 4 <Ramírez Olmedo - Last Filed: 11/11/18 09:27> Results - Labs CBC & Chem 7: 11/10/18 03:21 11/09/18 18:25 Laboratory Results - last 24 hr 11/09/18 11/09/18 11/09/18 17:40 18:25 18:25 WBC 7.0 RBC 3.16 L Hgb 9.5 L D Hct 28.2 L MCV 89.2 MCH 30.2 MCHC 33.8 RDW 17.7 H Plt Count 168 MPV 8.2 Neut % (Auto) Lymph % (Auto) [place] % (Auto) Eos % (Auto) Baso % (Auto) Neut # (Auto) Lymph # (Auto) [place] # (Auto) Eos # (Auto) Baso # (Auto) WBC Differential Differential Comment Sodium 136 Potassium 3.2 L Chloride 104 Carbon Dioxide 21.6 Anion Gap 10 BUN 2 L Creatinine 0.28 L Estimated GFR Greater than 89 POC Glucose 122 H Random Glucose 89 Calcium 7.0 L* Calcium Adj for Albumin 7.8 L Phosphorus 1.7 L D Magnesium 2.3 D Albumin 3.0 L 11/10/18 11/10/18 11/10/18 00:50 03:21 06:32 WBC 7.2 RBC 3.05 L Hgb 9.2 L Hct 27.3 L MCV 89.3 MCH 30.2 MCHC 33.8 RDW 17.5 H Plt Count 163 MPV 8.8 Neut % (Auto) 63.9 Lymph % (Auto) 26.5 [place] % (Auto) 7.5 Eos % (Auto) 1.2 Baso % (Auto) 0.9 Neut # (Auto) 4.6 Lymph # (Auto) 1.9 [place] # (Auto) 0.5 Eos # (Auto) 0.1 Baso # (Auto) 0.1 WBC Differential . Differential Comment Auto diff final Sodium Potassium Chloride Carbon Dioxide Anion Gap BUN Creatinine Estimated GFR POC Glucose 102 88 Random Glucose Calcium Calcium Adj for Albumin Phosphorus Magnesium Albumin Microbiology 11/08/18 05:45 Blood - Peripheral Aerobic Blood Culture - Preliminary No growth in 2 days 11/08/18 05:45 Blood - Peripheral Anaerobic Blood Culture - Preliminary No growth in 2 days 11/08/18 05:50 Blood - Peripheral Aerobic Blood Culture - Preliminary No growth in 2 days 11/08/18 05:50 Blood - Peripheral Anaerobic Blood Culture - Preliminary No growth in 2 days 11/10/18 01:08 Stool Stool Occult Blood (SUZANNE) - Final Hemoccult positive 11/08/18 05:30 Catheterized Urine Urine Culture - Final 50-100,000 cfu/mL mixed alejandro (probable contaminants ) <Kriss Marrero - Last Filed: 11/10/18 16:59> - Labs CBC & Chem 7: 11/11/18 08:44 11/10/18 20:16 Laboratory Results - last 24 hr 11/10/18 11/10/18 11/10/18 18:04 20:16 20:16 WBC RBC Hgb 10.1 L Hct MCV MCH MCHC RDW Plt Count MPV Neut % (Auto) Lymph % (Auto) [place] % (Auto) Eos % (Auto) Baso % (Auto) Neut # (Auto) Lymph # (Auto) [place] # (Auto) Eos # (Auto) Baso # (Auto) WBC Differential Differential Comment PT INR APTT Sodium Cancelled Potassium Cancelled Chloride Cancelled Carbon Dioxide Cancelled Anion Gap Cancelled BUN Cancelled Creatinine Cancelled Estimated GFR Cancelled POC Glucose 86 Random Glucose Cancelled Calcium Cancelled Calcium Adj for Albumin Cancelled Phosphorus Cancelled Magnesium Cancelled Total Bilirubin Cancelled AST Cancelled ALT Cancelled Alkaline Phosphatase Cancelled Ammonia Total Protein Cancelled Albumin Cancelled Amylase Cancelled Lipase Cancelled 11/10/18 11/10/18 11/10/18 20:16 20:32 23:40 WBC RBC Hgb Hct MCV MCH MCHC RDW Plt Count MPV Neut % (Auto) Lymph % (Auto) [place] % (Auto) Eos % (Auto) Baso % (Auto) Neut # (Auto) Lymph # (Auto) [place] # (Auto) Eos # (Auto) Baso # (Auto) WBC Differential Differential Comment PT INR APTT Sodium 138 Potassium 3.6 Chloride 108 H Carbon Dioxide 20.1 L Anion Gap 10 BUN Less than 1 L Creatinine 0.27 L Estimated GFR Greater than 89 POC Glucose 97 108 Random Glucose 82 Calcium 7.1 L* Calcium Adj for Albumin 7.9 L Phosphorus 1.2 L Magnesium 1.6 D Total Bilirubin 0.6 AST 48 H ALT 32 Alkaline Phosphatase 111 Ammonia Total Protein 6.0 L Albumin 3.0 L Amylase 50 Lipase 1479 H 11/11/18 11/11/18 11/11/18 06:40 08:44 08:44 WBC 6.1 RBC 3.45 L Hgb 10.4 L Hct 31.2 L MCV 90.5 MCH 30.1 MCHC 33.3 RDW 18.0 H Plt Count 225 D MPV 8.0 Neut % (Auto) 53.0 Lymph % (Auto) 32.5 [place] % (Auto) 10.6 H Eos % (Auto) 2.8 Baso % (Auto) 1.1 Neut # (Auto) 3.2 Lymph # (Auto) 2.0 [place] # (Auto) 0.6 Eos # (Auto) 0.2 Baso # (Auto) 0.1 WBC Differential . Differential Comment Auto diff final PT 10.0 INR 1.0 APTT 24.7 Sodium Potassium Chloride Carbon Dioxide Anion Gap BUN Creatinine Estimated GFR POC Glucose 89 Random Glucose Calcium Calcium Adj for Albumin Phosphorus Magnesium Total Bilirubin AST ALT Alkaline Phosphatase Ammonia Total Protein Albumin Amylase Lipase 11/11/18 08:44 WBC RBC Hgb Hct MCV MCH MCHC RDW Plt Count MPV Neut % (Auto) Lymph % (Auto) [place] % (Auto) Eos % (Auto) Baso % (Auto) Neut # (Auto) Lymph # (Auto) [place] # (Auto) Eos # (Auto) Baso # (Auto) WBC Differential Differential Comment PT INR APTT Sodium Potassium Chloride Carbon Dioxide Anion Gap BUN Creatinine Estimated GFR POC Glucose Random Glucose Calcium Calcium Adj for Albumin Phosphorus Magnesium Total Bilirubin AST ALT Alkaline Phosphatase Ammonia Less than 10 L Total Protein Albumin Amylase Lipase Microbiology 11/08/18 05:45 Blood - Peripheral Aerobic Blood Culture - Preliminary No growth in 2 days 11/08/18 05:45 Blood - Peripheral Anaerobic Blood Culture - Preliminary No growth in 2 days 11/08/18 05:50 Blood - Peripheral Aerobic Blood Culture - Preliminary No growth in 2 days 11/08/18 05:50 Blood - Peripheral Anaerobic Blood Culture - Preliminary No growth in 2 days <Ramírez Olmedo - Last Filed: 11/11/18 09:27> Assessment and Plan (1) Colitis Status: Chronic Code(s): K52.9 - Noninfective gastroenteritis and colitis, unspecified (2) Pancreatitis Status: Acute Code(s): K85.90 - Acute pancreatitis without necrosis or infection, unspecified - Plan This patient is a 43-year-old female who was admitted to [facility] on 11/08/2018. Past medical history significant for depression, history of gastrojejunal bypass, gastrojejunal antrum ulcers, C. difficile colitis, alcohol abuse and GI bleeding. Surgical history significant for gastric bypass and cholecystectomy. Patient presented to [facility] with complaints of 4-day onset of left lower quadrant burning abdominal pain that she describes as constant and nonradiating. Patient reports only known alleviating factor is use of heating pad on the area with limited movement. Patient reports accompanying nausea and vomiting with loose watery brown stools without any noted bleeding. Of note, patient endorses drinking 4-5 drinks of vodka daily. She also endorses smoking 1 pack of cigarettes every 4 days. Our service has been consulted to evaluate patient for pancreatitis. Pancreatitis Colitis -History of C. difficile colitis, alcohol abuse and GI bleeding. -09/22/2018 EGD revealed the following-- 1.The esophagus appeared normal 2.Gastric bypass was found at the gastro-jejunal anastomosis; Hemostasis was attempted by placing three hemoclips on the bleeding site(s); Submucosal injection of epinephrine 1:10,000 was performed around the bleeding site 3.The exam showed no abnormalities in the jejunum 4.Retroflexion was not performed -WBC 10.1 hemoglobin 10.2 hematocrit 32.2 platelet count 276 -Lactic acid 6.2 lipase 3842 total bilirubin 1.8 AST 101 ALT 47 alk phos 136 ammonia level 11 11/09/2018 Patient endorses continued loose stools. Denies any noted bleeding, no reported bleeding. Discussed EtOH cessation, patient in agreement. 11/09/2018 hemoglobin 6.4 hematocrit 19.1-likely dilution, INR 1.1 lipase 2538 C. difficile positive. 11/10/2018 Patient reports continued loose stools. Denies any noted bleeding, states less frequency of stools. WBC 7.2 hemoglobin 9.2 hematocrit 27.3 platelet count 163 stable lipase 2538- trending down C. difficile positive Plan -Clear liquid diet -May advance diet when lipase normalizes -Analgesics and antiemetics as per attending -PPI -Flagyl -Vancomycin p.o. -Questran -Continue to correct imbalances of electrolytes -Monitor labs -Supportive care -Alcohol cessation -GI will sign off at this time, please notify for any further assistance This patient has been seen by myself and Dr. Olmedo and this note is written on his behalf - Attending Attestation Dr. Olmedo <Kriss Marrero - Last Filed: 11/10/18 16:59> (1) Colitis Status: Chronic Code(s): K52.9 - Noninfective gastroenteritis and colitis, unspecified (2) Pancreatitis Status: Acute Code(s): K85.90 - Acute pancreatitis without necrosis or infection, unspecified - Attending Attestation Patient seen and examined. Agree with above. <Ramírez Olmedo - Last Filed: 11/11/18 09:27> <Kriss Marrero - Last Filed: 11/10/18 16:59> (2) Pancreatitis Qualifiers: Chronicity: acute Pancreatitis type: unspecified pancreatitis type Acute pancreatitis complication: no infection or necrosis Qualified Code(s): K85.90 - Acute pancreatitis without necrosis or infection, unspecified <Ramírez Olmedo - Last Filed: 11/11/18 09:27> (2) Pancreatitis Qualifiers: Chronicity: acute Pancreatitis type: unspecified pancreatitis type Acute pancreatitis complication: no infection or necrosis Qualified Code(s): K85.90 - Acute pancreatitis without necrosis or infection, unspecified
[2018-11-10 21:24] LABS: Anion Gap 10 meq/L (5-15); Carbon Dioxide 20.1 meq/L (21.0-32.0); Chloride 108 meq/L (98-107); Potassium 3.6 meq/L (3.5-5.1); Sodium 138 meq/L (136-145)
[2018-11-10 21:25] LABS: Calcium 7.1 mg/dL (8.5-10.1); Glomerular Filtration Rate Greater Than 89 mL/min (>89); Glucose,Random 82 mg/dL (74-106); Phosphorus 1.2 mg/dL (2.5-4.9)
[2018-11-10 21:26] LABS: Alanine Aminotransferase 32 U/L (10-53); Alkaline Phosphatase 111 U/L (45-117); Amylase 50 U/L (25-115); Aspartate Aminotransferase 48 U/L (15-37); Magnesium 1.6 mg/dL (1.5-2.5)
[2018-11-10 21:27] LABS: Lipase 1479 U/L (73-393)
[2018-11-10] MEDS: Melatonin 5 MG Tablet PO PRN (22:16)
[2018-11-11] MEDS: HYDROmorphone PF Inj 0.5 MG/0.5 ML Syringe IV.PUSH PRN ×5 (00:45→23:29)
[2018-11-11] MEDS: Insulin NovoLOG Aspart Correctional Sugar Inj SQ SCH ×3 (01:24→11:30)
[2018-11-11] MEDS: Chlorhexidine Gluconate 2% 1 Pack (2 Cloths) TOPICAL SCH (05:15)
[2018-11-11 09:15] LABS: Baso # (Auto) 0.1 th/mm3 (0.0-0.2); Baso % (Auto) 1.1 % (0.0-2.0); Eos # (Auto) 0.2 th/mm3 (0.0-0.4); Eos % (Auto) 2.8 % (0.0-4.0); Hematocrit 31.2 % (35.0-46.0); Hemoglobin 10.4 gm/dL (11.6-15.3); Lymph % (Auto) 32.5 % (9.0-44.0); Mean Corpuscular HGB Conc 33.3 % (32.0-36.0); Mean Corpuscular Hemoglobin 30.1 pg (27.0-34.0); Mean Corpuscular Volume 90.5 fL (80.0-100.0); Mono # (Auto) 0.6 th/mm3 (0.0-0.9); Mono % (Auto) 10.6 % (0.0-8.0); Neut # (Auto) 3.2 th/mm3 (1.8-7.7); Platelet Count 225 th/mm3 (150-450); Red Blood Count 3.45 mil/mm3 (4.00-5.30); White Blood Count 6.1 th/mm3 (4.0-11.0)
[2018-11-11] MEDS: Pantoprazole Inj 40 MG Vial IV.PUSH SCH (09:15)
[2018-11-11] MEDS: Heparin - SQ 10,000 UNITS/ML Vial SQ SCH ×2 (09:16→20:34)
[2018-11-11 09:23] LABS: Activated Partial Thrombo Time 24.7 sec (23.4-31.7)
[2018-11-11 09:40] LABS: Alanine Aminotransferase 34 U/L (10-53); Albumin 3.1 g/dL (3.4-5.0); Alkaline Phosphatase 124 U/L (45-117); Anion Gap 8 meq/L (5-15); Aspartate Aminotransferase 42 U/L (15-37); Calcium 7.3 mg/dL (8.5-10.1); Chloride 108 meq/L (98-107); Glomerular Filtration Rate Greater Than 89 mL/min (>89); Glucose,Random 88 mg/dL (74-106); Lipase 1474 U/L (73-393); Magnesium 1.6 mg/dL (1.5-2.5); Phosphorus 1.5 mg/dL (2.5-4.9); Potassium 3.4 meq/L (3.5-5.1); Sodium 138 meq/L (136-145); Total Protein 6.3 g/dL (6.4-8.2)
[2018-11-11] MEDS: HYDROmorphone PF Inj 1 MG/ML Ampul IV.PUSH PRN ×3 (09:50→17:19)
--- NOTE | 2018-11-11 11:59 | P.PNIM ---
Subjective Interval history: Patient reports she wants to try regular food. Tolerating clear liquids. Still having loose stools. Still having some abdominal pain. No nausea or vomiting. Physical Exam Vital signs: Last Vital Signs Temp 97.8 F 11/11/18 08:00 Pulse 96 H 11/11/18 08:00 Resp 16 11/11/18 08:00 BP 134/80 11/11/18 08:00 Pulse Ox 98 11/11/18 08:00 Intake & Output 11/09/18 11/10/18 11/11/18 11/12/18 06:59 06:59 06:59 06:59 Intake Total 5653 / 5653 6481.2 / 6481.2 3660 / 3660 100 / 100 Output Total 2450 / 2450 800 / 800 Balance 3203 / 3203 5681.2 / 5681.2 3660 / 3660 100 / 100 Weight 71.5 kg 84 kg 82.6 kg Narrative: GENERAL: This is a well-nourished, well-developed patient, in no apparent distress. CARDIOVASCULAR: Regular rate and rhythm RESPIRATORY: Clear to auscultation. Breath sounds equal bilaterally. No wheezes , rales, or rhonchi. GASTROINTESTINAL: Abdomen soft, mild epigastric tenderness,, nondistended. Normal active bowel sounds MUSCULOSKELETAL: Extremities without clubbing, cyanosis, or edema. NEURO: Alert & Oriented x4 to person, place, time, situation. Moves all ext x4 Results Labs CBC & Chem 7: 11/11/18 08:44 11/11/18 08:44 Labs: Microbiology 11/08/18 05:45 Blood - Peripheral Aerobic Blood Culture - Preliminary No growth in 3 days 11/08/18 05:45 Blood - Peripheral Anaerobic Blood Culture - Preliminary No growth in 3 days 11/08/18 05:50 Blood - Peripheral Aerobic Blood Culture - Preliminary No growth in 3 days 11/08/18 05:50 Blood - Peripheral Anaerobic Blood Culture - Preliminary No growth in 3 days Assessment and Plan (1) Colitis: Code(s): K52.9 - Noninfective gastroenteritis and colitis, unspecified Status: Chronic (2) Pancreatitis: Code(s): K85.90 - Acute pancreatitis without necrosis or infection, unspecified Status: Acute Plan 43-year-old white female presents with abdominal pain with associated nausea and vomiting Acute pancreatitis elevated lipase with a history of alcohol abuse History of gastric/jejunal antrum ulcer status post epinephrine clipping 10/13 C. difficile colitis with ascending/transverse colitis on CAT scan Abdominal wall hernia Elevated AST elevated total bilirubin Hepatic steatosis Patient currently tolerating clear liquid diet and will advance to regular diet today Pantoprazole 40 mg IV twice daily we will switch over to p.o. Alcohol cessation encouraged Gastroenterology consultation appreciated. Added cholestyramine 4 g 3 times daily Currently on vancomycin and will switch Flagyl to p.o. Continue pain control. EtOH abuse CIWA protocol initiated Admission alcohol was 69. Monitor for DTs Vitamin bag daily times 3 days Tobacco abuseassessment counseling Nicotine patch 7 mg every 24 hours C. difficile Patient with positive C. difficile antigen but negative toxin but with findings on CT we will treat. Monitor for signs and symptomatology infection Vancomycin 125 mg 4 times daily and metronidazole 5 mg IV 3 times daily will be switched to p.o. Acute hypokalemia Acute hypophosphatemia Hypocalcemia Replace electrolytes Prophylaxis -GI -pantoprazole -DVT -SCD/heparin subcu Progress Note: Quality VTE Deep Vein Thrombosis/Pulmonary Embolism Present on Admission: No _ (1) Pancreatitis Qualifiers: Acute pancreatitis complication: no infection or necrosis Chronicity: acute Pancreatitis type: unspecified pancreatitis type Qualified Code(s): K85.90 - Acute pancreatitis without necrosis or infection, unspecified
[2018-11-11] MEDS ORDERED: Potassium Phosphate 500 MG Soluble Tablet PO ONE (12:02)
[2018-11-11] MEDS: metroNIDAZOLE 500 MG Tablet PO SCH ×2 (14:04→21:53)
[2018-11-11] MEDS: Melatonin 5 MG Tablet PO PRN (20:34)
[2018-11-12] MEDS: HYDROmorphone PF Inj 0.5 MG/0.5 ML Syringe IV.PUSH PRN ×2 (02:25→05:29)
[2018-11-12] MEDS: Chlorhexidine Gluconate 2% 1 Pack (2 Cloths) TOPICAL SCH (04:20)
[2018-11-12] MEDS: metroNIDAZOLE 500 MG Tablet PO SCH ×3 (05:29→21:49)
[2018-11-12 08:03] LABS: Anion Gap 6 meq/L (5-15); Calcium 7.4 mg/dL (8.5-10.1); Carbon Dioxide 24.6 meq/L (21.0-32.0); Chloride 108 meq/L (98-107); Glomerular Filtration Rate Greater Than 89 mL/min (>89); Glucose,Random 99 mg/dL (74-106); Potassium 3.5 meq/L (3.5-5.1); Sodium 139 meq/L (136-145)
[2018-11-12 08:14] LABS: Lipase 1544 U/L (73-393)
[2018-11-12 08:38] LABS: Albumin 2.6 g/dL (3.4-5.0); Calcium-Albumin Corrected 8.5 mg/dL (8.5-10.1)
[2018-11-12] MEDS: HYDROmorphone PF Inj 1 MG/ML Ampul IV.PUSH PRN ×2 (08:43→12:19)
[2018-11-12] MEDS: Heparin - SQ 10,000 UNITS/ML Vial SQ SCH ×2 (08:43→20:40)
--- NOTE | 2018-11-12 12:44 | P.PNIM ---
Subjective Interval history: Tolerating her diet however still states that she is having loose stools although improving. She does not feel good enough to go home today. Wants to stay another night. Physical Exam Vital signs: Last Vital Signs Temp 97.8 F 11/12/18 04:00 Pulse 107 H 11/12/18 04:00 Resp 14 11/12/18 04:00 BP 124/76 11/12/18 04:00 Pulse Ox 99 11/12/18 04:00 Intake & Output 11/10/18 11/11/18 11/12/18 11/13/18 06:59 06:59 06:59 06:59 Intake Total 6481.2 / 6481.2 3659 / 3659 Output Total 800 / 800 Balance 5681.2 / 5681.2 3659 Weight 84 kg 82.6 kg 85 kg Narrative: GENERAL: This is a well-nourished, well-developed patient, in no apparent distress. CARDIOVASCULAR: Regular rate and rhythm RESPIRATORY: Clear to auscultation. Breath sounds equal bilaterally. No wheezes , rales, or rhonchi. GASTROINTESTINAL: Abdomen soft, nontender, nondistended. Normal active bowel sounds MUSCULOSKELETAL: Extremities without clubbing, cyanosis, or edema. NEURO: Alert & Oriented x4 to person, place, time, situation. Moves all ext x4 Results Labs CBC & Chem 7: 11/11/18 08:44 11/12/18 07:16 Labs: Microbiology 11/08/18 05:45 Blood - Peripheral Aerobic Blood Culture - Preliminary No growth in 4 days 11/08/18 05:45 Blood - Peripheral Anaerobic Blood Culture - Preliminary No growth in 4 days 11/08/18 05:50 Blood - Peripheral Aerobic Blood Culture - Preliminary No growth in 4 days 11/08/18 05:50 Blood - Peripheral Anaerobic Blood Culture - Preliminary No growth in 4 days Assessment and Plan (1) Colitis: Code(s): K52.9 - Noninfective gastroenteritis and colitis, unspecified Status: Chronic (2) Pancreatitis: Code(s): K85.90 - Acute pancreatitis without necrosis or infection, unspecified Status: Acute Plan 43-year-old white female presents with abdominal pain with associated nausea and vomiting Acute pancreatitis elevated lipase with a history of alcohol abuse History of gastric/jejunal antrum ulcer status post epinephrine clipping 10/13 C. difficile colitis with ascending/transverse colitis on CAT scan Abdominal wall hernia Elevated AST elevated total bilirubin Hepatic steatosis Patient is ready tolerating regular diet despite elevated lipase. Alcohol cessation encouraged Gastroenterology consultation appreciated. Added cholestyramine 4 g 3 times daily Currently on vancomycin and will switch Flagyl to p.o. Continue pain control. Discussed with patient that her IV pain medication will be discontinued and will continue with oral pain meds for transition planning for home EtOH abuse CIWA protocol initiated Admission alcohol was 69. Monitor for DTs Vitamin bag daily times 3 days Tobacco abuseassessment counseling Nicotine patch 7 mg every 24 hours C. difficile Patient with positive C. difficile antigen but negative toxin but with findings on CT we will treat. Monitor for signs and symptomatology infection Vancomycin 125 mg 4 times daily and metronidazole 500 mg p.o. 3 times daily Diarrhea has improved per patient. Acute hypokalemia Acute hypophosphatemia Hypocalcemia Replace electrolytes -DVT prophylaxis-SCD/heparin subcu Possible discharge to home in the morning if pain better controlled. Progress Note: Quality VTE Deep Vein Thrombosis/Pulmonary Embolism Present on Admission: No _ (1) Pancreatitis Qualifiers: Acute pancreatitis complication: no infection or necrosis Chronicity: acute Pancreatitis type: unspecified pancreatitis type Qualified Code(s): K85.90 - Acute pancreatitis without necrosis or infection, unspecified
[2018-11-12] MEDS ORDERED: Naloxone Inj 0.4 MG/ML Vial IV.PUSH PRN (12:45)
[2018-11-12] MEDS ORDERED: Acetaminophen 325 MG Tablet PO PRN (14:00)
[2018-11-12] MEDS: Melatonin 5 MG Tablet PO PRN (21:53)
[2018-11-13] MEDS: Chlorhexidine Gluconate 2% 1 Pack (2 Cloths) TOPICAL SCH (04:18)
[2018-11-13] MEDS: metroNIDAZOLE 500 MG Tablet PO SCH ×3 (06:12→21:44)
[2018-11-13] MEDS: Heparin - SQ 10,000 UNITS/ML Vial SQ SCH ×2 (09:35→21:44)
--- NOTE | 2018-11-13 11:45 | P.PNIM ---
Subjective Interval history: in no acute distress. but she says that she threw up a couple of times this morning and she's still in pain. Physical Exam Vital signs: Last Vital Signs Temp 98 F 11/13/18 08:00 Pulse 89 11/13/18 08:00 Resp 18 11/13/18 08:00 BP 133/91 H 11/13/18 08:00 Pulse Ox 98 11/13/18 10:25 Intake & Output 11/11/18 11/12/18 11/13/18 11/14/18 06:59 06:59 06:59 06:59 Intake Total 3660 / 3660 1989 Balance 3660 / 3660 1989 Weight 82.6 kg 85 kg 85.6 kg Constitutional no acute distress Routine Respiratory Exam Present CTA bilaterally Routine Cardiovascular Exam Present RRR Routine Abdominal Exam Present soft and tenderness Routine Extremities Exam Comments: no pedal edema. Routine Neurological Exam Present alert and oriented X3 Results Labs CBC & Chem 7: 11/11/18 08:44 11/12/18 07:16 Labs: Microbiology 11/08/18 05:45 Blood - Peripheral Aerobic Blood Culture - Final No growth in 5 days 11/08/18 05:45 Blood - Peripheral Anaerobic Blood Culture - Final No growth in 5 days 11/08/18 05:50 Blood - Peripheral Aerobic Blood Culture - Final No growth in 5 days 11/08/18 05:50 Blood - Peripheral Anaerobic Blood Culture - Final No growth in 5 days Assessment and Plan (1) Colitis: Code(s): K52.9 - Noninfective gastroenteritis and colitis, unspecified Status: Chronic (2) Pancreatitis: Code(s): K85.90 - Acute pancreatitis without necrosis or infection, unspecified Status: Acute Plan A/P Acute pancreatitis elevated lipase with a history of alcohol abuse 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 difficile colitis with ascending/transverse colitis on CAT scan Abdominal wall hernia Elevated AST elevated total bilirubin Hepatic steatosis Alcohol cessation encouraged Gastroenterology consultation appreciated. Added cholestyramine 4 g 3 times daily Currently on vancomycin and will switch Flagyl to p.o. Continue pain control. Discussed with patient again today that her IV pain medication will be discontinued and will continue with oral pain meds for transition planning for home EtOH abuse [facility] protocol initiated Admission alcohol was 69. Monitor for DTs Vitamin bag daily times 3 days Tobacco abuseassessment counseling Nicotine patch 7 mg every 24 hours C. difficile Patient with positive C. difficile antigen but negative toxin but with findings on CT we will treat. Monitor for signs and symptomatology infection Vancomycin 125 mg 4 times daily and metronidazole 500 mg p.o. 3 times daily Diarrhea has improved per patient. Acute hypokalemia Acute hypophosphatemia Hypocalcemia Replace electrolytes -DVT prophylaxis-SCD/heparin subcu Discharge Planning: when pain is better controlled. Progress Note: Quality VTE Deep Vein Thrombosis/Pulmonary Embolism Present on Admission: No _ (1) Pancreatitis Qualifiers: Acute pancreatitis complication: no infection or necrosis Chronicity: acute Pancreatitis type: unspecified pancreatitis type Qualified Code(s): K85.90 - Acute pancreatitis without necrosis or infection, unspecified
--- NOTE | 2018-11-13 16:26 | P.PNGI ---
Subjective Interval history: Patient sitting up in bed Asking to be discharged home Agrees to attempt alcohol cessation Denies abdominal pain nausea or vomiting <Kriss Marrero - Last Filed: 11/13/18 16:21> Physical Exam Vital signs: Vital Signs 11/12/18 17:52 11/12/18 20:00 11/13/18 00:00 Temperature 97.7 F 98 F Pulse Rate 104 H 98 H Respiratory Rate 16 14 Blood Pressure 146/90 H 127/88 Pulse Oximetry 99 100 100 11/13/18 04:00 11/13/18 08:00 11/13/18 10:25 Temperature 98.2 F 98 F Pulse Rate 99 H 89 Respiratory Rate 15 18 Blood Pressure 157/86 H 133/91 H Pulse Oximetry 99 98 98 11/13/18 12:00 Temperature 98.1 F Pulse Rate 99 H Respiratory Rate 18 Blood Pressure 131/95 H Pulse Oximetry 98 Intake & Output 11/12/18 11/13/18 11/13/18 18:59 06:59 18:59 Intake Total 1320 / 1320 680 / 680 Balance 1320 / 1320 680 / 680 Weight 85.6 kg Intake: Oral 1320 / 1320 680 / 680 Other: # Voids 5 3 Date of Last Bowel Movement 11/10/18 11/13/18 # Bowel Movements 5 # Incontinent Bowel Movements 4 - Constitutional no acute distress - Routine HEENT Exam Head: Present: normocephalic - Routine Respiratory Exam Present: CTA bilaterally. Absent: accessory muscle use - Routine Cardiovascular Exam Present: RRR, S1, S2 - Routine Abdominal Exam Present: soft, normoactive bowel sounds. Absent: tenderness, distended, guarding, firm - Routine Skin Exam Present: dry, warm - Routine Neurological Exam Present: alert, oriented X3 - Routine Psychiatric Exam Present: normal affect, cooperative <Kriss Marrero - Last Filed: 11/13/18 16:21> Vital signs: Vital Signs 11/13/18 16:00 11/13/18 17:37 11/13/18 20:00 Temperature 97.9 F 97.9 F Pulse Rate 90 92 H Respiratory Rate 18 16 Blood Pressure 111/82 118/80 Pulse Oximetry 99 99 98 11/14/18 00:00 11/14/18 04:00 11/14/18 08:00 Temperature 98.0 F 98.0 F 98.5 F Pulse Rate 82 80 90 Respiratory Rate 15 18 17 Blood Pressure 115/70 125/78 103/65 Pulse Oximetry 97 97 97 11/14/18 10:45 11/14/18 12:00 Temperature 98.3 F Pulse Rate 89 Respiratory Rate 18 Blood Pressure 123/80 Pulse Oximetry 97 100 Intake & Output 11/13/18 11/14/18 11/14/18 18:59 06:59 18:59 Intake Total 2880 / 2880 720 / 720 Balance 2880 / 2880 720 / 720 Weight 81.7 kg Intake: Oral 2880 / 2880 720 / 720 Other: # Voids 5 6 Date of Last Bowel Movement 11/13/18 11/13/18 # Bowel Movements 5 1 <Ramírez Olmedo - Last Filed: 11/14/18 13:27> Results - Labs CBC & Chem 7: 11/11/18 08:44 11/12/18 07:16 Microbiology 11/08/18 05:45 Blood - Peripheral Aerobic Blood Culture - Final No growth in 5 days 11/08/18 05:45 Blood - Peripheral Anaerobic Blood Culture - Final No growth in 5 days 11/08/18 05:50 Blood - Peripheral Aerobic Blood Culture - Final No growth in 5 days 11/08/18 05:50 Blood - Peripheral Anaerobic Blood Culture - Final No growth in 5 days <Kriss Marrero - Last Filed: 11/13/18 16:21> - Labs CBC & Chem 7: 11/11/18 08:44 11/13/18 15:32 Laboratory Results - last 24 hr 11/13/18 11/14/18 15:32 05:31 Sodium 142 Potassium 3.3 L Chloride 109 H Carbon Dioxide 27.0 Anion Gap 6 BUN 1 L Creatinine 0.36 L Estimated GFR Greater than 89 Random Glucose 100 Calcium 7.4 L* Calcium Adj for Albumin 8.6 Total Bilirubin 0.4 AST 19 ALT 22 Alkaline Phosphatase 125 H Total Protein 5.7 L D Albumin 2.5 L Lipase 2837 H 2248 H Microbiology 11/08/18 05:45 Blood - Peripheral Aerobic Blood Culture - Final No growth in 5 days 11/08/18 05:45 Blood - Peripheral Anaerobic Blood Culture - Final No growth in 5 days 11/08/18 05:50 Blood - Peripheral Aerobic Blood Culture - Final No growth in 5 days 11/08/18 05:50 Blood - Peripheral Anaerobic Blood Culture - Final No growth in 5 days <Mayuri Olmedoian - Last Filed: 11/14/18 13:27> Assessment and Plan (1) Colitis Status: Chronic Code(s): K52.9 - Noninfective gastroenteritis and colitis, unspecified (2) Pancreatitis Status: Acute Code(s): K85.90 - Acute pancreatitis without necrosis or infection, unspecified - Plan This patient is a 43-year-old female who was admitted to [facility] on 11/08/2018. Past medical history significant for depression, history of gastrojejunal bypass, gastrojejunal antrum ulcers, C. difficile colitis, alcohol abuse and GI bleeding. Surgical history significant for gastric bypass and cholecystectomy. Patient presented to [facility] with complaints of 4-day onset of left lower quadrant burning abdominal pain that she describes as constant and nonradiating. Patient reports only known alleviating factor is use of heating pad on the area with limited movement. Patient reports accompanying nausea and vomiting with loose watery brown stools without any noted bleeding. Of note, patient endorses drinking 4-5 drinks of vodka daily. She also endorses smoking 1 pack of cigarettes every 4 days. Our service has been consulted to evaluate patient for pancreatitis. Pancreatitis Colitis -History of C. difficile colitis, alcohol abuse and GI bleeding. -09/22/2018 EGD revealed the following-- 1.The esophagus appeared normal 2.Gastric bypass was found at the gastro-jejunal anastomosis; Hemostasis was attempted by placing three hemoclips on the bleeding site(s); Submucosal injection of epinephrine 1:10,000 was performed around the bleeding site 3.The exam showed no abnormalities in the jejunum 4.Retroflexion was not performed -WBC 10.1 hemoglobin 10.2 hematocrit 32.2 platelet count 276 -Lactic acid 6.2 lipase 3842 total bilirubin 1.8 AST 101 ALT 47 alk phos 136 ammonia level 11 11/09/2018 Patient endorses continued loose stools. Denies any noted bleeding, no reported bleeding. Discussed EtOH cessation, patient in agreement. 11/09/2018 hemoglobin 6.4 hematocrit 19.1-likely dilution, INR 1.1 lipase 2538 C. difficile positive. 11/10/2018 Patient reports continued loose stools. Denies any noted bleeding, states less frequency of stools. WBC 7.2 hemoglobin 9.2 hematocrit 27.3 platelet count 163 stable lipase 2538- trending down C. difficile positive 11/13/2018 Patient states stools are formed Denies any noted bleeding, denies abdominal pain nausea or vomiting States tolerating diet well and wishes to be discharged home. Alcohol cessation discussed and patient in agreement 11/12/2018 ammonia less than 10 lipase 1544 WBC 6.1 hemoglobin 10.4 hematocrit 31.2 Plan -Low-fat diet as tolerated -Alcohol cessation -Analgesics and antiemetics as per attending -PPI -Flagyl 500 mg p.o. every 8hrs -Vancomycin -Patient stable for discharge home from GI standpoint as she denies any abdominal pain nausea or vomiting. -Patient agrees to follow-up with PCP/GI post discharge in 1 week This patient has been seen by myself and Dr. Olmedo and this note is written on his behalf - Attending Attestation Dr. Olmedo <Kriss Marrero - Last Filed: 11/13/18 16:21> (1) Colitis Status: Chronic Code(s): K52.9 - Noninfective gastroenteritis and colitis, unspecified (2) Pancreatitis Status: Acute Code(s): K85.90 - Acute pancreatitis without necrosis or infection, unspecified - Attending Attestation The patient was seen and examined. I agree with the assessment and recommendations above. <Ramírez Olmedo - Last Filed: 11/14/18 13:27> <Kriss Marrero - Last Filed: 11/13/18 16:21> (2) Pancreatitis Qualifiers: Chronicity: acute Pancreatitis type: unspecified pancreatitis type Acute pancreatitis complication: no infection or necrosis Qualified Code(s): K85.90 - Acute pancreatitis without necrosis or infection, unspecified <Ramírez Olmedo - Last Filed: 11/14/18 13:27> (2) Pancreatitis Qualifiers: Chronicity: acute Pancreatitis type: unspecified pancreatitis type Acute pancreatitis complication: no infection or necrosis Qualified Code(s): K85.90 - Acute pancreatitis without necrosis or infection, unspecified
[2018-11-13 16:42] LABS: Alanine Aminotransferase 22 U/L (10-53); Albumin 2.5 g/dL (3.4-5.0); Alkaline Phosphatase 125 U/L (45-117); Anion Gap 6 meq/L (5-15); Aspartate Aminotransferase 19 U/L (15-37); Blood Urea Nitrogen 1 mg/dL (7-18); Calcium 7.4 mg/dL (8.5-10.1); Chloride 109 meq/L (98-107); Glomerular Filtration Rate Greater Than 89 mL/min (>89); Glucose,Random 100 mg/dL (74-106); Lipase 2837 U/L (73-393); Potassium 3.3 meq/L (3.5-5.1); Sodium 142 meq/L (136-145); Total Protein 5.7 g/dL (6.4-8.2)
[2018-11-13] MEDS: Melatonin 5 MG Tablet PO PRN (21:44)
[2018-11-14] MEDS: metroNIDAZOLE 500 MG Tablet PO SCH ×2 (05:25→13:17)
[2018-11-14] MEDS: Heparin - SQ 10,000 UNITS/ML Vial SQ SCH (08:23)
--- NOTE | 2018-11-14 10:36 | P.PNIM ---
Subjective Interval history: in no acute distress. doing much better today. no pain, nausea or vomiting. Physical Exam Vital signs: Last Vital Signs Temp 98.5 F 11/14/18 08:00 Pulse 90 11/14/18 08:00 Resp 17 11/14/18 08:00 BP 103/65 11/14/18 08:00 Pulse Ox 97 11/14/18 08:00 Intake & Output 11/12/18 11/13/18 11/14/18 11/15/18 06:59 06:59 06:59 06:59 Intake Total 1989 3600 / 3600 Balance 1989 3600 / 3600 Weight 85 kg 85.6 kg 81.7 kg Constitutional no acute distress Routine Respiratory Exam Present CTA bilaterally Routine Cardiovascular Exam Present RRR Routine Abdominal Exam Present soft Routine Extremities Exam Comments: no pedal edema. Routine Neurological Exam Present alert and oriented X3 Results Labs CBC & Chem 7: 11/11/18 08:44 11/13/18 15:32 Labs: Microbiology 11/08/18 05:45 Blood - Peripheral Aerobic Blood Culture - Final No growth in 5 days 11/08/18 05:45 Blood - Peripheral Anaerobic Blood Culture - Final No growth in 5 days 11/08/18 05:50 Blood - Peripheral Aerobic Blood Culture - Final No growth in 5 days 11/08/18 05:50 Blood - Peripheral Anaerobic Blood Culture - Final No growth in 5 days Assessment and Plan (1) Colitis: Code(s): K52.9 - Noninfective gastroenteritis and colitis, unspecified Status: Chronic (2) Pancreatitis: Code(s): K85.90 - Acute pancreatitis without necrosis or infection, unspecified Status: Acute Plan A/P Acute pancreatitis elevated lipase with a history of alcohol abuseimproved clinically. 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 difficile colitis with ascending/transverse colitis on CAT scan Abdominal wall hernia Elevated AST elevated total bilirubin Hepatic steatosis Alcohol cessation encouraged Gastroenterology consultation appreciated. Added cholestyramine 4 g 3 times daily Currently on vancomycin and will switch Flagyl to p.o. Continue pain control. Discussed with patient again today that her IV pain medication will be discontinued and will continue with oral pain meds for transition planning for home EtOH abuse [facility] protocol initiated Admission alcohol was 69. Monitor for DTs Vitamin bag daily times 3 days Tobacco abuseassessment counseling Nicotine patch 7 mg every 24 hours C. difficile Patient with positive C. difficile antigen but negative toxin but with findings on CT we will treat. Monitor for signs and symptomatology infection Vancomycin 125 mg 4 times daily and metronidazole 500 mg p.o. 3 times daily Diarrhea has improved per patient. Acute hypokalemia Acute hypophosphatemia Hypocalcemia Replaced -DVT prophylaxis-SCD/heparin subcu Discharge Planning: dc home today if tolerates the diet. f/u; pcp and GI. see med list. d/w the patient and GI. Progress Note: Quality VTE Deep Vein Thrombosis/Pulmonary Embolism Present on Admission: No _ (1) Pancreatitis Qualifiers: Acute pancreatitis complication: no infection or necrosis Chronicity: acute Pancreatitis type: unspecified pancreatitis type Qualified Code(s): K85.90 - Acute pancreatitis without necrosis or infection, unspecified
--- NOTE | 2018-11-14 10:38 | P.DS ---
DS: Providers Date of admission: 11/08/18 06:18 Primary care physician: No Primary Care Physician Consults: 11/08/18 06:36 Consult to Gastroenterology Routine Consulting Provider: Raúl Diaz V Reason for Consultation: Pancreatitis Notified:: Service Spoke with:: Gila Date Notified:: 11/08/18 Time Notified:: 06:55 Ordering Provider: DAYRON 11/10/18 10:46 Consult to Hospitalist Routine Consulting Provider: Ny Gupta Reason for Consultation: [place] of care in a.m. 11/11. Admission with pancreatitis.. Notified:: Service Spoke with:: dona Date Notified:: 11/10/18 Time Notified:: 10:55 Ordering Provider: DAYRON Brief History from admission: This is a 43-year-old female. Date of admission 11/08/2018. Past medical history includes depression, history of gastric jejunal bypas in [facility] with a recent history of a ulcer at the gastrojejunal antrum during 10/13 admission. Status post clipping x3 and epinephrine injection. Patient was on sucralfate and pantoprazole. Also history of C. difficile colitis and cervical lesions. Patient has a history of tobaccoism. Patient has history of active alcohol use. Patient presents to [facility] with a 24 history of abdominal pain, nausea and vomiting. Vomitus consisted of intermittent blood, bile type contents. She is able to keep hydrated. Pain was 8 out of 10 very straight to the back sharp. Patient presented to [facility] for evaluation. Patient did have an elevated anion gap of 20. Lactate was 6.2. Beta hydroxyurea was 10. Sodium is 127. Bicarbonate was 8. ABG reveals a pH of 7.08. Bicarbonate of 5. Consistent with anion gap metabolic acidosis, metabolic alkalosis. Patient received 3 L normal saline in the ED, 1 ampicillin bicarbonate. Patient received 5 mg of morphine sulfate for pain management. CT abdomen/pelvis revealed pancreatic injury induration possibly pancreatitis. Right midline hernia with periumbilical fat. Left adnexa 2.7 cm cyst. Ascending/transverse colitis. C. difficile is been sent. We have consulted gastroenterology. She is currently n.p.o. status. We are asked to admit the patient. DS: Diagnosis Discharge Diagnosis (1) Colitis: Status: Chronic (2) Pancreatitis: Status: Acute DS: Summary Acute pancreatitis elevated lipase with a history of alcohol abuseimproved clinically. 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 difficile colitis with ascending/transverse colitis on CAT scan Abdominal wall hernia Elevated AST elevated total bilirubin Hepatic steatosis Alcohol cessation encouraged Gastroenterology consultation appreciated. Added cholestyramine 4 g 3 times daily Currently on vancomycin and will switch Flagyl to p.o. Continue pain control. Discussed with patient again today that her IV pain medication will be discontinued and will continue with oral pain meds for transition planning for home EtOH abuse [facility] protocol initiated Admission alcohol was 69. Monitor for DTs Vitamin bag daily times 3 days Tobacco abuseassessment counseling Nicotine patch 7 mg every 24 hours C- diff antigen positive- with the findings on CT; will treat with oral Vanco. Time Spent with Patient Total time spent providing and/or coordinating discharge services: Less than 30 minutes Quality: VTE Deep Vein Thrombosis/Pulmonary Embolism Present on Admission: No Exam Narrative Exam Narrative: in no acute distress. on abdominal exam, the abdomen is soft with no tenderness. bilateeral air entry present on lung exam- no pedal edema. Results Procedures completed during hospitalization: none. Labs on day of discharge: Labs from last 24 hours 11/14/18 11/13/18 05:31 15:32 Sodium 142 Potassium 3.3 L Chloride 109 H Carbon Dioxide 27.0 Anion Gap 6 BUN 1 L Creatinine 0.36 L Estimated GFR Greater than 89 Random Glucose 100 Calcium 7.4 L* Calcium Adj for Albumin 8.6 Total Bilirubin 0.4 AST 19 ALT 22 Alkaline Phosphatase 125 H Total Protein 5.7 L D Albumin 2.5 L Lipase 2248 H 2837 H Impressions ITS Impressions Abdomen/Pelvis CT 11/08/18 03:38 CONCLUSION: 1. Possible pancreatitis. 2. Mild thickening of the ascending and proximal transverse colon raising the possibility of colitis. The colon appears similar on the prior exam. 3. Hepatic steatosis. 4. Small fat containing hernia seen just below the umbilicus into the right of midline. 5. 2.7 cm cyst at the left ovary. Chest X-Ray 11/08/18 03:38 CONCLUSION: No acute cardiopulmonary process. Discharge Plan Discharge Disposition Patient Disposition: Discharge Home Discharge Condition Condition: Fair Discharge Order Discharge Orders: Discharge Order (Routine); Ordered 11/14/18 Ordered By: Mohammadre Minouei Physicians Team Primary Care Provider: Primary Care Mago Prajapati Attending Provider: Gaudencio Elizondo Other Providers: Raúl Diaz V Rxs /Orders / Referrals /Forms Prescriptions: New metronidazole 500 mg Tablet 500 mg PO Q8HR 5 Days Qty: 15 RF: 0 vancomycin 125 mg capsule 125 mg PO Q6H Qty: 20 RF: 0 cholestyramine (with sugar) 4 gram Powder In Packet 4 gm PO Q8HR Qty: 15 RF: 0 Continue promethazine 25 mg Tablet 12.5 mg PO Q6H PRN (Reason: Nausea) Qty: 15 RF: 0 sucralfate 1 gram Tablet 1 g PO Q6H Qty: 120 RF: 0 pantoprazole 40 mg Tablet,Delayed Release (Dr/Ec) 40 mg PO DAILY Qty: 30 RF: 0 Discontinued loperamide 2 mg Capsule 2 mg PO Q4H Qty: 20 RF: 0 Referrals: Primary Care Mago Prajapati [Primary Care Provider] - See Instructions Discharge Instructions Patient Printed Instructions: Cholestyramine (By mouth), Metronidazole (By mouth), Vancomycin (By mouth), Pancreatitis (DC) Status ED Status: Left Department Discharge Information Discharge Date/Time: 11/14/18 15:08
[2018-11-14 12:52] VITALS: BP 123/80; PULSE 89; RESP 18; TEMP 98.3; O2SAT 100
== END 2018-11-14 15:08 | disposition home or self-care (01) ==
LOC: NEPC 02:48 → NEDA 06:18 → HIMC 06:55 → N04 11-10 15:29
PROVIDERS: ADMIT Internal Medicine; ATTEND Internal Medicine
DX: R00.0 Tachycardia, unspecified; E87.6 Hypokalemia; Y90.3 Blood alcohol level of 60-79 mg/100 ml; A04.71 Enterocolitis due to Clostridium difficile, recurrent; F17.210 Nicotine dependence, cigarettes, uncomplicated; E83.51 Hypocalcemia; D64.9 Anemia, unspecified; K76.0 Fatty (change of) liver, not elsewhere classified; Z98.84 Bariatric surgery status; E83.39 Other disorders of phosphorus metabolism; K46.9 Unspecified abdominal hernia without obstruction or gangrene; E87.1 Hypo-osmolality and hyponatremia; E87.4 Mixed disorder of acid-base balance; K43.9 Ventral hernia without obstruction or gangrene; K85.20 Alcohol induced acute pancreatitis without necrosis or infection; F10.10 Alcohol abuse, uncomplicated; Z87.11 Personal history of peptic ulcer disease; F32.9 Major depressive disorder, single episode, unspecified; E83.42 Hypomagnesemia; K25.7 Chronic gastric ulcer without hemorrhage or perforation

== ENCOUNTER 2019-01-10 15:30 | Observation (INO) ==
[2019-01-10] MEDS ORDERED: Pantoprazole Inj 40 MG Vial IV.PUSH ONE (22:36)
[2019-01-10] MEDS ORDERED: Sod Chloride 0.9% Inj 1,000 ML IV.SIG ONE (22:36)
[2019-01-10] MEDS ORDERED: Morphine Sulfate Inj 2 MG/ML Vial IV.PUSH ONE (22:46)
[2019-01-10 23:03] LABS: Baso # (Auto) 0.1 th/mm3 (0.0-0.2); Baso % (Auto) 1.2 % (0.0-2.0); Eos # (Auto) 0.2 th/mm3 (0.0-0.4); Eos % (Auto) 1.4 % (0.0-4.0); Hematocrit 33.6 % (35.0-46.0); Hemoglobin 10.8 gm/dL (11.6-15.3); Lymph # (Auto) 3.3 th/mm3 (1.0-4.8); Lymph % (Auto) 28.3 % (9.0-44.0); Mean Corpuscular HGB Conc 32.1 % (32.0-36.0); Mean Corpuscular Hemoglobin 31.8 pg (27.0-34.0); Mean Corpuscular Volume 99.1 fL (80.0-100.0); Mean Platelet Volume 7.4 fL (7.0-11.0); Mono # (Auto) 0.9 th/mm3 (0.0-0.9); Neut # (Auto) 7.1 th/mm3 (1.8-7.7); Neut % (Auto) 61.1 % (16.0-70.0); Platelet Count 347 th/mm3 (150-450); Red Blood Count 3.39 mil/mm3 (4.00-5.30); Red Cell Distribution Width 20.4 % (11.6-17.2); White Blood Count 11.7 th/mm3 (4.0-11.0)
[2019-01-10 23:12] LABS: Bilirubin,Urine Negative (Negative); Clarity,Urine Hazy (Clear); Color,Urine Yellow (Yellw/Straw); Glucose,Urine (UA) Negative (Negative); Leukocyte Esterase,Urine Negative (Negative); Mucus,Urine Few /lpf (Occasional); Nitrite,Urine Negative (Negative); Specific Gravity,Urine 1.012 (1.002-1.035); Squamous Epithelial Cell,Urine 14 /hpf (0-5)
[2019-01-10 23:52] LABS: Alanine Aminotransferase 15 U/L (10-53); Albumin 2.4 g/dL (3.4-5.0); Alkaline Phosphatase 143 U/L (45-117); Anion Gap 6 meq/L (5-15); Aspartate Aminotransferase 19 U/L (15-37); Blood Urea Nitrogen 4 mg/dL (7-18); Calcium 7.8 mg/dL (8.5-10.1); Carbon Dioxide 25.2 meq/L (21.0-32.0); Chloride 110 meq/L (98-107); Glomerular Filtration Rate Greater Than 89 mL/min (>89); Glucose,Random 78 mg/dL (74-106); Lipase 327 U/L (73-393); Magnesium 1.9 mg/dL (1.5-2.5); Potassium 3.7 meq/L (3.5-5.1); Sodium 141 meq/L (136-145)
--- NOTE | 2019-01-11 01:02 | ED ---
HPI General Chief Complaint: Abdominal Pain Stated Complaint: Vomiting blood, Feet numb Time Seen by Provider: 01/10/19 22:13 Source: patient Mode of arrival: ambulatory Limitations: no limitations History of Present Illness HPI narrative: 43-year-old female came to the emergency room with history of epigastric pain and vomiting blood since this morning. Patient has been in the hospital multiple times for similar complaint. She has a history of alcohol abuse, pancreatitis and gastric ulcer. Patient was just discharged from the hospital 4 days ago after being admitted for gastric ulcer. She has history of gastric bypass in the past and sees Dr. Roger for that. Patient tells me that she has not drink alcohol in past 3 months. Last vomitus was 1 hour back. Vital signs are stable. No aggravating or relieving symptoms identified. Related Data Previous Rx's Medication Instructions Recorded sucralfate 1 g PO ACHS 30 Days #90 tab 01/06/19 thiamine HCl (vitamin B1) 100 mg PO BID 30 Days #60 tab 01/06/19 Lactobacillus acidoph-L.bulgar 1 tab PO BID #60 tab 01/15/19 [Lactinex] loperamide [Imodium A-D] 2 mg PO Q4H PRN #30 tab 01/15/19 metoclopramide HCl [Reglan] 10 mg PO Q6H PRN 7 Days #28 tab 01/15/19 pantoprazole [Protonix] 40 mg PO BID 30 Days #60 tab 01/15/19 Allergies Allergy/AdvReac Type Severity Reaction Status Date / Time ondansetron [From Zofran] Allergy Intermediate Itching Verified 01/10/19 22:47 Review of Systems ROS: all other systems reviewed are negative [facility] Medical History Medical History C. difficile colitis (Acute) Cervical lesion (Acute) Depression (Acute) ETOH abuse (Acute) GI bleed (Acute) Nausea (Acute) Stomach ulcer (Acute) Tobacco abuse (Acute) Surgical History Surgical History History of gastric bypass (Acute) Hx of cholecystectomy (Acute) Family History Family History Mother Family history of cervical cancer Father Family history of hypertension Other CAD (coronary artery disease) Social History Social History Substance History: No History of Abuse and Past History Second Hand Smoke Exposure: No Smoking Status: Never smoker Tobacco Type: Cigarettes How Often Do You Have a Drink Containing Alcohol: Never Recent Travel in [place] within the Last 8 Weeks: No Recent Out of Country Travel within the Last 8 Weeks: No Immunization History Tetanus Immunization: >5 Years Tetanus Immunization Year if Known: 2014 Exam Narrative Exam Narrative: GENERAL: Awake, alert, anxious, moderate distress SKIN: Focused skin assessment warm/dry. Pale HEAD: Atraumatic. Normocephalic. EYES: Pupils equal and round. No scleral icterus. No injection or drainage. ENT: No nasal bleeding or discharge. Mucous membranes pink and moist. NECK: Trachea midline. No JVD. CARDIOVASCULAR: Regular rate and rhythm. No murmur appreciated. RESPIRATORY: No accessory muscle use. Clear to auscultation. Breath sounds equal bilaterally. GASTROINTESTINAL: Abdomen soft, non-tender, nondistended. Hepatic and splenic margins not palpable. MUSCULOSKELETAL: No obvious deformities. No clubbing. No cyanosis. No edema. NEUROLOGICAL: Awake and alert. No obvious cranial nerve deficits. Motor grossly within normal limits. Normal speech. PSYCHIATRIC: Appropriate mood and affect; insight and judgment normal. Procedures Hemaprompt Stool Procedural Steps Taken: specimen placed in appropriate test area, developer placed on specimen and control areas and controls appropriately positive and negative Hemaprompt Stool Result: negative Course Initial Documented Vital Signs Temperature 98.6 F 01/10/19 15:40 Pulse Rate 102 H 01/10/19 15:40 Respiratory Rate 18 01/10/19 15:40 Blood Pressure 132/92 H 01/10/19 15:40 Pulse Oximetry 98 01/10/19 15:40 Last Documented Vital Signs Temperature 97.5 F L 01/15/19 08:00 Pulse Rate 76 01/15/19 08:00 Respiratory Rate 16 01/15/19 08:00 Blood Pressure 129/84 01/15/19 08:00 Pulse Oximetry 97 01/15/19 08:00 Medical Decision Making MDM Narrative Medical decision making narrative: 1:01 AM blood test results are back and within acceptable limit. Patient's hemoglobin and hematocrit did not drop significantly from her last blood test results. Plan is to repeat her CBC at 4 AM. If there is no significant drop patient will be discharged home. Have given her a dose of Protonix and pain medication. Patient continues to be hemodynamically stable. 3:38 AM repeat CBC shows a drop in hemoglobin. Patient will be admitted. Have started her on Protonix drip. Medical Screen Exam Complete: Yes Emergency Medical Condition: Yes Lab Data Result diagrams: 01/14/19 05:45 01/14/19 05:45 Lab Results 01/10/19 01/10/19 01/10/19 Range/Units 22:45 22:45 22:50 WBC 11.7 H (4.0-11.0) th/mm3 RBC 3.39 L (4.00-5.30) mil/mm3 Hgb 10.8 L (11.6-15.3) gm/dL Hct 33.6 L (35.0-46.0) % MCV 99.1 (80.0-100.0) fL MCH 31.8 (27.0-34.0) pg MCHC 32.1 (32.0-36.0) % RDW 20.4 H (11.6-17.2) % Plt Count 347 (150-450) th/mm3 MPV 7.4 (7.0-11.0) fL Neut % (Auto) 61.1 (16.0-70.0) % Lymph % (Auto) 28.3 (9.0-44.0) % Luce % (Auto) 8.0 (0.0-8.0) % Eos % (Auto) 1.4 (0.0-4.0) % Baso % (Auto) 1.2 (0.0-2.0) % Neut # (Auto) 7.1 (1.8-7.7) th/mm3 Lymph # (Auto) 3.3 (1.0-4.8) th/mm3 Luce # (Auto) 0.9 (0.0-0.9) th/mm3 Eos # (Auto) 0.2 (0.0-0.4) th/mm3 Baso # (Auto) 0.1 (0.0-0.2) th/mm3 WBC Differential . Differential Comment Auto diff final Sodium 141 (136-145) meq/L Potassium 3.7 (3.5-5.1) meq/L Chloride 110 H (98-107) meq/L Carbon Dioxide 25.2 (21.0-32.0) meq/L Anion Gap 6 (5-15) meq/L BUN 4 L (7-18) mg/dL Creatinine 0.41 L (0.50-1.00) mg/dL Estimated GFR Greater than 89 (>89) mL/min POC Glucose (68-110) mg/dl Random Glucose 78 (74-106) mg/dL Calcium 7.8 L (8.5-10.1) mg/dL Calcium Adj for Albumin (8.5-10.1) mg/dL Magnesium 1.9 (1.5-2.5) mg/dL Total Bilirubin 0.2 (0.2-1.0) mg/dL AST 19 (15-37) U/L ALT 15 (10-53) U/L Alkaline Phosphatase 143 H (45-117) U/L Total Protein 6.0 L (6.4-8.2) g/dL Albumin 2.4 L (3.4-5.0) g/dL Lipase 327 (73-393) U/L Urine Color Yellow (Yellw/Straw) Urine Clarity Hazy H (Clear) Urine pH 6.0 (5.0-8.5) Ur Specific [place] 1.012 (1.002-1.035) Urine Protein Negative (Neg-Trace) mg/dL Urine Glucose (UA) Negative (Negative) mg/dL Urine Ketones Negative (Negative) mg/dL Urine Occult Blood Negative (Negative) Urine Nitrate Negative (Negative) Urine Bilirubin Negative (Negative) Urine Urobilinogen Less than 2 (Less than 2) mg/dL Ur Leukocyte Esterase Negative (Negative) Urine RBC Less than 1 (0-3) /hpf Urine WBC 1 (0-5) /hpf Ur Squamous Epith Cells 14 (0-5) /hpf Urine Mucus Few H (Occasional) /lpf Micro UA Comment Culture not ind Ur Microscopic Review Not Reportable Urine Culture Comments Culture not ind Stool C.difficile Ag (Negative) Stool C.difficile Toxin (Negative) Stl C.difficile DNA Amp (Negative) St C. diff Tox Epid 027 (Negative) 01/11/19 01/11/19 01/11/19 Range/Units 02:35 11:45 13:55 WBC 10.2 (4.0-11.0) th/mm3 RBC 3.03 L (4.00-5.30) mil/mm3 Hgb 9.8 L 11.3 L (11.6-15.3) gm/dL Hct 30.1 L 33.8 L (35.0-46.0) % MCV 99.4 (80.0-100.0) fL MCH 32.2 (27.0-34.0) pg MCHC 32.4 (32.0-36.0) % RDW 20.7 H (11.6-17.2) % Plt Count 342 (150-450) th/mm3 MPV 7.3 (7.0-11.0) fL Neut % (Auto) 58.9 (16.0-70.0) % Lymph % (Auto) 30.5 (9.0-44.0) % Luce % (Auto) 8.0 (0.0-8.0) % Eos % (Auto) 2.0 (0.0-4.0) % Baso % (Auto) 0.6 (0.0-2.0) % Neut # (Auto) 6.0 (1.8-7.7) th/mm3 Lymph # (Auto) 3.1 (1.0-4.8) th/mm3 Luce # (Auto) 0.8 (0.0-0.9) th/mm3 Eos # (Auto) 0.2 (0.0-0.4) th/mm3 Baso # (Auto) 0.1 (0.0-0.2) th/mm3 WBC Differential . Differential Comment Auto diff final Sodium (136-145) meq/L Potassium (3.5-5.1) meq/L Chloride (98-107) meq/L Carbon Dioxide (21.0-32.0) meq/L Anion Gap (5-15) meq/L BUN (7-18) mg/dL Creatinine (0.50-1.00) mg/dL Estimated GFR (>89) mL/min POC Glucose (68-110) mg/dl Random Glucose (74-106) mg/dL Calcium (8.5-10.1) mg/dL Calcium Adj for Albumin (8.5-10.1) mg/dL Magnesium (1.5-2.5) mg/dL Total Bilirubin (0.2-1.0) mg/dL AST (15-37) U/L ALT (10-53) U/L Alkaline Phosphatase (45-117) U/L Total Protein (6.4-8.2) g/dL Albumin (3.4-5.0) g/dL Lipase (73-393) U/L Urine Color (Yellw/Straw) Urine Clarity (Clear) Urine pH (5.0-8.5) Ur Specific [place] (1.002-1.035) Urine Protein (Neg-Trace) mg/dL Urine Glucose (UA) (Negative) mg/dL Urine Ketones (Negative) mg/dL Urine Occult Blood (Negative) Urine Nitrate (Negative) Urine Bilirubin (Negative) Urine Urobilinogen (Less than 2) mg/dL Ur Leukocyte Esterase (Negative) Urine RBC (0-3) /hpf Urine WBC (0-5) /hpf Ur Squamous Epith Cells (0-5) /hpf Urine Mucus (Occasional) /lpf Micro UA Comment Ur Microscopic Review Urine Culture Comments Stool C.difficile Ag Positive H (Negative) Stool C.difficile Toxin Negative (Negative) Stl C.difficile DNA Amp Positive H (Negative) St C. diff Tox Epid 027 Positive H (Negative) 01/11/19 01/11/19 01/11/19 Range/Units 15:35 16:05 21:00 WBC (4.0-11.0) th/mm3 RBC (4.00-5.30) mil/mm3 Hgb 12.2 10.0 L D (11.6-15.3) gm/dL Hct 38.7 30.9 L (35.0-46.0) % MCV (80.0-100.0) fL MCH (27.0-34.0) pg MCHC (32.0-36.0) % RDW (11.6-17.2) % Plt Count (150-450) th/mm3 MPV (7.0-11.0) fL Neut % (Auto) (16.0-70.0) % Lymph % (Auto) (9.0-44.0) % Luce % (Auto) (0.0-8.0) % Eos % (Auto) (0.0-4.0) % Baso % (Auto) (0.0-2.0) % Neut # (Auto) (1.8-7.7) th/mm3 Lymph # (Auto) (1.0-4.8) th/mm3 Luce # (Auto) (0.0-0.9) th/mm3 Eos # (Auto) (0.0-0.4) th/mm3 Baso # (Auto) (0.0-0.2) th/mm3 WBC Differential Differential Comment Sodium (136-145) meq/L Potassium (3.5-5.1) meq/L Chloride (98-107) meq/L Carbon Dioxide (21.0-32.0) meq/L Anion Gap (5-15) meq/L BUN (7-18) mg/dL Creatinine (0.50-1.00) mg/dL Estimated GFR (>89) mL/min POC Glucose 100 (68-110) mg/dl Random Glucose (74-106) mg/dL Calcium (8.5-10.1) mg/dL Calcium Adj for Albumin (8.5-10.1) mg/dL Magnesium (1.5-2.5) mg/dL Total Bilirubin (0.2-1.0) mg/dL AST (15-37) U/L ALT (10-53) U/L Alkaline Phosphatase (45-117) U/L Total Protein (6.4-8.2) g/dL Albumin (3.4-5.0) g/dL Lipase (73-393) U/L Urine Color (Yellw/Straw) Urine Clarity (Clear) Urine pH (5.0-8.5) Ur Specific [place] (1.002-1.035) Urine Protein (Neg-Trace) mg/dL Urine Glucose (UA) (Negative) mg/dL Urine Ketones (Negative) mg/dL Urine Occult Blood (Negative) Urine Nitrate (Negative) Urine Bilirubin (Negative) Urine Urobilinogen (Less than 2) mg/dL Ur Leukocyte Esterase (Negative) Urine RBC (0-3) /hpf Urine WBC (0-5) /hpf Ur Squamous Epith Cells (0-5) /hpf Urine Mucus (Occasional) /lpf Micro UA Comment Ur Microscopic Review Urine Culture Comments Stool C.difficile Ag (Negative) Stool C.difficile Toxin (Negative) Stl C.difficile DNA Amp (Negative) St C. diff Tox Epid 027 (Negative) 01/12/19 01/12/19 01/13/19 Range/Units 03:47 03:47 11:27 WBC 7.9 8.2 (4.0-11.0) th/mm3 RBC 3.53 L 3.11 L (4.00-5.30) mil/mm3 Hgb 11.3 L 10.1 L (11.6-15.3) gm/dL Hct 35.6 31.2 L (35.0-46.0) % MCV 100.7 H 100.5 H (80.0-100.0) fL MCH 32.0 32.6 (27.0-34.0) pg MCHC 31.8 L 32.4 (32.0-36.0) % RDW 20.2 H 20.3 H (11.6-17.2) % Plt Count 302 285 (150-450) th/mm3 MPV 7.3 7.7 (7.0-11.0) fL Neut % (Auto) 64.6 65.1 (16.0-70.0) % Lymph % (Auto) 24.9 23.6 (9.0-44.0) % Luce % (Auto) 7.4 8.0 (0.0-8.0) % Eos % (Auto) 1.9 2.5 (0.0-4.0) % Baso % (Auto) 1.2 0.8 (0.0-2.0) % Neut # (Auto) 5.1 5.3 (1.8-7.7) th/mm3 Lymph # (Auto) 2.0 1.9 (1.0-4.8) th/mm3 Luce # (Auto) 0.6 0.7 (0.0-0.9) th/mm3 Eos # (Auto) 0.2 0.2 (0.0-0.4) th/mm3 Baso # (Auto) 0.1 0.1 (0.0-0.2) th/mm3 WBC Differential . . Differential Comment Auto diff final Auto diff final Sodium 142 (136-145) meq/L Potassium 4.3 (3.5-5.1) meq/L Chloride 112 H (98-107) meq/L Carbon Dioxide 24.4 (21.0-32.0) meq/L Anion Gap 6 (5-15) meq/L BUN 2 L (7-18) mg/dL Creatinine 0.33 L (0.50-1.00) mg/dL Estimated GFR Greater than 89 (>89) mL/min POC Glucose (68-110) mg/dl Random Glucose 65 L (74-106) mg/dL Calcium 7.4 L* (8.5-10.1) mg/dL Calcium Adj for Albumin 8.8 (8.5-10.1) mg/dL Magnesium (1.5-2.5) mg/dL Total Bilirubin 0.4 (0.2-1.0) mg/dL AST 35 (15-37) U/L ALT 17 (10-53) U/L Alkaline Phosphatase 115 (45-117) U/L Total Protein 6.0 L (6.4-8.2) g/dL Albumin 2.3 L (3.4-5.0) g/dL Lipase (73-393) U/L Urine Color (Yellw/Straw) Urine Clarity (Clear) Urine pH (5.0-8.5) Ur Specific [place] (1.002-1.035) Urine Protein (Neg-Trace) mg/dL Urine Glucose (UA) (Negative) mg/dL Urine Ketones (Negative) mg/dL Urine Occult Blood (Negative) Urine Nitrate (Negative) Urine Bilirubin (Negative) Urine Urobilinogen (Less than 2) mg/dL Ur Leukocyte Esterase (Negative) Urine RBC (0-3) /hpf Urine WBC (0-5) /hpf Ur Squamous Epith Cells (0-5) /hpf Urine Mucus (Occasional) /lpf Micro UA Comment Ur Microscopic Review Urine Culture Comments Stool C.difficile Ag (Negative) Stool C.difficile Toxin (Negative) Stl C.difficile DNA Amp (Negative) St C. diff Tox Epid 027 (Negative) 01/13/19 01/14/19 01/14/19 Range/Units 12:27 05:45 05:45 WBC 6.4 (4.0-11.0) th/mm3 RBC 3.47 L (4.00-5.30) mil/mm3 Hgb 11.7 (11.6-15.3) gm/dL Hct 34.6 L (35.0-46.0) % MCV 99.9 (80.0-100.0) fL MCH 33.8 (27.0-34.0) pg MCHC 33.8 (32.0-36.0) % RDW 19.7 H (11.6-17.2) % Plt Count 291 (150-450) th/mm3 MPV 7.1 (7.0-11.0) fL Neut % (Auto) 56.6 (16.0-70.0) % Lymph % (Auto) 32.6 (9.0-44.0) % Luce % (Auto) 7.4 (0.0-8.0) % Eos % (Auto) 2.8 (0.0-4.0) % Baso % (Auto) 0.6 (0.0-2.0) % Neut # (Auto) 3.6 (1.8-7.7) th/mm3 Lymph # (Auto) 2.1 (1.0-4.8) th/mm3 Luce # (Auto) 0.5 (0.0-0.9) th/mm3 Eos # (Auto) 0.2 (0.0-0.4) th/mm3 Baso # (Auto) 0.0 (0.0-0.2) th/mm3 WBC Differential . Differential Comment Auto diff final Sodium 141 140 (136-145) meq/L Potassium 3.3 L D 3.9 (3.5-5.1) meq/L Chloride 107 106 (98-107) meq/L Carbon Dioxide 28.1 27.0 (21.0-32.0) meq/L Anion Gap 6 7 (5-15) meq/L BUN Less than 1 L 3 L (7-18) mg/dL Creatinine 0.34 L 0.38 L (0.50-1.00) mg/dL Estimated GFR Greater than 89 Greater than 89 (>89) mL/min POC Glucose (68-110) mg/dl Random Glucose 61 L 79 (74-106) mg/dL Calcium 7.5 L 8.0 L (8.5-10.1) mg/dL Calcium Adj for Albumin (8.5-10.1) mg/dL Magnesium (1.5-2.5) mg/dL Total Bilirubin (0.2-1.0) mg/dL AST (15-37) U/L ALT (10-53) U/L Alkaline Phosphatase (45-117) U/L Total Protein (6.4-8.2) g/dL Albumin (3.4-5.0) g/dL Lipase (73-393) U/L Urine Color (Yellw/Straw) Urine Clarity (Clear) Urine pH (5.0-8.5) Ur Specific [place] (1.002-1.035) Urine Protein (Neg-Trace) mg/dL Urine Glucose (UA) (Negative) mg/dL Urine Ketones (Negative) mg/dL Urine Occult Blood (Negative) Urine Nitrate (Negative) Urine Bilirubin (Negative) Urine Urobilinogen (Less than 2) mg/dL Ur Leukocyte Esterase (Negative) Urine RBC (0-3) /hpf Urine WBC (0-5) /hpf Ur Squamous Epith Cells (0-5) /hpf Urine Mucus (Occasional) /lpf Micro UA Comment Ur Microscopic Review Urine Culture Comments Stool C.difficile Ag (Negative) Stool C.difficile Toxin (Negative) Stl C.difficile DNA Amp (Negative) St C. diff Tox Epid 027 (Negative) Imaging Data Radiologist's impression: Abdomen/Pelvis CT 01/13/19 16:31 CONCLUSION: 1. Hepatic fatty infiltration appears less severe when compared to the prior. Patient is status post cholecystectomy and gastric bypass. 2. Stable 2.7 cm anterior abdominal wall hernia just inferior and to the right of the umbilicus only contains fat. 3. Stable bilateral ovarian cysts. Uterus is retroverted. 4. Generalized anasarca in the subcutaneous tissues of the trunk may represent some volume overload or right heart insufficiency. 5. Nothing acute. Discharge Plan Discharge Disposition Patient Disposition: ED Admit(ED Internal Use Only) Discharge Condition Condition: Stable Discharge Order Discharge Orders: Discharge Order (Routine); Ordered 01/15/19 Ordered By: Naya Fortune ED Use Only Admit Order (Routine); Ordered 01/11/19 Ordered By: Janie Segundo Discharge Details Anticipated Discharge Date: 01/15/19 Physicians Team ED Provider: Janie Segundo Primary Care Provider: Primary Care Mago Prajapati Attending Provider: Anant Soriano Other Providers: Macho Lebron Status ED Status: Left Department Discharge Information Discharge Date/Time: 01/11/19 04:43
[2019-01-11 02:49] LABS: Baso # (Auto) 0.1 th/mm3 (0.0-0.2); Baso % (Auto) 0.6 % (0.0-2.0); Eos # (Auto) 0.2 th/mm3 (0.0-0.4); Hematocrit 30.1 % (35.0-46.0); Hemoglobin 9.8 gm/dL (11.6-15.3); Lymph # (Auto) 3.1 th/mm3 (1.0-4.8); Lymph % (Auto) 30.5 % (9.0-44.0); Mean Corpuscular HGB Conc 32.4 % (32.0-36.0); Mean Corpuscular Hemoglobin 32.2 pg (27.0-34.0); Mean Corpuscular Volume 99.4 fL (80.0-100.0); Mean Platelet Volume 7.3 fL (7.0-11.0); Mono # (Auto) 0.8 th/mm3 (0.0-0.9); Neut % (Auto) 58.9 % (16.0-70.0); Platelet Count 342 th/mm3 (150-450); Red Blood Count 3.03 mil/mm3 (4.00-5.30); Red Cell Distribution Width 20.7 % (11.6-17.2); White Blood Count 10.2 th/mm3 (4.0-11.0)
[2019-01-11] MEDS ORDERED: Acetaminophen 325 MG Tablet PO PRN (03:44)
[2019-01-11] MEDS ORDERED: Haloperidol Inj 5 MG/ML Ampul IV.PUSH PRN (03:44)
[2019-01-11] MEDS ORDERED: Bisacodyl 10 MG Supp RECTAL PRN (03:44)
[2019-01-11] MEDS ORDERED: Pantoprazole Inj 80 MG in Sodium Chlor 0.9% Inj 100 ML IV.CONT SCH (04:00)
[2019-01-11] MEDS: Sod Chloride 0.9% Inj 1,000 ML IV.CONT SCH ×2 (04:30→15:38)
--- NOTE | 2019-01-11 04:42 | P.HPIM ---
History of Present Illness Primary Care Physician: No Primary Care Physician History of Present Illness: This is a 43-year-old female with a PMH of Gastric Bypass, h/o C Diff, h/o Recurrent Pancreatitis, h/o GI Bleed w/ Gastric Ulcer, Depression and Alcohol Abuse who presented to the ER w/ c/o abdominal pain and hematemesis. Pt well-known to me from multiple admissions in the past for same. Recent admit 01/02-01/07/19 for similar complaints, s/p EGD 01/03/19 w/ ulcerated anastomosis of gastrojejunal area, s/p eval by Bariatric Sx, no surgical intervention recommended at this time, states she is to follow w/ Dr. Tang as outpatient. Today, reports ongoing nausea/vomiting w/ hematemesis. Hgb 10.8, previously 11.6, repeat Hgb while in ER down to 9.8. INR 1.0. Chemistry essentially unremarkable. Currently on Protonix. Diagnosis (1) Alcohol abuse: (2) GI bleed: (3) C. difficile colitis: Review of Systems PAST FAMILY HISTORY: Reviewed. No h/o DM or CAD Review of Systems: all other systems reviewed are negative [facility] Medical History Medical History C. difficile colitis (Acute) Cervical lesion (Acute) Depression (Acute) ETOH abuse (Acute) GI bleed (Acute) Nausea (Acute) Stomach ulcer (Acute) Tobacco abuse (Acute) Surgical History Surgical History History of gastric bypass (Acute) Hx of cholecystectomy (Acute) Family History Family History Mother Family history of cervical cancer Father Family history of hypertension Other CAD (coronary artery disease) Social History Social History Substance History: No History of Abuse Second Hand Smoke Exposure: No Smoking Status: Former smoker Tobacco Type: Cigarettes How Often Do You Have a Drink Containing Alcohol: Never Recent Travel in [facility] within the Last 8 Weeks: No Recent Out of Country Travel within the Last 8 Weeks: No Immunization History Tetanus Immunization: >5 Years Tetanus Immunization Year if Known: 2014 Medications and Allergies Allergies Allergy/AdvReac Type Severity Reaction Status Date / Time ondansetron [From Zofran] Allergy Intermediate Itching Verified 01/10/19 22:47 Active Medications: Active Medications Acetaminophen (Tylenol) 650 mg PO Q4H PRN PRN Reason: Temp > 100.4 Al Hydroxide/Mg Hydroxide (Milk Of Magnesia Liq) 30 ml PO Q12H PRN PRN Reason: Mild Constipation Bisacodyl (Dulcolax Supp) 10 mg RECTAL DAILY PRN PRN Reason: SEVERE CONSITIPATION Flumazenil (Romazicon Inj) 0.2 mg IV.PUSH Q1M PRN PRN Reason: OVERSEDATION Folic Acid (Folic Acid) 1 mg PO DAILY [facility] Stop: 01/16/19 08:59 Haloperidol Lactate (Haldol Inj) 1 mg IV.PUSH Q15M PRN PRN Reason: for severe agitation Pantoprazole Sodium 80 mg/ (Sodium Chloride) 100 mls @ 10 mls/hr IV.CONT CONT ALEXIS Sodium Chloride (Ns Inj) 1,000 mls @ 100 mls/hr IV.CONT .Q10H [facility] [place] Last Admin: 01/11/19 04:30 Dose: 100 mls/hr Lactulose (Lactulose Liq) 30 ml PO DAILY PRN PRN Reason: SEVERE CONSITIPATION Lorazepam (Ativan Inj) 1 mg IV.PUSH Q4H PRN PRN Reason: for CIWA 8-10 Lorazepam (Ativan Inj) 2 mg IV.PUSH Q15M PRN PRN Reason: for CIWA > 20 Lorazepam (Ativan Inj) 2 mg IV.PUSH Q1H PRN PRN Reason: for CIWA 15-20 Lorazepam (Ativan Inj) 2 mg IV.PUSH Q2H PRN PRN Reason: for CIWA 11-14 Lorazepam (Ativan) 1 mg PO Q4H PRN PRN Reason: for CIWA 8-10 Lorazepam (Ativan) 2 mg PO Q2H PRN PRN Reason: for CIWA 11-14 Metoclopramide HCl (Reglan Inj) 10 mg IV.PUSH Q6HR PRN; Protocol PRN Reason: NAUSEA OR VOMITING Multivitamins/Minerals (Theragran-M) 1 tab PO DAILY [facility] [place] Stop: 01/16/19 08:59 Senna/Docusate Sodium (Larissa-Colace) 1 tab PO BID [facility] [place] Sennosides (Senokot) 17.2 mg PO Q12H PRN PRN Reason: Moderate Constipation Sodium Chloride (Ns Flush) 2 ml IV.FLUSH PRN PRN PRN Reason: FLUSH AFTER USING IV ACCESS Sodium Chloride (Ns Flush) 2 ml IV.FLUSH BID ALEXIS Sodium Chloride (Ns Flush) 2 ml IV.FLUSH PRN PRN PRN Reason: FLUSH AFTER USING IV ACCESS Thiamine HCl (Vitamin B1) 100 mg PO DAILY [facility] [place] Physical Exam Vital signs: Vital Signs 01/10/19 15:40 01/10/19 22:33 01/11/19 02:29 Temperature 98.6 F Pulse Rate 102 H 84 84 Respiratory Rate 18 16 18 Blood Pressure 132/92 H 130/79 148/84 H Pulse Oximetry 98 99 99 Intake & Output 01/10/19 01/10/19 01/11/19 06:59 18:59 06:59 Intake Total 1000 / 1000 Balance 1000 / 1000 Weight 72.575 kg Intake: IV 1000 / 1000 NS Inj 1,000 ML @ Wide Open IV. 1000 / 1000 SIG BOLUS ONE Rx#:[id number] Narrative: PE: GENERAL: Middle-aged white female in no acute distress, appears much older than stated age. SKIN: Focused skin assessment warm and dry. HEENT: PERRLA, EOMI. No scleral icterus or conjunctival pallor. No lid lag or facial droop. CARDIOVASCULAR: Regular rate and rhythm. No obvious murmurs to auscultation. No chest tenderness to palpation. RESPIRATORY: No obvious rhonchi or wheezing. Clear to auscultation. Breath sounds equal bilaterally. GASTROINTESTINAL: Abdomen soft, non-tender, nondistended. BS normal. MUSCULOSKELETAL: Extremities without clubbing, cyanosis, or edema. No obvious deformities. NEUROLOGICAL: Awake, alert and oriented x4. No focal neurologic deficits. Moving both upper and lower extremities spontaneously. PSYCHIATRIC: Appropriate mood and affect. Insight and judgment normal. Results Labs CBC & Chem 7: 01/11/19 02:35 01/10/19 22:45 Caprini VTE Risk Assessment Caprini VTE Risk Assessment: No/Low Risk (score <= 1) Caprini Risk Assessment Model: Point Value = 1 Point Value = 2 Point Value = 3 Point Value = 5 Age 41-60 Minor surgery BMI > 25 kg/m2 Swollen legs Varicose veins or History of unexplained or recurrent spontaneous Oral contraceptives or hormone replacement Sepsis (< 1 month) Serious lung disease, including pneumonia (< 1 month) Abnormal pulmonary function Acute myocardial infarction Congestive heart failure (< 1 month) History of inflammatory bowel disease Medical patient at bed rest Age 61-74 Arthroscopic surgery Major open surgery (> 45 min) Laparoscopic surgery (> 45 min) Malignancy Confined to bed (> 72 hours) Immobilizing plaster cast Central venous access Age >= 75 History of VTE Family history of VTE Factor V Leiden Prothrombin [id number] Lupus anticoagulant Anticardiolipin antibodies Elevated serum homocysteine Heparin-induced thrombocytopenia Other congenital or acquired thrombophilia Stroke (< 1 month) Elective arthroplasty Hip, pelvis, or leg fracture Acute spinal cord injury (< 1 month) Prophylaxis Regimen: Total Risk Factor Score Risk Level Prophylaxis Regimen 0-1 Low Early ambulation 2 Moderate Order ONE of the following: *Sequential Compression Device (SCD) *Heparin 5000 units SQ BID 3-4 Higher Order ONE of the following medications: *Heparin 5000 units SQ TID *Enoxaparin/Lovenox 40 mg SQ daily (WT < 150 kg, CrCl > 30 mL/min) *Enoxaparin/Lovenox 30 mg SQ daily (WT < 150 kg, CrCl > 10-29 mL/min) *Enoxaparin/Lovenox 30 mg SQ BID (WT < 150 kg, CrCl > 30 mL/min) AND/OR *Sequential Compression Device (SCD) 5 or more Highest Order ONE of the following medications: *Heparin 5000 units SQ TID (Preferred with Epidurals) *Enoxaparin/Lovenox 40 mg SQ daily (WT < 150 kg, CrCl > 30 mL/min) *Enoxaparin/Lovenox 30 mg SQ daily (WT < 150 kg, CrCl > 10-29 mL/min) *Enoxaparin/Lovenox 30 mg SQ BID (WT < 150 kg, CrCl > 30 mL/min) AND *Sequential Compression Device (SCD) Assessment and Plan (1) Alcohol abuse: Code(s): F10.10 - Alcohol abuse, uncomplicated Status: Chronic (2) GI bleed: Code(s): K92.2 - Gastrointestinal hemorrhage, unspecified Status: Acute (3) C. difficile colitis: Code(s): A04.72 - Enterocolitis due to Clostridium difficile, not specified as recurrent Status: Acute Plan A/P: 1. GI Bleed: Recurrent, recent admit 01/02-01/07/19, s/p EGD 01/03/[address] Olmedo , 3x5cm ulcerated area in jejunum actively oozing/bleeding, s/p treatment w/ gold probe/epi w/ good hemostasis, now w/ recurrent nausea/vomiting and reports of hematemesis. Plan for repeat EGD by GI if recurrence, will Consult GI for further eval/intervention. NPO, IVF, analgesics/antiemetics, Protonix gtt. Hgb decreased from 11.6 on 01/08/19 to 10.8 01/10/19, now down to 9.8. Will repeat Hgb/Hct for close monitoring. 2. C Diff: h/o C Diff, no active infection, +carrier, antibiotics d/c'd at time of discharge. 3. Alcohol Abuse: reports quit 1mo ago, CIWA, Seizure Precautions, MVT/ Thiamine/Folate as needed. 4. DVT Prophylaxis: SCD/Teds 5. Social work for d/c planning as needed. 6. Case discussed w/ ER physician at length, labs/records/imaging reviewed by me. _ (1) GI bleed Qualifiers: GI bleed type/associated pathology: unspecified gastrointestinal hemorrhage type Gastritis type: Qualified Code(s): K92.2 - Gastrointestinal hemorrhage, unspecified
[2019-01-11] MEDS ORDERED: HYDROmorphone PF Inj 2 MG/ML Vial IV.PUSH ONE (05:12)
[2019-01-11] MEDS: Folic Acid 1 MG Tablet PO SCH (08:24)
[2019-01-11] MEDS: Senna/Docusate Sodium 8.6/50 MG Tablet PO SCH ×2 (08:24→21:04)
[2019-01-11] MEDS: Multivitamin/Minerals Therapeutic Tablet PO SCH ×2 (08:24→08:27)
--- NOTE | 2019-01-11 09:34 | P.CONGI ---
History of Present Illness Consult date: 01/11/19 Consult reason: GI bleed Chief complaint: Gastritis, GI bleed History of Present Illness: Patient is a pleasant 43-year-old female with a past medical history of recurrent upper GI bleed. Patient has a gastric bypass with last EGD done 09/22 showing gastro jejunostomy anastomosis with bleeding sites, 3 hemoclips were applied by Dr. ramirez. Patient also has recurrent pancreatitis C. difficile colitis EtOH and tobacco abuse depression and alcohol abuse but denies drinking any alcohol recently. Surgical history of cholecystectomy and gastric bypass. patient was just discharged 2 weeks ago from the hospital for the same reason. That time she was having diarrhea as well and was positive for C. difficile 01/03/2019 and was given medications vancomycin which patient said she has completed. Currently no reports of diarrhea. Yesterday she went to her bariatric surgeon Dr. Roger for abdominal pain with vomiting of blood. Hematemesis persisted overnight patient came to the ER .she also noted that her stool is blackish in color associated with mild generalized diffuse abdominal pain. Our service is consulted for GI bleed. Currently patient's hemoglobin is 9.8 hematocrit 30.1. Patient is not on any anticoagulants at home. <Carroll Smith - Last Filed: 01/11/19 09:22> Review of Systems All other systems reviewed negative except as stated in HPI <Carroll Smith - Last Filed: 01/11/19 09:22> PMFSH - History History Provided By: Patient - Medical History Medical History: Medical History (Last Reviewed 01/11/19 @ 01:00 by Janie Segundo MD) C. difficile colitis Cervical lesion Depression ETOH abuse GI bleed Nausea Stomach ulcer Tobacco abuse - Surgical History Surgical History: Surgical History (Last Reviewed 01/11/19 @ 01:00 by Janie Segundo MD) History of gastric bypass Hx of cholecystectomy - Family History Family History: Family History (Last Reviewed 01/11/19 @ 01:00 by Janie Segundo MD) Mother Family history of cervical cancer Father Family history of hypertension Other CAD (coronary artery disease) - Tobacco History Second Hand Smoke Exposure: No Tobacco Use In Past 30 Days: No Smoking Status: Never smoker Tobacco Type: Cigarettes - Alcohol History How Often Do You Have a Drink Containing Alcohol: Never - Substance Use History Substance History: No History of Abuse, Past History - Substance Use Type Alcohol Status: Early Remission Route Used: By Mouth Reason for Use: Calm Down - Travel History Recent Travel in the [place] Within the Last 8 Weeks: No Recent Travel Out of the Country Within the Last 8 Weeks: No - Immunization History Tetanus Immunization: >5 Years Tetanus Immunization Year if Known: 2014 <Carroll Smith - Last Filed: 01/11/19 09:22> - Medical History Medical History: Medical History (Last Reviewed 01/11/19 @ 01:00 by Janie Segundo MD) C. difficile colitis Cervical lesion Depression ETOH abuse GI bleed Nausea Stomach ulcer Tobacco abuse - Surgical History Surgical History: Surgical History (Last Reviewed 01/11/19 @ 01:00 by Janie Segundo MD) History of gastric bypass Hx of cholecystectomy - Family History Family History: Family History (Last Reviewed 01/11/19 @ 01:00 by Janie Segundo MD) Mother Family history of cervical cancer Father Family history of hypertension Other CAD (coronary artery disease) <Macho Lebron - Last Filed: 01/11/19 13:35> Medications and Allergies Active Medications: Active Medications Acetaminophen (Tylenol) 650 mg PO Q4H PRN PRN Reason: Temp > 100.4 Al Hydroxide/Mg Hydroxide (Milk Of Magnvanessa Liq) 30 ml PO Q12H PRN PRN Reason: Mild Constipation Bisacodyl (Dulcolax Supp) 10 mg RECTAL DAILY PRN PRN Reason: SEVERE CONSITIPATION Flumazenil (Romazicon Inj) 0.2 mg IV.PUSH Q1M PRN PRN Reason: OVERSEDATION Folic Acid (Folic Acid) 1 mg PO DAILY [facility] Stop: 01/16/19 08:59 Last Admin: 01/11/19 08:24 Dose: 1 mg Haloperidol Lactate (Haldol Inj) 1 mg IV.PUSH Q15M PRN PRN Reason: for severe agitation Pantoprazole Sodium 80 mg/ (Sodium Chloride) 100 mls @ 10 mls/hr IV.CONT CONT ALEXIS Sodium Chloride (Ns Inj) 1,000 mls @ 100 mls/hr IV.CONT .Q10H [facility] Last Admin: 01/11/19 04:30 Dose: 100 mls/hr Lactulose (Lactulose Liq) 30 ml PO DAILY PRN PRN Reason: SEVERE CONSITIPATION Lorazepam (Ativan Inj) 1 mg IV.PUSH Q4H PRN PRN Reason: for CIWA 8-10 Lorazepam (Ativan Inj) 2 mg IV.PUSH Q15M PRN PRN Reason: for CIWA > 20 Lorazepam (Ativan Inj) 2 mg IV.PUSH Q1H PRN PRN Reason: for CIWA 15-20 Lorazepam (Ativan Inj) 2 mg IV.PUSH Q2H PRN PRN Reason: for CIWA 11-14 Lorazepam (Ativan) 1 mg PO Q4H PRN PRN Reason: for CIWA 8-10 Lorazepam (Ativan) 2 mg PO Q2H PRN PRN Reason: for CIWA 11-14 Metoclopramide HCl (Reglan Inj) 10 mg IV.PUSH Q6HR PRN; Protocol PRN Reason: NAUSEA OR VOMITING Morphine Sulfate (Morphine Inj) 2 mg IV.PUSH Q4H PRN PRN Reason: PAIN SCALE 6 TO 10 Multivitamins/Minerals (Theragran-M) 1 tab PO DAILY [facility] Stop: 01/16/19 08:59 Last Admin: 01/11/19 08:27 Dose: Not Given Senna/Docusate Sodium (Larissa-Colace) 1 tab PO BID [facility] Last Admin: 01/11/19 08:24 Dose: Not Given Sennosides (Senokot) 17.2 mg PO Q12H PRN PRN Reason: Moderate Constipation Sodium Chloride (Ns Flush) 2 ml IV.FLUSH PRN PRN PRN Reason: FLUSH AFTER USING IV ACCESS Sodium Chloride (Ns Flush) 2 ml IV.FLUSH BID [facility] Last Admin: 01/11/19 08:23 Dose: Not Given Sodium Chloride (Ns Flush) 2 ml IV.FLUSH PRN PRN PRN Reason: FLUSH AFTER USING IV ACCESS Thiamine HCl (Vitamin B1) 100 mg PO DAILY [facility] Last Admin: 01/11/19 08:24 Dose: 100 mg <Carroll Smith - Last Filed: 01/11/19 09:22> Active Medications: Active Medications Acetaminophen (Tylenol) 650 mg PO Q4H PRN PRN Reason: Temp > 100.4 Al Hydroxide/Mg Hydroxide (Milk Of Magnesia Liq) 30 ml PO Q12H PRN PRN Reason: Mild Constipation Bisacodyl (Dulcolax Supp) 10 mg RECTAL DAILY PRN PRN Reason: SEVERE CONSITIPATION Flumazenil (Romazicon Inj) 0.2 mg IV.PUSH Q1M PRN PRN Reason: OVERSEDATION Folic Acid (Folic Acid) 1 mg PO DAILY [facility] Stop: 01/16/19 08:59 Last Admin: 01/11/19 08:24 Dose: 1 mg Haloperidol Lactate (Haldol Inj) 1 mg IV.PUSH Q15M PRN PRN Reason: for severe agitation Pantoprazole Sodium 80 mg/ (Sodium Chloride) 100 mls @ 10 mls/hr IV.CONT CONT ALEXIS Sodium Chloride (Ns Inj) 1,000 mls @ 100 mls/hr IV.CONT .Q10H [facility] Last Admin: 01/11/19 04:30 Dose: 100 mls/hr Lactulose (Lactulose Liq) 30 ml PO DAILY PRN PRN Reason: SEVERE CONSITIPATION Lorazepam (Ativan Inj) 1 mg IV.PUSH Q4H PRN PRN Reason: for CIWA 8-10 Lorazepam (Ativan Inj) 2 mg IV.PUSH Q15M PRN PRN Reason: for CIWA > 20 Lorazepam (Ativan Inj) 2 mg IV.PUSH Q1H PRN PRN Reason: for CIWA 15-20 Lorazepam (Ativan Inj) 2 mg IV.PUSH Q2H PRN PRN Reason: for CIWA 11-14 Lorazepam (Ativan) 1 mg PO Q4H PRN PRN Reason: for CIWA 8-10 Lorazepam (Ativan) 2 mg PO Q2H PRN PRN Reason: for CIWA 11-14 Metoclopramide HCl (Reglan Inj) 10 mg IV.PUSH Q6HR PRN; Protocol PRN Reason: NAUSEA OR VOMITING Morphine Sulfate (Morphine Inj) 2 mg IV.PUSH Q4H PRN PRN Reason: PAIN SCALE 6 TO 10 Last Admin: 01/11/19 11:00 Dose: 2 mg Multivitamins/Minerals (Theragran-M) 1 tab PO DAILY [facility] Stop: 01/16/19 08:59 Last Admin: 01/11/19 08:27 Dose: Not Given Polyethylene Glycol/Electrolytes (Colyte Liq) 4,000 ml PO ONCE ONE Stop: 01/11/19 16:01 Senna/Docusate Sodium (Larissa-Colace) 1 tab PO BID [facility] Last Admin: 01/11/19 08:24 Dose: Not Given Sennosides (Senokot) 17.2 mg PO Q12H PRN PRN Reason: Moderate Constipation Sodium Chloride (Ns Flush) 2 ml IV.FLUSH PRN PRN PRN Reason: FLUSH AFTER USING IV ACCESS Sodium Chloride (Ns Flush) 2 ml IV.FLUSH BID [facility] Last Admin: 01/11/19 08:23 Dose: Not Given Sodium Chloride (Ns Flush) 2 ml IV.FLUSH PRN PRN PRN Reason: FLUSH AFTER USING IV ACCESS Thiamine HCl (Vitamin B1) 100 mg PO DAILY [facility] Last Admin: 01/11/19 08:24 Dose: 100 mg <Macho Lebron - Last Filed: 01/11/19 13:35> Allergies Allergy/AdvReac Type Severity Reaction Status Date / Time ondansetron [From Zofran] Allergy Intermediate Itching Verified 01/10/19 22:47 Exam Vital signs: Vital Signs 01/10/19 15:40 01/10/19 22:33 01/11/19 02:29 Temperature 98.6 F Pulse Rate 102 H 84 84 Respiratory Rate 18 16 18 Blood Pressure 132/92 H 130/79 148/84 H Pulse Oximetry 98 99 99 01/11/19 07:12 Temperature 98.4 F Pulse Rate 63 Respiratory Rate 16 Blood Pressure 123/63 Pulse Oximetry 92 L Intake & Output 01/10/19 01/11/19 01/11/19 18:59 06:59 18:59 Intake Total 1000 / 1000 Balance 1000 / 1000 Weight 72.575 kg Intake: IV 1000 / 1000 NS Inj 1,000 ML @ Wide Open IV. 1000 / 1000 SIG BOLUS ONE Rx#:[id number] Oral 0 / 0 Other: # Voids 1 - Constitutional no acute distress - Routine HEENT Exam Head: Present: normocephalic - Routine Neck Exam Present: supple - Routine Respiratory Exam Present: CTA bilaterally - Routine Cardiovascular Exam Present: RRR, S1, S2 - Routine Abdominal Exam Present: soft, normoactive bowel sounds, tenderness. Absent: distended Comments: Patient has diffuse generalized abdominal pain, mild tenderness on palpation She is also on contact precaution for C. difficile colitis - Routine Extremities Exam Present: pulses intact, normal capillary refill - Routine Skin Exam Present: intact - Routine Neurological Exam Present: alert, oriented X3 <RaulleonardokimberSonalea - Last Filed: 01/11/19 09:22> Vital signs: Vital Signs 01/10/19 15:40 01/10/19 22:33 01/11/19 02:29 Temperature 98.6 F Pulse Rate 102 H 84 84 Respiratory Rate 18 16 18 Blood Pressure 132/92 H 130/79 148/84 H Pulse Oximetry 98 99 99 01/11/19 07:12 01/11/19 11:41 Temperature 98.4 F 98.3 F Pulse Rate 63 78 Respiratory Rate 16 16 Blood Pressure 123/63 144/78 H Pulse Oximetry 92 L 98 Intake & Output 01/10/19 01/11/19 01/11/19 18:59 06:59 18:59 Intake Total 1000 / 1000 Balance 1000 / 1000 Weight 72.575 kg Intake: IV 1000 / 1000 NS Inj 1,000 ML @ Wide Open IV. 1000 / 1000 SIG BOLUS ONE Rx#:[id number] Oral 0 / 0 Other: # Voids 1 <Macho Lebron - Last Filed: 01/11/19 13:35> Results - Labs CBC & Chem 7: 01/11/19 02:35 01/10/19 22:45 Labs: Laboratory Results - last 24 hr 01/10/19 01/10/19 01/10/19 22:45 22:45 22:50 WBC 11.7 H RBC 3.39 L Hgb 10.8 L Hct 33.6 L MCV 99.1 MCH 31.8 MCHC 32.1 RDW 20.4 H Plt Count 347 MPV 7.4 Neut % (Auto) 61.1 Lymph % (Auto) 28.3 [place] % (Auto) 8.0 Eos % (Auto) 1.4 Baso % (Auto) 1.2 Neut # (Auto) 7.1 Lymph # (Auto) 3.3 [place] # (Auto) 0.9 Eos # (Auto) 0.2 Baso # (Auto) 0.1 WBC Differential . Differential Comment Auto diff final Sodium 141 Potassium 3.7 Chloride 110 H Carbon Dioxide 25.2 Anion Gap 6 BUN 4 L Creatinine 0.41 L Estimated GFR Greater than 89 Random Glucose 78 Calcium 7.8 L Magnesium 1.9 Total Bilirubin 0.2 AST 19 ALT 15 Alkaline Phosphatase 143 H Total Protein 6.0 L Albumin 2.4 L Lipase 327 Urine Color Yellow Urine Clarity Hazy H Urine pH 6.0 Ur Specific [place] 1.012 Urine Protein Negative Urine Glucose (UA) Negative Urine Ketones Negative Urine Occult Blood Negative Urine Nitrate Negative Urine Bilirubin Negative Urine Urobilinogen Less than 2 Ur Leukocyte Esterase Negative Urine RBC Less than 1 Urine WBC 1 Ur Squamous Epith Cells 14 Urine Mucus Few H Micro UA Comment Culture not ind Ur Microscopic Review Not Reportable Urine Culture Comments Culture not ind 01/11/19 02:35 WBC 10.2 RBC 3.03 L Hgb 9.8 L Hct 30.1 L MCV 99.4 MCH 32.2 MCHC 32.4 RDW 20.7 H Plt Count 342 MPV 7.3 Neut % (Auto) 58.9 Lymph % (Auto) 30.5 [place] % (Auto) 8.0 Eos % (Auto) 2.0 Baso % (Auto) 0.6 Neut # (Auto) 6.0 Lymph # (Auto) 3.1 [place] # (Auto) 0.8 Eos # (Auto) 0.2 Baso # (Auto) 0.1 WBC Differential . Differential Comment Auto diff final Sodium Potassium Chloride Carbon Dioxide Anion Gap BUN Creatinine Estimated GFR Random Glucose Calcium Magnesium Total Bilirubin AST ALT Alkaline Phosphatase Total Protein Albumin Lipase Urine Color Urine Clarity Urine pH Ur Specific [place] Urine Protein Urine Glucose (UA) Urine Ketones Urine Occult Blood Urine Nitrate Urine Bilirubin Urine Urobilinogen Ur Leukocyte Esterase Urine RBC Urine WBC Ur Squamous Epith Cells Urine Mucus Micro UA Comment Ur Microscopic Review Urine Culture Comments <Carroll Smith - Last Filed: 01/11/19 09:22> - Labs CBC & Chem 7: 01/11/19 11:45 01/10/19 22:45 Labs: Laboratory Results - last 24 hr 01/10/19 01/10/19 01/10/19 22:45 22:45 22:50 WBC 11.7 H RBC 3.39 L Hgb 10.8 L Hct 33.6 L MCV 99.1 MCH 31.8 MCHC 32.1 RDW 20.4 H Plt Count 347 MPV 7.4 Neut % (Auto) 61.1 Lymph % (Auto) 28.3 [place] % (Auto) 8.0 Eos % (Auto) 1.4 Baso % (Auto) 1.2 Neut # (Auto) 7.1 Lymph # (Auto) 3.3 [place] # (Auto) 0.9 Eos # (Auto) 0.2 Baso # (Auto) 0.1 WBC Differential . Differential Comment Auto diff final Sodium 141 Potassium 3.7 Chloride 110 H Carbon Dioxide 25.2 Anion Gap 6 BUN 4 L Creatinine 0.41 L Estimated GFR Greater than 89 Random Glucose 78 Calcium 7.8 L Magnesium 1.9 Total Bilirubin 0.2 AST 19 ALT 15 Alkaline Phosphatase 143 H Total Protein 6.0 L Albumin 2.4 L Lipase 327 Urine Color Yellow Urine Clarity Hazy H Urine pH 6.0 Ur Specific [place] 1.012 Urine Protein Negative Urine Glucose (UA) Negative Urine Ketones Negative Urine Occult Blood Negative Urine Nitrate Negative Urine Bilirubin Negative Urine Urobilinogen Less than 2 Ur Leukocyte Esterase Negative Urine RBC Less than 1 Urine WBC 1 Ur Squamous Epith Cells 14 Urine Mucus Few H Micro UA Comment Culture not ind Ur Microscopic Review Not Reportable Urine Culture Comments Culture not ind 01/11/19 01/11/19 02:35 11:45 WBC 10.2 RBC 3.03 L Hgb 9.8 L 11.3 L Hct 30.1 L 33.8 L MCV 99.4 MCH 32.2 MCHC 32.4 RDW 20.7 H Plt Count 342 MPV 7.3 Neut % (Auto) 58.9 Lymph % (Auto) 30.5 [place] % (Auto) 8.0 Eos % (Auto) 2.0 Baso % (Auto) 0.6 Neut # (Auto) 6.0 Lymph # (Auto) 3.1 [place] # (Auto) 0.8 Eos # (Auto) 0.2 Baso # (Auto) 0.1 WBC Differential . Differential Comment Auto diff final Sodium Potassium Chloride Carbon Dioxide Anion Gap BUN Creatinine Estimated GFR Random Glucose Calcium Magnesium Total Bilirubin AST ALT Alkaline Phosphatase Total Protein Albumin Lipase Urine Color Urine Clarity Urine pH Ur Specific [place] Urine Protein Urine Glucose (UA) Urine Ketones Urine Occult Blood Urine Nitrate Urine Bilirubin Urine Urobilinogen Ur Leukocyte Esterase Urine RBC Urine WBC Ur Squamous Epith Cells Urine Mucus Micro UA Comment Ur Microscopic Review Urine Culture Comments <Macho Lebron - Last Filed: 01/11/19 13:35> Assessment and Plan (1) Hematemesis/vomiting blood Status: Acute Code(s): K92.0 - Hematemesis (2) Abdominal pain Status: Acute Code(s): R10.9 - Unspecified abdominal pain (3) Black tarry stools Status: Acute Code(s): K92.1 - Melena (4) Anemia Status: Acute Code(s): D64.9 - Anemia, unspecified - Plan Patient is a pleasant 43-year-old female with a past medical history of recurrent upper GI bleed. Patient has a gastric bypass with last EGD done 09/22 showing gastro jejunostomy anastomosis with bleeding sites, 3 hemoclips were applied by Dr. ramirez. Patient also has recurrent pancreatitis C. difficile colitis EtOH and tobacco abuse depression and alcohol abuse but denies drinking any alcohol recently. Surgical history of cholecystectomy and gastric bypass. patient was just discharged 2 weeks ago from the hospital for the same reason. That time she was having diarrhea as well and was positive for C. difficile 01/03/2019 and was given medications vancomycin which patient said she has completed. Currently no reports of diarrhea. Yesterday she went to her bariatric surgeon Dr. Roger for abdominal pain with vomiting of blood. Hematemesis persisted overnight patient came to the ER .she also noted that her stool is blackish in color associated with mild generalized diffuse abdominal pain. Our service is consulted for GI bleed. Currently patient's hemoglobin is 9.8 hematocrit 30.1. Patient is not on any anticoagulants at home. Assessment Hematemesis Black tarry stool Abdominal pain diffuse C. difficile colitis Status post gastric bypass with recent EGD showing ulceration sites with 3 hemoclips application 09/22/2018 Plan Clear liquid diet N.p.o. after midnight pls obtain consent for EGD and colonoscopy Prep this afternoon at 4 PM Monitor active bleeding Monitor labs PPI Antiemetics and analgesics per attending Supportive care Further recommendations to follow This patient was seen and examined by myself and Dr. Mckee and this note is written on his behalf. - Attending Attestation DR Mckee <Carroll Smith - Last Filed: 01/11/19 09:22> (1) Hematemesis/vomiting blood Status: Acute Code(s): K92.0 - Hematemesis (2) Abdominal pain Status: Acute Code(s): R10.9 - Unspecified abdominal pain (3) Black tarry stools Status: Acute Code(s): K92.1 - Melena (4) Anemia Status: Acute Code(s): D64.9 - Anemia, unspecified - Plan Seen and examined with [employer], egd/colonoscopy planned for tomorrow. Recent treatmnet for H Pylori and recent PUD. Thank you <Macho Lebron - Last Filed: 01/11/19 13:35>
[2019-01-11] MEDS: Morphine Sulfate Inj 2 MG/ML Vial IV.PUSH PRN ×2 (11:00→15:36)
[2019-01-11 12:14] LABS: Hematocrit 33.8 % (35.0-46.0); Hemoglobin 11.3 gm/dL (11.6-15.3)
[2019-01-11] MEDS: PEG 3350/E-Lyte Soln 4000 ML Bottle PO ONE ×4 (15:37→18:03)
[2019-01-11 16:13] LABS: Hematocrit 38.7 % (35.0-46.0); Hemoglobin 12.2 gm/dL (11.6-15.3)
[2019-01-11] MEDS ORDERED: HYDROmorphone PF Inj 0.5 MG/0.5 ML Syringe IV.PUSH ONE (20:15)
[2019-01-11 21:14] LABS: Hematocrit 30.9 % (35.0-46.0)
[2019-01-12] MEDS: Sod Chloride 0.9% Inj 1,000 ML IV.CONT SCH ×5 (00:50→23:49)
[2019-01-12] MEDS: HYDROmorphone PF Inj 0.5 MG/0.5 ML Syringe IV.PUSH PRN ×6 (01:44→23:53)
[2019-01-12 04:07] LABS: Baso # (Auto) 0.1 th/mm3 (0.0-0.2); Baso % (Auto) 1.2 % (0.0-2.0); Eos # (Auto) 0.2 th/mm3 (0.0-0.4); Eos % (Auto) 1.9 % (0.0-4.0); Hematocrit 35.6 % (35.0-46.0); Hemoglobin 11.3 gm/dL (11.6-15.3); Lymph % (Auto) 24.9 % (9.0-44.0); Mean Corpuscular HGB Conc 31.8 % (32.0-36.0); Mean Corpuscular Volume 100.7 fL (80.0-100.0); Mean Platelet Volume 7.3 fL (7.0-11.0); Mono # (Auto) 0.6 th/mm3 (0.0-0.9); Mono % (Auto) 7.4 % (0.0-8.0); Neut # (Auto) 5.1 th/mm3 (1.8-7.7); Neut % (Auto) 64.6 % (16.0-70.0); Platelet Count 302 th/mm3 (150-450); Red Blood Count 3.53 mil/mm3 (4.00-5.30); Red Cell Distribution Width 20.2 % (11.6-17.2); White Blood Count 7.9 th/mm3 (4.0-11.0)
[2019-01-12 04:48] LABS: Alanine Aminotransferase 17 U/L (10-53); Albumin 2.3 g/dL (3.4-5.0); Alkaline Phosphatase 115 U/L (45-117); Anion Gap 6 meq/L (5-15); Aspartate Aminotransferase 35 U/L (15-37); Blood Urea Nitrogen 2 mg/dL (7-18); Calcium 7.4 mg/dL (8.5-10.1); Carbon Dioxide 24.4 meq/L (21.0-32.0); Chloride 112 meq/L (98-107); Glomerular Filtration Rate Greater Than 89 mL/min (>89); Glucose,Random 65 mg/dL (74-106); Sodium 142 meq/L (136-145)
[2019-01-12 04:49] LABS: Potassium 4.3 meq/L (3.5-5.1)
[2019-01-12] MEDS ORDERED: Metoprolol Tartrate 25 MG Tablet PO ONE (08:20)
[2019-01-12] MEDS ORDERED: Chlorhexidine Gluconate 2% 1 Pack (2 Cloths) TOPICAL ONE (08:20)
--- NOTE | 2019-01-12 08:47 | ECG ---
Date Performed: 01/12/2019 Time Performed: 01:43:26 PTAGE: 43 years EKG: Sinus rhythm LOW QRS VOLTAGE IN PRECORDIAL LEADS BORDERLINE ECG NO PREVIOUS TRACING DOCTOR: Wesley Art Interpretating Date/Time 01/12/2019 08:45:14
[2019-01-12] MEDS ORDERED: Sodium Chlor 0.9% Inj 500 ML IV.SIG ONE (09:00)
[2019-01-12] MEDS: Senna/Docusate Sodium 8.6/50 MG Tablet PO SCH ×2 (09:07→22:31)
--- NOTE | 2019-01-12 11:04 | P.PNIM ---
Subjective Interval history: Follow-up visit GI bleed Patient is resting in bed. Scheduled to undergo EGD and colonoscopy today. Reports seeing blood in her stool but notes that RN stated that it was not blood. H/H stable. Patient denies feeling dizzy or lightheaded. No chest pain, shortness of breath or palpitations. Physical Exam Vital signs: Vital Signs 01/11/19 11:41 01/11/19 15:51 01/11/19 22:57 Temperature 98.3 F 97.8 F Pulse Rate 78 71 Respiratory Rate 16 16 18 Blood Pressure 144/78 H 131/86 Pulse Oximetry 98 99 01/12/19 01:34 01/12/19 01:36 01/12/19 03:12 Temperature 98.2 F 97.9 F Pulse Rate 72 76 Respiratory Rate 16 12 18 Blood Pressure 129/78 130/80 Pulse Oximetry 100 100 01/12/19 05:28 01/12/19 06:56 01/12/19 07:08 Temperature 97.9 F 98.4 F Pulse Rate 77 69 Respiratory Rate 16 18 18 Blood Pressure 126/73 125/74 Pulse Oximetry 98 100 Intake & Output 01/11/19 01/12/19 01/12/19 18:59 06:59 18:59 Intake Total 1000 / 1000 900 / 900 Balance 1000 / 1000 900 / 900 Intake: IV 1000 / 1000 900 / 900 NS Inj 1,000 ML @ 100 mls/hr IV 1000 / 1000 900 / 900 .CONT .Q10H ALEXIS Rx#:[id number] Other: # Voids 12 5 Date of Last Bowel Movement 01/11/19 01/11/19 01/12/19 # Bowel Movements 6 10 1 Narrative: GENERAL: Middle-aged white female in no acute distress, appears much older than stated age. SKIN: Focused skin assessment warm and dry. HEENT: PERRLA, EOMI. No scleral icterus or conjunctival pallor. No lid lag or facial droop. CARDIOVASCULAR: Regular rate and rhythm. No obvious murmurs to auscultation. No chest tenderness to palpation. RESPIRATORY: No obvious rhonchi or wheezing. Clear to auscultation. Breath sounds equal bilaterally. GASTROINTESTINAL: Abdomen soft, non-tender, nondistended. BS normal. MUSCULOSKELETAL: Extremities without clubbing, cyanosis, or edema. No obvious deformities. NEUROLOGICAL: Awake, alert and oriented x4. No focal neurologic deficits. Moving both upper and lower extremities spontaneously. PSYCHIATRIC: Appropriate mood and affect. Insight and judgment normal. Results Labs CBC & Chem 7: 01/12/19 03:47 01/12/19 03:47 Assessment and Plan (1) Hematemesis/vomiting blood: Code(s): K92.0 - Hematemesis Status: Acute (2) Abdominal pain: Code(s): R10.9 - Unspecified abdominal pain Status: Acute (3) Black tarry stools: Code(s): K92.1 - Melena Status: Acute (4) Anemia: Code(s): D64.9 - Anemia, unspecified Status: Acute Plan Patient is a 43-year-old female with a PMH of Gastric Bypass, h/o C Diff, h/o Recurrent Pancreatitis, h/o GI Bleed w/ Gastric Ulcer, Depression and Alcohol Abuse who presented to the ER w/ c/o abdominal pain and hematemesis. Recent admit 01/02-01/07/19 for similar complaints, s/p EGD 01/03/19 w/ ulcerated anastomosis of gastrojejunal area, s/p eval by Bariatric Sx, no surgical intervention recommended at this time, states she is to follow w/ Dr. Tang as outpatient. GI Bleed -recurrent, recent admit 01/02-01/07/19, s/p EGD 01/03/[address] Olmedo, 3x5cm ulcerated area in jejunum actively oozing/bleeding -s/p treatment w/ gold probe/epi w/ good hemostasis -recurrent nausea/vomiting and reports of hematemesis. -GI consulted, pt scheduled for EGD and colonoscopy this afternoon -NPO, IVF, analgesics/antiemetics, Protonix gtt C Diff -h/o C Diff, no active infection, +carrier Alcohol Abuse -quit 1mo ago -continue CIWA, Seizure Precautions, MVT/Thiamine/Folate as needed MDM: self Code: Full GI ppx: PPI DVT ppx: SCD's Discussed with: RN, patient, supervising MD Dispo: home once cleared by GI Progress Note: Quality VTE Deep Vein Thrombosis/Pulmonary Embolism Present on Admission: No _ (1) Anemia Qualifiers: Anemia type: Bone marrow failure anemia type: Chronic kidney disease stage : Folate deficiency anemia type: Hemolytic anemia type: Iron deficiency anemia type: Other causes of anemia: Vitamin B12 deficiency anemia type: (2) Hematemesis/vomiting blood Qualifiers: Nausea presence: (3) Abdominal pain Qualifiers: Abdominal location:
[2019-01-12] MEDS ORDERED: Lidocaine PF 1% Inj 5 ML Syringe OTHER ONE (13:30)
--- NOTE | 2019-01-12 13:43 | GIPROC ---
[facility] [address] [facility]. [facility], [address] EGD PROCEDURE REPORT EXAM DATE: 01/12/2019 PATIENT NAME: Erica Solomon MR #: [id number] BIRTHDATE: 1975 ATTENDING: Macho Lebron MD ORDER #: [id number] CARD MAKER: Yvrose Dhaliwal and Maricel Otero STATUS: inpatient INDICATIONS: The patient is a 43 yr old female here for an EGD due to acute post hemorrhagic anemia and iron deficiency anemia PROCEDURE PERFORMED: EGD w/ biopsy MEDICATIONS: None and Per Anesthesia. TOPICAL ANESTHETIC: CONSENT: The patient understands the risks and benefits of the procedure and understands that these risks include, but are not limited to: sedation, allergic reaction, infection, perforation and/or bleeding. Alternative means of evaluation and treatment include, among others: physical exam, x-rays, and/or surgical intervention. The patient elects to proceed with this endoscopic procedure. medical equipment was checked for proper function. Hand hygiene and appropriate measures for infection prevention was taken. After the risks, benefits and alternatives of the procedure were thoroughly explained, Informed consent was verified, confirmed and timeout was successfully executed by the treatment team. The patient was anesthetized with topical anesthesia and the EC-[id number] (Pedi C) endoscope was introduced through the mouth and advanced to the second portion of the duodenum. Retroflexed views revealed no abnormalities The gastroscope was then slowly withdrawn and removed. ESOPHAGUS: The mucosa of the esophagus appeared normal. STOMACH: A gastric bypass was found in the gastric body. Ulceration was seen at the site. A biopsy was performed using cold forceps. Sample sent for histology. DUODENUM: The duodenal mucosa appeared normal. ADVERSE EVENTS: There were no complications. IMPRESSIONS: 1. The esophagus appeared normal 2. Gastric bypass was found in the gastric body; biopsy was performed 3. Normal duodenal mucosa 4. Retroflexed views revealed no abnormalities 5. Gastric body ulcer RECOMMENDATIONS: 1. Await biopsy results. Biopsy results will not be ready for 7-10 days. If you don't hear from us in two weeks, call our office for biopsy results. 2. Anti-reflux regimen 3. Continue PPI 4. Follow-up: GI clinic 2 week(s) PATIENT CONDITION: stable DISPOSITION: Inpatient REPEAT EXAM: Return 3 months EGD pending biopsy results Macho Lebron MD eSigned: Macho Lebron MD 01/12/2019 1:43 PM cc: kermit evans M.D. PATIENT NAME: Erica Solomon MR#: [id number]
--- NOTE | 2019-01-12 13:51 | GIPROC ---
[facility] [address] [facility]. [facility], [address] COLONOSCOPY PROCEDURE REPORT EXAM DATE: 01/12/2019 PATIENT NAME: Erica Solomon MR #: [id number] BIRTHDATE: 1975 ENDOSCOPIST: Macho Lebron MD ORDER #: [id number] RELIGIOUS ACTIVITIES DIRECTOR: Maricel Otero RN STATUS: inpatient INDICATIONS: The patient is a 43 yr old female here for a colonoscopy due to chronic diarrhea and iron deficiency anemia PROCEDURE PERFORMED: Colonoscopy with biopsy MEDICATIONS: None and Per Anesthesia. PREP QUALITY: The Carlotta Bowel Prep Score was Right colon 3, Mid colon 2, and Left colon 2. Total = 7. PREP TYPE:GoLytely ESTIMATED BLOOD LOSS: None CONSENT: The patient understands the risks and benefits of the procedure and understands that these risks include, but are not limited to: sedation, allergic reaction, infection, perforation and/or bleeding. Alternative means of evaluation and treatment include, among others: physical exam, x-rays, and/or surgical intervention. The patient elects to proceed with this endoscopic procedure. medical equipment was checked for proper function. Hand hygiene and appropriate measures for infection prevention was taken. After the risks, benefits and alternatives of the procedure were thoroughly explained, Informed consent was verified, confirmed and timeout was successfully executed by the treatment team. A digital exam revealed external hemorrhoids The endoscope was introduced through the anus and advanced to the cecum, which was identified by both the appendix and ileocecal valve. The instrument was then slowly withdrawn as the colon was fully examined. COLON FINDINGS: A polypoid shaped sessile polyp ranging between 3-5mm in size was found in the sigmoid colon. A biopsy was performed using cold forceps. The colon mucosa was otherwise normal. Multiple random biopsies of the area were performed using cold forceps. Retroflexed views revealed internal hemorrhoids and Retroflexed views revealed medium internal hemorrhoids The scope was then completely withdrawn from the patient and the procedure terminated. ADVERSE EVENTS: There were no complications. IMPRESSIONS: 1. A sessile polyp ranging between 3-5mm in size was found in the sigmoid colon; biopsy was performed using cold forceps 2. The colon mucosa was otherwise normal; multiple random biopsies of the area were performed using cold forceps 3. Retroflexed views revealed internal hemorrhoids 4. Retroflexed views revealed medium internal hemorrhoids 5. Revealed external hemorrhoids RECOMMENDATIONS: 1. Await biopsy results. Biopsy results will not be ready for 7-10 days. If you don't hear from us in two weeks, call our office for results. 2. Yearly hemoccult RECALL: Return 5 years Colonoscopy, pending biopsy results Macho Lebron MD eSigned: Macho Lebron MD 01/12/2019 1:50 PM cc:
[2019-01-12] MEDS: Multivitamin/Minerals Therapeutic Tablet PO SCH (15:11)
[2019-01-12] MEDS: Folic Acid 1 MG Tablet PO SCH (15:12)
[2019-01-12] MEDS ORDERED: LORazepam 1 MG Tablet PO ONE (16:52)
[2019-01-13] MEDS: LORazepam 1 MG Tablet PO PRN ×3 (00:59→13:02)
[2019-01-13] MEDS: HYDROmorphone PF Inj 0.5 MG/0.5 ML Syringe IV.PUSH PRN ×2 (04:50→08:50)
[2019-01-13] MEDS: Sod Chloride 0.9% Inj 1,000 ML IV.CONT SCH (06:33)
[2019-01-13] MEDS: Folic Acid 1 MG Tablet PO SCH (08:50)
[2019-01-13] MEDS: Senna/Docusate Sodium 8.6/50 MG Tablet PO SCH ×2 (08:50→20:55)
[2019-01-13] MEDS: Multivitamin/Minerals Therapeutic Tablet PO SCH (08:50)
--- NOTE | 2019-01-13 09:39 | P.PNIM ---
Subjective Interval history: Follow-up visit GI bleed, nausea with vomiting, anxiety, diarrhea RN reports patient with episode of vomiting this morning but no blood noted in bag. Patient reports left lower quadrant abdominal pain, nausea and vomiting. She reports severe anxiety. Patient has not had any alcohol in over 1 month. She is requesting for her diet to be advanced despite her nausea with vomiting. She states she would like to try a soft diet. Patient complains of itching all over. Body examined and no rash noted. Patient has been applying lotion to help with dryness. No further episodes of hematemesis or hematochezia. Discussed discontinuing IV pain medication and transitioning to PO and she is in agreement with plan of care. Physical Exam Vital signs: Vital Signs 01/12/19 10:56 01/12/19 11:22 01/12/19 14:18 Temperature 98.3 F 98.4 F Pulse Rate 71 62 Respiratory Rate 16 18 14 Blood Pressure 120/70 147/81 H Pulse Oximetry 96 98 01/12/19 16:05 01/12/19 16:21 01/12/19 18:19 Temperature 98.3 F Pulse Rate 73 73 Respiratory Rate 18 18 18 Blood Pressure 144/84 H 137/82 Pulse Oximetry 100 97 01/12/19 19:17 01/12/19 23:10 01/13/19 03:20 Temperature 98.6 F 98.1 F 98.3 F Pulse Rate 75 84 83 Respiratory Rate 16 16 16 Blood Pressure 153/86 H 134/79 130/74 Pulse Oximetry 99 100 100 01/13/19 08:00 01/13/19 09:32 Temperature 98.4 F Pulse Rate 80 Respiratory Rate 16 16 Blood Pressure 133/78 Pulse Oximetry 99 Intake & Output 01/12/19 01/13/19 01/13/19 18:59 06:59 18:59 Intake Total 1400 / 1400 Balance 1400 / 1400 Intake: IV 1000 / 1000 NS Inj 1,000 ML @ 100 mls/hr IV 1000 / 1000 .CONT .Q10H [facility] Rx#:[id number] Anesthesia Amount 400 / 400 Other: # Voids 1 3 1 Date of Last Bowel Movement 01/12/19 01/12/19 01/13/19 # Bowel Movements 1 # Emeses 1 Weight On Admission 72.575 kg Narrative: GENERAL: Middle-aged white female in no acute distress, appears much older than stated age. SKIN: Focused skin assessment warm and dry. HEENT: PERRLA, EOMI. No scleral icterus or conjunctival pallor. No lid lag or facial droop. CARDIOVASCULAR: Regular rate and rhythm. No obvious murmurs to auscultation. No chest tenderness to palpation. RESPIRATORY: No obvious rhonchi or wheezing. Clear to auscultation. Breath sounds equal bilaterally. GASTROINTESTINAL: Abdomen soft, non-tender, nondistended. BS normal. MUSCULOSKELETAL: Extremities without clubbing, cyanosis, or edema. No obvious deformities. NEUROLOGICAL: Awake, alert and oriented x4. No focal neurologic deficits. Moving both upper and lower extremities spontaneously. PSYCHIATRIC: Appropriate mood and affect. Insight and judgment normal. Results Labs CBC & Chem 7: 01/12/19 03:47 01/12/19 03:47 Assessment and Plan (1) Hematemesis/vomiting blood: Code(s): K92.0 - Hematemesis Status: Acute (2) Abdominal pain: Code(s): R10.9 - Unspecified abdominal pain Status: Acute (3) Black tarry stools: Code(s): K92.1 - Melena Status: Acute (4) Anemia: Code(s): D64.9 - Anemia, unspecified Status: Acute Plan Patient is a 43-year-old female with a PMH of Gastric Bypass, h/o C Diff, h/o Recurrent Pancreatitis, h/o GI Bleed w/ Gastric Ulcer, Depression and Alcohol Abuse who presented to the ER w/ c/o abdominal pain and hematemesis. Recent admit 01/02-01/07/19 for similar complaints, s/p EGD 01/03/19 w/ ulcerated anastomosis of gastrojejunal area, s/p eval by Bariatric Sx, no surgical intervention recommended at this time, states she is to follow w/ Dr. Tang as outpatient. GI Bleed -GI consulted, pt s/p EGD and colonoscopy 01/12/19 -colonoscopy with sessile polyp ranging between 3-5 mm in size in sigmoid colon , pt to f/u biopsy results in 7-10 days. Pt needs yearly hemoccult. -EGD -> gastric body ulcer s/p biopsy, pt to f/u for results with GI in 7-10 days. PPI. Repeat EGD may be needed in 3 months. -repeat am labs currently pending, will follow up on H/H Diarrha w/ hx of C Diff -h/o C Diff, no active infection, +carrier -stool studies ordered per GI Nausea with vomiting -continue Reglan PRN -diet advanced to soft as requested by patient Left lower quadrant abdominal pain -pt s/p colonoscopy -d/c'd IV Dilaudid, transitioned to PO pain meds Anxiety -PO Ativan Generalized body itching w/o rash -lotion for hydration -Hydroxyzine PRN Alcohol Abuse -quit 1mo ago -MVI/Thiamine/Folate as needed MDM: self Code: Full GI ppx: PPI DVT ppx: SCD's Discussed with: RN, patient, supervising MD Dispo: home once n/v improved and patient able to tolerate regular diet Progress Note: Quality VTE Deep Vein Thrombosis/Pulmonary Embolism Present on Admission: No _ (1) Hematemesis/vomiting blood Qualifiers: Nausea presence: (2) Abdominal pain Qualifiers: Abdominal location: (3) Anemia Qualifiers: Anemia type: Iron deficiency anemia type: Vitamin B12 deficiency anemia type: Folate deficiency anemia type: Bone marrow failure anemia type: Hemolytic anemia type: Other causes of anemia: Chronic kidney disease stage :
--- NOTE | 2019-01-13 10:25 | P.PNGI ---
Subjective Interval history: Patient awake and alert Sitting up in bed Patient reports mild abdominal discomfort left lower quadrant Denies nausea at this time, nursing reports patient had nausea and vomiting with no noted bleeding Physical Exam Vital signs: Vital Signs 01/12/19 10:56 01/12/19 11:22 01/12/19 14:18 Temperature 98.3 F 98.4 F Pulse Rate 71 62 Respiratory Rate 16 18 14 Blood Pressure 120/70 147/81 H Pulse Oximetry 96 98 01/12/19 16:05 01/12/19 16:21 01/12/19 18:19 Temperature 98.3 F Pulse Rate 73 73 Respiratory Rate 18 18 18 Blood Pressure 144/84 H 137/82 Pulse Oximetry 100 97 01/12/19 19:17 01/12/19 23:10 01/13/19 03:20 Temperature 98.6 F 98.1 F 98.3 F Pulse Rate 75 84 83 Respiratory Rate 16 16 16 Blood Pressure 153/86 H 134/79 130/74 Pulse Oximetry 99 100 100 01/13/19 08:00 01/13/19 09:32 Temperature 98.4 F Pulse Rate 80 Respiratory Rate 16 16 Blood Pressure 133/78 Pulse Oximetry 99 Intake & Output 01/12/19 01/13/19 01/13/19 18:59 06:59 18:59 Intake Total 1400 / 1400 Balance 1400 / 1400 Intake: IV 1000 / 1000 NS Inj 1,000 ML @ 100 mls/hr IV 1000 / 1000 .CONT .Q10H [facility] Rx#:[id number] Anesthesia Amount 400 / 400 Other: # Voids 1 3 1 Date of Last Bowel Movement 01/12/19 01/12/19 01/13/19 # Bowel Movements 1 # Emeses 1 Weight On Admission 72.575 kg - Constitutional no acute distress, cooperative - Routine HEENT Exam Head: Present: normocephalic ENT: Present: mucous membranes moist - Routine Neck Exam Present: supple - Routine Respiratory Exam Present: CTA bilaterally. Absent: accessory muscle use - Routine Cardiovascular Exam Present: RRR, S1, S2. Absent: murmur - Routine Abdominal Exam Present: soft, normoactive bowel sounds. Absent: tenderness, distended, guarding, firm - Routine Extremities Exam Absent: edema - Routine Skin Exam Present: dry, warm - Routine Neurological Exam Present: alert, oriented X3 Results - Labs CBC & Chem 7: 01/12/19 03:47 01/12/19 03:47 Assessment and Plan (1) Hematemesis/vomiting blood Status: Acute Code(s): K92.0 - Hematemesis (2) Abdominal pain Status: Acute Code(s): R10.9 - Unspecified abdominal pain (3) Black tarry stools Status: Acute Code(s): K92.1 - Melena (4) Anemia Status: Acute Code(s): D64.9 - Anemia, unspecified - Plan Patient is a pleasant 43-year-old female with a past medical history of recurrent upper GI bleed. Patient has a gastric bypass with last EGD done 09/22 showing gastro jejunostomy anastomosis with bleeding sites, 3 hemoclips were applied by Dr. ramirez. Patient also has recurrent pancreatitis C. difficile colitis EtOH and tobacco abuse depression and alcohol abuse but denies drinking any alcohol recently. Surgical history of cholecystectomy and gastric bypass. patient was just discharged 2 weeks ago from the hospital for the same reason. That time she was having diarrhea as well and was positive for C. difficile 01/03/2019 and was given medications vancomycin which patient said she has completed. Currently no reports of diarrhea. Yesterday she went to her bariatric surgeon Dr. Roger for abdominal pain with vomiting of blood. Hematemesis persisted overnight patient came to the ER .she also noted that her stool is blackish in color associated with mild generalized diffuse abdominal pain. Our service is consulted for GI bleed. Currently patient's hemoglobin is 9.8 hematocrit 30.1. Patient is not on any anticoagulants at home. Assessment Hematemesis Black tarry stool Abdominal pain diffuse C. difficile colitis Status post gastric bypass with recent EGD showing ulceration sites with 3 hemoclips application 09/22/2018 01/13/2019 Nausea vomiting-antiemetics as per attending/history of EtOH abuse Abdominal pain-analgesics as per attending Post EGD colonoscopy Diarrhea-history of C. difficile -C. difficile toxin negative Patient tolerating full liquid diet, nursing reports one episode of emesis this a.m. without noted bleeding. Patient endorses mild left lower quadrant abdominal discomfort. Reports 2 episodes of loose stool this a.m. 01/12/2019 EGD: The esophagus appeared normal Gastric bypass was found in the gastric body; biopsy was performed Normal duodenal mucosa Retroflexed views revealed no abnormalities Gastric body ulcer 01/12/2019 Colonoscopy: A sessile polyp ranging between 3-5mm in size was found in the sigmoid colon; biopsy was performed using cold forceps The colon mucosa was otherwise normal; multiple random biopsies of the area were performed using cold forceps Retroflexed views revealed internal hemorrhoids Retroflexed views revealed medium internal hemorrhoids Revealed external hemorrhoids -01/12/2019--WBC 7.9 hemoglobin 11.3 hematocrit 35.6 LFTs within normal limits Plan -Diet as tolerated -Antireflux regimen -Continue PPI -GI clinic in 2 weeks -EGD repeat in 3 months -Biopsies pending -Hemoccult -Return 5 years for colonoscopy -Stool studies -Supportive care This patient has been seen by myself and Dr. Ramirez and this note is written on his behalf - Attending Attestation Dr. Ramirez
[2019-01-13 12:39] LABS: Baso # (Auto) 0.1 th/mm3 (0.0-0.2); Baso % (Auto) 0.8 % (0.0-2.0); Eos # (Auto) 0.2 th/mm3 (0.0-0.4); Eos % (Auto) 2.5 % (0.0-4.0); Hematocrit 31.2 % (35.0-46.0); Hemoglobin 10.1 gm/dL (11.6-15.3); Lymph # (Auto) 1.9 th/mm3 (1.0-4.8); Lymph % (Auto) 23.6 % (9.0-44.0); Mean Corpuscular HGB Conc 32.4 % (32.0-36.0); Mean Corpuscular Hemoglobin 32.6 pg (27.0-34.0); Mean Corpuscular Volume 100.5 fL (80.0-100.0); Mean Platelet Volume 7.7 fL (7.0-11.0); Mono # (Auto) 0.7 th/mm3 (0.0-0.9); Neut # (Auto) 5.3 th/mm3 (1.8-7.7); Neut % (Auto) 65.1 % (16.0-70.0); Platelet Count 285 th/mm3 (150-450); Red Blood Count 3.11 mil/mm3 (4.00-5.30); Red Cell Distribution Width 20.3 % (11.6-17.2); White Blood Count 8.2 th/mm3 (4.0-11.0)
[2019-01-13 13:07] LABS: Anion Gap 6 meq/L (5-15); Calcium 7.5 mg/dL (8.5-10.1); Carbon Dioxide 28.1 meq/L (21.0-32.0); Chloride 107 meq/L (98-107); Glomerular Filtration Rate Greater Than 89 mL/min (>89); Glucose,Random 61 mg/dL (74-106); Potassium 3.3 meq/L (3.5-5.1); Sodium 141 meq/L (136-145)
[2019-01-13] MEDS ORDERED: Potassium Bicarbonate 25 MEQ Effervescent Tablet PO ONE (16:30)
[2019-01-13] MEDS ORDERED: HYDROmorphone PF Inj 2 MG/ML Vial IV.PUSH ONE (17:15)
[2019-01-13] MEDS ORDERED: Diatrizoate Meglum/Diatrizoate Sod Liq 9 ML UDC PO ONE (17:15)
--- NOTE | 2019-01-13 23:59 | CT ---
EXAM DATE: 01/13/2019 11:43 PM EST AGE/SEX: 43 years / Female INDICATIONS: Vomiting blood and blood in stools. CLINICAL DATA: This is the patient's initial encounter. Patient reports that signs and symptoms have been present for 2 days and indicates a pain score of 7/10. MEDICAL/SURGICAL HISTORY: Pancreatitis. prior ETOH abuse; sober X 3 months, peptic ulcer None. ORAL CONTRAST: Prescribed oral contrast ingested. RADIATION DOSE: 7.37 CTDI (mGy) [place] [facility] [place]AST[place] 01/01/2019. . TECHNIQUE: Multiple contiguous axial images were obtained through the abdomen and pelvis following b olus infusion of 99 ml Omnipaque 350 (iohexol) nonionic water-soluble contrast as a single exam dos e. Prescribed oral contrast ingested. Using automated exposure control and adjustment of the mA and/ or kV according to patient size, radiation dose was kept as low as reasonably achievable to obtain op timal diagnostic quality images. DICOM format image data is available electronically for review and comparison. FINDINGS: Lower Lungs: Minimal scarring/atelectasis in the left lingula and left lung base Liver: The liver has a homogeneous but decreased density. Patient is status post cholecystectomy. No intra or extrahepatic biliary ductal dilatation.. Spleen: Homogeneous density without enlargement. Pancreas: Unremarkable without mass or calcification. Kidneys: Normal in size and shape. No evidence of mass or hydronephrosis. Adrenal Glands: Unremarkable. Aorta: The aorta and proximal iliac vessels are grossly unremarkable without aneurysmal dilation. Bowel/Mesentery: Surgical clips in the left upper abdominal quadrant are characteristic of prior gas tric bypass. Bowel is otherwise unremarkable. Abdominal Wall: As noted previously, there is a small, 2.7 cm right para midline anterior abdominal wall hernia which only contains fat. Generalized anasarca in the subcutaneous soft tissues about the trunk. Retroperitoneum: No evidence of adenopathy in the retrocrural, para-aortic, or deep pelvic regions. Bladder: Contours are smooth. Reproductive Organs: Cysts are again identified in both ovaries. Uterus is retroverted Inguinal: The inguinal region is unremarkable without evidence of adenopathy. Bony Structures: Unremarkable. Post Contrast: No abnormal areas of enhancement seen. CONCLUSION: 1. Hepatic fatty infiltration appears less severe when compared to the prior. Patient is status post cholecystectomy and gastric bypass. 2. Stable 2.7 cm anterior abdominal wall hernia just inferior and to the right of the umbilicus only contains fat. 3. Stable bilateral ovarian cysts. Uterus is retroverted. 4. Generalized anasarca in the subcutaneous tissues of the trunk may represent some volume overload or right heart insufficiency. 5. Nothing acute. Electronically signed by: Tan Saxena MD Board Certified Radiologist 01/13/2019 11:58 PM EST
[2019-01-14] MEDS: Folic Acid 1 MG Tablet PO SCH (08:57)
[2019-01-14] MEDS: Senna/Docusate Sodium 8.6/50 MG Tablet PO SCH ×2 (08:57→20:12)
[2019-01-14] MEDS: Multivitamin/Minerals Therapeutic Tablet PO SCH (08:58)
[2019-01-14 09:00] LABS: Baso % (Auto) 0.6 % (0.0-2.0); Eos # (Auto) 0.2 th/mm3 (0.0-0.4); Eos % (Auto) 2.8 % (0.0-4.0); Hematocrit 34.6 % (35.0-46.0); Hemoglobin 11.7 gm/dL (11.6-15.3); Lymph # (Auto) 2.1 th/mm3 (1.0-4.8); Lymph % (Auto) 32.6 % (9.0-44.0); Mean Corpuscular HGB Conc 33.8 % (32.0-36.0); Mean Corpuscular Hemoglobin 33.8 pg (27.0-34.0); Mean Corpuscular Volume 99.9 fL (80.0-100.0); Mean Platelet Volume 7.1 fL (7.0-11.0); Mono # (Auto) 0.5 th/mm3 (0.0-0.9); Mono % (Auto) 7.4 % (0.0-8.0); Neut # (Auto) 3.6 th/mm3 (1.8-7.7); Neut % (Auto) 56.6 % (16.0-70.0); Platelet Count 291 th/mm3 (150-450); Red Blood Count 3.47 mil/mm3 (4.00-5.30); Red Cell Distribution Width 19.7 % (11.6-17.2); White Blood Count 6.4 th/mm3 (4.0-11.0)
[2019-01-14 10:18] LABS: Anion Gap 7 meq/L (5-15); Blood Urea Nitrogen 3 mg/dL (7-18); Chloride 106 meq/L (98-107); Glomerular Filtration Rate Greater Than 89 mL/min (>89); Glucose,Random 79 mg/dL (74-106); Sodium 140 meq/L (136-145)
[2019-01-14 10:21] LABS: Potassium 3.9 meq/L (3.5-5.1)
--- NOTE | 2019-01-14 10:59 | P.PNGI ---
Subjective Interval history: Sitting up in bed Reports nausea with one episode of emesis after breakfast-soft diet Patient states one episode of loose watery brown stool Physical Exam Vital signs: Vital Signs 01/13/19 12:00 01/13/19 12:13 01/13/19 13:03 Temperature 98.2 F Pulse Rate 84 Respiratory Rate 16 16 18 Blood Pressure 142/90 H Pulse Oximetry 96 01/13/19 16:00 01/13/19 17:32 01/13/19 20:00 Temperature 98.1 F 98.4 F Pulse Rate 83 88 Respiratory Rate 16 18 16 Blood Pressure 154/91 H 111/68 Pulse Oximetry 100 98 01/14/19 04:00 01/14/19 07:55 Temperature 98.5 F Pulse Rate 72 77 Respiratory Rate 16 18 Blood Pressure 123/74 119/67 Pulse Oximetry 94 L 99 Intake & Output 01/13/19 01/14/19 01/14/19 18:59 06:59 18:59 Intake Total 1000 / 1000 Balance 1000 / 1000 Intake: IV 1000 / 1000 NS Inj 1,000 ML @ 100 mls/hr IV 1000 / 1000 .CONT .Q10H [facility] Rx#:[id number] Other: # Voids 1 Date of Last Bowel Movement 01/13/19 01/13/19 01/13/19 - Constitutional no acute distress, cooperative - Routine HEENT Exam Head: Present: normocephalic - Routine Respiratory Exam Present: CTA bilaterally. Absent: accessory muscle use - Routine Cardiovascular Exam Present: RRR, S1, S2 - Routine Abdominal Exam Present: soft, normoactive bowel sounds. Absent: tenderness, distended, guarding, firm - Routine Extremities Exam Absent: edema - Routine Skin Exam Present: dry, warm - Routine Neurological Exam Present: alert, oriented X3 Results - Labs CBC & Chem 7: 01/14/19 05:45 01/14/19 05:45 Laboratory Results - last 24 hr 01/13/19 01/13/19 01/14/19 11:27 12:27 05:45 WBC 8.2 6.4 RBC 3.11 L 3.47 L Hgb 10.1 L 11.7 Hct 31.2 L 34.6 L MCV 100.5 H 99.9 MCH 32.6 33.8 MCHC 32.4 33.8 RDW 20.3 H 19.7 H Plt Count 285 291 MPV 7.7 7.1 Neut % (Auto) 65.1 56.6 Lymph % (Auto) 23.6 32.6 Bacon % (Auto) 8.0 7.4 Eos % (Auto) 2.5 2.8 Baso % (Auto) 0.8 0.6 Neut # (Auto) 5.3 3.6 Lymph # (Auto) 1.9 2.1 Bacon # (Auto) 0.7 0.5 Eos # (Auto) 0.2 0.2 Baso # (Auto) 0.1 0.0 WBC Differential . . Differential Comment Auto diff final Auto diff final Sodium 141 Potassium 3.3 L D Chloride 107 Carbon Dioxide 28.1 Anion Gap 6 BUN Less than 1 L Creatinine 0.34 L Estimated GFR Greater than 89 Random Glucose 61 L Calcium 7.5 L 01/14/19 05:45 WBC RBC Hgb Hct MCV MCH MCHC RDW Plt Count MPV Neut % (Auto) Lymph % (Auto) Bacon % (Auto) Eos % (Auto) Baso % (Auto) Neut # (Auto) Lymph # (Auto) Bacon # (Auto) Eos # (Auto) Baso # (Auto) WBC Differential Differential Comment Sodium 140 Potassium 3.9 Chloride 106 Carbon Dioxide 27.0 Anion Gap 7 BUN 3 L Creatinine 0.38 L Estimated GFR Greater than 89 Random Glucose 79 Calcium 8.0 L - Imaging Impressions Abdomen/Pelvis CT 01/13/19 16:31 CONCLUSION: 1. Hepatic fatty infiltration appears less severe when compared to the prior. Patient is status post cholecystectomy and gastric bypass. 2. Stable 2.7 cm anterior abdominal wall hernia just inferior and to the right of the umbilicus only contains fat. 3. Stable bilateral ovarian cysts. Uterus is retroverted. 4. Generalized anasarca in the subcutaneous tissues of the trunk may represent some volume overload or right heart insufficiency. 5. Nothing acute. Assessment and Plan (1) Hematemesis/vomiting blood Status: Acute Code(s): K92.0 - Hematemesis (2) Abdominal pain Status: Acute Code(s): R10.9 - Unspecified abdominal pain (3) Black tarry stools Status: Acute Code(s): K92.1 - Melena (4) Anemia Status: Acute Code(s): D64.9 - Anemia, unspecified - Plan Patient is a pleasant 43-year-old female with a past medical history of recurrent upper GI bleed. Patient has a gastric bypass with last EGD done 09/22 showing gastro jejunostomy anastomosis with bleeding sites, 3 hemoclips were applied by Dr. ramirez. Patient also has recurrent pancreatitis C. difficile colitis EtOH and tobacco abuse depression and alcohol abuse but denies drinking any alcohol recently. Surgical history of cholecystectomy and gastric bypass. patient was just discharged 2 weeks ago from the hospital for the same reason. That time she was having diarrhea as well and was positive for C. difficile 01/03/2019 and was given medications vancomycin which patient said she has completed. Currently no reports of diarrhea. Yesterday she went to her bariatric surgeon Dr. Roger for abdominal pain with vomiting of blood. Hematemesis persisted overnight patient came to the ER .she also noted that her stool is blackish in color associated with mild generalized diffuse abdominal pain. Our service is consulted for GI bleed. Currently patient's hemoglobin is 9.8 hematocrit 30.1. Patient is not on any anticoagulants at home. Assessment Hematemesis Black tarry stool Abdominal pain diffuse C. difficile colitis Status post gastric bypass with recent EGD showing ulceration sites with 3 hemoclips application 09/22/2018 01/13/2019 Nausea vomiting-antiemetics as per attending/history of EtOH abuse Abdominal pain-analgesics as per attending Post EGD colonoscopy Diarrhea-history of C. difficile -C. difficile toxin negative Patient tolerating full liquid diet, nursing reports one episode of emesis this a.m. without noted bleeding. Patient endorses mild left lower quadrant abdominal discomfort. Reports 2 episodes of loose stool this a.m. 01/12/2019 EGD: The esophagus appeared normal Gastric bypass was found in the gastric body; biopsy was performed Normal duodenal mucosa Retroflexed views revealed no abnormalities Gastric body ulcer 01/12/2019 Colonoscopy: A sessile polyp ranging between 3-5mm in size was found in the sigmoid colon; biopsy was performed using cold forceps The colon mucosa was otherwise normal; multiple random biopsies of the area were performed using cold forceps Retroflexed views revealed internal hemorrhoids Retroflexed views revealed medium internal hemorrhoids Revealed external hemorrhoids -01/12/2019--WBC 7.9 hemoglobin 11.3 hematocrit 35.6 LFTs within normal limits 01/14/2019 Nausea vomiting-patient reports nausea with emesis x1 this a.m. denies any noted bleeding. Presently on Reglan and PPI. Abdominal pain-patient reports intermittent mild abdominal discomfort, epigastrium 01/13/2019 CT abdomen and pelvis reveal the following : Hepatic fatty infiltration appears less severe when compared to the prior. Patient is status post cholecystectomy and gastric bypass. Stable 2.7 cm anterior abdominal wall hernia just inferior and to the right of the umbilicus only contains fat. Stable bilateral ovarian cysts. Uterus is retroverted. Generalized anasarca in the subcutaneous tissues of the trunk may represent some volume overload or right heart insufficiency. Nothing acute. Diarrhea-endorses one watery stool this a.m. with no noted bleeding. C. difficile toxin negative-patient likely a carrier. Stool studies ordered Plan -Regular soft diet-low fat -Antireflux regimen -PPI -GI clinic in 2-week for hospital follow-up -EGD repeat in 3 months -Biopsies pending -Recommend repeat colonoscopy in 5 years -GI will sign off at this time, patient agrees to follow-up with office 1 week post discharge -Supportive care This patient has been seen by myself and Dr. Ramirez and this note is written on his behalf - Attending Attestation Dr. Ramirez
--- NOTE | 2019-01-14 11:00 | P.PNIM ---
Subjective Interval history: Follow-up for intractable nausea/vomiting, abdominal pain, diarrhea. Patient reports feeling slightly better, however still having episodes of loose stools. She reports her last episode of vomiting was yesterday. She reports continued abdominal pain, although improving. Denies fevers or chills. Denies any other medical complaints at this time. She adamantly does not want to be discharged until she is significantly improved. States she is worried about having to come right back to the hospital if she goes home today. Physical Exam Vital signs: Vital Signs 01/13/19 12:00 01/13/19 12:13 01/13/19 13:03 Temperature 98.2 F Pulse Rate 84 Respiratory Rate 16 16 18 Blood Pressure 142/90 H Pulse Oximetry 96 01/13/19 16:00 01/13/19 17:32 01/13/19 20:00 Temperature 98.1 F 98.4 F Pulse Rate 83 88 Respiratory Rate 16 18 16 Blood Pressure 154/91 H 111/68 Pulse Oximetry 100 98 01/14/19 04:00 01/14/19 07:55 Temperature 98.5 F Pulse Rate 72 77 Respiratory Rate 16 18 Blood Pressure 123/74 119/67 Pulse Oximetry 94 L 99 Intake & Output 01/13/19 01/14/19 01/14/19 18:59 06:59 18:59 Intake Total 1000 / 1000 Output Total 200 / 200 Balance 1000 / 1000 -200 / -200 Intake: IV 1000 / 1000 NS Inj 1,000 ML @ 100 mls/hr IV 1000 / 1000 .CONT .Q10H ALEXIS Rx#:[id number] Output: Emesis 200 / 200 Other: # Voids 1 Date of Last Bowel Movement 01/13/19 01/13/19 01/13/19 # Emeses 1 Narrative: GENERAL: Well-nourished, well-developed middle-aged female patient in [facility]. SKIN: Warm and dry. No rash. HEENT: Normocephalic. Atraumatic. Pupils equal and round. Mucous membranes pink and moist. CARDIOVASCULAR: Regular rate and rhythm. No murmur appreciated. RESPIRATORY: No accessory muscle use. Clear to auscultation. Breath sounds equal bilaterally. GASTROINTESTINAL: Abdomen soft, non-tender with distraction, nondistended. Normoactive bowel sounds x4. MUSCULOSKELETAL: No obvious deformities. Extremities without clubbing, cyanosis , or edema. NEUROLOGICAL: Awake and alert. No obvious cranial nerve deficits. Moving all extremities spontaneously. Normal speech. Results Labs CBC & Chem 7: 01/14/19 05:45 01/14/19 05:45 Imaging Imaging: Impressions Abdomen/Pelvis CT 01/13/19 16:31 CONCLUSION: 1. Hepatic fatty infiltration appears less severe when compared to the prior. Patient is status post cholecystectomy and gastric bypass. 2. Stable 2.7 cm anterior abdominal wall hernia just inferior and to the right of the umbilicus only contains fat. 3. Stable bilateral ovarian cysts. Uterus is retroverted. 4. Generalized anasarca in the subcutaneous tissues of the trunk may represent some volume overload or right heart insufficiency. 5. Nothing acute. Assessment and Plan (1) Hematemesis/vomiting blood: Code(s): K92.0 - Hematemesis Status: Acute (2) Abdominal pain: Code(s): R10.9 - Unspecified abdominal pain Status: Acute (3) Black tarry stools: Code(s): K92.1 - Melena Status: Acute (4) Anemia: Code(s): D64.9 - Anemia, unspecified Status: Acute Plan 43-year-old female with a PMH of Gastric Bypass, h/o C Diff, h/o Recurrent Pancreatitis, h/o GI Bleed w/ Gastric Ulcer, Depression and Alcohol Abuse who presented to the ER w/ c/o abdominal pain and hematemesis. Recent admit 01/02-01/07 for similar complaints, s/p EGD 01/03/19 w/ ulcerated anastomosis of gastrojejunal area, s/p eval by Bariatric Sx, no surgical intervention recommended at this time, states she is to follow w/ Dr. Tang as outpatient. 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, no active toxins -stool studies ordered per GI -Continue Lactinex Intractable nausea/vomiting: -Repeat CT abdomen/pelvis 01/13 with no acute findings -continue Reglan PRN -diet advanced to soft -GI following as above Left lower quadrant abdominal pain -pt s/p colonoscopy -d/c'd IV Dilaudid, transitioned to PO pain meds -Pain improved, nontender with exam Anxiety: Chronic -PO Ativan Generalized body itching w/o rash -lotion for hydration -Hydroxyzine PRN Alcohol Abuse: Reportedly quit 1mo ago -MVI/Thiamine/Folate as needed -No signs of alcohol withdrawal DVT Prophylaxis: SCD's; avoid chemical prophylaxis with concern for GI bleeding Discharge Planning: Discharge pending further clinical improvement and GI clearance. Progress Note: Quality VTE Deep Vein Thrombosis/Pulmonary Embolism Present on Admission: No _ (1) Anemia Qualifiers: Anemia type: Bone marrow failure anemia type: Chronic kidney disease stage : Folate deficiency anemia type: Hemolytic anemia type: Iron deficiency anemia type: Other causes of anemia: Vitamin B12 deficiency anemia type: (2) Hematemesis/vomiting blood Qualifiers: Nausea presence: (3) Abdominal pain Qualifiers: Abdominal location:
[2019-01-14] MEDS: Lactobacillus Acidophilus/L. Spores Tablet PO SCH ×2 (12:47→20:11)
[2019-01-15 00:21] VITALS: RESP 16
[2019-01-15 04:26] VITALS: PULSE 76
[2019-01-15] MEDS: Lactobacillus Acidophilus/L. Spores Tablet PO SCH (08:04)
[2019-01-15] MEDS: Folic Acid 1 MG Tablet PO SCH (08:04)
[2019-01-15] MEDS: Multivitamin/Minerals Therapeutic Tablet PO SCH (08:04)
[2019-01-15] MEDS: Senna/Docusate Sodium 8.6/50 MG Tablet PO SCH (08:05)
--- NOTE | 2019-01-15 08:10 | P.DS ---
DS: Providers Date of admission: 01/11/19 03:37 Primary care physician: No Primary Care Physician Consults: 01/11/19 03:43 Consult to Gastroenterology Routine Consulting Provider: Macho Lebron Reason for Consultation: Recurrent GI Bleed CONSULT FOR AM Notified:: Service Spoke with:: YOGI Date Notified:: 01/11/19 Time Notified:: 04:16 Ordering Provider: JANE Anticipated date of discharge: 01/15/19 Brief History from admission: This is a 43-year-old female with a PMH of Gastric Bypass, h/o C Diff, h/o Recurrent Pancreatitis, h/o GI Bleed w/ Gastric Ulcer, Depression and Alcohol Abuse who presented to the ER w/ c/o abdominal pain and hematemesis. Pt well-known to me from multiple admissions in the past for same. Recent admit 01/02-01/07/19 for similar complaints, s/p EGD 01/03/19 w/ ulcerated anastomosis of gastrojejunal area, s/p eval by Bariatric Sx, no surgical intervention recommended at this time, states she is to follow w/ Dr. Tang as outpatient. Today, reports ongoing nausea/vomiting w/ hematemesis. Hgb 10.8, previously 11.6, repeat Hgb while in ER down to 9.8. INR 1.0. Chemistry essentially unremarkable. Currently on Protonix. Patient update on day of discharge: Patient reports feeling better today. Denies any further nausea or vomiting. Abdominal pain much improved. She reports continued few episodes of loose stools. Denies fevers or chills. She is tolerating oral intake. Discussed recommendations to follow-up with GI after discharge, patient verbalized understanding. DS: Diagnosis Discharge Diagnosis (1) Hematemesis/vomiting blood: Status: Acute (2) Abdominal pain: Status: Acute (3) Black tarry stools: Status: Acute (4) Anemia: Status: Acute DS: Summary 43-year-old female with a PMH of Gastric Bypass, h/o C Diff, h/o Recurrent Pancreatitis, h/o GI Bleed w/ Gastric Ulcer, Depression and Alcohol Abuse who presented to the ER w/ c/o abdominal pain and hematemesis. Recent admit 01/02-01/07 for similar complaints, s/p EGD 01/03/19 w/ ulcerated anastomosis of gastrojejunal area, s/p eval by Bariatric Sx, no surgical intervention recommended at this time, states she is to follow w/ Dr. Tang as outpatient. GI Bleed, gastric ulcer, hemorrhoids: GI consulted, s/p EGD/colonoscopy 01/12 which showed gastric body ulcer, sigmoid colon polyp, internal/external hemorrhoids. GI recommending PPI, likely repeat EGD in 3 months, yearly Hemoccult, colonoscopy in 5 years. Continue Protonix 40 mg bid. Repeat labs stable, hemoglobin 11.7, consistent with baseline. No further signs of bleeding. Cleared for discharge by GI. Diarrhea: w/ hx of C Diff, completed treatment with vancomycin. Prior stool studies consistent with C. difficile carrier, no active toxins. No further indication for C. difficile treatment per GI. Continue Lactinex. Symptoms improving. Outpatient follow-up with GI. Intractable nausea/vomiting: Repeat CT abdomen/pelvis 01/13 with no acute findings. Continue Reglan PRN. Diet advanced to soft, patient tolerating well. Cleared for discharge by GI Left lower quadrant abdominal pain: pt s/p colonoscopy as above. D/c'd IV Dilaudid, transitioned to PO pain meds. Pain improved, nontender with exam and tolerating oral intake. Time Spent with Patient Total time spent providing and/or coordinating discharge services: Greater than 30 minutes Quality: VTE Deep Vein Thrombosis/Pulmonary Embolism Present on Admission: No Exam Narrative Exam Narrative: GENERAL: Well-nourished, well-developed middle-aged female patient in [facility]. SKIN: Warm and dry. No rash. HEENT: Atraumatic. Mucous membranes pink and moist. CARDIOVASCULAR: Regular rate and rhythm. No murmur appreciated. RESPIRATORY: No accessory muscle use. Clear to auscultation. Breath sounds equal bilaterally. GASTROINTESTINAL: Abdomen soft, non-tender, nondistended. Normoactive bowel sounds x4. MUSCULOSKELETAL: No obvious deformities. Extremities without clubbing, cyanosis , or edema. NEUROLOGICAL: Awake and alert. No obvious cranial nerve deficits. Moving all extremities spontaneously. Normal speech. Results Completed studies during hospitalization: Pending at discharge 01/12/19 09:14 Surgical [PTH] Routine Labs on day of discharge: Labs from last 24 hours 02/19/19 02/19/19 05:45 05:45 WBC 6.4 RBC 3.47 L Hgb 11.7 Hct 34.6 L MCV 99.9 MCH 33.8 MCHC 33.8 RDW 19.7 H Plt Count 291 MPV 7.1 Neut % (Auto) 56.6 Lymph % (Auto) 32.6 [place] % (Auto) 7.4 Eos % (Auto) 2.8 Baso % (Auto) 0.6 Neut # (Auto) 3.6 Lymph # (Auto) 2.1 [place] # (Auto) 0.5 Eos # (Auto) 0.2 Baso # (Auto) 0.0 WBC Differential . Differential Comment Auto diff final Sodium 140 Potassium 3.9 Chloride 106 Carbon Dioxide 27.0 Anion Gap 7 BUN 3 L Creatinine 0.38 L Estimated GFR Greater than 89 Random Glucose 79 Calcium 8.0 L Impressions ITS Impressions Abdomen/Pelvis CT 01/13/19 16:31 CONCLUSION: 1. Hepatic fatty infiltration appears less severe when compared to the prior. Patient is status post cholecystectomy and gastric bypass. 2. Stable 2.7 cm anterior abdominal wall hernia just inferior and to the right of the umbilicus only contains fat. 3. Stable bilateral ovarian cysts. Uterus is retroverted. 4. Generalized anasarca in the subcutaneous tissues of the trunk may represent some volume overload or right heart insufficiency. 5. Nothing acute. Discharge Plan Discharge Disposition Patient Disposition: Discharge Home Discharge Condition Condition: Stable Discharge Order Discharge Orders: Discharge Order (Routine); Ordered 01/15/19 Ordered By: Naya Fortune Discharge Details Anticipated Discharge Date: 01/15/19 Physicians Team ED Provider: Janie Segundo Primary Care Provider: Primary Care Mago Prajapati Attending Provider: Anant Soriano Other Providers: Macho Lebron Rxs /Orders / Referrals /Forms Prescriptions: New loperamide [Imodium A-D] 2 mg tablet 2 mg PO Q4H PRN (Reason: loose stool) Qty: 30 RF: 0 pantoprazole [Protonix] 40 mg tablet,delayed release (DR/EC) 40 mg PO BID 30 Days Qty: 60 RF: 0 metoclopramide HCl [Reglan] 10 mg tablet 10 mg PO Q6H PRN (Reason: nausea and vomiting) 7 Days Qty: 28 RF: 0 Lactobacillus acidoph-L.bulgar [Lactinex] 1 million cell tablet,chewable 1 tab PO BID Qty: 60 RF: 0 Continue sucralfate 1 gram Tablet 1 g PO ACHS 30 Days Qty: 90 RF: 0 thiamine HCl (vitamin B1) 100 mg Tablet 100 mg PO BID 30 Days Qty: 60 RF: 0 Discontinued pantoprazole 40 mg Tablet,Delayed Release (Dr/Ec) 40 mg PO BID 30 Days Qty: 60 RF: 0 famotidine [Pepcid] 20 mg tablet 20 mg PO BID 42 Days Qty: 84 RF: 0 metoclopramide HCl [Reglan] 10 mg tablet 10 mg PO Q6H PRN (Reason: nausea and vomiting) Qty: 10 RF: 0 oxycodone 5 mg tablet 5 mg PO Q4H PRN (Reason: pain) Qty: 10 RF: 0 promethazine 25 mg tablet 25 mg PO Q6H PRN (Reason: nausea and vomiting) Qty: 30 RF: 0 Referrals: Primary Care Mago Prajapati [Primary Care Provider] - See Instructions (PATIENT TO CALL [facility] FOR APPOINTMENT [phone]. OFFICE IS HAVING PHONE PROBLEMS.) Macho Lebron MD [Physician] - See Instructions Discharge Instructions Patient Printed Instructions: Gastritis (GEN) Post Discharge Care Plan Care Plan Goals: Your Health Problems: Goals to Promote Your Health: * To prevent worsening of your condition * To maintain your health at the optimal level Directions to Meet Your Goals: * Take your medications as prescribed * Follow your dietary instruction * Follow activity as directed * Keep your appointments as scheduled * Take your immunizations and boosters as scheduled * If your symptoms worsen call your PCP * If no PCP go to Urgent Care or Emergency Room Smoking is dangerous to your health. Avoid second hand smoke. You may reach the 24-hour crisis hotline for domestic abuse at . Status ED Status: Left Department Discharge Information Discharge Date/Time: 01/15/19 11:51
[2019-01-15] MEDS ORDERED: Loperamide 2 MG Capsule PO ONE (10:01)
[2019-01-15 10:02] VITALS: BP 129/84; TEMP 97.5; O2SAT 97
== END 2019-01-15 11:51 | disposition home or self-care (01) ==
LOC: NEDA 15:30 → NEPC 15:30 → NEDA 01-11 04:43 → NEPGCP 01-11 04:51
PROVIDERS: ADMIT Hospitalist; ATTEND Hospitalist
DX: F41.9 Anxiety disorder, unspecified; K86.1 Other chronic pancreatitis; D62 Acute posthemorrhagic anemia; K25.4 Chronic or unspecified gastric ulcer with hemorrhage; F32.9 Major depressive disorder, single episode, unspecified; N83.202 Unspecified ovarian cyst, left side; Z79.899 Other long term (current) drug therapy; K64.4 Residual hemorrhoidal skin tags; Z87.891 Personal history of nicotine dependence; K64.8 Other hemorrhoids; D12.5 Benign neoplasm of sigmoid colon; A04.72 Enterocolitis due to Clostridium difficile, not specified as recurrent; D50.9 Iron deficiency anemia, unspecified; K43.9 Ventral hernia without obstruction or gangrene; N83.201 Unspecified ovarian cyst, right side; F10.10 Alcohol abuse, uncomplicated; N85.4 Malposition of uterus
CPT/HCPCS: 74177; 76937; 80048; 80053; 81001; 82948; 82962; 83690; 83735; 85014; 85018; 85025; 87324; 87449; 87493; 88305; 88312; 90761; 90774; 90775; 90784; 93005; 96361; 96374; 96375; 96376; 97161; 99285; C8952; C9113; G0378; G8987; G8988; J1170; J2270; J2704; J2765; J7030; J7120; Q9963; Q9967

== ENCOUNTER 2019-01-19 00:10 | Observation (INO) ==
[2019-01-19] MEDS ORDERED: Sod Chloride 0.9% Inj 1,000 ML IV.SIG ONE (00:23)
[2019-01-19] MEDS ORDERED: Morphine Inj 4 MG/ML Vial IV.PUSH ONE (00:23)
[2019-01-19] MEDS ORDERED: Pantoprazole Inj 40 MG Vial IV.PUSH ONE (00:23)
--- NOTE | 2019-01-19 00:28 | ED ---
HPI General Chief Complaint: Abdominal Pain Stated Complaint: Nausea/Vomiting Time Seen by Provider: 01/19/19 00:23 Source: patient Mode of arrival: ambulatory Limitations: no limitations History of Present Illness HPI narrative: 43-year-old female patient with previous history of gastric ulcer , GI bleed, pancreatitis, presents to the ER today because she states that she is having left upper quadrant abdominal pains that she rates an 8 out of 10, has been nauseous, vomiting, and vomiting of blood today. She denies any fevers , diarrhea, or any other symptoms. Modifying Factors: None Associated Signs & Symptoms: Nausea, vomiting, left upper quadrant abdominal pain, vomited blood Risk Factors: Pancreatitis history, GI bleed Related Data Previous Rx's Medication Instructions Recorded sucralfate 1 g PO ACHS 30 Days #90 tab 01/06/19 thiamine HCl (vitamin B1) 100 mg PO BID 30 Days #60 tab 01/06/19 loperamide [Imodium A-D] 2 mg PO Q4H PRN #30 tab 01/15/19 pantoprazole [Protonix] 40 mg PO BID 30 Days #60 tab 01/15/19 Allergies Allergy/AdvReac Type Severity Reaction Status Date / Time ondansetron [From Zofran] Allergy Intermediate Itching Verified 01/19/19 00:12 Review of Systems ROS: all other systems reviewed are negative [facility] Medical History Medical History C. difficile colitis (Acute) Cervical lesion (Acute) Depression (Acute) ETOH abuse (Acute) GI bleed (Acute) Nausea (Acute) Stomach ulcer (Acute) Tobacco abuse (Acute) Surgical History Surgical History History of gastric bypass (Acute) Hx of cholecystectomy (Acute) Family History Family History Mother Family history of cervical cancer Father Family history of hypertension Other CAD (coronary artery disease) Social History Social History Substance History: No History of Abuse Second Hand Smoke Exposure: Yes Smoking Status: Current every day smoker Tobacco Type: Cigarettes How Often Do You Have a Drink Containing Alcohol: Never Recent Travel in [facility] within the Last 8 Weeks: No Recent Out of Country Travel within the Last 8 Weeks: No Immunization History Tetanus Immunization Year if Known: 2015 Exam Narrative Exam Narrative: GENERAL: Well-developed middle-age female patient currently in moderate distress. Awake and oriented x3. SKIN: Focused skin assessment warm/dry. HEAD: Atraumatic. Normocephalic. EYES: Pupils equal and round. No scleral icterus. No injection or drainage. ENT: No nasal bleeding or discharge. Mucous membranes pink and moist. NECK: Trachea midline. No JVD. CARDIOVASCULAR: Regular rate and rhythm. No murmur appreciated. RESPIRATORY: No accessory muscle use. Clear to auscultation. Breath sounds equal bilaterally. GASTROINTESTINAL: Abdomen soft, epigastric and left upper quadrant tenderness without guarding or rebound, nondistended. Hepatic and splenic margins not palpable. MUSCULOSKELETAL: No obvious deformities. No clubbing. No cyanosis. No edema. NEUROLOGICAL: Awake and alert. No obvious cranial nerve deficits. Motor grossly within normal limits. Normal speech. PSYCHIATRIC: Appropriate mood and affect; insight and judgment normal. Course Initial Documented Vital Signs Temperature 99.1 F 01/19/19 00:12 Pulse Rate 117 H 01/19/19 00:12 Respiratory Rate 20 01/19/19 00:12 Blood Pressure 148/101 H 01/19/19 00:12 Pulse Oximetry 98 01/19/19 00:12 Last Documented Vital Signs Temperature 99.1 F 01/19/19 00:12 Pulse Rate 89 01/19/19 01:00 Respiratory Rate 18 01/19/19 01:00 Blood Pressure 132/82 01/19/19 01:00 Pulse Oximetry 95 01/19/19 01:00 Medical Decision Making [facility] Narrative Medical decision making narrative: Patient was given IV fluids, nausea medications, and Protonix in the ER. CAT scan did not show any signs of acute intra-abdominal processes. Her hemoglobin was initially 12 and it dropped down to 10 on recheck at 3-hour nayeli. At this point, my plan would be to admit the patient for further evaluation and treatment. Case is discussed with Dr. Reddy for admission. Medical Screen Exam Complete: Yes Emergency Medical Condition: Yes Differential Diagnosis Differential Diagnosis: Gastritis versus gastritis versus pancreatitis versus GI bleed Lab Data Lab results reviewed: Yes I reviewed the patient's lab results. Result diagrams: 01/19/19 03:04 01/19/19 01:15 Lab Results 01/19/19 01/19/19 01/19/19 Range/Units 01:15 01:15 01:15 WBC 12.8 H (4.0-11.0) th/mm3 RBC 3.76 L (4.00-5.30) mil/mm3 Hgb 12.1 (11.6-15.3) gm/dL Hct 36.4 (35.0-46.0) % MCV 96.7 (80.0-100.0) fL MCH 32.1 (27.0-34.0) pg MCHC 33.2 (32.0-36.0) % RDW 19.1 H (11.6-17.2) % Plt Count 359 (150-450) th/mm3 MPV 8.3 (7.0-11.0) fL Prelim Diff (Auto) Slide review pending Neut % (Auto) 60.6 (16.0-70.0) % Lymph % (Auto) 27.8 (9.0-44.0) % [place] % (Auto) 7.5 (0.0-8.0) % Eos % (Auto) 2.2 (0.0-4.0) % Baso % (Auto) 1.9 (0.0-2.0) % Neut # (Auto) 7.8 H (1.8-7.7) th/mm3 Lymph # (Auto) 3.6 (1.0-4.8) th/mm3 [place] # (Auto) 1.0 H (0.0-0.9) th/mm3 Eos # (Auto) 0.3 (0.0-0.4) th/mm3 Baso # (Auto) 0.2 (0.0-0.2) th/mm3 WBC Differential . Diff Scan Auto diff confirmed Differential Comment . Platelet Estimate Normal (Normal) Platelet Morphology Normal (Normal) Keratocytes Occ H (None) Sodium 141 (136-145) meq/L Potassium 3.8 (3.5-5.1) meq/L Chloride 105 (98-107) meq/L Carbon Dioxide 26.3 (21.0-32.0) meq/L Anion Gap 10 (5-15) meq/L BUN 7 (7-18) mg/dL Creatinine 0.45 L (0.50-1.00) mg/dL Estimated GFR Greater than 89 (>89) mL/min Random Glucose 86 (74-106) mg/dL Calcium 7.7 L (8.5-10.1) mg/dL Magnesium 1.5 (1.5-2.5) mg/dL Total Bilirubin 0.3 (0.2-1.0) mg/dL AST 25 (15-37) U/L ALT 19 (10-53) U/L Alkaline Phosphatase 120 H (45-117) U/L Total Protein 7.0 D (6.4-8.2) g/dL Albumin 2.8 L (3.4-5.0) g/dL Lipase 249 (73-393) U/L Urine Color Yellow (Yellw/Straw) Urine Clarity Hazy H (Clear) Urine pH 7.0 (5.0-8.5) Ur Specific [place] 1.020 (1.002-1.035) Urine Protein Negative (Neg-Trace) mg/dL Urine Glucose (UA) Negative (Negative) mg/dL Urine Ketones Negative (Negative) mg/dL Urine Occult Blood Negative (Negative) Urine Nitrate Negative (Negative) Urine Bilirubin Negative (Negative) Urine Urobilinogen Less than 2 (Less than 2) mg/dL Ur Leukocyte Esterase Negative (Negative) Urine RBC Less than 1 (0-3) /hpf Urine WBC 1 (0-5) /hpf Ur Squamous Epith Cells 9 (0-5) /hpf Urine Mucus Few H (Occasional) /lpf Micro UA Comment Culture not ind Ur Microscopic Review Not Reportable Urine Culture Comments Culture not ind 01/19/19 Range/Units 03:04 WBC 12.3 H (4.0-11.0) th/mm3 RBC 3.42 L (4.00-5.30) mil/mm3 Hgb 10.8 L (11.6-15.3) gm/dL Hct 33.9 L (35.0-46.0) % MCV 99.2 (80.0-100.0) fL MCH 31.7 (27.0-34.0) pg MCHC 31.9 L (32.0-36.0) % RDW 19.3 H (11.6-17.2) % Plt Count 257 (150-450) th/mm3 MPV 7.6 (7.0-11.0) fL Prelim Diff (Auto) Neut % (Auto) 66.5 (16.0-70.0) % Lymph % (Auto) 23.2 (9.0-44.0) % [place] % (Auto) 7.4 (0.0-8.0) % Eos % (Auto) 1.9 (0.0-4.0) % Baso % (Auto) 1.0 (0.0-2.0) % Neut # (Auto) 8.2 H (1.8-7.7) th/mm3 Lymph # (Auto) 2.9 (1.0-4.8) th/mm3 [place] # (Auto) 0.9 (0.0-0.9) th/mm3 Eos # (Auto) 0.2 (0.0-0.4) th/mm3 Baso # (Auto) 0.1 (0.0-0.2) th/mm3 WBC Differential . Diff Scan Differential Comment Auto diff final Platelet Estimate (Normal) Platelet Morphology (Normal) Keratocytes (None) Sodium (136-145) meq/L Potassium (3.5-5.1) meq/L Chloride (98-107) meq/L Carbon Dioxide (21.0-32.0) meq/L Anion Gap (5-15) meq/L BUN (7-18) mg/dL Creatinine (0.50-1.00) mg/dL Estimated GFR (>89) mL/min Random Glucose (74-106) mg/dL Calcium (8.5-10.1) mg/dL Magnesium (1.5-2.5) mg/dL Total Bilirubin (0.2-1.0) mg/dL AST (15-37) U/L ALT (10-53) U/L Alkaline Phosphatase (45-117) U/L Total Protein (6.4-8.2) g/dL Albumin (3.4-5.0) g/dL Lipase (73-393) U/L Urine Color (Yellw/Straw) Urine Clarity (Clear) Urine pH (5.0-8.5) Ur Specific [place] (1.002-1.035) Urine Protein (Neg-Trace) mg/dL Urine Glucose (UA) (Negative) mg/dL Urine Ketones (Negative) mg/dL Urine Occult Blood (Negative) Urine Nitrate (Negative) Urine Bilirubin (Negative) Urine Urobilinogen (Less than 2) mg/dL Ur Leukocyte Esterase (Negative) Urine RBC (0-3) /hpf Urine WBC (0-5) /hpf Ur Squamous Epith Cells (0-5) /hpf Urine Mucus (Occasional) /lpf Micro UA Comment Ur Microscopic Review Urine Culture Comments Imaging Data Attestation: I personally reviewed and interpreted this imaging study as follows : Radiologist's impression: Abdomen/Pelvis CT 01/19/19 00:23 CONCLUSION: 1. No acute abnormality. 2. 4.9 cm left adnexal cystic structure likely ovarian in nature. No free fluid. 3. Prior cholecystectomy. 4. Prior gastric bypass. 5. Small ventral hernia containing fat. Discharge Plan Discharge Order Discharge Orders: ED Use Only Admit Order (Routine); Ordered 01/19/19 Ordered By: Pennie Anna Discharge Details Anticipated Discharge Date: 01/19/19 Physicians Team ED Provider: Pennie Anna Primary Care Provider: UNKNOWN, Rxs /Orders / Referrals /Forms Prescriptions: No Action sucralfate 1 gram Tablet 1 g PO ACHS 30 Days Qty: 90 RF: 0 thiamine HCl (vitamin B1) 100 mg Tablet 100 mg PO BID 30 Days Qty: 60 RF: 0 loperamide [Imodium A-D] 2 mg tablet 2 mg PO Q4H PRN (Reason: loose stool) Qty: 30 RF: 0 pantoprazole [Protonix] 40 mg tablet,delayed release (DR/EC) 40 mg PO BID 30 Days Qty: 60 RF: 0 Discharge Interventions Interventions: Vital Signs Last Done: 01/19/19 01:00 Status ED Status: With Doctor
--- NOTE | 2019-01-19 01:25 | CT ---
EXAM DATE: 01/19/2019 1:07 AM EST AGE/SEX: 43 years / Female INDICATIONS: Left upper quadrant pain. CLINICAL DATA: This is the patient's initial encounter. Patient reports that signs and symptoms have been present for 1 day and indicates a pain score of 7/10. MEDICAL/SURGICAL HISTORY: Gastrointestinal bleed. ETOH abuse, C-diff Gastric bypass. Cholecys tectomy. ORAL CONTRAST: No oral contrast ingested. RADIATION DOSE: 6.91 CTDI (mGy) COMPARISON: [facility] [place]OM[place]ELVIS W CONTRAST, 01/13/2019. . TECHNIQUE: Multiple contiguous axial images were obtained through the abdomen and pelvis following b olus infusion of 96 ml Omnipaque 350 (iohexol) nonionic water-soluble contrast as a single exam dos e. No oral contrast ingested. Using automated exposure control and adjustment of the mA and/or kV ac cording to patient size, radiation dose was kept as low as reasonably achievable to obtain optimal di agnostic quality images. DICOM format image data is available electronically for review and comparis on. FINDINGS: Lower Lungs: The visualized lower lungs are clear. Liver: The liver has a homogeneous density without space-occupying lesion. There is no dilation of th e biliary tree. Prior cholecystectomy. Spleen: Homogeneous density without enlargement. Pancreas: Unremarkable without mass or calcification. Kidneys: Normal in size and shape. No evidence of mass or hydronephrosis. Adrenal Glands: Unremarkable. Aorta: The aorta and proximal iliac vessels are grossly unremarkable without aneurysmal dilation. Bowel/Mesentery: Postsurgical changes consistent with gastric bypass. The bowel loops are grossly unr emarkable. The cecum and sigmoid colon have a normal configuration. Abdominal Wall: A small ventral hernia containing omental fat. This projects just inferior to the um bilicus.. Retroperitoneum: No evidence of adenopathy in the retrocrural, para-aortic, or deep pelvic regions. Bladder: Contours are smooth. Reproductive Organs: A cystic structure is seen within the left adnexa likely ovarian in origin. It measures 4.9 x 2.6 cm. Hounsfield units are 24. Uterus is unremarkable. Right ovary is unremarkable. No free fluid.. Inguinal: The inguinal region is unremarkable without evidence of adenopathy. Bony Structures: Unremarkable. CONCLUSION: 1. No acute abnormality. 2. 4.9 cm left adnexal cystic structure likely ovarian in nature. No free fluid. 3. Prior cholecystectomy. 4. Prior gastric bypass. 5. Small ventral hernia containing fat. Electronically signed by: Toi Rangel MD Board Certified Radiologist 01/19/2019 1:24 AM EST
[2019-01-19 01:46] LABS: Baso # (Auto) 0.2 th/mm3 (0.0-0.2); Baso % (Auto) 1.9 % (0.0-2.0); Bilirubin,Urine Negative (Negative); Clarity,Urine Hazy (Clear); Color,Urine Yellow (Yellw/Straw); Eos # (Auto) 0.3 th/mm3 (0.0-0.4); Eos % (Auto) 2.2 % (0.0-4.0); Glucose,Urine (UA) Negative (Negative); Hematocrit 36.4 % (35.0-46.0); Hemoglobin 12.1 gm/dL (11.6-15.3); Leukocyte Esterase,Urine Negative (Negative); Lymph # (Auto) 3.6 th/mm3 (1.0-4.8); Lymph % (Auto) 27.8 % (9.0-44.0); Mean Corpuscular HGB Conc 33.2 % (32.0-36.0); Mean Corpuscular Hemoglobin 32.1 pg (27.0-34.0); Mean Corpuscular Volume 96.7 fL (80.0-100.0); Mean Platelet Volume 8.3 fL (7.0-11.0); Mono % (Auto) 7.5 % (0.0-8.0); Mucus,Urine Few /lpf (Occasional); Neut # (Auto) 7.8 th/mm3 (1.8-7.7); Neut % (Auto) 60.6 % (16.0-70.0); Nitrite,Urine Negative (Negative); Platelet Count 359 th/mm3 (150-450); Red Blood Count 3.76 mil/mm3 (4.00-5.30); Red Cell Distribution Width 19.1 % (11.6-17.2); Squamous Epithelial Cell,Urine 9 /hpf (0-5); White Blood Count 12.8 th/mm3 (4.0-11.0)
[2019-01-19 01:59] LABS: Alanine Aminotransferase 19 U/L (10-53); Albumin 2.8 g/dL (3.4-5.0); Anion Gap 10 meq/L (5-15); Aspartate Aminotransferase 25 U/L (15-37); Blood Urea Nitrogen 7 mg/dL (7-18); Calcium 7.7 mg/dL (8.5-10.1); Carbon Dioxide 26.3 meq/L (21.0-32.0); Chloride 105 meq/L (98-107); Glomerular Filtration Rate Greater Than 89 mL/min (>89); Glucose,Random 86 mg/dL (74-106); Lipase 249 U/L (73-393); Magnesium 1.5 mg/dL (1.5-2.5); Potassium 3.8 meq/L (3.5-5.1); Sodium 141 meq/L (136-145)
[2019-01-19 02:02] LABS: Alkaline Phosphatase 120 U/L (45-117)
[2019-01-19 03:03] LABS: Platelet Estimate Normal (Normal); Platelet Morphology Normal (Normal)
[2019-01-19 03:57] LABS: Baso # (Auto) 0.1 th/mm3 (0.0-0.2); Eos # (Auto) 0.2 th/mm3 (0.0-0.4); Eos % (Auto) 1.9 % (0.0-4.0); Hematocrit 33.9 % (35.0-46.0); Hemoglobin 10.8 gm/dL (11.6-15.3); Lymph # (Auto) 2.9 th/mm3 (1.0-4.8); Lymph % (Auto) 23.2 % (9.0-44.0); Mean Corpuscular HGB Conc 31.9 % (32.0-36.0); Mean Corpuscular Hemoglobin 31.7 pg (27.0-34.0); Mean Corpuscular Volume 99.2 fL (80.0-100.0); Mean Platelet Volume 7.6 fL (7.0-11.0); Mono # (Auto) 0.9 th/mm3 (0.0-0.9); Mono % (Auto) 7.4 % (0.0-8.0); Neut # (Auto) 8.2 th/mm3 (1.8-7.7); Neut % (Auto) 66.5 % (16.0-70.0); Platelet Count 257 th/mm3 (150-450); Red Blood Count 3.42 mil/mm3 (4.00-5.30); Red Cell Distribution Width 19.3 % (11.6-17.2); White Blood Count 12.3 th/mm3 (4.0-11.0)
[2019-01-19] MEDS ORDERED: Bisacodyl 10 MG Supp RECTAL PRN (04:11)
[2019-01-19] MEDS ORDERED: Acetaminophen 325 MG Tablet PO PRN (04:11)
--- NOTE | 2019-01-19 04:25 | P.HPIM ---
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 Multiple admissions for same. Recent admit 01/11-01/15/19 for similar complaints, s/p EGD/Colonoscopy 01/12/19 w/ gastric body ulcer and internal/external hemorrhoids, plan for repeat EGD in 3 months, yearly Hemoccult and repeat Colonoscopy in 5yrs. Returns now w/ ongoing hematemesis, states vomiting up blood several times today. Pain is severe, 9/10, non- radiating, mostly in epigastric/LUQ region. Decreased PO due to symptoms. On arrival, BP 148/101, HR 117, O2 sat 98% on RA, Temp 99.1. Hemoglobin 12.1 initially, however patient with episode of hematemesis while in the ER, repeat hemoglobin decreased to 10.8. Chemistry unremarkable. CT Abdomen/Pelvis no acute finding. Diagnosis (1) Anemia: (2) GI bleed: (3) Intractable abdominal pain: Review of Systems PAST FAMILY HISTORY: Reviewed. No h/o DM or CAD Review of Systems: all other systems reviewed are negative [facility], [facility] Medical History Medical History C. difficile colitis (Acute) Cervical lesion (Acute) Depression (Acute) ETOH abuse (Acute) GI bleed (Acute) Nausea (Acute) Stomach ulcer (Acute) Tobacco abuse (Acute) Surgical History Surgical History History of gastric bypass (Acute) Hx of cholecystectomy (Acute) Family History Family History Mother Family history of cervical cancer Father Family history of hypertension Other CAD (coronary artery disease) Social History Social History Substance History: No History of Abuse Second Hand Smoke Exposure: Yes Smoking Status: Current every day smoker Tobacco Type: Cigarettes How Often Do You Have a Drink Containing Alcohol: Never Recent Travel in [facility] within the Last 8 Weeks: No Recent Out of Country Travel within the Last 8 Weeks: No Immunization History Tetanus Immunization: <5 Years Tetanus Immunization Year if Known: 2014 Medications and Allergies Allergies Allergy/AdvReac Type Severity Reaction Status Date / Time ondansetron [From Zofran] Allergy Intermediate Itching Verified 01/19/19 00:12 Active Medications: Active Medications Sodium Chloride (Ns Flush) 2 ml IV.FLUSH PRN PRN PRN Reason: FLUSH AFTER USING IV ACCESS Physical Exam Vital signs: Vital Signs 01/19/19 00:12 01/19/19 01:00 Temperature 99.1 F Pulse Rate 117 H 89 Respiratory Rate 20 18 Blood Pressure 148/101 H 132/82 Pulse Oximetry 98 95 Intake & Output 01/18/19 01/18/19 01/19/19 06:59 18:59 06:59 Intake Total 1000 / 1000 Balance 1000 / 1000 Intake: IV 1000 / 1000 NS Inj 1,000 ML @ Wide Open IV. 1000 / 1000 SIG BOLUS ONE Rx#:[id number] Narrative: PE: GENERAL: Young white female in no acute distress. SKIN: Focused skin assessment warm and dry. HEENT: PERRLA, EOMI. No scleral icterus or conjunctival pallor. No lid lag or facial droop. CARDIOVASCULAR: Regular rate and rhythm. No obvious murmurs to auscultation. No chest tenderness to palpation. RESPIRATORY: No obvious rhonchi or wheezing. Clear to auscultation. Breath sounds equal bilaterally. GASTROINTESTINAL: Abdomen soft, epigastric tenderness to palpation, nondistended. BS normal. MUSCULOSKELETAL: Extremities without clubbing, cyanosis, or edema. No obvious deformities. NEUROLOGICAL: Awake, alert and oriented x4. No focal neurologic deficits. Moving both upper and lower extremities spontaneously. PSYCHIATRIC: Appropriate mood and affect. Insight and judgment normal. Results Labs CBC & Chem 7: 01/19/19 03:04 01/19/19 01:15 Imaging Impressions Abdomen/Pelvis CT 01/19/19 00:23 CONCLUSION: 1. No acute abnormality. 2. 4.9 cm left adnexal cystic structure likely ovarian in nature. No free fluid. 3. Prior cholecystectomy. 4. Prior gastric bypass. 5. Small ventral hernia containing fat. Caprini VTE Risk Assessment Caprini VTE Risk Assessment: No/Low Risk (score <= 1) VTE Pharmacological Exception Reason: Active bleeding Caprini Risk Assessment Model: Point Value = 1 Point Value = 2 Point Value = 3 Point Value = 5 Age 41-60 Minor surgery BMI > 25 kg/m2 Swollen legs Varicose veins or History of unexplained or recurrent spontaneous Oral contraceptives or hormone replacement Sepsis (< 1 month) Serious lung disease, including pneumonia (< 1 month) Abnormal pulmonary function Acute myocardial infarction Congestive heart failure (< 1 month) History of inflammatory bowel disease Medical patient at bed rest Age 61-74 Arthroscopic surgery Major open surgery (> 45 min) Laparoscopic surgery (> 45 min) Malignancy Confined to bed (> 72 hours) Immobilizing plaster cast Central venous access Age >= 75 History of VTE Family history of VTE Factor V Leiden Prothrombin 14055L Lupus anticoagulant Anticardiolipin antibodies Elevated serum homocysteine Heparin-induced thrombocytopenia Other congenital or acquired thrombophilia Stroke (< 1 month) Elective arthroplasty Hip, pelvis, or leg fracture Acute spinal cord injury (< 1 month) Prophylaxis Regimen: Total Risk Factor Score Risk Level Prophylaxis Regimen 0-1 Low Early ambulation 2 Moderate Order ONE of the following: *Sequential Compression Device (SCD) *Heparin 5000 units SQ BID 3-4 Higher Order ONE of the following medications: *Heparin 5000 units SQ TID *Enoxaparin/Lovenox 40 mg SQ daily (WT < 150 kg, CrCl > 30 mL/min) *Enoxaparin/Lovenox 30 mg SQ daily (WT < 150 kg, CrCl > 10-29 mL/min) *Enoxaparin/Lovenox 30 mg SQ BID (WT < 150 kg, CrCl > 30 mL/min) AND/OR *Sequential Compression Device (SCD) 5 or more Highest Order ONE of the following medications: *Heparin 5000 units SQ TID (Preferred with Epidurals) *Enoxaparin/Lovenox 40 mg SQ daily (WT < 150 kg, CrCl > 30 mL/min) *Enoxaparin/Lovenox 30 mg SQ daily (WT < 150 kg, CrCl > 10-29 mL/min) *Enoxaparin/Lovenox 30 mg SQ BID (WT < 150 kg, CrCl > 30 mL/min) AND *Sequential Compression Device (SCD) Assessment and Plan (1) Anemia: Code(s): D64.9 - Anemia, unspecified Status: Acute (2) GI bleed: Code(s): K92.2 - Gastrointestinal hemorrhage, unspecified Status: Acute (3) Intractable abdominal pain: Code(s): R10.9 - Unspecified abdominal pain Status: Acute Plan A/P: 1. GI Bleed: Recurrent, multiple admissions for same, recent EGD/Colonoscopy w/ gastric body ulcer and internal/external hemorrhoids w/ plan for repeat EGD in 3 months, now w/ recurrent bleeding. Protonix gtt, NPO, IVF, Consult GI for further eval/intervention, may need Gen Sx/Bariatric Sx eval for revision. Reports quitting alcohol. 2. Anemia: Initial Hgb 12.1, episodes of hematemesis while in ER w/ repeat Hgb now 10.8, significant decreased in 2hrs, will check Type & Screen, transfuse as needed, monitor closely. 3. Intractable Abd Pain: CT Abd/Pelvis w/ no acute findings, continue analgesics/antiemetics 4. DVT Prophylaxis: Pharmacologic contraindication in light of acute bleeding 5. Social work for d/c planning as needed. 6. Case discussed w/ ER physician at length, labs/records/imaging reviewed by me. _ (1) Anemia Qualifiers: Anemia type: Iron deficiency anemia type: Vitamin B12 deficiency anemia type: Folate deficiency anemia type: Bone marrow failure anemia type: Hemolytic anemia type: Other causes of anemia: Chronic kidney disease stage : (2) GI bleed Qualifiers: GI bleed type/associated pathology: unspecified gastrointestinal hemorrhage type Gastritis type: Qualified Code(s): K92.2 - Gastrointestinal hemorrhage, unspecified
[2019-01-19] MEDS: Sod Chloride 0.9% Inj 1,000 ML IV.CONT SCH ×3 (04:44→23:44)
[2019-01-19] MEDS: Morphine Inj 4 MG/ML Vial IV.PUSH PRN ×5 (05:00→23:44)
[2019-01-19] MEDS: Pantoprazole Inj 80 MG in Sodium Chlor 0.9% Inj 100 ML IV.CONT SCH ×2 (05:27→15:58)
[2019-01-19] MEDS: Senna/Docusate Sodium 8.6/50 MG Tablet PO SCH ×2 (10:01→20:01)
--- NOTE | 2019-01-19 10:11 | P.PNIM ---
Subjective Interval history: Patient seen and examined this morning. Afebrile vital signs stable. Still continues to have abdominal pain. Had one more bout of diarrhea this morning. Awaiting evaluation by gastroenterology for GI bleed. Patient denies any chest pain or shortness of breath. Physical Exam Vital signs: Vital Signs 01/19/19 00:12 01/19/19 01:00 01/19/19 04:44 Temperature 99.1 F Pulse Rate 117 H 89 79 Respiratory Rate 20 18 20 Blood Pressure 148/101 H 132/82 117/77 Pulse Oximetry 98 95 97 Intake & Output 01/18/19 01/19/19 01/19/19 18:59 06:59 18:59 Intake Total 1000 / 1000 Balance 1000 / 1000 Intake: IV 1000 / 1000 NS Inj 1,000 ML @ Wide Open IV. 1000 / 1000 SIG BOLUS ONE Rx#:[id number] Narrative: GEN: Well-developed, well-nourished female patient. No acute distress. CV: Regular rate and rhythm without obvious murmurs LUNGS: Clear to auscultation bilaterally. Normal respiratory effort. No wheezes , rales, rhonchi. GI: Soft, mild tenderness to palpation in the epigastric region, nondistended. No palpable masses. Bowel sounds WNL. EXT: No edema. NEURO/PSYCH: Afocal. Awake, alert, and oriented x3. Appropriate insight and judgment. Results - Labs CBC & Chem 7: 01/19/19 03:04 01/19/19 01:15 Laboratory Results - last 24 hr 01/19/19 01/19/19 01/19/19 01:15 01:15 01:15 WBC 12.8 H RBC 3.76 L Hgb 12.1 Hct 36.4 MCV 96.7 MCH 32.1 MCHC 33.2 RDW 19.1 H Plt Count 359 MPV 8.3 Prelim Diff (Auto) Slide review pending Neut % (Auto) 60.6 Lymph % (Auto) 27.8 O'Brien % (Auto) 7.5 Eos % (Auto) 2.2 Baso % (Auto) 1.9 Neut # (Auto) 7.8 H Lymph # (Auto) 3.6 O'Brien # (Auto) 1.0 H Eos # (Auto) 0.3 Baso # (Auto) 0.2 WBC Differential . Diff Scan Auto diff confirmed Differential Comment . Platelet Estimate Normal Platelet Morphology Normal Keratocytes Occ H Sodium 141 Potassium 3.8 Chloride 105 Carbon Dioxide 26.3 Anion Gap 10 BUN 7 Creatinine 0.45 L Estimated GFR Greater than 89 Random Glucose 86 Calcium 7.7 L Magnesium 1.5 Total Bilirubin 0.3 AST 25 ALT 19 Alkaline Phosphatase 120 H Total Protein 7.0 D Albumin 2.8 L Lipase 249 Urine Color Yellow Urine Clarity Hazy H Urine pH 7.0 Ur Specific Melber 1.020 Urine Protein Negative Urine Glucose (UA) Negative Urine Ketones Negative Urine Occult Blood Negative Urine Nitrate Negative Urine Bilirubin Negative Urine Urobilinogen Less than 2 Ur Leukocyte Esterase Negative Urine RBC Less than 1 Urine WBC 1 Ur Squamous Epith Cells 9 Urine Mucus Few H Micro UA Comment Culture not ind Ur Microscopic Review Not Reportable Urine Culture Comments Culture not ind Blood Type Antibody Screen 01/19/19 01/19/19 03:04 04:41 WBC 12.3 H RBC 3.42 L Hgb 10.8 L Hct 33.9 L MCV 99.2 MCH 31.7 MCHC 31.9 L RDW 19.3 H Plt Count 257 MPV 7.6 Prelim Diff (Auto) Neut % (Auto) 66.5 Lymph % (Auto) 23.2 O'Brien % (Auto) 7.4 Eos % (Auto) 1.9 Baso % (Auto) 1.0 Neut # (Auto) 8.2 H Lymph # (Auto) 2.9 O'Brien # (Auto) 0.9 Eos # (Auto) 0.2 Baso # (Auto) 0.1 WBC Differential . Diff Scan Differential Comment Auto diff final Platelet Estimate Platelet Morphology Keratocytes Sodium Potassium Chloride Carbon Dioxide Anion Gap BUN Creatinine Estimated GFR Random Glucose Calcium Magnesium Total Bilirubin AST ALT Alkaline Phosphatase Total Protein Albumin Lipase Urine Color Urine Clarity Urine pH Ur Specific Melber Urine Protein Urine Glucose (UA) Urine Ketones Urine Occult Blood Urine Nitrate Urine Bilirubin Urine Urobilinogen Ur Leukocyte Esterase Urine RBC Urine WBC Ur Squamous Epith Cells Urine Mucus Micro UA Comment Ur Microscopic Review Urine Culture Comments Blood Type B Positive Antibody Screen Negative - Imaging Impressions Abdomen/Pelvis CT 01/19/19 00:23 CONCLUSION: 1. No acute abnormality. 2. 4.9 cm left adnexal cystic structure likely ovarian in nature. No free fluid. 3. Prior cholecystectomy. 4. Prior gastric bypass. 5. Small ventral hernia containing fat. Assessment and Plan - Assessment (1) Anemia Code(s): D64.9 - Anemia, unspecified Status: Acute (2) GI bleed Code(s): K92.2 - Gastrointestinal hemorrhage, unspecified Status: Acute (3) Intractable abdominal pain Code(s): R10.9 - Unspecified abdominal pain Status: Acute - Plan This is a 43-year-old female with past medical history significant for gastric bypass, chronic C. difficile carrier, recurrent pancreatitis, gastric ulcer with GI bleed, and alcohol abuse. Admitted for hematemesis, abdominal pain, and frequent diarrhea. 1. GI bleed: Recurrent multiple admissions for this. -Most recent EGD/colonoscopy 01/12/19 gastric body ulcer -GI consulted, recommendations appreciated 2. History of alcohol abuse -Placed on CIWA protocol 3. Anemia due to GI bleed -Trend H&H transfuse blood as needed 4. Intractable abdominal pain -Continue analgesics and antiemetics N.p.o. Monitor electrolytes place accordingly DVT prophylaxis with SCDs pharmacological contraindicated due to GI bleed Code Status: Full code Discharge Planning: Pending further gastroenterology workup (2) GI bleed Qualifiers: GI bleed type/associated pathology: unspecified gastrointestinal hemorrhage type Qualified Code(s): K92.2 - Gastrointestinal hemorrhage, unspecified
[2019-01-19] MEDS ORDERED: LORazepam 1 MG Tablet PO PRN (10:12)
[2019-01-19] MEDS ORDERED: Haloperidol Inj 5 MG/ML Ampul IV.PUSH PRN (10:12)
--- NOTE | 2019-01-19 11:30 | P.CONGI ---
History of Present Illness Consult date: 01/19/19 Requesting physician: Cherri Reddy Consult reason: recurrent GI bleed Chief complaint: GI Bleed History of Present Illness: 43-year-old female with history of gastric bypass surgery and gastric ulcer with GI bleeding presented to ER with hematemesis and abdominal pain. Gastric bypass surgery in 2007. Recurrent bleeding ulcer for the past 4 years. History of alcohol abuse, abstinent x4 months and prior to that abstinent x 1 year. Patient recently had an upper endoscopy for the same complaints and was found to have an ulceration at the anastomosis. She has been taking pantoprazole and Carafate. She denies dysphagia but states she frequently vomits up medication after taking it. She avoids NSAIDs. She has a history of alcohol abuse but has not had any alcohol in 4 months. She was discharged on with plans to repeat EGD in 3 months. Yesterday however patient's abdominal pain increased and she began vomiting stomach contents followed by bloody emesis. She denies melena. Initial labs in the ER showed hemoglobin of 12.1 but repeat hemoglobin was 10.8. No acute findings on CT of the abdomen and pelvis. Recent colonoscopy significant for internal and external hemorrhoids. <Ann Stewart - Last Filed: 01/19/19 11:30> [facility]LY [facility] - History History Provided By: Patient - Medical History Medical History: Medical History (Last Reviewed 01/19/19 @ 01:17 by Elyssa Frazier RN) C. difficile colitis Cervical lesion Depression ETOH abuse GI bleed Nausea Stomach ulcer Tobacco abuse - Surgical History Surgical History: Surgical History (Last Reviewed 01/19/19 @ 01:17 by Elyssa Frazier RN) History of gastric bypass Hx of cholecystectomy - Family History Family History: Family History (Last Reviewed 01/19/19 @ 00:27 by Pennie Anna MD) Mother Family history of cervical cancer Father Family history of hypertension Other CAD (coronary artery disease) - Tobacco History Second Hand Smoke Exposure: Yes Tobacco Use In Past 30 Days: Yes Smoking Status: Current every day smoker Tobacco Type: Cigarettes - Alcohol History How Often Do You Have a Drink Containing Alcohol: Never - Substance Use History Substance History: No History of Abuse - Travel History Recent Travel in the [place] Within the Last 8 Weeks: No Recent Travel Out of the Country Within the Last 8 Weeks: No - Immunization History Tetanus Immunization: <5 Years Tetanus Immunization Year if Known: 2014 <Ann Stewart - Last Filed: 01/19/19 11:30> - Medical History Medical History: Medical History (Last Reviewed 01/19/19 @ 01:17 by Elyssa Frazier, COLLEEN) C. difficile colitis Cervical lesion Depression ETOH abuse GI bleed Nausea Stomach ulcer Tobacco abuse - Surgical History Surgical History: Surgical History (Last Reviewed 01/19/19 @ 01:17 by Elyssa Frazier RN) History of gastric bypass Hx of cholecystectomy - Family History Family History: Family History (Last Reviewed 01/19/19 @ 00:27 by Pennie Anna MD) Mother Family history of cervical cancer Father Family history of hypertension Other CAD (coronary artery disease) <Sami Ryan - Last Filed: 01/19/19 20:34> Medications and Allergies Active Medications: Active Medications Acetaminophen (Tylenol) 650 mg PO Q4H PRN PRN Reason: Temp > 100.4 Al Hydroxide/Mg Hydroxide (Milk Of Magnesia Liq) 30 ml PO Q12H PRN PRN Reason: Mild Constipation Bisacodyl (Dulcolax Supp) 10 mg RECTAL DAILY PRN PRN Reason: SEVERE CONSITIPATION Flumazenil (Romazicon Inj) 0.2 mg IV.PUSH Q1M PRN PRN Reason: OVERSEDATION Haloperidol Lactate (Haldol Inj) 1 mg IV.PUSH Q15M PRN PRN Reason: for severe agitation Sodium Chloride (Ns Inj) 1,000 mls @ 100 mls/hr IV.CONT .Q10H [facility] Last Admin: 01/19/19 04:44 Dose: 100 mls/hr Pantoprazole Sodium 80 mg/ (Sodium Chloride) 100 mls @ 10 mls/hr IV.CONT Q10H [facility] Last Admin: 01/19/19 05:27 Dose: 10 mls/hr Lactulose (Lactulose Liq) 30 ml PO DAILY PRN PRN Reason: SEVERE CONSITIPATION Lorazepam (Ativan) 1 mg PO Q4H PRN PRN Reason: for CIWA 8-10 Lorazepam (Ativan) 2 mg PO Q2H PRN PRN Reason: for CIWA 11-14 Lorazepam (Ativan Inj) 2 mg IV.PUSH Q2H PRN PRN Reason: for CIWA 11-14 Lorazepam (Ativan Inj) 2 mg IV.PUSH Q1H PRN PRN Reason: for CIWA 15-20 Lorazepam (Ativan Inj) 2 mg IV.PUSH Q15M PRN PRN Reason: for CIWA > 20 Lorazepam (Ativan Inj) 1 mg IV.PUSH Q4H PRN PRN Reason: for CIWA 8-10 Metoclopramide HCl (Reglan Inj) 10 mg IV.PUSH Q8H PRN; Protocol PRN Reason: NAUSEA/VOMITING Morphine Sulfate (Morphine Inj) 2 mg IV.PUSH Q4H PRN PRN Reason: PAIN SCALE 6 TO 10 Last Admin: 01/19/19 05:00 Dose: 2 mg Senna/Docusate Sodium (Larissa-Colace) 1 tab PO BID [facility] Last Admin: 01/19/19 10:01 Dose: Not Given Sennosides (Senokot) 17.2 mg PO Q12H PRN PRN Reason: Moderate Constipation Sodium Chloride (Ns Flush) 2 ml IV.FLUSH BID [facility] Last Admin: 01/19/19 10:01 Dose: Not Given Sodium Chloride (Ns Flush) 2 ml IV.FLUSH PRN PRN PRN Reason: FLUSH AFTER USING IV ACCESS <Ann Stewart - Last Filed: 01/19/19 11:30> Active Medications: Active Medications Acetaminophen (Tylenol) 650 mg PO Q4H PRN PRN Reason: Temp > 100.4 Al Hydroxide/Mg Hydroxide (Milk Of Magnesia Liq) 30 ml PO Q12H PRN PRN Reason: Mild Constipation Bisacodyl (Dulcolax Supp) 10 mg RECTAL DAILY PRN PRN Reason: SEVERE CONSITIPATION Flumazenil (Romazicon Inj) 0.2 mg IV.PUSH Q1M PRN PRN Reason: OVERSEDATION Haloperidol Lactate (Haldol Inj) 1 mg IV.PUSH Q15M PRN PRN Reason: for severe agitation Sodium Chloride (Ns Inj) 1,000 mls @ 100 mls/hr IV.CONT .Q10H [facility] Last Admin: 01/19/19 14:55 Dose: 100 mls/hr Pantoprazole Sodium 80 mg/ (Sodium Chloride) 100 mls @ 10 mls/hr IV.CONT Q10H [facility] Last Admin: 01/19/19 15:58 Dose: 10 mls/hr Lactulose (Lactulose Liq) 30 ml PO DAILY PRN PRN Reason: SEVERE CONSITIPATION Lorazepam (Ativan) 1 mg PO Q4H PRN PRN Reason: for CIWA 8-10 Lorazepam (Ativan) 2 mg PO Q2H PRN PRN Reason: for CIWA 11-14 Lorazepam (Ativan Inj) 2 mg IV.PUSH Q2H PRN PRN Reason: for CIWA 11-14 Lorazepam (Ativan Inj) 2 mg IV.PUSH Q1H PRN PRN Reason: for CIWA 15-20 Lorazepam (Ativan Inj) 2 mg IV.PUSH Q15M PRN PRN Reason: for CIWA > 20 Lorazepam (Ativan Inj) 1 mg IV.PUSH Q4H PRN PRN Reason: for CIWA 8-10 Metoclopramide HCl (Reglan Inj) 10 mg IV.PUSH Q8H PRN; Protocol PRN Reason: NAUSEA/VOMITING Last Admin: 01/19/19 19:48 Dose: 10 mg Morphine Sulfate (Morphine Inj) 2 mg IV.PUSH Q4H PRN PRN Reason: PAIN SCALE 6 TO 10 Last Admin: 01/19/19 19:47 Dose: 2 mg Senna/Docusate Sodium (Larissa-Colace) 1 tab PO BID [facility] Last Admin: 01/19/19 20:01 Dose: Not Given Sennosides (Senokot) 17.2 mg PO Q12H PRN PRN Reason: Moderate Constipation Sodium Chloride (Ns Flush) 2 ml IV.FLUSH BID [facility] Last Admin: 01/19/19 20:01 Dose: 2 ml Sodium Chloride (Ns Flush) 2 ml IV.FLUSH PRN PRN PRN Reason: FLUSH AFTER USING IV ACCESS <Sami Ryan E - Last Filed: 01/19/19 20:34> Allergies Allergy/AdvReac Type Severity Reaction Status Date / Time ondansetron [From Zofran] Allergy Intermediate Itching Verified 01/19/19 00:12 Exam Vital signs: Vital Signs 01/19/19 00:12 01/19/19 01:00 01/19/19 04:44 Temperature 99.1 F Pulse Rate 117 H 89 79 Respiratory Rate 20 18 20 Blood Pressure 148/101 H 132/82 117/77 Pulse Oximetry 98 95 97 Intake & Output 01/18/19 01/19/19 01/19/19 18:59 06:59 18:59 Intake Total 1000 / 1000 Balance 1000 / 1000 Intake: IV 1000 / 1000 NS Inj 1,000 ML @ Wide Open IV. 1000 / 1000 SIG BOLUS ONE Rx#:[id number] <Ann Stewart C - Last Filed: 01/19/19 11:30> Vital signs: Vital Signs 01/19/19 00:12 01/19/19 01:00 01/19/19 04:44 Temperature 99.1 F Pulse Rate 117 H 89 79 Respiratory Rate 20 18 20 Blood Pressure 148/101 H 132/82 117/77 Pulse Oximetry 98 95 97 01/19/19 11:35 01/19/19 13:44 01/19/19 16:00 Temperature 98.5 F 97.6 F Pulse Rate 80 69 80 Respiratory Rate 16 18 18 Blood Pressure 150/88 H 142/72 H 136/76 Pulse Oximetry 99 100 100 Intake & Output 01/19/19 01/19/19 01/20/19 06:59 18:59 06:59 Intake Total 1000 / 1000 1220 / 1220 Balance 1000 / 1000 1220 / 1220 Weight 77 kg Intake: IV 1000 / 1000 1100 / 1100 Protonix Inj 80 MG In NS Inj 100 / 100 100 ML @ 10 mls/hr IV.CONT Q10H [facility] Rx#:[id number] NS Inj 1,000 ML @ 100 mls/hr IV 1000 / 1000 .CONT .Q10H [facility] Rx#:[id number] NS Inj 1,000 ML @ Wide Open IV. 1000 / 1000 SIG BOLUS ONE Rx#:[id number] Oral 120 / 120 Other: # Voids 1 Weight On Admission 76.5 kg <Sami Ryan E - Last Filed: 01/19/19 20:34> Results - Labs CBC & Chem 7: 01/19/19 03:04 01/19/19 01:15 Labs: Laboratory Results - last 24 hr 01/19/19 01/19/19 01/19/19 01:15 01:15 01:15 WBC 12.8 H RBC 3.76 L Hgb 12.1 Hct 36.4 MCV 96.7 MCH 32.1 MCHC 33.2 RDW 19.1 H Plt Count 359 MPV 8.3 Prelim Diff (Auto) Slide review pending Neut % (Auto) 60.6 Lymph % (Auto) 27.8 [place] % (Auto) 7.5 Eos % (Auto) 2.2 Baso % (Auto) 1.9 Neut # (Auto) 7.8 H Lymph # (Auto) 3.6 [place] # (Auto) 1.0 H Eos # (Auto) 0.3 Baso # (Auto) 0.2 WBC Differential . Diff Scan Auto diff confirmed Differential Comment . Platelet Estimate Normal Platelet Morphology Normal Keratocytes Occ H Sodium 141 Potassium 3.8 Chloride 105 Carbon Dioxide 26.3 Anion Gap 10 BUN 7 Creatinine 0.45 L Estimated GFR Greater than 89 Random Glucose 86 Calcium 7.7 L Magnesium 1.5 Total Bilirubin 0.3 AST 25 ALT 19 Alkaline Phosphatase 120 H Total Protein 7.0 D Albumin 2.8 L Lipase 249 Urine Color Yellow Urine Clarity Hazy H Urine pH 7.0 Ur Specific [place] 1.020 Urine Protein Negative Urine Glucose (UA) Negative Urine Ketones Negative Urine Occult Blood Negative Urine Nitrate Negative Urine Bilirubin Negative Urine Urobilinogen Less than 2 Ur Leukocyte Esterase Negative Urine RBC Less than 1 Urine WBC 1 Ur Squamous Epith Cells 9 Urine Mucus Few H Micro UA Comment Culture not ind Ur Microscopic Review Not Reportable Urine Culture Comments Culture not ind Blood Type Antibody Screen 01/19/19 01/19/19 03:04 04:41 WBC 12.3 H RBC 3.42 L Hgb 10.8 L Hct 33.9 L MCV 99.2 MCH 31.7 MCHC 31.9 L RDW 19.3 H Plt Count 257 MPV 7.6 Prelim Diff (Auto) Neut % (Auto) 66.5 Lymph % (Auto) 23.2 [place] % (Auto) 7.4 Eos % (Auto) 1.9 Baso % (Auto) 1.0 Neut # (Auto) 8.2 H Lymph # (Auto) 2.9 [place] # (Auto) 0.9 Eos # (Auto) 0.2 Baso # (Auto) 0.1 WBC Differential . Diff Scan Differential Comment Auto diff final Platelet Estimate Platelet Morphology Keratocytes Sodium Potassium Chloride Carbon Dioxide Anion Gap BUN Creatinine Estimated GFR Random Glucose Calcium Magnesium Total Bilirubin AST ALT Alkaline Phosphatase Total Protein Albumin Lipase Urine Color Urine Clarity Urine pH Ur Specific [place] Urine Protein Urine Glucose (UA) Urine Ketones Urine Occult Blood Urine Nitrate Urine Bilirubin Urine Urobilinogen Ur Leukocyte Esterase Urine RBC Urine WBC Ur Squamous Epith Cells Urine Mucus Micro UA Comment Ur Microscopic Review Urine Culture Comments Blood Type B Positive Antibody Screen Negative - Imaging Impressions Abdomen/Pelvis CT 01/19/19 00:23 CONCLUSION: 1. No acute abnormality. 2. 4.9 cm left adnexal cystic structure likely ovarian in nature. No free fluid. 3. Prior cholecystectomy. 4. Prior gastric bypass. 5. Small ventral hernia containing fat. <Ann Stewart - Last Filed: 01/19/19 11:30> - Labs CBC & Chem 7: 01/19/19 03:04 01/19/19 01:15 Labs: Laboratory Results - last 24 hr 01/19/19 01/19/19 01/19/19 01:15 01:15 01:15 WBC 12.8 H RBC 3.76 L Hgb 12.1 Hct 36.4 MCV 96.7 MCH 32.1 MCHC 33.2 RDW 19.1 H Plt Count 359 MPV 8.3 Prelim Diff (Auto) Slide review pending Neut % (Auto) 60.6 Lymph % (Auto) 27.8 [place] % (Auto) 7.5 Eos % (Auto) 2.2 Baso % (Auto) 1.9 Neut # (Auto) 7.8 H Lymph # (Auto) 3.6 [place] # (Auto) 1.0 H Eos # (Auto) 0.3 Baso # (Auto) 0.2 WBC Differential . Diff Scan Auto diff confirmed Differential Comment . Platelet Estimate Normal Platelet Morphology Normal Keratocytes Occ H Sodium 141 Potassium 3.8 Chloride 105 Carbon Dioxide 26.3 Anion Gap 10 BUN 7 Creatinine 0.45 L Estimated GFR Greater than 89 Random Glucose 86 Calcium 7.7 L Magnesium 1.5 Total Bilirubin 0.3 AST 25 ALT 19 Alkaline Phosphatase 120 H Total Protein 7.0 D Albumin 2.8 L Lipase 249 Urine Color Yellow Urine Clarity Hazy H Urine pH 7.0 Ur Specific [place] 1.020 Urine Protein Negative Urine Glucose (UA) Negative Urine Ketones Negative Urine Occult Blood Negative Urine Nitrate Negative Urine Bilirubin Negative Urine Urobilinogen Less than 2 Ur Leukocyte Esterase Negative Urine RBC Less than 1 Urine WBC 1 Ur Squamous Epith Cells 9 Urine Mucus Few H Micro UA Comment Culture not ind Ur Microscopic Review Not Reportable Urine Culture Comments Culture not ind Blood Type Antibody Screen 01/19/19 01/19/19 03:04 04:41 WBC 12.3 H RBC 3.42 L Hgb 10.8 L Hct 33.9 L MCV 99.2 MCH 31.7 MCHC 31.9 L RDW 19.3 H Plt Count 257 MPV 7.6 Prelim Diff (Auto) Neut % (Auto) 66.5 Lymph % (Auto) 23.2 [place] % (Auto) 7.4 Eos % (Auto) 1.9 Baso % (Auto) 1.0 Neut # (Auto) 8.2 H Lymph # (Auto) 2.9 [place] # (Auto) 0.9 Eos # (Auto) 0.2 Baso # (Auto) 0.1 WBC Differential . Diff Scan Differential Comment Auto diff final Platelet Estimate Platelet Morphology Keratocytes Sodium Potassium Chloride Carbon Dioxide Anion Gap BUN Creatinine Estimated GFR Random Glucose Calcium Magnesium Total Bilirubin AST ALT Alkaline Phosphatase Total Protein Albumin Lipase Urine Color Urine Clarity Urine pH Ur Specific [place] Urine Protein Urine Glucose (UA) Urine Ketones Urine Occult Blood Urine Nitrate Urine Bilirubin Urine Urobilinogen Ur Leukocyte Esterase Urine RBC Urine WBC Ur Squamous Epith Cells Urine Mucus Micro UA Comment Ur Microscopic Review Urine Culture Comments Blood Type B Positive Antibody Screen Negative - Imaging Impressions Abdomen/Pelvis CT 01/19/19 00:23 CONCLUSION: 1. No acute abnormality. 2. 4.9 cm left adnexal cystic structure likely ovarian in nature. No free fluid. 3. Prior cholecystectomy. 4. Prior gastric bypass. 5. Small ventral hernia containing fat. <Sami Ryan - Last Filed: 01/19/19 20:34> Assessment and Plan (1) Gastric ulcer Status: Acute Code(s): K25.9 - Gastric ulcer, unspecified as acute or chronic , without hemorrhage or perforation (2) Hematemesis/vomiting blood Status: Acute Code(s): K92.0 - Hematemesis - Plan 1. Gastric ulcer with recurrent GI bleeding. Abdominal pain and hematemesis. Patient is status gastric bypass and has an ulcer at the anastomosis. 2. Acute GI blood loss anemia, hemoglobin 10.8 and hematocrit 33.9. Plan: Protonix drip Clear liquid diet Monitor H&H and transfuse as needed N.p.o. after midnight for EGD tomorrow <Ann Stewart - Last Filed: 01/19/19 11:30> (1) Gastric ulcer Status: Acute Code(s): K25.9 - Gastric ulcer, unspecified as acute or chronic , without hemorrhage or perforation (2) Hematemesis/vomiting blood Status: Acute Code(s): K92.0 - Hematemesis - Attending Attestation Patient seen and examined Agree with above Continue with current supportive care Monitor labs Consideration to be made for Dexilant 60 mg daily use at discharge together with Carafate so as to maximize therapy if the ulcer is still persistent <Sami Ryan E - Last Filed: 01/19/19 20:34>
[2019-01-20] MEDS: Pantoprazole Inj 80 MG in Sodium Chlor 0.9% Inj 100 ML IV.CONT SCH ×2 (00:37→10:38)
[2019-01-20] MEDS: Morphine Inj 4 MG/ML Vial IV.PUSH PRN ×4 (03:32→20:42)
[2019-01-20 07:30] LABS: Baso # (Auto) 0.1 th/mm3 (0.0-0.2); Baso % (Auto) 0.9 % (0.0-2.0); Eos # (Auto) 0.2 th/mm3 (0.0-0.4); Eos % (Auto) 2.7 % (0.0-4.0); Hematocrit 36.9 % (35.0-46.0); Lymph # (Auto) 2.2 th/mm3 (1.0-4.8); Lymph % (Auto) 30.7 % (9.0-44.0); Mean Corpuscular HGB Conc 32.7 % (32.0-36.0); Mean Corpuscular Hemoglobin 31.4 pg (27.0-34.0); Mean Corpuscular Volume 96.1 fL (80.0-100.0); Mean Platelet Volume 8.1 fL (7.0-11.0); Mono # (Auto) 0.5 th/mm3 (0.0-0.9); Mono % (Auto) 6.6 % (0.0-8.0); Neut # (Auto) 4.2 th/mm3 (1.8-7.7); Neut % (Auto) 59.1 % (16.0-70.0); Platelet Count 287 th/mm3 (150-450); Red Blood Count 3.84 mil/mm3 (4.00-5.30); Red Cell Distribution Width 18.1 % (11.6-17.2); White Blood Count 7.1 th/mm3 (4.0-11.0)
[2019-01-20 07:58] LABS: Alanine Aminotransferase 19 U/L (10-53); Albumin 2.4 g/dL (3.4-5.0); Alkaline Phosphatase 149 U/L (45-117); Anion Gap 8 meq/L (5-15); Aspartate Aminotransferase 45 U/L (15-37); Blood Urea Nitrogen 2 mg/dL (7-18); Calcium 7.4 mg/dL (8.5-10.1); Carbon Dioxide 24.3 meq/L (21.0-32.0); Chloride 109 meq/L (98-107); Glomerular Filtration Rate Greater Than 89 mL/min (>89); Glucose,Random 81 mg/dL (74-106); Potassium 3.8 meq/L (3.5-5.1); Sodium 141 meq/L (136-145); Total Protein 6.1 g/dL (6.4-8.2)
[2019-01-20] MEDS: Senna/Docusate Sodium 8.6/50 MG Tablet PO SCH ×2 (08:31→20:41)
[2019-01-20] MEDS: Sod Chloride 0.9% Inj 1,000 ML IV.CONT SCH ×2 (09:00→20:45)
[2019-01-20] MEDS ORDERED: Lidocaine PF 1% Inj 5 ML Syringe OTHER ONE (10:57)
--- NOTE | 2019-01-20 11:27 | GIPROC ---
[facility] [address] [facility]. [facility], [id number] EGD PROCEDURE REPORT EXAM DATE: 01/20/2019 PATIENT NAME: Erica Solomon MR #: [id number] BIRTHDATE: 1975 ATTENDING: Raúl Diaz MD ORDER #: [id number] CREATIVE DESIGNER: Lucio Claire and Fannie Finley STATUS: inpatient INDICATIONS: The patient is a 43 yr old female here for an EGD due to H/O Gastric anastomosis and anastomotic ulcer PROCEDURE PERFORMED: EGD w/ biopsy MEDICATIONS: Per Anesthesia and None. TOPICAL ANESTHETIC: none CONSENT: The patient understands the risks and benefits of the procedure and understands that these risks include, but are not limited to: sedation, allergic reaction, infection, perforation and/or bleeding. Alternative means of evaluation and treatment include, among others: physical exam, x-rays, and/or surgical intervention. The patient elects to proceed with this endoscopic procedure. medical equipment was checked for proper function. Hand hygiene and appropriate measures for infection prevention was taken. After the risks, benefits and alternatives of the procedure were thoroughly explained, Informed consent was verified, confirmed and timeout was successfully executed by the treatment team. The patient was anesthetized with topical anesthesia and the Pentax EG-[id number] endoscope was introduced through the mouth and advanced to the mid jejunum. Retroflexed views revealed no abnormalities The gastroscope was then slowly withdrawn and removed. ESOPHAGUS: There was LA Class B esophagitis noted. STOMACH: A gastric bypass was found in the gastric pouch characterized by erythema. Multiple biopsies were performed. A large non-bleeding, round, shallow and clean-based ulcer was found at the gastro-jejunal anastamosis. Biopsies were taken at edge of the ulcer. JEJUNUM: The exam showed no abnormalities in the jejunum. ADVERSE EVENTS: There were no complications. IMPRESSIONS: 1. There was LA Class B esophagitis noted 2. Gastric bypass was found in the gastric pouch; multiple biopsies were performed 3. Large ulcer was found at the gastro-jejunal anastamosis; biopsies were taken 4. The exam showed no abnormalities in the jejunum 5. Retroflexed views revealed no abnormalities RECOMMENDATIONS: Await biopsy results. Biopsy results will not be ready for 7-10 days. If you don't hear from us in two weeks, call our office for biopsy results. PATIENT CONDITION: stable DISPOSITION: Inpatient REPEAT EXAM: Return as needed for EGD Raúl Diaz MD eSigned: Raúl Diaz MD 01/20/2019 11:26 AM cc: PATIENT NAME: Erica Solomon MR#: [id number]
--- NOTE | 2019-01-20 16:41 | P.PNIM ---
Subjective Interval history: Follow up for upper GI bleed. Patient is currently doing well. She underwent EGD today - found to have a large ulcer at the gastrojejunal anastomosis. Patient denies any chest pain, shortness of breath, fever or chills. Physical Exam Vital signs: Vital Signs 01/19/19 20:00 01/20/19 00:00 01/20/19 04:00 Temperature 98.3 F 97.8 F 97.8 F Pulse Rate 79 75 67 Respiratory Rate 16 16 16 Blood Pressure 125/83 128/85 136/85 Pulse Oximetry 97 98 99 01/20/19 08:00 01/20/19 11:35 01/20/19 12:20 Temperature 98.4 F 98.3 F 97.9 F Pulse Rate 70 77 77 Respiratory Rate 18 17 18 Blood Pressure 136/78 125/68 162/88 H Pulse Oximetry 99 98 100 Intake & Output 01/19/19 01/20/19 01/20/19 18:59 06:59 18:59 Intake Total 1220 / 1220 1385 / 1385 850 / 850 Balance 1220 / 1220 1385 / 1385 850 / 850 Weight 77 kg Intake: IV 1100 / 1100 1385 / 1385 750 / 750 Protonix Inj 80 MG In NS Inj 100 / 100 135 / 135 100 ML @ 10 mls/hr IV.CONT Q10H [facility] Rx#:[id number] NS Inj 1,000 ML @ 100 mls/hr IV 1000 / 1000 1250 / 1250 750 / 750 .CONT .Q10H [facility] Rx#:[id number] Oral 120 / 120 Anesthesia Amount 100 / 100 Other: # Voids 1 Date of Last Bowel Movement 01/19/19 Weight On Admission 76.5 kg Narrative: GENERAL: Well-nourished, well-developed patient. SKIN: Warm and dry. HEAD: Normocephalic. EYES: No scleral icterus. No injection or drainage. NECK: Supple, trachea midline. No JVD or lymphadenopathy. CARDIOVASCULAR: Regular rate and rhythm without murmurs, gallops, or rubs. RESPIRATORY: Breath sounds equal bilaterally. No accessory muscle use. GASTROINTESTINAL: Abdomen soft, non-tender, nondistended. MUSCULOSKELETAL: No cyanosis, or edema. BACK: Nontender without obvious deformity. No CVA tenderness. 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 Multiple admissions for same. Recent admit 01/11-01/15/19 for similar complaints, s/p EGD/ Colonoscopy 01/12/19 w/ gastric body ulcer and internal/external hemorrhoids, plan for repeat EGD in 3 months, yearly Hemoccult and repeat Colonoscopy in 5yrs. Returns now w/ ongoing hematemesis, states vomiting up blood several times today. Pain is severe, 9/10, non-radiating, mostly in epigastric/LUQ region. Acute upper GI bleed Gastro-jejunal anastomosis large ulcer Status post EGD which showed large ulcer Discontinue Protonix drip and start Protonix p.o. twice daily We will check hemoglobin level in the morning. If stable, patient can be discharged in the morning. -Follow up with GI in the outpatient setting. History of alcohol abuse Maintain CIWA protocol Abdominal pain -improving. Start regular soft diet. Advance as tolerated. Full code. Ambulation. Progress Note: Quality VTE Deep Vein Thrombosis/Pulmonary Embolism Present on Admission: No _ (1) Gastric ulcer Qualifiers: Gastric ulcer chronicity: Gastric ulcer complication status: (2) Hematemesis/vomiting blood Qualifiers: Nausea presence:
[2019-01-20] MEDS: Famotidine 20 MG Tablet PO SCH (20:41)
[2019-01-21] MEDS: Morphine Inj 4 MG/ML Vial IV.PUSH PRN ×5 (02:10→23:46)
[2019-01-21] MEDS: Sod Chloride 0.9% Inj 1,000 ML IV.CONT SCH ×4 (03:56→23:44)
[2019-01-21 06:10] LABS: Hematocrit 32.6 % (35.0-46.0); Hemoglobin 10.7 gm/dL (11.6-15.3)
[2019-01-21] MEDS: Famotidine 20 MG Tablet PO SCH ×2 (08:21→21:15)
[2019-01-21] MEDS: Senna/Docusate Sodium 8.6/50 MG Tablet PO SCH ×2 (08:21→21:15)
--- NOTE | 2019-01-21 09:47 | P.PNIM ---
Subjective Interval history: Follow up for upper GI bleed. Patient reports nausea vomiting this morning as well as one episode of diarrhea. No chest pain, shortness of breath, fever or chills. She would like to try soft food this morning and see how she does. Physical Exam Vital signs: Vital Signs 01/20/19 11:35 01/20/19 12:20 01/20/19 16:04 Temperature 98.3 F 97.9 F 98.3 F Pulse Rate 77 77 87 Respiratory Rate 17 18 17 Blood Pressure 125/68 162/88 H 132/83 Pulse Oximetry 98 100 99 01/20/19 20:00 01/21/19 00:00 01/21/19 03:56 Temperature 97.5 F L 98.1 F 97.1 F L Pulse Rate 89 70 72 Respiratory Rate 18 20 18 Blood Pressure 120/83 123/84 114/75 Pulse Oximetry 98 96 98 Intake & Output 01/20/19 01/21/19 01/21/19 18:59 06:59 18:59 Intake Total 1395 / 1395 1750 / 1750 Balance 1395 / 1395 1750 / 1750 Weight 77 kg Intake: IV 815 / 815 1750 / 1750 Protonix Inj 80 MG In NS Inj 65 / 65 100 ML @ 10 mls/hr IV.CONT Q10H [facility] Rx#:[id number] NS Inj 1,000 ML @ 100 mls/hr IV 750 / 750 1750 / 1750 .CONT .Q10H [facility] Rx#:[id number] Oral 480 / 480 0 / 0 Anesthesia Amount 100 / 100 Other: # Voids 4 # Incontinent Voids 2 Date of Last Bowel Movement 01/19/19 # Bowel Movements 0 Narrative: GENERAL: Well-nourished, well-developed patient. SKIN: Warm and dry. HEAD: Normocephalic. EYES: No scleral icterus. No injection or drainage. NECK: Supple, trachea midline. No JVD or lymphadenopathy. CARDIOVASCULAR: Regular rate and rhythm without murmurs, gallops, or rubs. RESPIRATORY: Breath sounds equal bilaterally. No accessory muscle use. GASTROINTESTINAL: Abdomen soft, non-tender, nondistended. MUSCULOSKELETAL: No cyanosis, or edema. BACK: Nontender without obvious deformity. No CVA tenderness. 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 Multiple admissions for same. Recent admit 01/11-01/15/19 for similar complaints, s/p EGD/ Colonoscopy 01/12/19 w/ gastric body ulcer and internal/external hemorrhoids, plan for repeat EGD in 3 months, yearly Hemoccult and repeat Colonoscopy in 5yrs. Returns now w/ ongoing hematemesis, states vomiting up blood several times today. Pain is severe, 9/10, non-radiating, mostly in epigastric/LUQ region. Acute upper GI bleed Gastro-jejunal anastomosis large ulcer Status post EGD which showed large ulcer Continue Protonix p.o. twice daily Hemoglobin level 10.7 this morning. -Follow up with GI in the outpatient setting. Patient had nausea vomiting and diarrhea today. We will watch this morning for any persistent symptoms. History of alcohol abuse Maintain CIWA protocol Abdominal pain -improving. Continue regular soft diet. If she does not tolerate soft diet, we may have to go back to clear liquid on a full liquid. Full code. Ambulation. Discharge plan: If patient does not have any further nausea vomiting or diarrhea , and if she remains stable hemodynamically, patient can likely be discharged today or tomorrow morning. Progress Note: Quality VTE Deep Vein Thrombosis/Pulmonary Embolism Present on Admission: No _ (1) Gastric ulcer Qualifiers: Gastric ulcer chronicity: Gastric ulcer complication status: (2) Hematemesis/vomiting blood Qualifiers: Nausea presence:
[2019-01-21] MEDS ORDERED: traZODone 50 MG Tablet PO SCH (21:00)
[2019-01-22] MEDS: Sod Chloride 0.9% Inj 1,000 ML IV.CONT SCH (03:25)
[2019-01-22] MEDS: Morphine Inj 4 MG/ML Vial IV.PUSH PRN (06:40)
[2019-01-22 07:26] VITALS: RESP 18; O2SAT 98
[2019-01-22] MEDS: Senna/Docusate Sodium 8.6/50 MG Tablet PO SCH (08:28)
[2019-01-22] MEDS: Famotidine 20 MG Tablet PO SCH (08:28)
[2019-01-22 09:09] VITALS: BP 141/89; PULSE 82; TEMP 98.6
--- NOTE | 2019-01-22 09:31 | P.DS ---
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 Multiple admissions for same. Recent admit -01/15/19 for similar complaints, s/p EGD/Colonoscopy 01/12/19 w/ gastric body ulcer and internal/external hemorrhoids, plan for repeat EGD in 3 months, yearly Hemoccult and repeat Colonoscopy in 5yrs. Returns now w/ ongoing hematemesis, states vomiting up blood several times today. Pain is severe, 9/10 , non-radiating, mostly in epigastric/LUQ region. Decreased PO due to symptoms. On arrival, BP 148/101, HR 117, O2 sat 98% on RA, Temp 99.1. Hemoglobin 12.1 initially, however patient with episode of hematemesis while in the ER, repeat hemoglobin decreased to 10.8. Chemistry unremarkable. CT Abdomen/Pelvis no acute finding. DS: Diagnosis Discharge Diagnosis (1) Gastric ulcer: Status: Acute (2) Hematemesis/vomiting blood: Status: Acute DS: Summary This is a 43-year-old female with a PMH of Gastric Bypass, h/o C Diff Chronic Carrier, Recurrent Pancreatitis, Gastric Ulcer w/ GI Bleed and h/o Alcohol Abuse who presented to the ER w/ c/o hematemesis and abdominal pain. Multiple admissions for same. Recent admit 01/11-01/15/19 for similar complaints, s/p EGD/ Colonoscopy 01/12/19 w/ gastric body ulcer and internal/external hemorrhoids, plan for repeat EGD in 3 months, yearly Hemoccult and repeat Colonoscopy in 5yrs. Returns now w/ ongoing hematemesis, states vomiting up blood several times today. Pain is severe, 9/10, non-radiating, mostly in epigastric/LUQ region. Acute upper GI bleed Gastro-jejunal anastomosis large ulcer Status post EGD which showed large ulcer Continue Protonix p.o. twice daily Hemoglobin level 10.7 -Follow up with GI in the outpatient setting. tolerating full liquid diet well. Discussed with Pt regarding gradually advancing diet. History of alcohol abuse Maintained CIWA protocol Abdominal pain -improving. Gradually advance diet. Follow up with GI. GI cleared for discharge. Full code. Ambulation. Time Spent with Patient Total time spent providing and/or coordinating discharge services: Less than 30 minutes Quality: VTE Deep Vein Thrombosis/Pulmonary Embolism Present on Admission: No Exam Narrative Exam Narrative: GENERAL: Well-nourished, well-developed patient. SKIN: Warm and dry. HEAD: Normocephalic. EYES: No scleral icterus. No injection or drainage. NECK: Supple, trachea midline. No JVD or lymphadenopathy. CARDIOVASCULAR: Regular rate and rhythm without murmurs, gallops, or rubs. RESPIRATORY: Breath sounds equal bilaterally. No accessory muscle use. GASTROINTESTINAL: Abdomen soft, non-tender, nondistended. MUSCULOSKELETAL: No cyanosis, or edema. BACK: Nontender without obvious deformity. No CVA tenderness. Results Completed studies during hospitalization: Pending at discharge 01/20/19 12:51 Surgical [PTH] Routine Impressions ITS Impressions Abdomen/Pelvis CT 01/19/19 00:23 CONCLUSION: 1. No acute abnormality. 2. 4.9 cm left adnexal cystic structure likely ovarian in nature. No free fluid. 3. Prior cholecystectomy. 4. Prior gastric bypass. 5. Small ventral hernia containing fat. Discharge Plan Discharge Disposition Patient Disposition: Discharge Home Discharge Condition Condition: Good Discharge Order Discharge Orders: Discharge Order (Routine); Ordered 01/22/19 Ordered By: Alberta Raza Discharge Details Anticipated Discharge Date: 01/22/19 Physicians Team Primary Care Provider: UNKNOWN, Attending Provider: Alberta Raza Other Providers: Sami Ryan Rxs /Orders / Referrals /Forms Prescriptions: New trazodone 50 mg Tablet 50 mg PO HS PRN (Reason: Insomnia) Qty: 10 RF: 0 Continue thiamine HCl (vitamin B1) 100 mg Tablet 100 mg PO BID 30 Days Qty: 60 RF: 0 sucralfate 1 gram Tablet 1 g PO ACHS 30 Days Qty: 90 RF: 0 pantoprazole [Protonix] 40 mg tablet,delayed release (DR/EC) 40 mg PO BID 30 Days Qty: 60 RF: 5 loperamide [Imodium A-D] 2 mg tablet 2 mg PO Q4H PRN (Reason: loose stool) Qty: 30 RF: 0 Referrals: UNKNOWN, [Primary Care Provider] - See Instructions (PCP within 1-2 weeks. PLEASE CALL FOR AN APPOINTMENT WITH [facility] [phone] (NEED MEDICAL RECORD INFORMATION) ) Discharge Instructions Patient Printed Instructions: Trazodone (By mouth), Gastrointestinal Bleeding ( DC) Post Discharge Care Plan Care Plan Goals: Your Health Problems: GI Bleed Goals to Promote Your Health: * To prevent worsening of your condition * To maintain your health at the optimal level Directions to Meet Your Goals: * Take your medications as prescribed * Follow your dietary instruction * Follow activity as directed * Keep your appointments as scheduled * Take your immunizations and boosters as scheduled * If your symptoms worsen call your PCP * If no PCP go to Urgent Care or Emergency Room Smoking is dangerous to your health. Avoid second hand smoke. You may reach the 24-hour crisis hotline for domestic abuse at . Status ED Status: Left Department Discharge Information Discharge Date/Time: 01/22/19 11:39
--- NOTE | 2019-01-22 11:18 | P.PNGI ---
Subjective Interval history: Patient awake and alert wanting to stay 1 more day in the hospital No nausea and some abdominal pain with still loose bowel movement but not as bad from yesterday Ambulating inside the room Physical Exam Vital signs: Vital Signs 01/21/19 12:00 01/21/19 16:00 01/21/19 20:00 Temperature 98.2 F 98.1 F 97.9 F Pulse Rate 85 83 73 Respiratory Rate 18 20 17 Blood Pressure 132/81 145/79 H 137/79 Pulse Oximetry 97 97 95 01/22/19 00:00 01/22/19 04:00 01/22/19 09:08 Temperature 97.7 F 97.7 F 98.6 F Pulse Rate 71 73 82 Respiratory Rate 16 18 18 Blood Pressure 129/73 138/82 141/89 H Pulse Oximetry 97 98 98 Intake & Output 01/21/19 01/22/19 01/22/19 18:59 06:59 18:59 Intake Total 1470 / 1470 1720 / 1720 1000 / 1000 Output Total 1200 / 1200 900 / 900 Balance 270 / 270 820 / 820 1000 / 1000 Weight 77 kg Intake: IV 750 / 750 1000 / 1000 1000 / 1000 NS Inj 1,000 ML @ 100 mls/hr IV 750 / 750 1000 / 1000 1000 / 1000 .CONT .Q10H [facility] Rx#:[id number] Oral 720 / 720 720 / 720 Output: Urine 1200 / 1200 900 / 900 Other: Date of Last Bowel Movement 01/21/19 01/21/19 # Bowel Movements 1 - Constitutional no acute distress - Routine HEENT Exam Head: Present: normocephalic - Routine Neck Exam Present: supple - Routine Respiratory Exam Present: CTA bilaterally - Routine Cardiovascular Exam Present: RRR, S1, S2 - Routine Abdominal Exam Present: soft, normoactive bowel sounds. Absent: tenderness, distended - Routine Extremities Exam Present: pulses intact, normal capillary refill - Routine Skin Exam Present: intact - Routine Neurological Exam Present: alert, oriented X3 Results - Labs CBC & Chem 7: 01/21/19 05:30 01/20/19 07:00 Assessment and Plan (1) Gastric ulcer Status: Acute Code(s): K25.9 - Gastric ulcer, unspecified as acute or chronic , without hemorrhage or perforation (2) Hematemesis/vomiting blood Status: Acute Code(s): K92.0 - Hematemesis (3) Status post gastric bypass for obesity Status: Acute Code(s): Z98.84 - Bariatric surgery status (4) Short bowel syndrome Status: Acute Code(s): K91.2 - Postsurgical malabsorption, not elsewhere classified - Plan 01/19/2019 43-year-old female with history of gastric bypass surgery and gastric ulcer with GI bleeding presented to ER with hematemesis and abdominal pain. Gastric bypass surgery in 2007. Recurrent bleeding ulcer for the past 4 years. History of alcohol abuse, abstinent x4 months and prior to that abstinent x 1 year. Patient recently had an upper endoscopy for the same complaints and was found to have an ulceration at the anastomosis. She has been taking pantoprazole and Carafate. She denies dysphagia but states she frequently vomits up medication after taking it. She avoids NSAIDs. She has a history of alcohol abuse but has not had any alcohol in 4 months. She was discharged on with plans to repeat EGD in 3 months. Yesterday however patient's abdominal pain increased and she began vomiting stomach contents followed by bloody emesis. She denies melena. Initial labs in the ER showed hemoglobin of 12.1 but repeat hemoglobin was 10.8. No acute findings on CT of the abdomen and pelvis. Recent colonoscopy significant for internal and external hemorrhoids. Assessment 1. Gastric ulcer with recurrent GI bleeding. Abdominal pain and hematemesis. Patient is status gastric bypass and has an ulcer at the anastomosis. 2. Acute GI blood loss anemia, hemoglobin 10.8 and hematocrit 33.9. 01/22/2019 Assessment Intractable nausea vomiting -patient has an ulcer at the anastomosis site from gastric bypass Chronic diarrhea-inflammatory versus infection versus short bowel syndrome. patient status post gastric bypass for obesity, diarrhea is probably secondary to short gut syndrome. On top of this patient was recently diagnosed with C. difficile and had completed medications. Today patient has no report of nausea vomiting have increased appetite and wanted to eat regular meal and is ready to go home. Still complains of loose bowel movement but not as bad as before. She tested negative for C. difficile after completions of medications during her last admission. Plan Diet as tolerated Okay to go home from gastroenterology standpoint Supportive care Patient agrees to follow-up 2 weeks after discharge GI will sign off reconsult as needed Patient was seen and examined by myself and Dr. Diaz and his note is written on his behalf - Attending Attestation Dr Diaz
== END 2019-01-22 11:39 | disposition home or self-care (01) ==
LOC: NEPD 00:10 → INTOOBSV 04:11 → NEDA 04:11 → NEDH 06:15 → N04 13:29
PROVIDERS: ADMIT Hospitalist; ATTEND Hospitalist
PROC: PANENDO (2019-01-20 10:57)
DX: K86.1 Other chronic pancreatitis; Z98.84 Bariatric surgery status; D51.9 Vitamin B12 deficiency anemia, unspecified; K85.90 Acute pancreatitis without necrosis or infection, unspecified; K64.8 Other hemorrhoids; A04.72 Enterocolitis due to Clostridium difficile, not specified as recurrent; K91.2 Postsurgical malabsorption, not elsewhere classified; F32.9 Major depressive disorder, single episode, unspecified; Z82.49 Family history of ischemic heart disease and other diseases of the circulatory system; K43.9 Ventral hernia without obstruction or gangrene; F17.210 Nicotine dependence, cigarettes, uncomplicated; N18.9 Chronic kidney disease, unspecified; F10.10 Alcohol abuse, uncomplicated; D63.1 Anemia in chronic kidney disease; K29.70 Gastritis, unspecified, without bleeding; Z90.49 Acquired absence of other specified parts of digestive tract; K25.4 Chronic or unspecified gastric ulcer with hemorrhage; Z22.1 Carrier of other intestinal infectious diseases; K64.4 Residual hemorrhoidal skin tags
CPT/HCPCS: 74177; 80053; 81001; 83690; 83735; 85014; 85018; 85025; 86850; 86900; 86901; 88305; 88312; 90761; 90774; 90775; 90784; 96361; 96374; 96375; 96376; 99285; C8952; C9113; G0378; J0780; J2270; J2704; J2765; J7030; Q9967